=== PATIENT | male | born 1950 | race Caucasian/White ===

== ENCOUNTER 2019-04-25 15:13 | Outpatient (CLI) | payer MEDICARE, OTHER, SELFPAY | END 2019-04-25 15:14 | disposition home or self-care (01) | PROVIDERS: Family Provider Family Medicine; PCP Family Medicine; Visit Provider Nurse Practitioner Family | DX: Z76.89 Persons encountering health services in other specified circumstances (principal) ==

== ENCOUNTER 2019-04-28 15:11 | Outpatient (CLI) | payer MEDICARE, OTHER, SELFPAY ==
--- NOTE | 2019-04-28 15:19 | USCV_ITS ---
Simba Berry Age: 68 Gender: M : 1950 Exam Date: 04/28/2019 15:18 Ordering Phys: Natalia Donaldson Technologist: Iman Ramires Exam Location: [facility] [place] Indication: HISTORY: Patient has ulcers. PROCEDURES: Bilateral duplex Venous Insufficiency study of the Deep and Superficial systems was carried out according to normal protocol with the patient in supine positon for deep system and dependent position for the superficial system. FINDINGS: There is no evidence of bilateral deep vein thrombosis. No evidence of superficial thrombosis in the bilateral saphenous system. No evidence of reflux was noted in the bilateral deep venous system. No venous reflux noted in the bilateral small saphenous vein. Venous reflux is demonstrated in the RIGHT greater saphenous vein with a spectral Doppler display of greater than 500 milliseconds at the PROXIMAL and BELOW THE KNEE levels. Venous reflux is demonstrated in the LEFT greater saphenous vein with a spectral Doppler display of greater than 500 milliseconds at most levels imaged. Venous reflux was demonstrated in the LEFT SFJ with a spectral display of greater than 500 milliseconds. CONCLUSIONS No evidence of DVT in the above-mentioned identifiable veins. On the right side, significant venous reflux of greater than 500 ms were noted at the proximal and below-knee greater saphenous vein segments On the left side, significant venous reflux of greater than 500 ms were noted at the saphenofemoral junction, distal to the saphenofemoral junction, proximal and mid greater saphenous vein segments and the below knee greater saphenous vein segments. No significant venous reflux in the small saphenous venous systems bilaterally The venous dimensions, depth from the surface and reflux times as mentioned above Dr Karina Ly MD [facility] (Electronically Signed) Final Date: 29 April 2019 07:46 S
== END 2019-04-28 15:12 | disposition home or self-care (01) ==
LOC: RAD 15:17
PROVIDERS: Family Provider Family Medicine; PCP Family Medicine; Visit Provider Family Medicine
DX: L97.929 Non-pressure chronic ulcer of unspecified part of left lower leg with unspecified severity (principal); L97.919 Non-pressure chronic ulcer of unspecified part of right lower leg with unspecified severity; I73.9 Peripheral vascular disease, unspecified
CPT/HCPCS: 93970

== ENCOUNTER 2019-05-08 15:00 | Outpatient (RCR) | payer MEDICARE, SELFPAY ==
--- NOTE | 2019-04-18 11:36 | XR_ITS ---
WS: [id number] FOOT LEFT TECHNIQUE: 3 views of the left foot CLINICAL INFORMATION: PAIN/REDNESS/NON HEALING ULCER COMPARISON: None. FINDINGS: Osteopenia. No acute fractures. Vascular calcification. Soft tissue edema hindfoot. Plantar and Achil les calcaneal spurring. Soft tissue ulceration overlying the calcaneus. No evidence of osteomyelitis. XR/XR foot LT min 3V* [id number] IMPRESSION: No evidence of osteomyelitis.
[2019-04-18 15:24] LABS: Estmated Average Glucose 180; Hemoglobin A1C 7.9 % (4.0-6.0)
== END 2019-05-09 23:59 | disposition home or self-care (01) ==
LOC: RAD 15:00
PROVIDERS: Family Provider Family Medicine; PCP Family Medicine; Visit Provider Nurse Practitioner Family
DX: E11.621 Type 2 diabetes mellitus with foot ulcer (principal); L97.422 Non-pressure chronic ulcer of left heel and midfoot with fat layer exposed; I96 Gangrene, not elsewhere classified; M79.672 Pain in left foot
CPT/HCPCS: 11042; 36415; 73630; 83036; 87070; 87077; 87176; 87186; 87205; 99212; G0463; L3260

== ENCOUNTER 2019-05-10 08:58 | Emergency (ER) | payer MEDICARE, OTHER, SELFPAY ==
[2019-05-10 09:13] VITALS: BP 182/85; PULSE 74; RESP 17; TEMP 36.6; O2SAT 96; BMI 42.3
--- NOTE | 2019-05-10 09:27 | PC.NURSE ---
Patient c/o anterior, lateral left foot pain that started last night. Patient states that he has had shingles in this area within the last 6 months. Pain has been been intermittent and is very painful to touch. Pain is described as sharp and burning sensation. Pain is 4/10 but increases intermittently to 7-8/10. No injury noted. Is seeing wound care for open area on the posterior, medial heel; lareg bandaid is in place over area at this time.
--- NOTE | 2019-05-10 09:33 | ED_ITS ---
HPI - Extremity Problem General: Chief complaint: Extremity Problem,Nontraumatic Stated complaint: Left foot pain Time Seen by Provider: 05/10/19 09:12 Source: patient Mode of arrival: ambulatory Limitations: no limitations History of Present Illness: HPI Narrative: Patient is a 68-year-old male who presents to ED today with complaints of left foot pain that he awoke with; charu ent states he had similar pains back in December of last year and at that time was accompanied by a rash and was subsequently diagnosed with shingles; he was placed on antivirals and stated he improved; he has not had any issues with the extremity until this morning; he describes the pain as a burning stabbing sensation; no injury or trauma noted MD Complaint: extremity pain Onset (ago): hour(s) Pain Consistency: constant Location: left Quality: burning, stabbing and sharp Radiation: none Relieving factors: nothing Exacerbating factors: nothing Associated symptoms: Reports no associated symptoms Review of Systems Musc: Reports: extremity pain; Denies: neck pain, back pain, extremity swelling, joint pain, joint swelling, redness, joint warmth or joint stiffness Neuro: Denies: headache, numbness in extremities, weakness in extremities or changes in sensation PFSH ED PFSH: Statuses (acute, chronic, etc) shown below reflect problem list status as previously entered and may not be historically accurate Surgical History (Updated 04/28/19 @ 14:51 by Mateo Beltran MD) Status post arthroscopy of left shoulder (Acute) Social History (Updated 04/28/19 @ 14:50 by Adina Balderas LPN) Smoking and tobacco status: never smoked Alcohol intake: never Physical Exam Const: COMMON NORMALS: no apparent distress, oriented x3, no limitations and alert NUTRITIONAL APPEARANCE: obese Extremity: OTHER: Patient has severe tenderness to the dorsum of his left foot; there is no obvious rash formation at this time; there is no swelling, ecchymosis to suggest injury Neuro: COMMON NORMALS: oriented x3 SENSORIUM/ORIENTATION: Yes alert Course Vital Signs: Vital signs: Vital Signs Temperature 98.3 F 05/10/19 09:47 Pulse Rate 75 05/10/19 09:47 Respiratory Rate 20 H 05/10/19 09:47 Blood Pressure 164/69 05/10/19 09:47 Pulse Oximetry 96 05/10/19 09:47 MDM - Extremity (Nontraumatic) MDM Narrative: Medical decision making narrative: Patient states last episode he did have an erythematous blistering rash hence why he was diagnosed with the herpes zoster. Based on his symptoms today of sharp burning, I will go ahead and place him on valacyclovir. Recommend close follow-up with his PCP. Patient already takes oxycodone daily for pain-he may continue this as needed. Return to ED precautions given Discharge Plan Discharge Patient Disposition: Home, Self-Care Clinical Impression: Shingles Qualifiers: Herpes zoster complications: without complications Qualified Code(s): B02.9 - Zoster without complications Condition: Stable Prescriptions: New valacyclovir 1 gram tablet 1,000 mg PO Q8H 7 Days Qty: 21 RF: 0 No Action oxycodone-acetaminophen [Percocet] 10-325 mg tablet 1 tab PO Q6H PRNRF: 0 carvedilol 12.5 mg tablet 12.5 mg PO BID Qty: 60 RF: 0 omeprazole 20 mg capsule,delayed release(DR/EC) 20 mg PO ONCE Qty: 30 RF: 1 spironolactone 25 mg tablet 25 mg PO ONCE Qty: 30 RF: 1 diclofenac sodium 25 mg tablet,delayed release (DR/EC) 25 mg PO BID PRN (Reason: pain) Qty: 60 RF: 0 sertraline 100 mg tablet 100 mg PO QDAY Qty: 60 RF: 0 Discharge Orders: Discharge Order (Routine); Ordered 05/10/19 Ordered By: Gemini Stern Referrals: Denice Coronado DO [Primary Care Provider] - Discharge Diet: Usual diet Discharge Activity: Increase activity as tolerated Activity Restrictions/Additional Instructions: Can continue your current pain medications as prescribed. Please followup with primary care next week for continued pain. Discharge Date/Time: 05/10/19 09:48 Coding Level of Care Code ED Range Management Specialist for Bill Griffin
[2019-05-10 09:47] VITALS: BP 164/69; PULSE 75; RESP 20; TEMP 36.8; O2SAT 96
== END 2019-05-10 09:48 | disposition home or self-care (01) ==
LOC: ER 09:47
PROVIDERS: Emergency Provider Physician Assistant; Family Provider Family Medicine; PCP Family Medicine
DX: B02.9 Zoster without complications (principal)
CPT/HCPCS: 99281; 99282

== ENCOUNTER 2019-05-14 14:07 | Outpatient (RCR) | payer MEDICARE, OTHER, SELFPAY | END 2019-06-07 23:59 | disposition home or self-care (01) | LOC: WOUND 14:07 | PROVIDERS: Family Provider Family Medicine; PCP Family Medicine; Visit Provider Nurse Practitioner Family | DX: Z09 Encounter for follow-up examination after completed treatment for conditions other than malignant neoplasm (principal) | CPT/HCPCS: 99212 ==

== ENCOUNTER → 2019-05-23 11:27 | Outpatient (BNVA) | payer MEDICARE, OTHER, SELFPAY | PROVIDERS: Family Provider Family Medicine; PCP Family Medicine; Visit Provider Family Medicine | DX: I10 Essential (primary) hypertension (principal); E11.9 Type 2 diabetes mellitus without complications; E78.5 Hyperlipidemia, unspecified; F32.9 Major depressive disorder, single episode, unspecified | CPT/HCPCS: 80053; 80061; 82044; 83036; 83721; 85025 ==

== ENCOUNTER 2019-07-08 10:26 | Outpatient (CLI) | payer MEDICARE, OTHER, SELFPAY ==
--- NOTE | 2019-07-08 10:36 | MR_ITS ---
WS: [id number] MRI LEFT SHOULDER HISTORY: status post left shoulder arthroscopy, new onset of pain 2 weeks ago. COMPARISON: 01/16/2018 TECHNIQUE: Multiplanar sequences of the shoulder joint are submitted. Large amount of fluid surrounding the humeral head. There is a large joint effusion which extends int o the AC joint. Small loose bodies are evident within the fluid. Anchors are also noted within the hu meral head. Fluid at the AC joint. There is significant narrowing of the acromiohumeral joint space. Acromion abu ts the superior humeral head. Complete tears with retraction of the supraspinatus and subscapularis t endons. Supraspinatus tendon is retracted to the level of the glenoid. Subscapularis tendon may be th e loose body within the fluid over the proximal humerus. Infraspinatus tendon is intact. Biceps tendon is not identified at the bicipital groove. Glenohumeral joint space narrowing. Cortical irregularity over the humeral head and glenoid. Fraying and irregularity involving the labrum. MR/MR shoulder LT wo con* [id number] IMPRESSION: 1. Large joint effusion with fluid extending into the AC joint. 2. Humeral head abuts the undersurface of the acromion. 3. Full-thickness tear is of the supraspinatus and subscapularis tendon with r etraction. 4. Biceps tendon is no longer appreciated at the bicipital groove and is retra cted. 5. Moderate degenerative changes at the humeral head and at the glenohumeral j oint space. 6. Mild AC joint sprain. 7. Multiple anchors in the humeral head from prior surgery.
== END 2019-07-08 10:27 | disposition home or self-care (01) ==
LOC: RADSHAW 10:27
PROVIDERS: Family Provider Family Medicine; PCP Family Medicine; Visit Provider Orthopaedic Surgery
DX: Z98.890 Other specified postprocedural states (principal); M25.412 Effusion, left shoulder; M75.102 Unspecified rotator cuff tear or rupture of left shoulder, not specified as traumatic
CPT/HCPCS: 73221

== ENCOUNTER 2019-07-23 05:40 | Day surgery (SDC) | payer MEDICARE, OTHER, SELFPAY ==
[2019-07-22 10:45] VITALS: BMI 41.3
[2019-07-23] VITALS (8 sets, daily range): BP systolic 127–149; BP diastolic 64–84; PULSE 77–91; RESP 15–22; TEMP 36.2–36.6; O2SAT 92–99
--- NOTE | 2019-07-23 06:02 | ECG_ITS ---
Measurements Intervals [place]ble Rate: 71 P: HI: 0 QRS: 7 QRSD: 94 T: 44 QT: 355 QTc: 388 ATRIAL FIBRILLATION NONSPECIFIC T-WAVE ABNORMALITY ABNORMAL RHYTHM ECG Compared to ECG 03/26/2019 06:23:01 T-wave abnormality now present Sinus rhythm no longer present Electronically Signed On 07-23-2019 19:09:08 CDT by Emily George M.D. [email or web address]
[2019-07-23 06:22] LABS: Glucose Point of Care 172 mg/dL (70-110)
[2019-07-23] MEDS: sodium chloride 0.9% 1,000 ML 30 ML IV (06:35)
--- NOTE | 2019-07-23 06:44 | ANES.PREANE2 ---
Pre-Anesthetic Assessment Pre-Anesthetic Assessment: Height/Weight: Height 1.69 m Weight 117.934 kg Temp Pulse Resp BP Pulse Ox 97.1 F L 91 18 146/80 94 07/23/19 06:27 07/23/19 06:27 07/23/19 06:27 07/23/19 06:27 07/23/19 06:27 Preop Diagnosis: Tear left rotator cuff Proposed Procedure: Operation Date: 07/23/19 07:00 Proposed Procedures p Shoulder Arthroscopy 99367 S46.011A(Left) - Mateo Beltran MD Familial anesthetic complications: No trouble Was Beta Cherise taken within 24 hours: Yes Last intake: Intake Last Liquid Date 07/22/19 Last Liquid Time 18:00 Last Solid Date 07/22/19 Last Solid Time 18:00 Social: Social History: No alcohol and No tobacco Exam: Pre-Anes Outpt Exam: alert, oriented x 3, clear to auscultation bilaterally and regular rate & rhythm Airway: Cervical ROM: WNL MP: 3 Dentition: Chipped Pulmonary: Pulmonary: Sleep apnea CV/HEM: CV/HEM: HTN : : None reported Hepatic: Hepatic: None reported GI: GI: None reported Metabolic: Metabolic: DM, Hyperlipidemia and Morbid obesity Musc/skel: Musc/skel: None reported Neuropsych: Neuropsych: None reported Anesthetic Plan: ASA status: 3 Anesthesia: General and Regional (specify below) Risk of > 500 ml blood loss (7ml/kg in children): No Meds/Allergies Current Medications: Current Medications Generic Name Dose Route Start Last Admin Trade Name Freq PRN Reason Stop Dose Admin Sodium Chloride 1,000 mls @ 30 ml s/hr 07/23/19 06:00 07/23/19 06:35 Sodium Chloride 0.9% IV 07/24/19 05:59 30 mls/hr .Q24H NEDA Administration PFSH Anesthesia PFSH: Social History Smoking and tobacco status: never smoked Alcohol intake: never Data Anesthesia Other Labs: Laboratory Results - last 48 hr 07/23/19 06:19 POC Glucose 172 Cardiac Studies: No Data to Display
[2019-07-23] MEDS: fentaNYL 50 mcg/mL INJ 2mL 100 MCG IVP (07:00)
[2019-07-23] MEDS: midazolam 1 mg/mL INJ 2 mL 2 MG IVP (07:01)
[2019-07-23 07:03] LABS: Anion Gap 18.5 (5-19); Blood Urea Nitrogen 27 mg/dL (8-23); Calcium 9.9 mg/dL (8.5-10.5); Carbon Dioxide 24 mmol/L (22-29); Chloride 98 mmol/L (98-107); Glomerular Filtration Rate 66.2 mL/min (90-130); Glucose 190 mg/dL (65-115); Osmolality Calculated 284 mOsm/kg (285-295); Potassium 4.5 mmol/L (3.5-5.1); Sodium 136 mmol/L (136-145)
--- NOTE | 2019-07-23 07:05 | W.PM.OPSUD ---
Surgery/Procedure H&P Update DATE OF PROCEDURE: July 23, 2019 DATE H&P PERFORMED: 07/21/19 H&P UPDATE INFORMATION: I have reviewed H&P completed within last 30 days PREOP DIAGNOSIS: Tear left rotator cuff PLANNED PROCEDURE: Operation Date: 07/23/19 07:00 Proposed Procedures p Shoulder Arthroscopy 73582 S46.011A(Left) - Mateo Beltran MD
--- NOTE | 2019-07-23 07:21 | ANES.PROC ---
Anesthesia Procedures Procedure/Date: 07/23/19 Nerve Block ^: Nerve Block 1: Main Anesthesia: general anesthesia Time Out Performed: Yes Consent: requested by attending/covering physician, from patient, risks and benefits reviewed and patient agrees to proceed Nerve block location: interscalene (L) Anesthesia monitors applied: pulse oximetry, BP cuff and oxygen Nerve block position: semi sitting Anesthetic Used: ropivicaine 0.5% and with decadron (4 mg) Amount of anesthesia used (mL): 20 Ultrasound used to: recognize landmarks, visualize and ID brachial plexus and visualize and ID interscalene groove Nerve Stimulator Used?: No Interscalene/Femoral BLK: 2 stimuplex 22 g needle used for position and inplane approach Injection: neg aspiration of heme and paresthesia +/- Patient Tolerated Procedure: well and no complications Complications: none
--- NOTE | 2019-07-23 10:56 | P.OP_ITS ---
Operative Report Date of procedure: July 23, 2019 Pre-op Diagnosis: Tear left rotator cuff, recurrent; unstable os acromiale Post-op diagnosis: same Estimated blood loss (mL): 50 Findings: The patient had a large recurrent tear of his rotator cuff beginning at the leading edge of the supraspinatus extending posteriorly approximately 2 cm with approximately 2 cm of tendinous retraction. The tendon was reasonably m obile and with debridement could be brought back to the greater tuberosity with modest attention. Tendon bone quality was very good. An unstable os acromiale was again noted. The os acromiale was mobile with palpation and involves a large portion of the anterior acromion deemed too large for excision Brief History: The patient is a 68-year-old male who underwent previous rotator cuff repair on 03/26/2019. Approximately 2 weeks afterwards he sustained a reinjury to the shoulder when he reached up to deflect a volleyball that was hit his way. He felt a pop and had immediate pain thereafter. Repeat imaging revealed a large retracted tear of the rotator cuff. Surgery was chosen to improve pain and function. He was counseled that the results with repeat rotator cuff repair are less predictable than with primary. Procedure: The patient was given an interscalene block and taken to the opera ting room. He was given 900 mg of clindamycin. He was positioned in the lateral position with his left arm in 15 pounds of traction. A timeout was performed. He was prepped and draped in the usual fashion. Initially the shoulder was entered through the previous posterior portal and the large tear of the rotator cuff was identified. Anterior and lateral portals were opened up to allow portals for additional work. The tendon itself was very thick and fibrillated. It was debrided back with an incisor shaver and G[employer]hew Werewolf probe to stable margins. The bursal and articular surfaces were debrided. It was felt that the tear could be mobilized and brought nearly back to the footprint. A 5.5 mm acromionizer was used to debride the tuberosity and slightly medialized the attachment approximately 4 mm. Using the G[employer]ales [employer] Nephew FirstPass sutures 2 retention sutures were placed through the rotator cuff to allow mobilization and control of the tendon. Through a posterior and lateral stab wound a 5.5 mm helical anchor was placed in the posterior debrided tuberosity the G[employer]ales [employer] Nephew FirstPass suture passer was used to shuttle 1 limb of Ultratape through the far posterior lateral rotator cuff and the free and approximately a centimeter anteriorly. Ultra braid suture was passed in a more central and medial position. A second anchor was placed approximately cent imeter anteriorly and a third a centimeter anterior to the sutures passed in identical fashion. The Ultratape sutures were secured first drawing the lateral margins the rotator cuff to bone. The Ultrabraid sutures were secured secondly in a modified [place] type of fashion. Next a G[employer]ales [employer]hew Regeneten implant was passed through the lower lateral portal and covered the repair. It was fixed medially with soft tissue tendon ana and laterally with 3 bone ana covering the repair and providing additional strength and biological tissue for healing. The shoulder was irrigated with saline. Portals were closed with 3-0 Prolene. Sterile dressings were applied. The patient was extubated and placed in a sling and taken to recovery room in stable condition.
== END 2019-07-23 12:15 | disposition home or self-care (01) ==
PROVIDERS: Anesthesiology; Family Provider Family Medicine; PCP Family Medicine; Visit Provider Orthopaedic Surgery
PROC: (CPT 29805; principal; 2019-07-23 07:00)
PROC: (CPT 29827; 2019-07-23 07:00)
DX: M75.102 Unspecified rotator cuff tear or rupture of left shoulder, not specified as traumatic (principal); I48.91 Unspecified atrial fibrillation; I10 Essential (primary) hypertension; E11.9 Type 2 diabetes mellitus without complications; G47.30 Sleep apnea, unspecified; E78.5 Hyperlipidemia, unspecified; E66.01 Morbid (severe) obesity due to excess calories; Z68.41 Body mass index [BMI] 40.0-44.9, adult
CPT/HCPCS: 29827; 12345; 36415; 36416; 80048; 82962; 93005; 96374; 96375; C1713; J1100; J2001; J2250; J2370; J2405; J2704; J2795; J3010; J3490; J7030

== ENCOUNTER 2019-08-02 19:05 | Emergency (ER) | payer MEDICARE, BC, OTHER, SELFPAY ==
[2019-08-02 19:09] VITALS: BP 147/84; PULSE 93; RESP 16; TEMP 36.7; O2SAT 99; BMI 361.6
--- NOTE | 2019-08-02 19:19 | W.ED.GENADLT ---
HPI - General Adult General: Chief complaint: General Medical Stated complaint: wound leakage post surgery Time Seen by Provider: 08/02/19 19:18 History of Present Illness: HPI narrative: Pt had rotator cuff surgery about 10 days ago, he saw his surgeon for dressing change and there was some serous drainage. This afternoon when they went to [facility] [place] the bandage there was purulent green drainage. redness and swelling. He has had chills in the past 2 days. no fever Onset (ago): day(s) (2) Location: upper extremity (left shoulder) Radiation: non-radiation Severity: moderate Severity scale (1-10): 6 Quality: burning and stabbing Pain Consistency: constant Relieving factors: none Exacerbating factors: none Associated symptoms: Reports fevers/chills and rash; Deny cough, dyspnea, headache(s), nausea, short of breath, syncope or vomiting Treatments prior to arrival: none Review of Systems General: Reports: 10 or more systems reviewed and unremarkable except in HPI and below Const: Reports: chills; Denies: fever or fatigue ENMT: Denies: throat pain Card: Denies: syncope Resp: Denies: shortness of breath or productive cough GI: Denies: abdominal pain, nausea, vomiting, diarrhea, constipation or blood in stool Musc: Denies: back pain Skin/Breast: Reports: rash, redness (to top of left shoulder at incision site), skin tenderness, skin swelling and surgical incision Neuro: Denies: headache, numbness in extremities or weakness in extremities Psych: Denies: anxiety or depression PFSH ED PFSH: Medical History Benign essential HTN Cervical radiculopathy Depression Diabetic foot ulcer Enrolled in chronic care management Hyperlipidemia Hypertriglyceridemia Iron deficiency anemia Nocturia Type 2 diabetes mellitus, without long-term current use of insulin Surgical History H/O hernia repair History of appendectomy History of back surgery History of neck surgery History of right hip replacement Status post arthroscopy of left shoulder Family History Other Cancer Social History Smoking and tobacco status: never smoked Alcohol intake: never Physical Exam Const: COMMON NORMALS: no apparent distress and oriented x3 GENERAL APPEARANCE: cooperative; not in distress HENMT: COMMON NORMALS: normocephalic HEAD & SCALP: normal to inspection and normocephalic MOUTH: oral and palatal mucosa normal and lip normal THROAT: posterior oropharynx normal and tonsils normal Neck/C-Spine: COMMON NORMALS: full ROM, no lymphadenopathy, supple and no meningeal signs GENERAL: Yes normal visual inspection and Yes trachea midline Chest: COMMONS NORMALS: inspection of chest normal Resp: COMMON NORMALS: normal respiratory effort and clear to auscultation bilaterally EFFORT & INSPECTION: Yes able to speak in complete sentences and No respiratory distress AUSCULTATION: clear to auscultation bilaterally, no rales, no rhonchi and no wheezes Cardio: COMMON NORMALS: regular rate, regular rhythm, S1 normal heart sound, S2 normal heart sound and no murmurs RATE: regular rate RHYTHM: regular rhythm HEART SOUNDS: S1 normal and S2 normal PERIPHERAL PULSES: radial pulses present and dorsalis pedis pulses present GI: COMMON NORMALS: normal to inspection, nondistended, normoactive bowel sounds, soft to palpation and non-tender INSPECTION: Yes normal to inspection AUSCULTATION: Yes normoactive bowel sounds PALPATION: Yes soft, No tender, No guarding and No rigid RECTAL EXAM: Yes deferred : COMMON NORMALS: Yes no CVA tenderness BLADDER/KIDNEY EXAM: Yes no CVA tenderness Back/Pelvis: COMMON NORMALS: no CVA tenderness Extremity: LEFT UPPER EXTREMITY: Yes shoulder joint (pt has several small healing surgical wounds with sutures in place, ant) Left shoulder joint: Yes other OTHER: purulent thick large amount of drainage from ant/ inf most incision with erythema swelling and tenderness Neuro: COMMON NORMALS: oriented x3, CN's II-XII intact bilaterally, moves all extremities and no focal motor deficits MENINGEAL SIGNS: Yes no meningeal signs Skin: COMMON NORMALS: negative for no rashes or lesions noted (as above) GENERAL SKIN EXAM: rashes and/or lesions noted (as above) Course Vital Signs: Vital signs: Vital Signs Temperature 98.0 F 08/02/19 19:09 Pulse Rate 93 08/02/19 19:09 Respiratory Rate 20 H 08/02/19 22:45 Blood Pressure 147/84 08/02/19 19:09 Pulse Oximetry 99 08/02/19 19:09 MDM - General Adult MDM Narrative: Medical decision making narrative: C1010: I called Dr Dempsey and read the ct report and discussed the case and he states he is out of town and not distribution supervisor and cant come in so we will have to call Dr Epps, Dr Epps states she doesnt take care of necrotizing fasciitis so we will have to transfer the pt to [facility]. I will find out where the pt wants to go. 1022pm- pt requesting [facility] is going to call back with ortho surgeon Ricardo TODD for [facility] has accepted pt to [facility], keep pt npo. Lab Data: Attestation: I reviewed the patient's lab results. Labs: Lab Results 08/02/19 08/02/19 08/02/19 Range/Units 19:35 19:35 19:35 WBC 6.6 (4.0-10.0) 10^3/ uL RBC 4.09 L (4.1-5.3) 10^6/u L Hgb 12.1 (11.7-16.6) g/dL Hct 37.9 L (42.0-52.0) % MCV 92.7 (80-94) fL MCH 29.6 (28.0-34.0) pg MCHC 31.9 (30.0-36.0) g/dL RDW 13.2 (12.1-15.1) % Plt Count 231 (130-400) 10^3/c mm MPV 9.7 (7.4-10.4) fL Neut % (Auto) 73.1 % Lymph % (Auto) 16.6 % Colbert % (Auto) 8.2 % Eos % (Auto) 0.8 % Baso % (Auto) 0.5 % Neut # (Auto) 4.8 (1.8-7.7) 10^3/u L Lymph # (Auto) 1.1 (0.8-4.8) 10^3/u L Colbert # (Auto) 0.5 (0.2-0.9) 10^3/u L Eos # (Auto) 0.1 (0.0-0.8) 10^3/u L Baso # (Auto) 0.0 (0.0-0.1) 10^3/u L Nucleated RBC % (a uto) 0 % Nucleated RBCs # 0.0 /100WBC ESR 103 H (0-10) mm/hr Sodium 137 (136-145) mmol/L Potassium 4.0 (3.5-5.1) mmol/L Chloride 96 L (98-107) mmol/L Carbon Dioxide 30 H (22-29) mmol/L Anion Gap 15.0 (5-19) BUN 21 (8-23) mg/dL Creatinine 1.4 H (0.7-1.2) mg/dL GFR Calculation 50.1 L (90-130) mL/min Glucose 218 H (65-115) mg/dL Calculated Osmolal ity 287 (285-295) mOsm/k g Calcium 9.4 (8.5-10.5) mg/dL Total Bilirubin 0.4 (0.15-1.2) mg/dL AST 42 H (0-40) U/L ALT 55 H (0-41) U/L Alkaline Phosphata se 144 H (40-130) IU/L C-Reactive Protein (0.0-4.9) mg/L Total Protein 7.3 (6.6-8.7) g/dL Albumin 3.3 L (3.5-5.2) g/dL Globulin 4.0 (1.3-4.6) g/dL 04/25/20 Range/Units 19:35 WBC (4.0-10.0) 10^3/ uL RBC (4.1-5.3) 10^6/u L Hgb (11.7-16.6) g/dL Hct (42.0-52.0) % MCV (80-94) fL MCH (28.0-34.0) pg MCHC (30.0-36.0) g/dL RDW (12.1-15.1) % Plt Count (130-400) 10^3/c mm MPV (7.4-10.4) fL Neut % (Auto) % Lymph % (Auto) % Colbert % (Auto) % Eos % (Auto) % Baso % (Auto) % Neut # (Auto) (1.8-7.7) 10^3/u L Lymph # (Auto) (0.8-4.8) 10^3/u L Colbert # (Auto) (0.2-0.9) 10^3/u L Eos # (Auto) (0.0-0.8) 10^3/u L Baso # (Auto) (0.0-0.1) 10^3/u L Nucleated RBC % (a uto) % Nucleated RBCs # /100WBC ESR (0-10) mm/hr Sodium (136-145) mmol/L Potassium (3.5-5.1) mmol/L Chloride (98-107) mmol/L Carbon Dioxide (22-29) mmol/L Anion Gap (5-19) BUN (8-23) mg/dL Creatinine (0.7-1.2) mg/dL GFR Calculation (90-130) mL/min Glucose (65-115) mg/dL Calculated Osmolal ity (285-295) mOsm/k g Calcium (8.5-10.5) mg/dL Total Bilirubin (0.15-1.2) mg/dL AST (0-40) U/L ALT (0-41) U/L Alkaline Phosphata se (40-130) IU/L C-Reactive Protein 254.0 H (0.0-4.9) mg/L Total Protein (6.6-8.7) g/dL Albumin (3.5-5.2) g/dL Globulin (1.3-4.6) g/dL Imaging Data^: CXR: Radiologist's impression: XRay Report Signed Patient: Camilla Gonsales #: [id number] : 8Acct#:[id number] Age/Sex: 70 / FADM Date: 08/02/19 Loc: ERRoom/Bed: Attending Dr: Ordering Provider/Ordering MD: Dasia Real DO Date of Service: 08/02/19 Procedure(s): XR chest 1V portable [id number] Accession Number(s): [id number] Report Number: [id number] PROCEDURE INFORMATION: Exam: XR Chest, 1 View Exam date and time: 08/02/2019 8:29 PM Age: 70 years old Clinical indication: Injury or trauma; Fall; Initial encounter; Concussion /head injury; Additional info: Pneumonia TECHNIQUE: Imaging protocol: XR of the chest Views: 1 view. COMPARISON: CR Chest 1 [place] [id number] 03/18/2017 3:34 AM FINDINGS: There is cardiomegaly which is stable. There are mild infiltrates within the lung bases. There is no pleural effusion or pneumothorax. Pulmonary vascularity is normal. No rib fractures are seen. XR/XR chest 1V portable [id number] IMPRESSION: 1. Cardiomegaly, stable. 2. Mild basilar infiltrates. Dictated By:Justin Nowak MD Signed By:Justin Nowak MDSigned Date/Time:08/02/192041 DD/ 40 Discharge Plan Discharge Patient Disposition: Xfer Short-Term Hosp Clinical Impression: Septic arthritis of AC joint, Necrotizing fasciitis of shoulder region, Abscess after procedure, History of rotator cuff surgery Septic joint of left shoulder region Qualifiers: Septic arthritis organism: due to unspecified organism Qualified Code(s): M00.9 - Pyogenic arthritis, unspecified Condition: Stable Referrals: Denice Coronado DO [Primary Care Provider] - Coding Level of Care Code ED Inside Sales Agent for g Fwd Exam Comprehensive
--- NOTE | 2019-08-02 19:28 | CTR_ITS ---
PROCEDURE INFORMATION: Exam: CT Left Upper Extremity With Contrast, Shoulder Exam date and time: 08/02/2019 7:45 PM Age: 68 years old Clinical indication: Other: Purulent discharge; Prior surgery; Surgery date: <1 month; Surgery type: Scope x 2; Patient HX: Laproscopic surgery 07/22 now w oozing discharge from surgical wound x 2 days; Additional info: Purulent drainage from surgical wound TECHNIQUE: Imaging protocol: CT of the Left upper extremity with contrast material. Exam focused on the shoulder Total DLP: 2009.08 mGy-cm Radiation optimization: All CT scans at this facility use at least one of these dose optimization techniques: automated exposure control; mA and/or kV adjustment per patient size (includes targeted exams where dose is matched to clinical indication); or iterative reconstruction. Contrast material: OMNI 300; Contrast volume: 95 ml; Contrast route: 20G; COMPARISON: MR shoulder LT wo con* [id number] 07/08/2019 10:53 AM FINDINGS: Bones/joints: Bipartite acromion. Severe narrowing and degenerative changes of the glenohumeral joint. High-riding humeral head, consistent with rotator cuff arthropathy. Left glenohumeral joint fluid with a few gas bubbles. There is an additional small abscess superior to the acromioclavicular joint measuring 2.3 cm, which may communicate with the acromial clavicular joint. Irregularity of the acromioclavicular joint and glenohumeral joint surfaces. Soft tissues: There is a crescent shaped fluid collection with peripheral enhancement deep to the deltoid muscle posterior laterally, which measures approximate 8.0 cm x 0.9 cm x 5.6 cm. This fluid collection communicates with a superficial abscess containing gas bubbles measuring 4.1 cm, just lateral to the acromion. There are multiple gas bubbles along the muscle fascia in the anterior lateral upper arm, adjacent to the biceps muscle. 2.7 x 1.1 x 4.0 cm abscess with peripheral enhancement extending into the subscapular recess and muscle. Additional abscess extending from the superior deltoid muscle to the skin surface measuring 3.0 x 1[address]/CT shoulder LT w con [id number] IMPRESSION: 1. Findings consistent with septic left glenohumeral and acromioclavicular joints. 2. Irregularity of the acromioclavicular and glenohumeral joint surfaces could represent osteomyelitis and bone destruction. 3. Multiple soft tissue abscesses involving the subscapular region, deep to the deltoid muscle, superficial to the acromioclavicular joint, and superficial to the deltoid muscle. 4. Gas bubbles along the anterolateral bicep muscle fascia is consistent with infection and could represent necrotizing fasciitis. Radiation Dose CTDIVOL = (mGy): DLP = 2010.08 (mGy-cm)
[2019-08-02 20:07] LABS: Basophils % 0.5 %; Eosinophils # 0.1 10^3/uL (0.0-0.8); Eosinophils % 0.8 %; Hematocrit 37.9 % (42.0-52.0); Hemoglobin 12.1 g/dL (11.7-16.6); Lymphocytes # 1.1 10^3/uL (0.8-4.8); Lymphocytes % 16.6 %; Mean Corpuscular HGB Conc 31.9 g/dL (30.0-36.0); Mean Corpuscular Hemoglobin 29.6 pg (28.0-34.0); Mean Corpuscular Volume 92.7 fL (80-94); Mean Platelet Volume 9.7 fL (7.4-10.4); Monocytes # 0.5 10^3/uL (0.2-0.9); Monocytes % 8.2 %; Neutrophils # 4.8 10^3/uL (1.8-7.7); Neutrophils % 73.1 %; Nucleated Red Blood Cells % 0 %; Platelet Count 231 10^3/cmm (130-400); Red Blood Count 4.09 10^6/uL (4.1-5.3); Red Cell Distribution Width 13.2 % (12.1-15.1); White Blood Count 6.6 10^3/uL (4.0-10.0)
[2019-08-02 20:26] LABS: Alanine Aminotransferase 55 U/L (0-41); Albumin Level 3.3 g/dL (3.5-5.2); Alkaline Phosphatase 144 IU/L (40-130); Aspartate Amino Transferase 42 U/L (0-40); Blood Urea Nitrogen 21 mg/dL (8-23); Calcium 9.4 mg/dL (8.5-10.5); Carbon Dioxide 30 mmol/L (22-29); Chloride 96 mmol/L (98-107); Glomerular Filtration Rate 50.1 mL/min (90-130); Glucose 218 mg/dL (65-115); Osmolality Calculated 287 mOsm/kg (285-295); Sodium 137 mmol/L (136-145); Total Bilirubin 0.4 mg/dL (0.15-1.2); Total Protein 7.3 g/dL (6.6-8.7)
[2019-08-02] MEDS: iohexol 300 mg/mL 100 mL Btl IV (21:14)
[2019-08-02] MEDS: levofloxacin-dextrose 5 % 750 MG/150 ML PREMIX 100 MG IV (21:24)
[2019-08-02] MEDS: vancomycin 1,000 MG in sodium chloride 0.9% 250 ML 250 MG IV (22:19)
[2019-08-02 22:45] VITALS: RESP 20
[2019-08-02] MEDS: morphine 4 mg/mL SDV 1 mL IVP (22:45)
[2019-08-02 23:18] LABS: Erythrocyte Sedimentation Rate 103 mm/hr (0-10)
[2019-08-03 00:37] VITALS: BP 120/58; PULSE 91; RESP 18; O2SAT 99
[2019-08-03 01:05] VITALS: RESP 18
[2019-08-03] MEDS: HYDROmorphone 1 mg/mL INJ 1 mL IVP ×2 (01:05→03:34)
[2019-08-03] MEDS: sodium chloride 0.9% 1,000 ML 999 ML IV (02:16)
[2019-08-03 02:18] VITALS: BP 154/85; PULSE 83; RESP 17; O2SAT 100
[2019-08-03 03:34] VITALS: RESP 18
[2019-08-03 03:38] VITALS: BP 142/81; PULSE 87; RESP 18; O2SAT 98
== END 2019-08-03 03:40 | disposition short-term general hospital (02) ==
PROVIDERS: Emergency Provider Emergency Medicine; Family Provider Family Medicine; PCP Family Medicine
DX: M00.812 Arthritis due to other bacteria, left shoulder (principal); M72.6 Necrotizing fasciitis; Z98.890 Other specified postprocedural states; I10 Essential (primary) hypertension; E11.9 Type 2 diabetes mellitus without complications; E78.5 Hyperlipidemia, unspecified; Z96.641 Presence of right artificial hip joint
CPT/HCPCS: 12345; 73201; 80053; 85025; 85651; 86140; 87040; 96365; 96375; 99283; J0743; J1170; J1956; J2270; J3370; J7030; J7050; Q9967

== ENCOUNTER 2019-09-05 09:00 | Outpatient (RCR) | payer MEDICARE, OTHER, SELFPAY ==
[2019-08-12] MEDS: cefTRIAXone 2,000 MG in sodium chloride 0.9% (plus) 50 ML 100 MG IV (11:45)
[2019-08-12 11:53] VITALS: BP 125/63; PULSE 80; RESP 20; TEMP 36.4; O2SAT 96; BMI 38.7
[2019-08-12 12:32] LABS: Alanine Aminotransferase 43 U/L (0-41); Albumin Level 3.3 g/dL (3.5-5.2); Alkaline Phosphatase 298 IU/L (40-130); Anion Gap 16.2 (5-19); Aspartate Amino Transferase 44 U/L (0-40); Blood Urea Nitrogen 13 mg/dL (8-23); Calcium 8.6 mg/dL (8.5-10.5); Carbon Dioxide 28 mmol/L (22-29); Chloride 98 mmol/L (98-107); Creatine Phosphokinase 57 U/L (39-308); Globulin 3.4 g/dL (1.3-4.6); Glomerular Filtration Rate 54.6 mL/min (90-130); Glucose 268 mg/dL (65-115); Osmolality Calculated 292 mOsm/kg (285-295); Potassium 4.2 mmol/L (3.5-5.1); Sodium 138 mmol/L (136-145); Total Bilirubin 0.2 mg/dL (0.15-1.2); Total Protein 6.7 g/dL (6.6-8.7)
[2019-08-12 12:46] LABS: Basophils % 0.4 %; Eosinophils # 0.1 10^3/uL (0.0-0.8); Eosinophils % 1.1 %; Hematocrit 32.2 % (42.0-52.0); Lymphocytes # 1.1 10^3/uL (0.8-4.8); Lymphocytes % 20.4 %; Mean Corpuscular HGB Conc 31.1 g/dL (30.0-36.0); Mean Corpuscular Volume 93.3 fL (80-94); Mean Platelet Volume 9.6 fL (7.4-10.4); Monocytes # 0.4 10^3/uL (0.2-0.9); Monocytes % 7.3 %; Neutrophils # 3.7 10^3/uL (1.8-7.7); Neutrophils % 69.8 %; Nucleated Red Blood Cells % 0 %; Platelet Count 228 10^3/cmm (130-400); Red Blood Count 3.45 10^6/uL (4.1-5.3); White Blood Count 5.2 10^3/uL (4.0-10.0)
[2019-08-12 13:10] LABS: C Reactive Protein 95.2 mg/L (0.0-4.9)
[2019-08-13 11:34] VITALS: BP 144/63; PULSE 88; RESP 16; TEMP 36.8; O2SAT 95
[2019-08-13] MEDS: cefTRIAXone 2,000 MG in sodium chloride 0.9% (plus) 50 ML 100 MG IV (11:55)
[2019-08-14 11:21] VITALS: BP 137/77; PULSE 81; RESP 16; TEMP 37.2; O2SAT 96
[2019-08-14] MEDS: cefTRIAXone 2,000 MG in sodium chloride 0.9% (plus) 50 ML 100 MG IV (11:48)
[2019-08-15 11:10] VITALS: BP 135/71; PULSE 82; RESP 18; TEMP 36.6; O2SAT 97
[2019-08-15] MEDS: cefTRIAXone 2,000 MG in sodium chloride 0.9% (plus) 50 ML 100 MG IV (12:31)
[2019-08-16] MEDS: cefTRIAXone 2,000 MG in sodium chloride 0.9% (plus) 50 ML 100 MG IV (10:55)
--- NOTE | 2019-08-16 12:00 | PC.NURSE ---
TIME OF ROCEPHIN INFUSION END TIME WAS ENTERED INCORRECTLY. THE ACTUALLY TIME THE INFUSION ENDED WAS 1120 AM ON 08/16/19.
[2019-08-16 12:02] VITALS: BP 189/86; PULSE 85; RESP 18; TEMP 36.9; O2SAT 99
[2019-08-17 10:15] VITALS: BP 172/93; PULSE 85; RESP 20; TEMP 36.6; O2SAT 97
[2019-08-17] MEDS: cefTRIAXone 2,000 MG in sodium chloride 0.9% (plus) 50 ML 100 MG IV (10:30)
--- NOTE | 2019-08-17 11:42 | SUR.PREOP ---
Patient presented to OPS for IV Infusions. Went to flush the existing picc line which was found to have catheter out of the vein and dangling. The only thing attached was the adapter and picc infusion port secured with the statlock. the length of catheter was 42.5 cm. Dressing removed and 2x2 with coban applied. Notified Dr. Denice Coronado and the ortho attending Dr. Beltran. Orders to insert PIID for infusions and make arrangements for another picc line to be placed tomorrow. 08/18/19
--- NOTE | 2019-08-17 11:51 | SUR.PREOP ---
Patient presented to have IV Infusions today. I went to flush existing picc line to upper right arm which was found to have the catheter completely pulled out and only attached by the statlock and dressing. I contacted Denice Coronado and Dr. Beltran the attending ortho physician as the picc was inserted in [place] at [facility]. Patient didn't have information as to when and by whom. Orders to start a peripheral line to get infusions in and to make arrangements to have another picc line placed 08/18/19.
--- NOTE | 2019-08-17 11:59 | SUR.PREOP ---
INFUSION OF DAPTOMYCIN COMPLETED AT 11:30 AND STARTED THE CEFTRIXONE 2 GRAMS WHICH FINISHED AT 12:00
--- NOTE | 2019-08-18 07:47 | PC.NURSE ---
patient called reporting vomiting. will not be at 08/17 appointment for infusion
[2019-08-19] MEDS: cefTRIAXone 2,000 MG in sodium chloride 0.9% (plus) 50 ML 100 MG IV (09:00)
[2019-08-19 09:01] VITALS: BP 144/73; PULSE 105; RESP 18; TEMP 36.4; O2SAT 96
--- NOTE | 2019-08-19 09:06 | PC.NURSE ---
CEFTRIAXONE AND DAPTOMYCIN MAY BE RUN TOGETHER VIA PIGGYBACK PER SHAYNA IN PHARMACY 08/19/19
--- NOTE | 2019-08-20 09:31 | XR_ITS ---
WS: [id number] PORTABLE CHEST HISTORY: picc placement COMPARISON: None available. Peripherally inserted PICC line terminates in the RIGHT subclavian vein. No complications otherwise. Lungs are clear. Lungs are clear and well expanded. No pleural effusion or pneumothorax. Cardiac size: Normal. Mediastinum/Aorta: Normal mediastinum. No osseous abnormality seen. XR/XR chest 1V portable [id number] IMPRESSION: RIGHT PICC line terminates in the subclavian vein.
--- NOTE | 2019-08-20 10:03 | XR_ITS ---
WS: [id number] PORTABLE CHEST HISTORY: picc placement COMPARISON: None available. Right-sided PICC line has been placed with tip in the mid SVC. No complications. Lungs are clear and well expanded. No pleural effusion or pneumothorax. Cardiac size: Normal. Mediastinum/Aorta: Mild atherosclerosis aorta. No osseous abnormality seen. XR/XR chest 1V portable [id number] IMPRESSION: Right-sided PICC line terminates in the mid SVC.
[2019-08-20] MEDS: cefTRIAXone 2,000 MG in sodium chloride 0.9% (plus) 50 ML 100 MG IV (10:42)
[2019-08-20 10:46] VITALS: BP 149/88; PULSE 88; RESP 18; TEMP 36.9; O2SAT 96
[2019-08-20 11:13] LABS: Alanine Aminotransferase 61 U/L (0-41); Albumin Level 3.4 g/dL (3.5-5.2); Alkaline Phosphatase 412 IU/L (40-130); Anion Gap 13.5 (5-19); Aspartate Amino Transferase 50 U/L (0-40); Blood Urea Nitrogen 14 mg/dL (8-23); C Reactive Protein 98.4 mg/L (0.0-4.9); Calcium 9.5 mg/dL (8.5-10.5); Carbon Dioxide 27 mmol/L (22-29); Chloride 96 mmol/L (98-107); Creatine Phosphokinase 44 U/L (39-308); Globulin 4.2 g/dL (1.3-4.6); Glomerular Filtration Rate 66.2 mL/min (90-130); Glucose 207 mg/dL (65-115); Osmolality Calculated 276 mOsm/kg (285-295); Potassium 4.5 mmol/L (3.5-5.1); Sodium 132 mmol/L (136-145); Total Bilirubin 0.3 mg/dL (0.15-1.2); Total Protein 7.6 g/dL (6.6-8.7)
[2019-08-20 11:21] LABS: Basophils % 0.3 %; Eosinophils % 0.6 %; Hematocrit 34.4 % (42.0-52.0); Hemoglobin 10.8 g/dL (11.7-16.6); Lymphocytes # 1.3 10^3/uL (0.8-4.8); Lymphocytes % 20.6 %; Mean Corpuscular HGB Conc 31.4 g/dL (30.0-36.0); Mean Corpuscular Hemoglobin 28.9 pg (28.0-34.0); Mean Platelet Volume 9.8 fL (7.4-10.4); Monocytes # 0.5 10^3/uL (0.2-0.9); Monocytes % 7.9 %; Neutrophils # 4.4 10^3/uL (1.8-7.7); Neutrophils % 70.1 %; Nucleated Red Blood Cells % 0 %; Platelet Count 227 10^3/cmm (130-400); Red Blood Count 3.74 10^6/uL (4.1-5.3); Red Cell Distribution Width 13.2 % (12.1-15.1); White Blood Count 6.3 10^3/uL (4.0-10.0)
[2019-08-21] MEDS: cefTRIAXone 2,000 MG in sodium chloride 0.9% (plus) 50 ML 100 MG IV (09:13)
[2019-08-21 09:15] VITALS: BP 144/60; PULSE 96; RESP 18; TEMP 36.4; O2SAT 98
[2019-08-22 09:10] VITALS: BP 165/104; PULSE 96; RESP 18; TEMP 35.7; O2SAT 96
[2019-08-22] MEDS: cefTRIAXone 2,000 MG in sodium chloride 0.9% (plus) 50 ML 100 MG IV (09:44)
[2019-08-23] MEDS: cefTRIAXone 2,000 MG in sodium chloride 0.9% (plus) 50 ML 100 MG IV (09:29)
[2019-08-23 09:31] VITALS: BP 113/72; PULSE 99; RESP 18; TEMP 36.2; O2SAT 96
[2019-08-24 08:53] VITALS: BP 140/68; PULSE 77; RESP 18; TEMP 36.4; O2SAT 97
[2019-08-24] MEDS: cefTRIAXone 2,000 MG in sodium chloride 0.9% (plus) 50 ML 100 MG IV (09:34)
[2019-08-26] MEDS: cefTRIAXone 2,000 MG in sodium chloride 0.9% (plus) 50 ML 100 MG IV (09:14)
[2019-08-26 09:41] VITALS: BP 118/66; PULSE 78; RESP 18; TEMP 37.2; O2SAT 97
[2019-08-27 09:33] VITALS: BP 144/85; PULSE 83; RESP 18; TEMP 36.9; O2SAT 98; BMI 36.5
[2019-08-27 10:03] LABS: Basophils % 0.5 %; Eosinophils # 0.1 10^3/uL (0.0-0.8); Eosinophils % 1.3 %; Hematocrit 34.9 % (42.0-52.0); Hemoglobin 10.7 g/dL (11.7-16.6); Lymphocytes # 1.2 10^3/uL (0.8-4.8); Lymphocytes % 20.3 %; Mean Corpuscular HGB Conc 30.7 g/dL (30.0-36.0); Mean Corpuscular Hemoglobin 27.9 pg (28.0-34.0); Mean Corpuscular Volume 91.1 fL (80-94); Mean Platelet Volume 9.7 fL (7.4-10.4); Monocytes # 0.4 10^3/uL (0.2-0.9); Monocytes % 7.2 %; Neutrophils # 4.3 10^3/uL (1.8-7.7); Nucleated Red Blood Cells % 0 %; Platelet Count 231 10^3/cmm (130-400); Red Blood Count 3.83 10^6/uL (4.1-5.3); Red Cell Distribution Width 13.2 % (12.1-15.1); White Blood Count 6.1 10^3/uL (4.0-10.0)
[2019-08-27] MEDS: cefTRIAXone 2,000 MG in sodium chloride 0.9% (plus) 50 ML 100 MG IV (10:05)
[2019-08-27 10:33] LABS: Alanine Aminotransferase 27 U/L (0-41); Albumin Level 3.7 g/dL (3.5-5.2); Alkaline Phosphatase 246 IU/L (40-130); Anion Gap 16.3 (5-19); Aspartate Amino Transferase 23 U/L (0-40); Blood Urea Nitrogen 15 mg/dL (8-23); C Reactive Protein 92.1 mg/L (0.0-4.9); Calcium 9.8 mg/dL (8.5-10.5); Carbon Dioxide 27 mmol/L (22-29); Chloride 98 mmol/L (98-107); Creatine Phosphokinase 66 U/L (39-308); Glomerular Filtration Rate 66.2 mL/min (90-130); Glucose 259 mg/dL (65-115); Osmolality Calculated 289 mOsm/kg (285-295); Potassium 4.3 mmol/L (3.5-5.1); Sodium 137 mmol/L (136-145); Total Bilirubin 0.3 mg/dL (0.15-1.2); Total Protein 7.7 g/dL (6.6-8.7)
[2019-08-28 08:55] VITALS: BP 117/59; PULSE 82; RESP 18; TEMP 36.1; O2SAT 96
[2019-08-28] MEDS: cefTRIAXone 2,000 MG in sodium chloride 0.9% (plus) 50 ML 100 MG IV (09:25)
[2019-08-29 09:08] VITALS: BP 147/78; PULSE 85; RESP 18; TEMP 36.2; O2SAT 98
[2019-08-29] MEDS: cefTRIAXone 2,000 MG in sodium chloride 0.9% (plus) 50 ML 100 MG IV (09:20)
[2019-08-30 10:08] VITALS: BP 105/72; PULSE 81; RESP 18; TEMP 36.6; O2SAT 97
[2019-08-31] MEDS: cefTRIAXone 2,000 MG in sodium chloride 0.9% (plus) 50 ML 100 MG IV (10:20)
[2019-08-31 10:22] VITALS: BP 132/61; PULSE 84; RESP 18; TEMP 36.6; O2SAT 98
[2019-09-01 09:03] VITALS: BP 103/60; PULSE 73; RESP 20; TEMP 36.2; O2SAT 96
[2019-09-01] MEDS: cefTRIAXone 2,000 MG in sodium chloride 0.9% (plus) 50 ML 100 MG IV (09:25)
[2019-09-03 08:41] VITALS: BP 121/67; PULSE 87; RESP 18; TEMP 36; O2SAT 96
[2019-09-03] MEDS: cefTRIAXone 2,000 MG in sodium chloride 0.9% (plus) 50 ML 100 MG IV (09:02)
[2019-09-04 09:09] VITALS: BP 120/65; PULSE 77; RESP 18; TEMP 36.1; O2SAT 97
[2019-09-04] MEDS: cefTRIAXone 2,000 MG in sodium chloride 0.9% (plus) 50 ML 100 MG IV (09:31)
[2019-09-05 09:10] VITALS: BP 141/88; PULSE 86; RESP 18; TEMP 36.2; O2SAT 97
[2019-09-05] MEDS: cefTRIAXone 2,000 MG in sodium chloride 0.9% (plus) 50 ML 100 MG IV (09:28)
[2019-09-06 08:40] VITALS: BP 146/69; PULSE 101; RESP 18; TEMP 36.2; O2SAT 99
[2019-09-06] MEDS: cefTRIAXone 2,000 MG in sodium chloride 0.9% (plus) 50 ML 100 MG IV (09:00)
[2019-09-07] MEDS: cefTRIAXone 2,000 MG in sodium chloride 0.9% (plus) 50 ML 100 MG IV (09:01)
[2019-09-07 09:02] VITALS: BP 100/56; PULSE 81; RESP 18; TEMP 36.2; O2SAT 97
== END 2019-09-07 23:59 | disposition home or self-care (01) ==
LOC: GILAB 09:00
PROVIDERS: PCP Family Medicine; Visit Provider Internal Medicine
DX: A49.8 Other bacterial infections of unspecified site (principal); B95.7 Other staphylococcus as the cause of diseases classified elsewhere; L02.414 Cutaneous abscess of left upper limb; N17.9 Acute kidney failure, unspecified
CPT/HCPCS: 36415; 36569; 36592; 71045; 80053; 82550; 85025; 86140; 96365; 96367; J0696; J0878; J1642

== ENCOUNTER 2019-09-10 08:36 | Outpatient (RCR) | payer MEDICARE, OTHER, SELFPAY ==
[2019-09-08 09:26] VITALS: BP 140/61; PULSE 80; RESP 20; TEMP 36.4; O2SAT 98; BMI 36.5
[2019-09-08] MEDS: cefTRIAXone 2,000 MG in sodium chloride 0.9% (plus) 50 ML 100 MG IV (09:58)
--- NOTE | 2019-09-08 10:18 | PC.NURSE ---
WHITE PORT ON PICC UNABLE TO BE FLUSHED. PT STATES SOMETIMES THEY HAVE TROUBLE. WILL NOTIFY
[2019-09-09 09:40] VITALS: BP 130/60; PULSE 85; RESP 16; TEMP 36.2; O2SAT 95
[2019-09-09] MEDS: cefTRIAXone 2,000 MG in sodium chloride 0.9% (plus) 50 ML 100 MG IV (09:55)
[2019-09-10 08:38] VITALS: BP 132/65; PULSE 78; RESP 18; TEMP 36.7; O2SAT 96
[2019-09-10] MEDS: cefTRIAXone 2,000 MG in sodium chloride 0.9% (plus) 50 ML 100 MG IV (09:03)
[2019-09-11 09:20] VITALS: BP 137/60; PULSE 82; RESP 18; TEMP 36.7; O2SAT 96
[2019-09-11] MEDS: cefTRIAXone 2,000 MG in sodium chloride 0.9% (plus) 50 ML 125 MG IV (09:30)
[2019-09-12 08:54] VITALS: BP 129/46; PULSE 79; RESP 18; TEMP 36.1; O2SAT 98
[2019-09-12] MEDS: cefTRIAXone 2,000 MG in sodium chloride 0.9% (plus) 50 ML 100 MG IV (09:06)
[2019-09-13] MEDS: cefTRIAXone 2,000 MG in sodium chloride 0.9% (plus) 50 ML 100 MG IV (09:12)
[2019-09-13 09:46] VITALS: BP 115/49; PULSE 74; RESP 18; TEMP 36.9; O2SAT 97
[2019-09-14 09:05] VITALS: BP 147/88; PULSE 82; RESP 15; TEMP 36.5; O2SAT 97
[2019-09-14] MEDS: cefTRIAXone 2,000 MG in sodium chloride 0.9% (plus) 50 ML 100 MG IV (09:25)
[2019-09-15] MEDS: cefTRIAXone 2,000 MG in sodium chloride 0.9% (plus) 50 ML 100 MG IV (09:09)
[2019-09-15 09:10] VITALS: BP 145/72; PULSE 81; RESP 18; TEMP 36.2; O2SAT 98
[2019-09-15 10:00] LABS: Basophils % 0.3 %; Eosinophils # 0.1 10^3/uL (0.0-0.8); Eosinophils % 0.8 %; Hematocrit 32.2 % (42.0-52.0); Hemoglobin 10.1 g/dL (11.7-16.6); Lymphocytes # 1.3 10^3/uL (0.8-4.8); Lymphocytes % 21.8 %; Mean Corpuscular HGB Conc 31.4 g/dL (30.0-36.0); Mean Corpuscular Hemoglobin 28.5 pg (28.0-34.0); Mean Platelet Volume 9.5 fL (7.4-10.4); Monocytes # 0.4 10^3/uL (0.2-0.9); Monocytes % 6.2 %; Neutrophils # 4.2 10^3/uL (1.8-7.7); Neutrophils % 70.2 %; Nucleated Red Blood Cells % 0 %; Platelet Count 212 10^3/cmm (130-400); Red Blood Count 3.54 10^6/uL (4.1-5.3); Red Cell Distribution Width 13.6 % (12.1-15.1)
[2019-09-15 10:08] LABS: Alanine Aminotransferase 14 U/L (0-41); Albumin Level 3.5 g/dL (3.5-5.2); Alkaline Phosphatase 119 IU/L (40-130); Anion Gap 19.6 (5-19); Aspartate Amino Transferase 14 U/L (0-40); Blood Urea Nitrogen 12 mg/dL (8-23); C Reactive Protein 66.8 mg/L (0.0-4.9); Calcium 9.7 mg/dL (8.5-10.5); Carbon Dioxide 24 mmol/L (22-29); Chloride 98 mmol/L (98-107); Creatine Phosphokinase 84 U/L (39-308); Globulin 3.6 g/dL (1.3-4.6); Glomerular Filtration Rate 73.9 mL/min (90-130); Glucose 264 mg/dL (65-115); Osmolality Calculated 289 mOsm/kg (285-295); Potassium 4.6 mmol/L (3.5-5.1); Sodium 137 mmol/L (136-145); Total Bilirubin 0.2 mg/dL (0.15-1.2); Total Protein 7.1 g/dL (6.6-8.7)
[2019-09-16 09:10] VITALS: BP 137/66; PULSE 73; RESP 18; TEMP 36.2; O2SAT 98
[2019-09-16] MEDS: cefTRIAXone 2,000 MG in sodium chloride 0.9% (plus) 50 ML 100 MG IV (09:20)
[2019-09-17 09:20] VITALS: BP 137/82; PULSE 74; RESP 18; TEMP 36.3; O2SAT 96
[2019-09-17] MEDS: cefTRIAXone 2,000 MG in sodium chloride 0.9% (plus) 50 ML 100 MG IV (09:22)
== END 2019-10-07 23:59 | disposition home or self-care (01) ==
LOC: GILAB 08:36
PROVIDERS: PCP Family Medicine; Visit Provider Internal Medicine
DX: Z45.2 Encounter for adjustment and management of vascular access device (principal)
CPT/HCPCS: 36415; 80053; 82550; 85025; 86140; 96365; 96367; J0696; J0878; J2001

== ENCOUNTER → 2019-10-22 14:45 | Outpatient (BNVA) | payer MEDICARE, OTHER, SELFPAY | PROVIDERS: PCP Family Medicine; Visit Provider Family Medicine | DX: R36.1 Hematospermia (principal); Z12.5 Encounter for screening for malignant neoplasm of prostate; E11.621 Type 2 diabetes mellitus with foot ulcer; L97.509 Non-pressure chronic ulcer of other part of unspecified foot with unspecified severity; S70.01XA Contusion of right hip, initial encounter; W19.XXXA Unspecified fall, initial encounter | CPT/HCPCS: 81000; G0103 ==

== ENCOUNTER → 2019-10-31 09:43 | Outpatient (BNVA) | payer MEDICARE, OTHER, SELFPAY | PROVIDERS: PCP Family Medicine; Visit Provider Family Medicine | DX: R36.1 Hematospermia (principal) | CPT/HCPCS: G0103 ==

== ENCOUNTER → 2019-12-19 12:07 | Outpatient (BNVA) | payer MEDICARE, OTHER, SELFPAY | PROVIDERS: PCP Family Medicine; Visit Provider Family Medicine | DX: I10 Essential (primary) hypertension (principal); E78.2 Mixed hyperlipidemia; E11.621 Type 2 diabetes mellitus with foot ulcer; L97.509 Non-pressure chronic ulcer of other part of unspecified foot with unspecified severity; M17.11 Unilateral primary osteoarthritis, right knee | CPT/HCPCS: 80053; 80061; 83036; 85025 ==

== ENCOUNTER → 2020-01-08 15:06 | Outpatient (BNVA) | payer MEDICARE, OTHER, SELFPAY | PROVIDERS: PCP Family Medicine; Referring Provider Family Medicine; Visit Provider Specialist | DX: M17.11 Unilateral primary osteoarthritis, right knee (principal) | CPT/HCPCS: 73560; 73565 ==

== ENCOUNTER → 2020-01-12 13:44 | Outpatient (BNVA) | payer MEDICARE, OTHER, SELFPAY | PROVIDERS: PCP Family Medicine; Visit Provider Family Medicine | DX: R41.3 Other amnesia (principal) | CPT/HCPCS: 82607; 84443 ==

== ENCOUNTER → 2020-01-14 09:15 | Outpatient (BNVA) | payer MEDICARE, OTHER, SELFPAY | PROVIDERS: PCP Family Medicine; Visit Provider Nurse Practitioner | DX: F03.90 Unspecified dementia, unspecified severity, without behavioral disturbance, psychotic disturbance, mood disturbance, and anxiety (principal) | CPT/HCPCS: 99204 ==

== ENCOUNTER 2020-01-16 15:41 | Outpatient (CLI) | payer MEDICARE, OTHER, SELFPAY ==
--- NOTE | 2020-01-16 16:01 | MRR_ITS ---
PROCEDURE INFORMATION: Exam: MR Head Without Contrast Exam date and time: 01/16/2020 4:01 PM Age: 69 years old Clinical indication: Altered mental status/memory loss; Other: F03.90 unspecified dementia without behavioral disturbance; Patient HX: Lapses in memory TECHNIQUE: Imaging protocol: MR of the head without contrast. COMPARISON: No relevant prior studies available. FINDINGS: Brain: No restricted diffusion is seen to suggest acute infarction. There is no acute intracranial hemorrhage, cerebral edema, or midline shift. Age-related cerebral and cerebellar substance loss is present. Scattered increased T2 and FLAIR signal within the periventricular and subcortical white matter is present. This is nonspecific but likely related to chronic microangiopathic ischemic change. Cerebral ventricles: Normal. No ventriculomegaly. Bones/joints: Unremarkable. Paranasal sinuses: Normal as visualized. No acute sinusitis. Mastoid air cells: Normal as visualized. No mastoid effusion. Orbits: Unremarkable. Soft tissues: Unremarkable. MR/MR head wo con* [id number] IMPRESSION: 1. No acute intracranial abnormality. 2. Chronic findings as discussed above.
== END 2020-01-16 15:42 | disposition home or self-care (01) ==
PROVIDERS: PCP Family Medicine; Visit Provider Nurse Practitioner
DX: F03.90 Unspecified dementia, unspecified severity, without behavioral disturbance, psychotic disturbance, mood disturbance, and anxiety (principal)
CPT/HCPCS: 70551

== ENCOUNTER 2020-02-17 10:51 | Outpatient (CLI) | payer MEDICARE, SELFPAY ==
--- NOTE | 2020-02-17 11:03 | MR_ITS ---
WS: [id number] MRI LEFT SHOULDER NONCONTRAST TECHNIQUE: Sagittal T2, coronal T1, T2 and proton density imaging. Axial gradient PDE imaging. CLINICAL INFORMATION: LEFT SHOULDER INFECTION, SURGERY PLANNING COMPARISON: Multiple prior MRIs July 08, 2019, [address] shoulder August 02, 2019 FINDINGS: Large joint effusion similar to the prior MRI July 08, 2019. Prior postoperative changes involving t he humeral head. Fluid and edema involving the AC joint. 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 Supraspinatus tendon is retracted to the level of glenohumeral joint. Partial tear in volving the subscapularis with tendinopathy. Biceps tendon is absent within the bicipital groove. Chronic degenerative fraying involving the gleno id labrum. Normal bone marrow signal in the humeral head. No evidence of osteomyelitis or avascular n ecrosis. Surrounding soft tissues are otherwise normal in appearance. Previously described multifocal abscesses seen on the prior CT appear to have resolved. MR/MR shoulder LT wo con* [id number] IMPRESSION: 1. Moderate to large joint effusion. 2. Normal bone marrow signal in the humeral head and proximal shaft. No eviden ce of osteomyelitis or avascular necrosis. 3. Chronic full-thickness tear involving the supraspinatus. Infraspinatus appe ars intact. 4. Biceps tendon is absent within the bicipital groove. 5. Advanced degenerative changes glenohumeral joint with subchondral cystic ch chan involving the glenoid. Chronic fraying of the glenoid labrum. 6. Prior postoperative changes involving the humeral head.
== END 2020-02-17 10:52 | disposition home or self-care (01) ==
LOC: RADWPI 11:01
PROVIDERS: PCP Family Medicine; Visit Provider Orthopaedic Surgery
DX: M00.9 Pyogenic arthritis, unspecified (principal); M25.412 Effusion, left shoulder; M75.102 Unspecified rotator cuff tear or rupture of left shoulder, not specified as traumatic
CPT/HCPCS: 73221

== ENCOUNTER → 2020-04-20 09:43 | Outpatient (BNVA) | payer MEDICARE, OTHER, SELFPAY | PROVIDERS: PCP Family Medicine; Referring Provider Family Medicine; Visit Provider Anesthesiology Pain Medicine | DX: M54.41 Lumbago with sciatica, right side (principal); M51.36 Other intervertebral disc degeneration, lumbar region; M47.816 Spondylosis without myelopathy or radiculopathy, lumbar region; M96.1 Postlaminectomy syndrome, not elsewhere classified; M62.830 Muscle spasm of back; Z79.899 Other long term (current) drug therapy | CPT/HCPCS: 99205 ==

== ENCOUNTER → 2020-05-17 09:07 | Outpatient (BNVA) | payer MEDICARE, SELFPAY | PROVIDERS: PCP Family Medicine; Visit Provider Family Medicine | DX: E11.621 Type 2 diabetes mellitus with foot ulcer (principal); L97.509 Non-pressure chronic ulcer of other part of unspecified foot with unspecified severity; F03.90 Unspecified dementia, unspecified severity, without behavioral disturbance, psychotic disturbance, mood disturbance, and anxiety; I10 Essential (primary) hypertension; E78.5 Hyperlipidemia, unspecified | CPT/HCPCS: 80048 ==

== ENCOUNTER → 2020-05-18 11:02 | Outpatient (BNVA) | payer MEDICARE, OTHER, SELFPAY | PROVIDERS: PCP Family Medicine; Visit Provider Anesthesiology Pain Medicine | DX: M54.41 Lumbago with sciatica, right side (principal); M51.36 Other intervertebral disc degeneration, lumbar region; M47.816 Spondylosis without myelopathy or radiculopathy, lumbar region; M96.1 Postlaminectomy syndrome, not elsewhere classified; M62.830 Muscle spasm of back; M25.512 Pain in left shoulder; Z79.899 Other long term (current) drug therapy | CPT/HCPCS: 99214 ==

== ENCOUNTER 2020-06-04 10:20 | Emergency (ER) | payer MEDICARE, OTHER, SELFPAY ==
[2020-06-04 10:25] VITALS: BP 204/96; PULSE 100; RESP 18; TEMP 36.7; O2SAT 97
[2020-06-04 10:46] VITALS: BP 183/90; PULSE 90; RESP 18; O2SAT 97
--- NOTE | 2020-06-04 10:46 | ED_ITS ---
HPI - Recheck/Abnormal Lab/Rx General: Chief Complaint: Recheck/Abnormal Lab/Rx Stated Complaint: chronic pain, out of pain meds Time Seen by Provider: 06/04/20 10:22 Source: patient and family (spouse) Mode of arrival: ambulatory Limitations: no limitations History of Present Illness: HPI narrative: 69-year-old male patient accompanied with his presents to the emergency department due to chronic left shoulder, lower back and right lower extremity pain. Pain has not changed. Patient has not exhibited fall or trauma. He reports ran out of oxycodone and gabapentin. He is under the care of pain management, Dr. Randhawa. Last fill of gabapentin 600 mg daily was 05/2020 with #30 supply to get him through June. He reports increased use of gabapentin due to running out of oxycodone. States is now out of both gabapentin and oxycodone. Feels of oxycodone was completed 05/13/2020 with #[address] Miramontes; additional fill of Percocet on 05/20/[address] Gonsales. He reports pain has not changed. has taken Tylenol, ibuprofen. has attempted Lidoderm patches, arm sling, TENS unit without improvement. He reports recent surgery of the left shoulder, rotator cuff 6 weeks ago. He reports his orthopedic surgeon will no longer give him pain pills. He continues to experience pain postoperatively. He also suffers from chronic low back pain numbness and tingling, right lower extremity radiculopathy that is chronic, has not changed per patient. He denies weakness, bowel or bladder incontinence, he has prior L3-L4 and L4-L5 laminectomies as well as mild multilevel disc bulging and spondylosis at L4 and 5. complaint: medication refill request Initial visit for: other (pain left shoulder, lumbar back and RLE - chronic, not changed) Returns today for: request for prescription Symptoms since prior visit: no new symptoms Context: ran out of medication Associated symptoms: other (continued pain) Treatments prior to arrival: cold therapy, heat therapy and home treatments Review of Systems General: Reports: 10 or more systems reviewed and unremarkable except in HPI and below Const: Denies: fever(s), chills or diaphoresis Eyes: Denies: blurry vision or eye redness ENMT: Denies: throat pain, dental pain or disequilibrium Card: Denies: chest pain, palpitations, irregular heart rhythm, edema, swelling of feet/ankles, lightheadedness, syncope, dyspnea on exertion, orthopnea or leg pain with exertion Resp: Denies: dyspnea, productive cough, non-productive cough, wheezing or chest congestion GI: Denies: abdominal pain, nausea or vomiting : Denies: dysuria Musc: Reports: back pain, extremity pain (left shoulder) and joint pain (left shoulder); Denies: neck pain or extremity swelling Skin/Breast: Denies: rash or pruritus Neuro: Denies: headache(s), weakness in extremities or behavioral changes Psych: Denies: anxiety, depression, sleeping more or change in appetite Jamshid/Lymph: Denies: easy bruising PFSH ED PFSH: Medical History Benign essential HTN Cervical radiculopathy Depression Diabetic foot ulcer Hyperlipidemia Hypertriglyceridemia Iron deficiency anemia Nocturia Type 2 diabetes mellitus, without long-term current use of insulin Surgical History H/O hernia repair History of appendectomy History of back surgery History of neck surgery History of right hip replacement Status post arthroscopy of left shoulder Family History Other Cancer Social History Smoking and tobacco status: never smoked Alcohol intake: never History of recent travel: No Physical Exam Const: COMMON NORMALS: no acute distress, patient oriented x3, healthy appearing and alert GENERAL APPEARANCE: cooperative, comfortable and well hydrated HENMT: COMMON NORMALS: normocephalic, Normal external nose present and moist oral mucous membranes HEAD & SCALP: normocephalic NOSE: Normal external nose present Eye: COMMON NORMALS: Equal, round and reactive pupils present and EOMs intact bilaterally GENERAL EYE: appearance normal, both eyes and all related structures PUPIL: Yes Equal, round and reactive pupils present Neck/C-Spine: COMMON NORMALS: full ROM and no lymphadenopathy GENERAL: Yes normal visual inspection and Yes trachea midline CERVICAL SPINE: Yes cervical ROM normal Lymph: LYMPHATIC: no lymphadenopathy noted Chest: COMMONS NORMALS: normal inspection of the chest Resp: COMMON NORMALS: normal respiratory effort, No retractions, No use of accessory muscles and clear to auscultation bilaterally EFFORT & INSPECTION: Yes able to speak in complete sentences, No abnormal respiratory pattern, No labored and No audible wheezes AUSCULTATION: clear to auscultation bilaterally Cardio: COMMON NORMALS: regular rate, regular rhythm, S1 normal heart sound present, S2 normal heart sound present and Peripheral pulses 2+ throughout RATE: regular rate RHYTHM: regular rhythm HEART SOUNDS: S1 normal heart sound present and S2 normal heart sound present PERIPHERAL PULSES: Peripheral pulses 2+ throughout GI: COMMON NORMALS: Normal to inspection, nondistended, normoactive bowel sounds present, Soft to palpation and non-tender INSPECTION: Yes normal to inspection PALPATION: Yes Soft to palpation : COMMON NORMALS: Yes no CVA tenderness BLADDER/KIDNEY EXAM: Yes no CVA tenderness Back/Pelvis: COMMON NORMALS: no CVA tenderness, thoracic and lumbar spine normal to inspection and straight leg raise negative bilaterally THORACIC SPINE/UPPER BACK: Yes normal to inspection and Yes thoracic ROM normal LUMBAR SPINE/LOWER BACK: Yes normal to inspection, Yes paraspinal muscle spasm Lumbar paraspinal muscle spasm: right and Yes bend over test abnormal PELVIS: Yes buttocks normal SACROILIAC JOINTS: Yes SI joint(s) abnormal SI joint details: tender to palpation (rt) Extremity: COMMON NORMALS: normal to inspection, capillary refill normal, no joint enlargement, no clubbing, cyanosis or edema, no calf tenderness and no pedal edema GENERAL: Yes normal exam except as noted LEFT UPPER EXTREMITY: Yes shoulder joint Left shoulder joint: Yes inspection (anterior scar w/o erythema/edema), Yes palpation (pain to the ac and posterior shoulder), Yes ROM (limited secondary to pain, movement reproduced pain to A/C) and Yes neurovascular exam (distally intact) Neuro: NAZIA COMA SCALE: document GCS findings Nazia coma scale eye opening: Spontaneous [place] coma scale verbal response: Orientated [place] coma scale motor response: Obey commands [place] coma scale total score: 15 COMMON NORMALS: patient oriented x3 and no focal motor deficits SENSORIUM/ORIENTATION: Yes alert SPEECH: speech normal GAIT: Yes Normal gait present MOTOR EXAM: 5/5 motor strength present throughout Psych: COMMON NORMALS: mental status grossly normal, Normal thought process present, cooperative, normal affect, speech normal and activity/motor behavior normal ACTIVITY/MOTOR BEHAVIOR: Yes appropriate eye contact SPEECH: Yes normal speech THOUGHT PROCESS: Normal thought process present Skin: COMMON NORMALS: no rashes or lesions noted, no wounds, turgor normal, no petechiae and no mottling NARRATIVE SKIN EXAM: BLE anterior woods with brown discoloration suggestive of venous insuff. GENERAL SKIN EXAM: no rashes or lesions noted, elasticity normal and turgor normal HAIR: normal Course Vital Signs: Vital signs: Vital Signs Temperature 98.1 F 06/04/20 10:25 Pulse Rate 90 06/04/20 10:46 Respiratory Rate 18 06/04/20 10:46 Blood Pressure 183/90 06/04/20 10:46 Pulse Oximetry 97 06/04/20 10:46 MDM - Recheck/Abnormal Lab/Rx MDM Narrative: Medical decision making narrative: Case discussed with Dr. Moraes, advised patient will need to follow-up with pain management for refill of pain medication. Patient does not experience change of pain nor has he experienced injury. He does not complain of chest pain, shortness of breath or other concerning symptoms for consideration of differential diagnosis of ACS. I discussed at length with him and his spouse narcotic use and refill protocols. Verbalized understanding, agrees to continue non pharmacological pain relief use and continued follow-up with pain management. Advised to return the emergency department if he developed new concerning symptoms or bowel or bladder incontinence. Discharge Plan Discharge Patient Disposition: Home Clinical Impression: Chronic left shoulder pain Chronic pain Qualifiers: Chronic pain type: chronic pain syndrome Qualified Code(s): G89.4 - Chronic pain syndrome Chronic low back pain Qualifiers: Back pain laterality: right Sciatica presence: with sciatica Sciatica laterality: sciatica of right side Qualified Code(s): M54.41 - Lumbago with sciatica, right side Condition: Stable Prescriptions: No Action sertraline 100 mg tablet 100 mg PO BID RF: 0 (DME) GLUCOMETER Qty: 1 RF: 0 (DME) lancets 25 gauge misc See Rx Instructions .ROUTE .MEDSUPPLY Qty: 100 RF: 0 memantine [Namenda] 5 mg tablet 5 mg PO DAILY Qty: 90 RF: 0 gabapentin 600 mg tablet 600 mg PO DAILY Qty: 30 RF: 2 oxycodone-acetaminophen [Percocet] 10-325 mg tablet 1 tab PO Q8H PRN (Reason: Pain) 10 Days Qty: 30 RF: 0 diclofenac sodium 25 mg tablet,delayed release (DR/EC) 25 mg PO BID PRN (Reason: pain) Qty: 60 RF: 0 (DME) blood-glucose meter [Accu-Chek Flory Plus Meter] Misc See Rx Instructions .ROUTE .MEDSUPPLY Qty: 1 RF: 0 (DME) Accu-Chek Flory Plus test strp Strip See Rx Instructions .ROUTE .MEDSUPPLY Qty: 100 RF: 0 (DME) OneTouch Verio test strips Strip See Rx Instructions .ROUTE .MEDSUPPLY Qty: 100 RF: 1 aripiprazole 5 mg tablet 5 mg PO DAILY Qty: 30 RF: 2 Ozempic 1 mg/dose (2 mg/1.5 mL) pen injector 1 mg SUBCUT .once weekly Qty: 9 RF: 1 omeprazole 20 mg capsule,delayed release(DR/EC) 20 mg PO DAILY Qty: 90 RF: 1 lisinopril 10 mg tablet 10 mg PO DAILY Qty: 30 RF: 2 spironolactone 25 mg tablet 25 mg PO DAILY Qty: 90 RF: 0 glipizide 5 mg tablet 5 mg PO BID Qty: 60 RF: 0 carvedilol 12.5 mg tablet 12.5 mg PO BID Qty: 180 RF: 1 Discharge Orders: Discharge ED (Routine); Ordered 06/04/20 Ordered By: Grace Phillip Referrals: Denice Coronado DO [Primary Care Provider] - Patient Instructions: Chronic Pain (ED), Narcotic Pain Management (ED), Opioid Dependence (ED), Chronic Back Pain (ED), Opioid Safety Activity Restrictions/Additional Instructions: you will need to follow up with pain emmy, Dr Randhawa for pain medications/continued pain management. May take 1 gram of Tylenol three times daily for pain as needed Continue current medications Continue with recommendations of pain management. Continue TENS unit and left arm sling as needed May apply SalonPas topical gel as needed for pain Coding Level of Care Code ED Electronic Test Technician for Chg Fwd Exam Comprehensive
== END 2020-06-04 11:15 | disposition home or self-care (01) ==
PROVIDERS: Emergency Provider Nurse Practitioner Family; PCP Family Medicine
DX: M54.41 Lumbago with sciatica, right side (principal); G89.4 Chronic pain syndrome; M25.512 Pain in left shoulder; I10 Essential (primary) hypertension; E78.5 Hyperlipidemia, unspecified; E11.9 Type 2 diabetes mellitus without complications; Z79.84 Long term (current) use of oral hypoglycemic drugs
CPT/HCPCS: 99281

== ENCOUNTER → 2020-07-06 11:56 | Outpatient (BNVA) | payer MEDICARE, OTHER, SELFPAY | PROVIDERS: PCP Family Medicine; Visit Provider Family Medicine | DX: E11.621 Type 2 diabetes mellitus with foot ulcer (principal); L97.509 Non-pressure chronic ulcer of other part of unspecified foot with unspecified severity; G95.0 Syringomyelia and syringobulbia | CPT/HCPCS: 80053; 83036 ==

== ENCOUNTER → 2020-08-16 15:00 | Outpatient (BNVA) | payer MEDICARE, SELFPAY | PROVIDERS: PCP Family Medicine; Visit Provider Family Medicine | DX: R10.32 Left lower quadrant pain (principal); R11.2 Nausea with vomiting, unspecified; B35.1 Tinea unguium | CPT/HCPCS: 80076 ==

== ENCOUNTER 2020-08-24 10:54 | Outpatient (CLI) | payer MEDICARE, SELFPAY ==
--- NOTE | 2020-08-24 11:02 | CT_ITS ---
WS: [id number] CT ABDOMEN AND PELVIS WITH CONTRAST HISTORY: Epigastric pain for one month with nausea and vomiting. Prior appendectomy. TECHNIQUE: Imaging performed of the abdomen and pelvis with IV contrast. Single phase imaging of the abdomen. Coronal and sagittal reformats are submitted. All CT scans at [facility] use at least one of these dose optimization techniques: automated exposure control; mA and/or kV adjustment per patient size (includes targeted exams where dose is matched to clinical indication); or iterativ e reconstruction. IV CONTRAST: Omnipaque 300; 95 mL IV. Oral contrast: Yes. DLP: 1167.33 mGycm COMPARISON: 11/01/2018 Lower thorax: Lung bases are clear. Heart is normal size. Small hiatal hernia. Oral contrast the dist al esophagus is likely from gastroesophageal reflux. Liver/biliary system: Liver is normal size. New since the prior study is mild intrahepatic duct dilat ation. No choledocholithiasis or pancreatic head mass identified. Gallbladder: Status post cholecystectomy. Pancreas: Normal size pancreas and pancreatic duct. No adjacent inflammation. Spleen: Normal size spleen. No mass or infarct. Adrenal glands: Bilateral adrenal mass masses are unchanged since 09/27/2017. Right kidney: No renal obstruction. Mild perinephric stranding. Multifocal areas of cortical thinning are unchanged. No ureteral calcification. Left kidney: No renal obstruction. Cortical cyst mid kidney measures 2.3 x 1.8 cm. No solid mass. Aorta: Normal. Lymphadenopathy: None. Free fluid: None. GI tract: Prior appendectomy. No GI tract obstruction. There are very few sigmoid diverticula. No kenna dence for diverticulitis. Abdominal wall: Fat containing umbilical hernia. Pelvis: Inguinal hardening artifact obscuring detail in the pelvis from the RIGHT hip arthroplasty. N o free fluid or adenopathy. Minimally distended urinary bladder. Bones: Prior RIGHT hip arthroplasty. Mild increase in lumbar lordosis. CT/CT abdomen pelvis w con* [id number] IMPRESSION: 1. New mild intrahepatic duct dilatation of uncertain etiology. New since 11/01. No pancreatic head mass or duct stone identified. 2. Prior cholecystectomy. Could be physiologic dilatation of the bile duct sys tem related to cholecystectomy but the bile ducts were normal on the prior stud y of 11/01/2018. MRCP or ERCP may be helpful for further evaluation. 3. Small amount of gastroesophageal reflux and small hiatal hernia. 4. Stable bilateral adrenal masses. 5. LEFT renal cyst.
[2020-08-24] MEDS: iohexol 300 mg/mL 50 mL Btl PO (11:11)
[2020-08-24 13:24] LABS: Blood Urea Nitrogen 15 mg/dL (8-23)
[2020-08-24] MEDS: iohexol 300 mg/mL 100 mL Btl IV (13:33)
== END 2020-08-24 10:55 | disposition home or self-care (01) ==
PROVIDERS: PCP Family Medicine; Visit Provider Family Medicine
DX: R10.32 Left lower quadrant pain (principal); R10.13 Epigastric pain; R11.2 Nausea with vomiting, unspecified; N28.1 Cyst of kidney, acquired; E27.9 Disorder of adrenal gland, unspecified; K21.9 Gastro-esophageal reflux disease without esophagitis; K44.9 Diaphragmatic hernia without obstruction or gangrene; Z90.49 Acquired absence of other specified parts of digestive tract
CPT/HCPCS: 74177; 82565; 84520; Q9967

== ENCOUNTER 2020-08-30 15:05 | Outpatient (CLI) | payer MEDICARE, SELFPAY ==
--- NOTE | 2020-08-30 15:15 | MR_ITS ---
WS: [id number] MRI CERVICAL SPINE NONCONTRAST HISTORY: chronic neck pain with radiculopathy COMPARISON: 12/13/2016 Technique: Multiplanar, multisequence noncontrast imaging of the cervical spine. Cervical bony fusion between C3-4 and C4-5 is unchanged. Complete loss of the disc space. Severe dege nerative disc disease at C5-6 and C6-7. C7 anterolisthesis by 4 mm. Advanced degenerative disc diseas e throughout the remaining disc levels. These findings are essentially stable since 2017. Again noted is the increased T2 signal in the central cervical cord beginning at T1 extending over a length of 3 .3 cm. There is adjacent cord atrophy with no change since 2017. Abnormal signal in the romi. There is marked increased signal within the romi which has progressed si nce the prior examination and probably small vessel ischemic disease. C2-C3: Mild osteophytic ridging and mild foraminal narrowing. C3-C4: Mild osteophytic ridging with mild foraminal narrowing. C4-C5: Mild osteophytic ridging. Mild bilateral foraminal narrowing. C5-C6: Diffuse osteophytic ridging and annular disc bulging. Focal central disc osteophyte complex. M ild facet joint arthritis. Mild central and LEFT foraminal stenosis and moderate RIGHT foraminal sten osis. C6-C7: Diffuse annular disc bulging with osteophytic ridging and mild facet arthritis. Displacement o f the nerve root on the RIGHT with mild bilateral foraminal stenosis. C7-T1: Severe central with moderate bilateral foraminal stenosis due to combination of C7 anterolisth esis, disc and osteophyte disease. Only minimal progression of stenosis since the prior study. Paraspinal soft tissue are normal. MR/MR cervical spin wo con* [id number] IMPRESSION: 1. Complete osseous fusion between C3-4 and C4-5 as before. 2. C7 anterolisthesis by 4 mm with severe central and moderate bilateral yoav inal stenosis at C7-T1 due to combination of factors as described above. 3. Moderate RIGHT foraminal stenosis at C5-6. 4. Progression of microvascular ischemic changes in the romi. 5. 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
--- NOTE | 2020-08-30 15:15 | MR_ITS ---
WS: [id number] MRI THORACIC SPINE without contrast. HISTORY: history of syrinx COMPARISON: 12/13/2016 TECHNIQUE: Multiplanar sequences are performed in sagittal and axial planes. Increase in thoracic kyphosis. Moderate disc space narrowing and desiccation at all levels throughout the thoracic spine. No acute marrow edema. Again noted is increased T2 signal extending over length of 3.4 cm in the upper thoracic spine cord. No progression. Very slight anterior wedging of T6. T1-2: Mild disc bulging and osteophytic ridging. Mild central and bilateral foraminal stenosis. T2-3: Mild bilateral facet arthritis. Mild bilateral foraminal stenosis. T3-4: Mild bilateral facet arthritis without stenosis. T4-5: No significant stenosis. T5-6: Diffuse osteophytic ridging around the vertebral body. Moderate LEFT foraminal stenosis and mi ld on the RIGHT. There is an additional moderate sized LEFT paracentral disc protrusion with near cor d contact. T6-7: Mild LEFT foraminal stenosis. T7-8: Shallow central disc protrusion without stenosis. T8-9: Small central disc protrusion bilateral foraminal stenosis. T9-10: Small central disc protrusion with moderate bilateral facet arthritis and stenosis. T10-11: Diffuse annular disc bulging with moderate bilateral facet arthritis. Moderate to severe su ateral foraminal stenosis. T11-12: Mild bilateral facet arthritis without significant stenosis. Incidental note is made of a small cyst in the RIGHT kidney. Mild atrophy upper pole LEFT kidney. Sli ght increase in size of the 2.1 cm nodule in the LEFT adrenal gland. Previously described RIGHT adren al nodule is not as well visualized today due to motion artifact. MR/MR thoracic spin wo con* [id number] IMPRESSION: 1. Stable upper thoracic cord syrinx extending over a length of 3.4 cm. No pro gression. No additional syrinx. 2. Multilevel spondylosis with facet joint arthritis and foraminal stenosis as above. Most significant stenosis at T10-11 (moderate to severe bilateral yoav inal stenosis). 3. Bilateral adrenal nodules with mild increase in size of the LEFT adrenal ma ss which is probably an adenoma. Prior CT of 08/24/2020 described these nodules are stable.
== END 2020-08-30 15:06 | disposition home or self-care (01) ==
PROVIDERS: PCP Family Medicine; Visit Provider Family Medicine
DX: M54.2 Cervicalgia (principal); M54.12 Radiculopathy, cervical region; G95.0 Syringomyelia and syringobulbia; M47.814 Spondylosis without myelopathy or radiculopathy, thoracic region; M48.04 Spinal stenosis, thoracic region; M43.22 Fusion of spine, cervical region; M48.02 Spinal stenosis, cervical region
CPT/HCPCS: 72141; 72146

== ENCOUNTER → 2020-09-16 10:25 | Outpatient (BNVA) | payer MEDICARE, SELFPAY | PROVIDERS: PCP Family Medicine; Visit Provider Surgery | DX: R10.32 Left lower quadrant pain (principal); Z11.52 Encounter for screening for COVID-19; Z20.822 Contact with and (suspected) exposure to COVID-19 | CPT/HCPCS: 87635 ==

== ENCOUNTER 2020-09-21 08:27 | Day surgery (SDC) | payer MEDICARE, OTHER, SELFPAY ==
[2020-09-20 09:55] VITALS: BMI 36.1
--- NOTE | 2020-09-21 09:01 | ANES.PREANE2 ---
Pre-Anesthetic Assessment Pre-Anesthetic Assessment: Height/Weight: Height 1.7 m Weight 104.78 kg Preop Diagnosis: panendoscopy Proposed Procedure: Operation Date: 09/21/20 10:00 Proposed Procedures p EGD/colon [id number] R10.32(Not Applicable) - Chilango Braden MD s Colonoscopy(Not Applicable) - Chilango Braden MD Was Beta Cherise taken within 24 hours: Yes Was Clonidine taken within 24 hours: N/A Social: Social History: No alcohol and No tobacco Exam: Pre-Anes Outpt Exam: alert, oriented x 3, clear to auscultation bilaterally and regular rate & rhythm Airway: Submandibular: WNL Cervical ROM: WNL MP: 2 Dentition: Chipped Additional comments: Very poor dentition CV/HEM: CV/HEM: HTN GI: GI: GERD Metabolic: Metabolic: Morbid obesity Musc/skel: Comments: Chronic pain/opioid Anesthetic Plan: ASA status: 3 Anesthesia: MAC Risk of > 500 ml blood loss (7ml/kg in children): No PFSH Anesthesia PFSH: Medical History Benign essential HTN Cervical radiculopathy Depression Diabetic foot ulcer Hyperlipidemia Hypertriglyceridemia Incarcerated incisional hernia Iron deficiency anemia Nocturia Type 2 diabetes mellitus, without long-term current use of insulin Surgical History History of appendectomy History of back surgery History of left shoulder replacement History of neck surgery History of right hip replacement History of right inguinal hernia repair History of umbilical hernia repair Hx of cholecystectomy Status post arthroscopy of left shoulder Family History Other Cancer Social History Smoking and tobacco status: never smoked Alcohol intake: never History of recent travel: No Data Anesthesia Cardiac Studies: No Data to Display
[2020-09-21 09:13] VITALS: BP 144/64; PULSE 76; RESP 18; TEMP 36; O2SAT 96
[2020-09-21 09:34] LABS: Glucose Point of Care 195 mg/dL (70-110)
[2020-09-21] MEDS: sodium chloride 0.9% 1,000 ML 30 ML IV (09:34)
--- NOTE | 2020-09-21 10:03 | W.PM.OPSUD ---
Surgery/Procedure H&P Update DATE OF PROCEDURE: September 21, 2020 DATE H&P PERFORMED: 09/03/20 H&P UPDATE INFORMATION: I have reviewed H&P completed within last 30 days, I have examined patient prior to procedure and No changes to prior documentation PREOP DIAGNOSIS: panendoscopy PLANNED PROCEDURE: Operation Date: 09/21/20 10:00 Proposed Procedures p EGD/colon [id number] 20896 R10.32(Not Applicable) - Chilango Braden MD s Colonoscopy(Not Applicable) - Chilango Braden MD
[2020-09-21 11:31] VITALS: BP 102/63; PULSE 75; RESP 18; TEMP 36.3; O2SAT 93
--- NOTE | 2020-09-21 11:39 | ANE.PACU2 ---
Documented by User: Guille Horn Jr, CRNA 09/21/20 11:40 Inpatient post-anesthesia follow up: Airway intact: Yes Vital signs: Temperature 97.4 F Pulse Rate 75 Respiratory Rate 18 Blood Pressure 102/63 Pulse Oximetry 93 Oxygen Delivery Me thod Room Air Oxygen Flow Rate Fraction of Inspir ed Oxygen Hydration adequate: Yes Nausea and vomiting: No Pain level: 1 Mental status: Baseline
== END 2020-09-21 11:55 | disposition home or self-care (01) ==
PROVIDERS: PCP Family Medicine; Visit Provider Surgery
PROC: 0DJ08ZZ Inspection of Upper Intestinal Tract, Via Natural or Artificial Opening Endoscopic (ICD-10-PCS; CPT 43235; principal; 2020-09-21 10:00)
PROC: 0DJD8ZZ Inspection of Lower Intestinal Tract, Via Natural or Artificial Opening Endoscopic (ICD-10-PCS; CPT 45378; 2020-09-21 10:00)
DX: R10.32 Left lower quadrant pain (principal); K43.0 Incisional hernia with obstruction, without gangrene; K64.8 Other hemorrhoids; K29.70 Gastritis, unspecified, without bleeding; R11.2 Nausea with vomiting, unspecified; I10 Essential (primary) hypertension; F32.9 Major depressive disorder, single episode, unspecified; E78.5 Hyperlipidemia, unspecified; E11.9 Type 2 diabetes mellitus without complications; R63.4 Abnormal weight loss
CPT/HCPCS: 36416; 43235; 45378; 82962; 96360; 96361; G0121; J2704; J7030

== ENCOUNTER → 2020-10-12 13:52 | Outpatient (BNVA) | payer MEDICARE, OTHER, SELFPAY | PROVIDERS: PCP Family Medicine; Visit Provider Family Medicine | DX: E11.621 Type 2 diabetes mellitus with foot ulcer (principal); L97.509 Non-pressure chronic ulcer of other part of unspecified foot with unspecified severity | CPT/HCPCS: 80053; 82043; 83036 ==

== ENCOUNTER → 2020-12-15 16:07 | Outpatient (BNVA) | payer MEDICARE, OTHER, SELFPAY | PROVIDERS: PCP Family Medicine; Visit Provider Orthopaedic Surgery | DX: Z01.812 Encounter for preprocedural laboratory examination (principal); Z20.822 Contact with and (suspected) exposure to COVID-19 | CPT/HCPCS: 87635 ==

== ENCOUNTER → 2021-01-31 15:47 | Outpatient (BNVA) | payer MEDICARE, OTHER, SELFPAY | PROVIDERS: PCP Family Medicine; Visit Provider Family Medicine | DX: E11.621 Type 2 diabetes mellitus with foot ulcer (principal); L97.509 Non-pressure chronic ulcer of other part of unspecified foot with unspecified severity | CPT/HCPCS: 80053; 83036 ==

== ENCOUNTER 2021-04-11 10:25 | Outpatient (CLI) | payer MEDICARE, OTHER, SELFPAY ==
[2021-04-11 11:01] LABS: Basophils % 0.5 %; Eosinophils # 0.2 10^3/uL (0.0-0.8); Eosinophils % 1.7 %; Hemoglobin 11.6 g/dL (11.7-16.6); Lymphocytes # 1.5 10^3/uL (0.8-4.8); Lymphocytes % 17.2 %; Mean Corpuscular HGB Conc 32.2 g/dL (30.0-36.0); Mean Corpuscular Hemoglobin 30.7 pg (28.0-34.0); Mean Corpuscular Volume 95.2 fl (80-94); Mean Platelet Volume 9.3 fL (7.4-10.4); Monocytes # 0.5 10^3/uL (0.2-0.9); Monocytes % 5.2 %; Neutrophils # 6.37 10^3/uL (1.8-7.7); Neutrophils % 73.8 %; Nucleated Red Blood Cells % 0 %; Platelet Count 153 10^3/cmm (130-400); Red Blood Count 3.78 10^6/uL (4.1-5.3); Red Cell Distribution Width 12.9 % (12.1-15.1); White Blood Count 8.6 10^3/uL (4.0-10.0)
[2021-04-11 11:16] LABS: D Dimer 2.39 ug/mIFEU (0-0.59)
[2021-04-11 11:23] LABS: Anion Gap 17.5 (5-19); Blood Urea Nitrogen 16 mg/dL (8-23); Calcium 8.3 mg/dL (8.5-10.5); Carbon Dioxide 23 mmol/L (22-29); Chloride 102 mmol/L (98-107); Glucose 131 mg/dL (65-115); Osmolality Calculated 289 mOsm/kg (285-295); Potassium 4.5 mmol/L (3.5-5.1); Sodium 138 mmol/L (136-145)
== END 2021-04-11 10:26 | disposition home or self-care (01) ==
PROVIDERS: PCP Family Medicine; Visit Provider Family Medicine
DX: M79.604 Pain in right leg (principal); M79.89 Other specified soft tissue disorders; R23.8 Other skin changes
CPT/HCPCS: 36415; 80048; 85025; 85378

== ENCOUNTER 2021-04-12 11:01 | Outpatient (CLI) | payer MEDICARE, OTHER, SELFPAY ==
--- NOTE | 2021-04-12 11:00 | USCV_ITS ---
Simba Berry Age: 70 Gender: M : 1950 Exam Date: 04/12/2021 11:41 Ordering Phys: Sampson Wade DO Technologist: KAREN Exam Location: [facility] [place] Indication: RLE DVT CONCERN PROCEDURES: Venous duplex imaging was performed in only the right lower extremity. The following venous structures were evaluated: common femoral vein, profunda vein, proximal portion of the greater saphenous vein, superficial femoral vein, and the popliteal vein. In addition, the posterior tibial and peroneal trunk were evaluated. Serial compression, augmentation maneuvers, and spectral Doppler flow evaluation were performed. FINDINGS: Normal 2-D Doppler and augmentation and compressibility throughout the lower extremity venous structures. Additional imaging through the proximal calf veins also reveals no thrombus. Limited evaluation of the greater saphenous vein is patent with no thrombus. CONCLUSIONS No DVT right lower extremity. Dr. Sophie López DO (Electronically Signed) Final Date: 12 April 2021 13:07 S
== END 2021-04-12 11:02 | disposition home or self-care (01) ==
LOC: RAD 11:04
PROVIDERS: PCP Family Medicine; Visit Provider Family Medicine
DX: M79.604 Pain in right leg (principal); M79.661 Pain in right lower leg; M79.89 Other specified soft tissue disorders; R23.8 Other skin changes
CPT/HCPCS: 93971

== ENCOUNTER 2021-04-25 12:03 | Emergency (ER) | payer MEDICARE, SELFPAY ==
[2021-04-25 12:31] VITALS: BP 134/53; PULSE 68; RESP 16; TEMP 36.6; O2SAT 98
--- NOTE | 2021-04-25 13:15 | XR_ITS ---
WS: [id number] Exam: XR chest 1V portable [id number] Date/Time of Exam: 04/25/2021 1:53 PM Reason For Exam: dyspnea/cough Comparison 08/20/2019. The lungs are clear and fully inflated. Normal cardiomediastinal silhouette and regional bony element s. A reverse left shoulder prosthesis is in place. XR/XR chest 1V portable [id number] IMPRESSION: 1. No acute cardiopulmonary finding.
--- NOTE | 2021-04-25 13:17 | ECG_ITS ---
[facility] Test Date: 2021-04-25 Pat Name: Simba Berry Department: Room: Gender: Male [employer]: : 1950 Requested By: Aly Ko Order Number: [id number] Reading MD: CARMEN BURKS Measurements Intervals [place] Rate: 66 P: 68 GA: 182 QRS: 1 QRSD: 95 T: 53 QT: 377 QTc: 397 Interpretive Statements SINUS RHYTHM WITH OCCASIONAL VENTRICULAR PREMATURE COMPLEXES Compared to ECG 07/23/2019 06:35:48 Ventricular premature complex(es) now present Atrial fibrillation no longer present T-wave abnormality no longer present Electronically Signed On 04-25-2021 20:53:31 MEDICAL STAFF CREDENTIALING COORDINATOR by CARMEN BURKS [id number]
--- NOTE | 2021-04-25 13:29 | W.ED.GENADLT ---
Documented by User: ELLIOTT Morgan 04/25/21 13:32 HPI - General Adult General: Chief complaint: Shortness of Breath/Dyspnea Stated complaint: PT HAD SOB AND NECK PAIN BUT ISNT NOW Time Seen by Provider: 04/25/21 17:10 History of Present Illness: HPI narrative: Patient had pain in his arm earlier today's gone now patient states he has no problems. Patient is in no distress and is asking to go home. Denies any pain besides his chronic pain which he goes to pain clinic for. Denies any shortness of breath or chest pain that ever happened today. PFS ED PFSH: Medical History (Updated 04/25/21 @ 17:12 by ELLIOTT Mckeon) Benign essential HTN Cervical radiculopathy Depression Diabetic foot ulcer Hyperlipidemia Hypertriglyceridemia Incarcerated incisional hernia Iron deficiency anemia Nocturia Type 2 diabetes mellitus, without long-term current use of insulin Surgical History (Updated 01/31/21 @ 15:12 by Denice Coronado DO) H/O esophagogastroduodenoscopy (09/21/20) History of appendectomy History of back surgery History of cataract surgery History of left shoulder replacement History of neck surgery History of right hip replacement History of right inguinal hernia repair History of umbilical hernia repair Hx of cholecystectomy Status post arthroscopy of left shoulder Status post colonoscopy (09/21/20) Family History Other Cancer Social History Smoking and tobacco status: never smoked Alcohol intake: never History of recent travel: No Course Vital Signs: Vital signs: Vital Signs Temperature 97.9 F 04/25/21 12:31 Pulse Rate 68 04/25/21 12:31 Respiratory Rate 16 04/25/21 12:31 Blood Pressure 134/53 04/25/21 12:31 Pulse Oximetry 98 04/25/21 12:31 MDM - General Adult MDM Narrative: Medical decision making narrative: Brief history and physical exam was performed as part of the triage process. Due to current ED wait time patient will be placed in waiting room until a room becomes available. Explained to patient he/she will be seen in order of severity. Patient is currently safe to wait in the waiting room until we can get them placed. Patient informed that if condition worsens at any time to please let the java front end web developer know. Lab Data: Labs: Lab Results 04/25/21 04/25/21 04/25/21 14:32 14:32 14:32 WBC 9.0 10^3/uL 10^3/ uL (4.0-10.0) RBC 4.01 10^6/uL L 10 ^6/uL (4.1-5.3) Hgb 12.2 g/dL g/dL (11.7-16.6) Hct 38.5 % L % (42.0-52.0) MCV 96.0 fl H fl (80-94) MCH 30.4 pg pg (28.0-34.0) MCHC 31.7 g/dL g/dL (30.0-36.0) RDW 12.9 % % (12.1-15.1) Plt Count 194 10^3/cmm 10^3 /cmm (130-400) MPV 9.1 fL fL (7.4-10.4) Neut % (Auto) 68.2 % % Lymph % (Auto) 22.0 % % [place] % (Auto) 6.0 % % Eos % (Auto) 2.4 % % Baso % (Auto) 0.6 % % Neut # (Auto) 6.17 10^3/uL 10^3 /uL (1.8-7.7) Lymph # (Auto) 2.0 10^3/uL 10^3/ uL (0.8-4.8) [place] # (Auto) 0.5 10^3/uL 10^3/ uL (0.2-0.9) Eos # (Auto) 0.2 10^3/uL 10^3/ uL (0.0-0.8) Baso # (Auto) 0.1 10^3/uL 10^3/ uL (0.0-0.1) Nucleated RBC % (a uto) 0 % % Nucleated RBCs # 0.0 /100WBC /100W BC Sodium 139 mmol/L mmol/L (136-145) Potassium 4.8 mmol/L mmol/L (3.5-5.1) Chloride 102 mmol/L mmol/L (98-107) Carbon Dioxide 24 mmol/L mmol/L (22-29) Anion Gap 17.8 (5-19) BUN 34 mg/dL H mg/dL (8-23) Creatinine 1.2 mg/dL mg/dL (0.7-1.2) GFR Calculation Not Reportable Glucose 83 mg/dL mg/dL (65-115) Calculated Osmolal ity 295 mOsm/kg mOsm/ kg (285-295) Calcium 8.7 mg/dL mg/dL (8.5-10.5) Total Bilirubin 0.2 mg/dL mg/dL (0.15-1.2) AST 17 U/L U/L (0-40) ALT 15 U/L U/L (0-41) Alkaline Phosphata se 85 IU/L IU/L (40-130) Troponin T Baselin e 40 ng/L H ng/L (0-15) Troponin T 120 Min [place] Troponin T Total Protein 6.7 g/dL g/dL (6.6-8.7) Albumin 4.2 g/dL g/dL (3.5-5.2) Globulin 2.5 g/dL g/dL (1.3-4.6) 04/25/21 16:20 WBC RBC Hgb Hct MCV MCH MCHC RDW Plt Count MPV Neut % (Auto) Lymph % (Auto) [place] % (Auto) Eos % (Auto) Baso % (Auto) Neut # (Auto) Lymph # (Auto) [place] # (Auto) Eos # (Auto) Baso # (Auto) Nucleated RBC % (a uto) Nucleated RBCs # Sodium Potassium Chloride Carbon Dioxide Anion Gap BUN Creatinine GFR Calculation Glucose Calculated Osmolal ity Calcium Total Bilirubin AST ALT Alkaline Phosphata se Troponin T Baselin e Troponin T 120 Min [place] 37.43 ng/L H ng/L (0-15) Delta Troponin T -2.57 ABS# L ABS# (0-10) Total Protein Albumin Globulin Discharge Plan Discharge Patient Disposition: Home Clinical Impression: Atypical chest pain Condition: Stable Prescriptions: No Action (DME) GLUCOMETER Qty: 1 RF: 0 (DME) lancets 25 gauge misc See Rx Instructions .ROUTE .MEDSUPPLY Qty: 100 RF: 0 (DME) Diabetic shoes with 3 inserts See Rx Instructions .ROUTE .MEDSUPPLY Qty: 1 RF: 0 (DME) blood-glucose meter [Accu-Chek Flory Plus Meter] Misc See Rx Instructions .ROUTE .MEDSUPPLY Qty: 1 RF: 0 (DME) Accu-Chek Flory Plus test strp Strip See Rx Instructions .ROUTE .MEDSUPPLY Qty: 100 RF: 0 (DME) OneTouch Verio test strips Strip See Rx Instructions .ROUTE .MEDSUPPLY Qty: 100 RF: 1 carvedilol 12.5 mg tablet 12.5 mg PO BID Qty: 180 RF: 1 ondansetron 4 mg tablet,disintegrating 4 mg PO Q6H PRN (Reason: Nausea) 30 Days Qty: 30 RF: 2 spironolactone 25 mg tablet See Rx Instructions .ROUTE .COMPLEX Qty: 90 RF: 1 gabapentin 300 mg capsule 300 mg PO BID Qty: 60 RF: 3 Januvia 100 mg tablet 100 mg PO DAILY 90 Days Qty: 90 RF: 0 memantine 10 mg tablet 10 mg PO DAILY Qty: 90 RF: 0 pantoprazole [Protonix] 40 mg tablet,delayed release (DR/EC) 40 mg PO DAILY Qty: 90 RF: 0 lisinopril 10 mg tablet 10 mg PO DAILY Qty: 90 RF: 0 acetaminophen 325 mg Tablet 975 mg PO QID PRN (Reason: Pain) RF: 0 sertraline 100 mg tablet 100 mg PO DAILY RF: 0 methadone 40 mg tablet,soluble 40 mg PO DAILY RF: 0 Discharge Orders: Discharge ED (Routine); Ordered 04/25/21 Ordered By: Guille Kennedy Referrals: Denice Coronado DO [Primary Care Provider] - Discharge Diet: Usual diet Discharge Activity: Increase activity as tolerated Patient Instructions: Chest Pain (ED) Activity Restrictions/Additional Instructions: Activity as tolerated. Continue with routine medications. Follow-up with primary care for further instruction and evaluation. Coding Level of Care Code ED Combination Welder Apprentice for Chg Fwd Documented by User: ELLIOTT Mckeon 04/25/21 17:23 HPI - General Adult General: Chief complaint: Shortness of Breath/Dyspnea Stated complaint: PT HAD SOB AND NECK PAIN BUT ISNT NOW Time Seen by Provider: 04/25/21 17:10 History of Present Illness: Associated symptoms: Reports chest pain Review of Systems Card: Reports: chest pain PFS ED PFSH: Medical History (Updated 04/25/21 @ 17:12 by ELLIOTT Mckeon) Benign essential HTN Cervical radiculopathy Depression Diabetic foot ulcer Hyperlipidemia Hypertriglyceridemia Incarcerated incisional hernia Iron deficiency anemia Nocturia Type 2 diabetes mellitus, without long-term current use of insulin Surgical History (Updated 01/31/21 @ 15:12 by Denice Coronado DO) H/O esophagogastroduodenoscopy (09/21/20) History of appendectomy History of back surgery History of cataract surgery History of left shoulder replacement History of neck surgery History of right hip replacement History of right inguinal hernia repair History of umbilical hernia repair Hx of cholecystectomy Status post arthroscopy of left shoulder Status post colonoscopy (09/21/20) Family History Other Cancer Social History Smoking and tobacco status: never smoked Alcohol intake: never History of recent travel: No Physical Exam Const: COMMON NORMALS: healthy appearing Resp: COMMON NORMALS: normal respiratory effort and clear to auscultation bilaterally AUSCULTATION: clear to auscultation bilaterally Cardio: COMMON NORMALS: regular rate and regular rhythm RATE: regular rate RHYTHM: regular rhythm Extremity: COMMON NORMALS: no pedal edema Course Vital Signs: Vital signs: Vital Signs Temperature 97.9 F 04/25/21 12:31 Pulse Rate 68 04/25/21 12:31 Respiratory Rate 16 04/25/21 12:31 Blood Pressure 134/53 04/25/21 12:31 Pulse Oximetry 98 04/25/21 12:31 MDM - General Adult MDM Narrative: Medical decision making narrative: Patient was referred over to the ER today for concerns of chest discomfort. Patient had been at physical therapy and started having some discomfort which she reported not as chest pain but more as pain in his arm that radiated to his fingers. Patient came in to be evaluated to rule out ACS. On exam patient is alert oriented. Skin is warm and dry. Patient appears well. Lungs are clear to auscultation heart rates regular. Vital signs were normal. Differential diagnosis includes but not limited to ACS, cervical radiculopathy, muscle strain. EKG showed a sinus rhythm with occasional PVCs. Baseline and 2-hour troponin was unchanged. CBC and CMP was unremarkable. Reviewed exam with patient with recommendations for follow-up with primary care for further evaluation and treatment. Patient was pain-free at discharge with no complaints of chest pain or shortness of breath. Patient reported understanding of care plan and need for follow-up or return to the ER. Lab Data: Labs: Lab Results 04/25/21 04/25/21 04/25/21 14:32 14:32 14:32 WBC 9.0 10^3/uL 10^3/ uL (4.0-10.0) RBC 4.01 10^6/uL L 10 ^6/uL (4.1-5.3) Hgb 12.2 g/dL g/dL (11.7-16.6) Hct 38.5 % L % (42.0-52.0) MCV 96.0 fl H fl (80-94) MCH 30.4 pg pg (28.0-34.0) MCHC 31.7 g/dL g/dL (30.0-36.0) RDW 12.9 % % (12.1-15.1) Plt Count 194 10^3/cmm 10^3 /cmm (130-400) MPV 9.1 fL fL (7.4-10.4) Neut % (Auto) 68.2 % % Lymph % (Auto) 22.0 % % [place] % (Auto) 6.0 % % Eos % (Auto) 2.4 % % Baso % (Auto) 0.6 % % Neut # (Auto) 6.17 10^3/uL 10^3 /uL (1.8-7.7) Lymph # (Auto) 2.0 10^3/uL 10^3/ uL (0.8-4.8) [place] # (Auto) 0.5 10^3/uL 10^3/ uL (0.2-0.9) Eos # (Auto) 0.2 10^3/uL 10^3/ uL (0.0-0.8) Baso # (Auto) 0.1 10^3/uL 10^3/ uL (0.0-0.1) Nucleated RBC % (a uto) 0 % % Nucleated RBCs # 0.0 /100WBC /100W BC Sodium 139 mmol/L mmol/L (136-145) Potassium 4.8 mmol/L mmol/L (3.5-5.1) Chloride 102 mmol/L mmol/L (98-107) Carbon Dioxide 24 mmol/L mmol/L (22-29) Anion Gap 17.8 (5-19) BUN 34 mg/dL H mg/dL (8-23) Creatinine 1.2 mg/dL mg/dL (0.7-1.2) GFR Calculation Not Reportable Glucose 83 mg/dL mg/dL (65-115) Calculated Osmolal ity 295 mOsm/kg mOsm/ kg (285-295) Calcium 8.7 mg/dL mg/dL (8.5-10.5) Total Bilirubin 0.2 mg/dL mg/dL (0.15-1.2) AST 17 U/L U/L (0-40) ALT 15 U/L U/L (0-41) Alkaline Phosphata se 85 IU/L IU/L (40-130) Troponin T Baselin e 40 ng/L H ng/L (0-15) Troponin T 120 Min [place] Troponin T Total Protein 6.7 g/dL g/dL (6.6-8.7) Albumin 4.2 g/dL g/dL (3.5-5.2) Globulin 2.5 g/dL g/dL (1.3-4.6) 04/25/21 16:20 WBC RBC Hgb Hct MCV MCH MCHC RDW Plt Count MPV Neut % (Auto) Lymph % (Auto) [place] % (Auto) Eos % (Auto) Baso % (Auto) Neut # (Auto) Lymph # (Auto) [place] # (Auto) Eos # (Auto) Baso # (Auto) Nucleated RBC % (a uto) Nucleated RBCs # Sodium Potassium Chloride Carbon Dioxide Anion Gap BUN Creatinine GFR Calculation Glucose Calculated Osmolal ity Calcium Total Bilirubin AST ALT Alkaline Phosphata se Troponin T Baselin e Troponin T 120 Min [place] 37.43 ng/L H ng/L (0-15) [place] Troponin T -2.57 ABS# L ABS# (0-10) Total Protein Albumin Globulin Discharge Plan Discharge Patient Disposition: Home Clinical Impression: Atypical chest pain Condition: Stable Prescriptions: No Action (DME) GLUCOMETER Qty: 1 RF: 0 (DME) lancets 25 gauge misc See Rx Instructions .ROUTE .MEDSUPPLY Qty: 100 RF: 0 (DME) Diabetic shoes with 3 inserts See Rx Instructions .ROUTE .MEDSUPPLY Qty: 1 RF: 0 (DME) blood-glucose meter [Accu-Chek Flory Plus Meter] Misc See Rx Instructions .ROUTE .MEDSUPPLY Qty: 1 RF: 0 (DME) Accu-Chek Flory Plus test strp Strip See Rx Instructions .ROUTE .MEDSUPPLY Qty: 100 RF: 0 (DME) OneTouch Verio test strips Strip See Rx Instructions .ROUTE .MEDSUPPLY Qty: 100 RF: 1 carvedilol 12.5 mg tablet 12.5 mg PO BID Qty: 180 RF: 1 ondansetron 4 mg tablet,disintegrating 4 mg PO Q6H PRN (Reason: Nausea) 30 Days Qty: 30 RF: 2 spironolactone 25 mg tablet See Rx Instructions .ROUTE .COMPLEX Qty: 90 RF: 1 gabapentin 300 mg capsule 300 mg PO BID Qty: 60 RF: 3 Januvia 100 mg tablet 100 mg PO DAILY 90 Days Qty: 90 RF: 0 memantine 10 mg tablet 10 mg PO DAILY Qty: 90 RF: 0 pantoprazole [Protonix] 40 mg tablet,delayed release (DR/EC) 40 mg PO DAILY Qty: 90 RF: 0 lisinopril 10 mg tablet 10 mg PO DAILY Qty: 90 RF: 0 acetaminophen 325 mg Tablet 975 mg PO QID PRN (Reason: Pain) RF: 0 sertraline 100 mg tablet 100 mg PO DAILY RF: 0 methadone 40 mg tablet,soluble 40 mg PO DAILY RF: 0 Discharge Orders: Discharge ED (Routine); Ordered 04/25/21 Ordered By: Guille Kennedy Referrals: Denice Coronado DO [Primary Care Provider] - Discharge Diet: Usual diet Discharge Activity: Increase activity as tolerated Patient Instructions: Chest Pain (ED) Activity Restrictions/Additional Instructions: Activity as tolerated. Continue with routine medications. Follow-up with primary care for further instruction and evaluation. Coding Level of Care Code ED Combination Welder Apprentice for Chg Fwd
[2021-04-25 14:45] LABS: Basophils # 0.1 10^3/uL (0.0-0.1); Basophils % 0.6 %; Eosinophils # 0.2 10^3/uL (0.0-0.8); Eosinophils % 2.4 %; Hematocrit 38.5 % (42.0-52.0); Hemoglobin 12.2 g/dL (11.7-16.6); Mean Corpuscular HGB Conc 31.7 g/dL (30.0-36.0); Mean Corpuscular Hemoglobin 30.4 pg (28.0-34.0); Mean Platelet Volume 9.1 fL (7.4-10.4); Monocytes # 0.5 10^3/uL (0.2-0.9); Neutrophils # 6.17 10^3/uL (1.8-7.7); Neutrophils % 68.2 %; Nucleated Red Blood Cells % 0 %; Platelet Count 194 10^3/cmm (130-400); Red Blood Count 4.01 10^6/uL (4.1-5.3); Red Cell Distribution Width 12.9 % (12.1-15.1)
[2021-04-25 15:02] LABS: Alanine Aminotransferase 15 U/L (0-41); Albumin Level 4.2 g/dL (3.5-5.2); Alkaline Phosphatase 85 IU/L (40-130); Anion Gap 17.8 (5-19); Aspartate Amino Transferase 17 U/L (0-40); Blood Urea Nitrogen 34 mg/dL (8-23); Calcium 8.7 mg/dL (8.5-10.5); Carbon Dioxide 24 mmol/L (22-29); Chloride 102 mmol/L (98-107); Globulin 2.5 g/dL (1.3-4.6); Glucose 83 mg/dL (65-115); Osmolality Calculated 295 mOsm/kg (285-295); Potassium 4.8 mmol/L (3.5-5.1); Sodium 139 mmol/L (136-145); Total Bilirubin 0.2 mg/dL (0.15-1.2); Total Protein 6.7 g/dL (6.6-8.7)
[2021-04-25 15:22] LABS: Troponin(5th) Baseline 40 ng/L (0-15)
[2021-04-25 16:52] LABS: Troponin 5 2HR 37.43 ng/L (0-15)
[2021-04-25 16:53] LABS: Troponin 5 2HR Delta -2.57 ABS# (0-10)
[2021-04-25 18:06] VITALS: BP 138/72; PULSE 88; RESP 16; O2SAT 96
== END 2021-04-25 18:06 | disposition home or self-care (01) ==
PROVIDERS: Family Medicine; Emergency Provider Nurse Practitioner Family; PCP Family Medicine
DX: R07.89 Other chest pain (principal); Z79.891 Long term (current) use of opiate analgesic; I10 Essential (primary) hypertension; E78.5 Hyperlipidemia, unspecified; E11.9 Type 2 diabetes mellitus without complications
CPT/HCPCS: 71045; 80053; 84484; 85025; 93005; 99283

== ENCOUNTER 2021-04-30 17:26 | Emergency (ER) | payer MEDICARE, SELFPAY ==
[2021-04-30 17:38] VITALS: BP 166/77; PULSE 54; RESP 18; TEMP 38.1; O2SAT 96; BMI 37.1
[2021-04-30 21:45] LABS: Add Urine Microscopic? NO; Charge for UA Resulting for Rev
[2021-04-30 22:05] LABS: Protein Urine Neg (Negative); Urine Appearance Clear (CLEAR); Urine Color Yellow (Yellow); pH Urine 5 (5-7)
[2021-04-30 22:06] LABS: Bilirubin Urine Neg (Negative); Blood Urine Neg (Negative); Glucose Urine UA Norm (Normal); Ketones Urine Negative (Negative); Leukocyte Esterase Urine Negative (Negative); Nitrate Urine Negative (Negative); Urobilinogen Urine Norm (Negative)
--- NOTE | 2021-04-30 22:10 | CTR_ITS ---
PROCEDURE INFORMATION: Exam: CT Head Without Contrast Exam date and time: 04/30/2021 10:10 PM Age: 70 years old Clinical indication: Dizziness; Patient HX: C/O weakness and loss of balance; Additional info: Weakness, dizziness TECHNIQUE: Imaging protocol: Computed tomography of the head without contrast. Radiation optimization: All CT scans at this facility use at least one of these dose optimization techniques: automated exposure control; mA and/or kV adjustment per patient size (includes targeted exams where dose is matched to clinical indication); or iterative reconstruction. COMPARISON: MR head wo con* [id number] 01/16/2020 3:52 PM RADIATION DOSE METRICS: Total DLP (mGy-cm): 1038.58 FINDINGS: Brain: There is mild diffuse cerebral atrophy. Patchy areas of hypoattenuation are seen in the deep white matter of the cerebral hemispheres bilaterally compatible with deep white matter microvascular disease. Cerebral ventricles: No ventriculomegaly. Paranasal sinuses: Mild mucosal thickening and fluid is seen within the left ethmoidal sinuses. Mastoid air cells: Visualized mastoid air cells are well aerated. Bones/joints: Unremarkable. No acute fracture. Soft tissues: Unremarkable. CT/CT head wo con* [id number] IMPRESSION: There are no acute intracranial findings.
--- NOTE | 2021-04-30 22:10 | XRR_ITS ---
PROCEDURE INFORMATION: Exam: XR Chest Exam date and time: 04/30/2021 10:10 PM Age: 70 years old Clinical indication: Fever; Additional info: Fever, AMS TECHNIQUE: Imaging protocol: XR of the chest. Views: 1 view. COMPARISON: CR XR chest 1V portable [id number] 04/25/2021 2:16 PM FINDINGS: Lungs: A few linear opacities are seen in the lung bases likely representing atelectasis. Pleural spaces: Unremarkable. No pleural effusion. No pneumothorax. Heart/Mediastinum: Unremarkable. No cardiomegaly. Bones/joints: Status post left shoulder replacement. XR/XR chest 1V portable [id number] IMPRESSION: 1. There are no acute chest findings. 2. Probable minimal bilateral basilar atelectasis
[2021-04-30 22:48] LABS: Basophils % 0.3 %; Eosinophils % 0.3 %; Hematocrit 36.8 % (42.0-52.0); Hemoglobin 12.2 g/dL (11.7-16.6); Lymphocytes % 14.5 %; Mean Corpuscular HGB Conc 33.2 g/dL (30.0-36.0); Mean Corpuscular Volume 93.6 fl (80-94); Mean Platelet Volume 9.9 fL (7.4-10.4); Monocytes # 0.6 10^3/uL (0.2-0.9); Monocytes % 9.8 %; Neutrophils # 4.86 10^3/uL (1.8-7.7); Nucleated Red Blood Cells % 0 %; Platelet Count 157 10^3/cmm (130-400); Red Blood Count 3.93 10^6/uL (4.1-5.3); Red Cell Distribution Width 12.8 % (12.1-15.1); White Blood Count 6.6 10^3/uL (4.0-10.0)
[2021-04-30] MEDS: sodium chloride 0.9% 1,000 ML 999 ML IV (22:52)
[2021-04-30 23:07] LABS: Lactate (Lactic Acid level) 1.3 mmol/L (0.5-2.2)
[2021-04-30 23:08] LABS: Alanine Aminotransferase 25 U/L (0-41); Albumin Level 4.2 g/dL (3.5-5.2); Alkaline Phosphatase 108 IU/L (40-130); Aspartate Amino Transferase 19 U/L (0-40); Blood Urea Nitrogen 17 mg/dL (8-23); C Reactive Protein 45.7 mg/L (0.0-4.9); Calcium 9.6 mg/dL (8.5-10.5); Carbon Dioxide 23 mmol/L (22-29); Chloride 98 mmol/L (98-107); Globulin 2.5 g/dL (1.3-4.6); Glucose 120 mg/dL (65-115); Osmolality Calculated 287 mOsm/kg (285-295); Sodium 137 mmol/L (136-145); Total Bilirubin 0.3 mg/dL (0.15-1.2); Total Protein 6.7 g/dL (6.6-8.7)
[2021-04-30 23:15] LABS: Procalcitonin 0.11 ng/mL (0-0.5)
--- NOTE | 2021-04-30 23:55 | W.ED.MALEGU ---
HPI - Male Genitourinary General: Chief complaint: Urogenital-Male Stated complaint: weakness, no balance, lower back pain Time Seen by Provider: 04/30/21 22:02 History of Present Illness: HPI Narrative: 70-year-old gentleman with generalized weakness, malaise, mild confusion at times today. He denies any chills. He denies significant cough. No vomiting. No significant belly pain. He notes some incontinence today, which he sometimes has had with a urinary tract infection. He has had some body aches as well. MD Complaint: other Onset (ago): day(s) (2) Quality: aching Relieving factors: none Exacerbating factors: none Associated symptoms: Reports urinary incontinence; Deny fevers/chills or vomiting Review of Systems Const: Reports: body aches; Denies: fever(s) or chills Eyes: Denies: change in vision Card: Denies: chest pain Resp: Denies: dyspnea, productive cough or non-productive cough GI: Denies: vomiting : Reports: urinary incontinence PFSH ED PFSH: Medical History (Updated 05/01/21 @ 01:20 by Wiliam Reddy DO) Benign essential HTN Cervical radiculopathy Depression Diabetic foot ulcer Hyperlipidemia Hypertriglyceridemia Incarcerated incisional hernia Iron deficiency anemia Nocturia Type 2 diabetes mellitus, without long-term current use of insulin Surgical History (Updated 01/31/21 @ 15:12 by Denice Coronado DO) H/O esophagogastroduodenoscopy (09/21/20) History of appendectomy History of back surgery History of cataract surgery History of left shoulder replacement History of neck surgery History of right hip replacement History of right inguinal hernia repair History of umbilical hernia repair Hx of cholecystectomy Status post arthroscopy of left shoulder Status post colonoscopy (09/21/20) Family History Other Cancer Social History Smoking and tobacco status: never smoked Alcohol intake: never History of recent travel: No Physical Exam Const: GENERAL APPEARANCE: cooperative; not ill appearing Eye: COMMON NORMALS: Equal, round and reactive pupils present and EOMs intact bilaterally PUPIL: Yes Equal, round and reactive pupils present Chest: COMMONS NORMALS: normal inspection of the chest Resp: COMMON NORMALS: normal respiratory effort, No use of accessory muscles and clear to auscultation bilaterally AUSCULTATION: clear to auscultation bilaterally Cardio: COMMON NORMALS: regular rate and regular rhythm RATE: regular rate RHYTHM: regular rhythm GI: COMMON NORMALS: Normal to inspection, nondistended, normoactive bowel sounds present and Soft to palpation PALPATION: Yes Soft to palpation Neuro: NAZIA COMA SCALE: document GCS findings Nazia coma scale eye opening: Spontaneous Nazia coma scale verbal response: Orientated [place] coma scale motor response: Obey commands Nazia coma scale total score: 15 Course Vital Signs: Vital signs: Vital Signs Temperature 100.6 F H 04/30/21 17:38 Pulse Rate 54 L 04/30/21 17:38 Respiratory Rate 18 04/30/21 17:38 Blood Pressure 166/77 04/30/21 17:38 Pulse Oximetry 96 04/30/21 17:38 MDM - Male MDM Narrative: Medical decision making narrative: 70-year-old gentleman with generalized weakness, fever, malaise. He is COVID-19 positive. White blood cell count is 6. BMP is normal. CRP is slightly elevated. Chest x-ray shows minimal bilateral basilar atelectasis. Head CT is negative for acute change. He will be allowed home. He will be offered outpatient monoclonal antibody infusion Lab Data: Labs: Lab Results 04/30/21 04/30/21 04/30/21 21:15 22:35 22:35 WBC 6.6 10^3/uL 10^3/ uL (4.0-10.0) RBC 3.93 10^6/uL L 10 ^6/uL (4.1-5.3) Hgb 12.2 g/dL g/dL (11.7-16.6) Hct 36.8 % L % (42.0-52.0) MCV 93.6 fl fl (80-94) MCH 31.0 pg pg (28.0-34.0) MCHC 33.2 g/dL g/dL (30.0-36.0) RDW 12.8 % % (12.1-15.1) Plt Count 157 10^3/cmm 10^3 /cmm (130-400) MPV 9.9 fL fL (7.4-10.4) Neut % (Auto) 74.0 % % Lymph % (Auto) 14.5 % % [place] % (Auto) 9.8 % % Eos % (Auto) 0.3 % % Baso % (Auto) 0.3 % % Neut # (Auto) 4.86 10^3/uL 10^3 /uL (1.8-7.7) Lymph # (Auto) 1.0 10^3/uL 10^3/ uL (0.8-4.8) [place] # (Auto) 0.6 10^3/uL 10^3/ uL (0.2-0.9) Eos # (Auto) 0.0 10^3/uL 10^3/ uL (0.0-0.8) Baso # (Auto) 0.0 10^3/uL 10^3/ uL (0.0-0.1) Nucleated RBC % (a uto) 0 % % Nucleated RBCs # 0.0 /100WBC /100W BC Sodium 137 mmol/L mmol/L (136-145) Potassium 4.0 mmol/L mmol/L (3.5-5.1) Chloride 98 mmol/L mmol/L (98-107) Carbon Dioxide 23 mmol/L mmol/L (22-29) Anion Gap 20.0 H (5-19) BUN 17 mg/dL mg/dL (8-23) Creatinine 0.8 mg/dL mg/dL (0.7-1.2) GFR Calculation Not Reportable Glucose 120 mg/dL H mg/dL (65-115) Calculated Osmolal ity 287 mOsm/kg mOsm/ kg (285-295) Lactate Calcium 9.6 mg/dL mg/dL (8.5-10.5) Total Bilirubin 0.3 mg/dL mg/dL (0.15-1.2) AST 19 U/L U/L (0-40) ALT 25 U/L U/L (0-41) Alkaline Phosphata se 108 IU/L IU/L (40-130) C-Reactive Protein 45.7 mg/L H mg/L (0.0-4.9) Total Protein 6.7 g/dL g/dL (6.6-8.7) Albumin 4.2 g/dL g/dL (3.5-5.2) Globulin 2.5 g/dL g/dL (1.3-4.6) Procalcitonin 0.11 ng/mL ng/mL (0-0.5) Urine Color Yellow (Yellow) Urine Appearance Clear (CLEAR) Urine pH 5 (5-7) Ur Specific Gravit y 1.020 (1.005-1.030) Urine Protein Neg (Negative) Urine Glucose (UA) Norm (Normal) Urine Ketones Negative (Negative) Urine Blood Neg (Negative) Urine Nitrate Negative (Negative) Urine Bilirubin Neg (Negative) Urine Urobilinogen Norm mg/dL mg/dL (Negative) Ur Leukocyte Nancy ase Negative (Negative) Coronavirus 229E ( PCR) SARS-CoV-2 (PCR) 04/30/21 04/30/21 22:35 22:35 WBC RBC Hgb Hct MCV MCH MCHC RDW Plt Count MPV Neut % (Auto) Lymph % (Auto) [place] % (Auto) Eos % (Auto) Baso % (Auto) Neut # (Auto) Lymph # (Auto) [place] # (Auto) Eos # (Auto) Baso # (Auto) Nucleated RBC % (a uto) Nucleated RBCs # Sodium Potassium Chloride Carbon Dioxide Anion Gap BUN Creatinine GFR Calculation Glucose Calculated Osmolal ity Lactate 1.3 mmol/L mmol/L (0.5-2.2) Calcium Total Bilirubin AST ALT Alkaline Phosphata se C-Reactive Protein Total Protein Albumin Globulin Procalcitonin Urine Color Urine Appearance Urine pH Ur Specific Gravit y Urine Protein Urine Glucose (UA) Urine Ketones Urine Blood Urine Nitrate Urine Bilirubin Urine Urobilinogen Ur Leukocyte [place] a[place] Coronavirus 229E ( PCR) Not detected (NOT DETECT) SARS-CoV-2 (PCR) Detected A (NOT DETECT) Discharge Plan Discharge Patient Disposition: Home Clinical Impression: COVID-19 Condition: Stable Prescriptions: No Action (DME) GLUCOMETER Qty: 1 RF: 0 (DME) lancets 25 gauge misc See Rx Instructions .ROUTE .MEDSUPPLY Qty: 100 RF: 0 (DME) Diabetic shoes with 3 inserts See Rx Instructions .ROUTE .MEDSUPPLY Qty: 1 RF: 0 (DME) blood-glucose meter [Accu-Chek Flory Plus Meter] Misc See Rx Instructions .ROUTE .MEDSUPPLY Qty: 1 RF: 0 (DME) Accu-Chek Flory Plus test strp Strip See Rx Instructions .ROUTE .MEDSUPPLY Qty: 100 RF: 0 (DME) OneTouch Verio test strips Strip See Rx Instructions .ROUTE .MEDSUPPLY Qty: 100 RF: 1 carvedilol 12.5 mg tablet 12.5 mg PO BID Qty: 180 RF: 1 ondansetron 4 mg tablet,disintegrating 4 mg PO Q6H PRN (Reason: Nausea) 30 Days Qty: 30 RF: 2 spironolactone 25 mg tablet See Rx Instructions .ROUTE .COMPLEX Qty: 90 RF: 1 gabapentin 300 mg capsule 300 mg PO BID Qty: 60 RF: 3 Januvia 100 mg tablet 100 mg PO DAILY 90 Days Qty: 90 RF: 0 memantine 10 mg tablet 10 mg PO DAILY Qty: 90 RF: 0 pantoprazole [Protonix] 40 mg tablet,delayed release (DR/EC) 40 mg PO DAILY Qty: 90 RF: 0 lisinopril 10 mg tablet 10 mg PO DAILY Qty: 90 RF: 0 acetaminophen 325 mg Tablet 975 mg PO QID PRN (Reason: Pain) RF: 0 sertraline 100 mg tablet 100 mg PO DAILY RF: 0 methadone 40 mg tablet,soluble 40 mg PO DAILY RF: 0 Discharge Orders: Discharge ED (Routine); Ordered 05/01/21 Ordered By: Wiliam Reddy Other Ambulatory Orders: Request for MCA (Routine) Timeframe: 1 Day Facility: [facility] - Location: Outpatient [facility] Ordered By: Wiliam Reddy Referrals: Denice Coronado DO [Primary Care Provider] - 4-7 days Discharge Diet: Usual diet and Diabetic Discharge Activity: Limit activity as instructed Patient Instructions: COVID-19 (Coronavirus Disease 2019) (ED) Activity Restrictions/Additional Instructions: Return for inability to control fever, worsening shortness of breath, chest discomfort, worsening mental status, any other concerns. An order has been placed for an outpatient monoclonal antibody infusion. This is like an antibiotic for this disease. You will get a call Sunday with an appointment for this. Coding Level of Care Code ED Nursing Care Attendant for Bill Fwd Exam Detailed
[2021-05-01 00:28] LABS: Adenovirus Not Detected (NOT DETECT); Chlamydia Pneumoniae Not Detected (NOT DETECT); Coronavirus 229E,HKU1,NL63,OC4 Not Detected (NOT DETECT); Human Metapneumovirus Not Detected (NOT DETECT); Human Rhinovirus/Enterovirus Not Detected (NOT DETECT); Influenza A Not Detected (NOT DETECT); Influenza A H1 Not Detected (NOT DETECT); Influenza A H1-2009 Not Detected (NOT DETECT); Influenza A H3 Not Detected (NOT DETECT); Influenza B Not Detected (NOT DETECT); Mycoplasma Pneumoniae Not Detected (NOT DETECT); Parainfluenza Virus Type 1 Not Detected (NOT DETECT); Parainfluenza Virus Type 2 Not Detected (NOT DETECT); Parainfluenza Virus Type 3 Not Detected (NOT DETECT); Parainfluenza Virus Type 4 Not Detected (NOT DETECT); Respiratory Syncytial Virus A Not Detected (NOT DETECT); Respiratory Syncytial Virus B Not Detected (NOT DETECT); SARS-COV-2 Detected (NOT DETECT)
--- NOTE | 2021-05-01 09:09 | PC.NURSE ---
Left voice mail to return call
--- NOTE | 2021-05-01 09:11 | PC.NURSE ---
Pt notified of Positive COVID results
--- NOTE | 2021-05-04 16:01 | DCPLANNER ---
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 Order was faxed to centralized scheduling - patient did attend appointment.
== END 2021-05-01 01:45 | disposition home or self-care (01) ==
PROVIDERS: Physician Assistant; Emergency Provider Emergency Medicine; PCP Family Medicine
DX: U07.1 COVID-19 (principal); I10 Essential (primary) hypertension; E78.5 Hyperlipidemia, unspecified; E11.9 Type 2 diabetes mellitus without complications
CPT/HCPCS: 70450; 71045; 80053; 81003; 83605; 84145; 85025; 86140; 87040; 87635; 96360; 99284; J7030

== ENCOUNTER → 2021-09-09 13:27 | Outpatient (BNVA) | payer MEDICARE, SELFPAY | PROVIDERS: PCP Family Medicine; Visit Provider Family Medicine | DX: E78.2 Mixed hyperlipidemia (principal); E11.621 Type 2 diabetes mellitus with foot ulcer; E11.9 Type 2 diabetes mellitus without complications; L97.509 Non-pressure chronic ulcer of other part of unspecified foot with unspecified severity | CPT/HCPCS: 80053; 80061; 82043; 83036 ==

== ENCOUNTER → 2022-04-18 14:59 | Outpatient (BNVA) | payer MEDICARE, OTHER, SELFPAY | PROVIDERS: PCP Family Medicine; Visit Provider Family Medicine | DX: I10 Essential (primary) hypertension (principal); E78.2 Mixed hyperlipidemia; E11.9 Type 2 diabetes mellitus without complications; R39.11 Hesitancy of micturition | CPT/HCPCS: 80053; 80061; 82043; 83036; 84153; 85025 ==

== ENCOUNTER → 2022-11-30 10:33 | Outpatient (BNVA) | payer MEDICARE, OTHER, SELFPAY | PROVIDERS: PCP Family Medicine; Visit Provider Family Medicine | DX: E11.621 Type 2 diabetes mellitus with foot ulcer (principal); L97.509 Non-pressure chronic ulcer of other part of unspecified foot with unspecified severity | CPT/HCPCS: 80053; 80061; 83036 ==

== ENCOUNTER 2022-12-13 20:46 | Inpatient (IN) | payer MEDICARE, OTHER, SELFPAY ==
[2022-12-13 20:47] VITALS: BP 110/83; PULSE 119; RESP 18; TEMP 39.4; O2SAT 93; BMI 40.3
--- NOTE | 2022-12-13 20:52 | ECG_ITS ---
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 Measurements Intervals [place] Rate: 114 P: 111 NC: 180 QRS: 2 QRSD: 98 T: 44 QT: 304 QTc: 420 Interpretive Statements SINUS TACHYCARDIA SEPTAL MYOCARDIAL INFARCTION , OF INDETERMINATE AGE [40+ ms Q WAVE IN V1/V2] Compared to ECG 04/25/2021 12:30:24 Myocardial infarct finding now present Sinus rhythm no longer present Ventricular premature complex(es) no longer present Electronically Signed On 12-14-2022 21:18:44 CDT by Karina Ly M.D. [id number] f
--- NOTE | 2022-12-13 20:52 | CTR_ITS ---
PROCEDURE INFORMATION: Exam: CT Head Without Contrast Exam date and time: 12/13/2022 9:12 PM Age: 72 years old Clinical indication: Altered mental status/memory loss; Additional info: AMS, confusion TECHNIQUE: Imaging protocol: Computed tomography of the head without contrast. Radiation optimization: All CT scans at this facility use at least one of these dose optimization techniques: automated exposure control; mA and/or kV adjustment per patient size (includes targeted exams where dose is matched to clinical indication); or iterative reconstruction. REPORTING DATA: Count of CT and Cardiac NM exams in prior 12 months: This patient has received 0 known CTs and 0 known cardiac nuclear medicine studies in the 12 months prior to the current study. COMPARISON: CT head wo contrast 04/30/2021 10:44 PM RADIATION DOSE METRICS: Total DLP (mGy-cm): 1185 FINDINGS: Brain: No acute intracranial hemorrhage, acute large territory infarct, or obvious mass lesion. Age appropriate diffuse cerebral volume loss. Chronic white matter changes, likely to be chronic small vessel ischemic changes. Cerebral ventricles: No ventriculomegaly. Paranasal sinuses: Visualized sinuses are unremarkable. No fluid levels. Mastoid air cells: Visualized mastoid air cells are well aerated. Bones/joints: Unremarkable. No acute fracture. Soft tissues: Unremarkable. CT/CT head wo con* [id number] IMPRESSION: No acute intracranial abnormality.
--- NOTE | 2022-12-13 20:52 | XRR_ITS ---
PROCEDURE INFORMATION: Exam: XR Chest Exam date and time: 12/13/2022 9:07 PM Age: 72 years old Clinical indication: Other: AMS TECHNIQUE: Imaging protocol: Radiologic exam of the chest. Views: 1 view. COMPARISON: CR XR chest 1V portable [id number] 04/30/2021 10:50 PM FINDINGS: Lungs: No consolidation, mass, or pulmonary edema. Pleural spaces: Unremarkable. No pleural effusion. No pneumothorax. Heart/Mediastinum: Cardiomediastinal silhouette is stable and unremarkable. Bones/joints: Status post left shoulder arthroplasty. No acute osseous abnormality. XR/XR chest 1V portable [id number] IMPRESSION: No acute findings.
--- NOTE | 2022-12-13 20:55 | W.ED.AMS ---
HPI - Altered Mental Status General: Chief Complaint: Altered Mental Status Stated Complaint: AMS Time Seen by Provider: 12/13/22 20:47 History of Present Illness: Patient presents by EMS with complaints of altered mental status. EMS stated patient's said patient laid down about noon to to sleep and when she tried to get him up about 5 PM he was less arousable than normal so she let him sleep even longer. Then when she tried to get up again at 8 PM she noticed something was definitely wrong as he was altered and still less than normal arousable. Upon arrival patient does smell of urine. Patient can answer very simple questions appropriately but questions when he thought patient is Stares blankly Review of Systems General: Reports: 10 or more systems reviewed and unremarkable except in HPI and below PFSH ED PFSH: Medical History Benign essential HTN BPH w urinary obs/LUTS Cervical radiculopathy Depression Diabetic foot ulcer Hyperlipidemia Hypertriglyceridemia Incarcerated incisional hernia Iron deficiency anemia Nocturia Type 2 diabetes mellitus, without long-term current use of insulin Surgical History H/O esophagogastroduodenoscopy (09/21/20) History of appendectomy History of back surgery History of cataract surgery History of left shoulder replacement History of neck surgery History of right hip replacement History of right inguinal hernia repair History of umbilical hernia repair Hx of cholecystectomy Status post arthroscopy of left shoulder Status post colonoscopy (09/21/20) Family History Other Cancer Social History Smoking and tobacco status: never smoked Alcohol intake: never Substance/Drug Use: never Physical Exam Const: COMMON NORMALS: no acute distress, average body habitus, healthy appearing, alert and well nourished EXAM LIMITATIONS: altered mental status HENMT: COMMON NORMALS: normocephalic, atraumatic, hearing grossly normal bilaterally, external ears normal, Normal external nose present and moist oral mucous membranes HEAD & SCALP: normocephalic and atraumatic NOSE: Normal external nose present EXTERNAL EAR: Yes external ears normal Eye: COMMON NORMALS: Equal, round and reactive pupils present, EOMs intact bilaterally, conjunctivae normal and no scleral icterus CONJUNCTIVA: Yes conjunctivae normal PUPIL: Yes Equal, round and reactive pupils present Neck/C-Spine: COMMON NORMALS: full ROM, no lymphadenopathy, supple, no meningeal signs, no JVD and Thyroid normal THYROID: Thyroid normal Chest: COMMONS NORMALS: normal inspection of the chest and normal palpation of entire chest wall Resp: COMMON NORMALS: normal respiratory effort, No retractions, No use of accessory muscles and clear to auscultation bilaterally AUSCULTATION: clear to auscultation bilaterally Cardio: COMMON NORMALS: no JVD, regular rate, regular rhythm, S1 normal heart sound present, S2 normal heart sound present, No gallops present (Cardio), No clicks present (Cardio), No murmurs present (Cardio) and No rub (Cardio) RATE: regular rate RHYTHM: regular rhythm HEART SOUNDS: S1 normal heart sound present and S2 normal heart sound present GI: COMMON NORMALS: Normal to inspection, nondistended, normoactive bowel sounds present (Mild ventral hernia), Soft to palpation, non-tender, No hepatosplenomegaly present, no masses and no bruits PALPATION: Yes Soft to palpation and Yes No hepatosplenomegaly present Extremity: NARRATIVE EXTREMITY EXAM: 1-2+ pitting edema bilateral lower extremities, peripheral vascular disease, Neuro: SENSORIUM/ORIENTATION: Yes alert MENINGEAL SIGNS: Yes no meningeal signs Course Vital Signs: Vital signs: Vital Signs Temperature 99.7 F H 12/13/22 22:35 Pulse Rate 97 12/14/22 00:37 Respiratory Rate 17 12/14/22 00:37 Blood Pressure 179/88 12/14/22 00:37 Pulse Oximetry 92 12/14/22 00:37 Oxygen Delivery Me thod Room Air 12/14/22 02:00 MDM - Altered Mental Status Medical Decision Making Patient presents to the ER with complaints of altered mental status, tachycardia with a heart rate of about 120 beats a minute, fever with a temperature of about 103.0. Physical exam was performed all of which was essentially benign lab work was obtained with serial EKGs and serial troponins. Initial troponin was 102-hour troponin was 152 for delta 52. Patient denied chest pain during this entire process. Patient was given 1 g of Tylenol IV and 1 L normal saline and that decreased his heart rate down to 97 bpm and his temperature down to about 98 degrees. Lactic acid chest x-ray and head CT are all negative as well as urine and respiratory panel. Dr. Daily was consulted about the altered mental status and troponin. She agreed to accept the patient for inpatient admission for further evaluation and treatment. Differential Diagnosis Likely altered mental status; Unlikely alcoholic intoxication, delirium, dementia, hypoglycemia, hyponatremia, subarachnoid hemorrhage or sepsis Medical Records I reviewed the patient's medical records. Lab Data I reviewed the patient's lab results. 12/13/22 21:56 12/13/22 21:56 Radiology Impressions Chest X-Ray 12/13/22 20:52 IMPRESSION: No acute findings. Head CT 12/13/22 20:52 IMPRESSION: No acute intracranial abnormality. Laboratory Results WBC 11.58 10^3/uL (3.29-11.43) H 12/13/22 21:56 RBC 4.13 10^6/uL (3.85-5.65) 12/13/22 21:56 Hgb 12.90 g/dL (11.27-16.99) 12/13/22 21:56 Hct 38.9 % (37-53) 12/13/22 21:56 MCV 94.2 fl (82-101) 12/13/22 21:56 MCH 31.2 pg (27-33) 12/13/22 21:56 MCHC 33.2 g/dL (30-55) 12/13/22 21:56 RDW 12.4 % (12.1-15.1) 12/13/22 21:56 Plt Count 159 10^3/cmm (157-399) 12/13/22 21:56 MPV 9.9 fL (7.4-10.4) 12/13/22 21:56 Neut % (Auto) 88.9 % 12/13/22 21:56 Lymph % (Auto) 5.8 % 12/13/22 21:56 Hawkins % (Auto) 4.1 % 12/13/22 21:56 Eos % (Auto) 0.1 % 12/13/22 21:56 Baso % (Auto) 0.3 % 12/13/22 21:56 Neut # (Auto) 10.29 10^3/uL (1.8-7.7) H 12/13/22 21:56 Lymph # (Auto) 0.7 10^3/uL (0.8-4.8) L 12/13/22 21:56 Hawkins # (Auto) 0.5 10^3/uL (0.2-0.9) 12/13/22 21:56 Eos # (Auto) 0.0 10^3/uL (0.0-0.8) 12/13/22 21:56 Baso # (Auto) 0.0 10^3/uL (0.0-0.1) 12/13/22 21:56 Nucleated RBC % (auto) 0 % 12/13/22 21:56 Nucleated RBCs # 0.0 /100WBC 12/13/22 21:56 Sodium 138 mmol/L (136-145) 12/13/22 21:56 Potassium 4.8 mmol/L (3.5-5.1) 12/13/22 21:56 Chloride 99 mmol/L (98-107) 12/13/22 21:56 Carbon Dioxide 25 mmol/L (22-29) 12/13/22 21:56 Anion Gap 18.8 (5-19) 12/13/22 21:56 BUN 22 mg/dL (8-23) 12/13/22 21:56 Creatinine 1.2 mg/dL (0.7-1.2) 12/13/22 21:56 GFR Calculation Not Reportable 12/13/22 21:56 Glucose 147 mg/dL (65-115) H 12/13/22 21:56 POC Glucose 145 mg/dL (70-110) H 12/13/22 21:53 Calculated Osmolality 292 mOsm/kg (285-295) 12/13/22 21:56 Lactic Acid 1.1 mmol/L (0.5-2.2) 12/13/22 21:56 Calcium 8.6 mg/dL (8.5-10.5) 12/13/22 21:56 Magnesium 1.7 mg/dL (1.7-2.3) 12/13/22 21:56 Total Bilirubin 0.5 mg/dL (0.15-1.2) 12/13/22 21:56 AST 19 U/L (0-40) 12/13/22 21:56 ALT 26 U/L (0-41) 12/13/22 21:56 Alkaline Phosphatase 153 U/L (40-130) H 12/13/22 21:56 Troponin T Baseline 100 ng/L (0-15) H 12/13/22 21:56 Troponin T 120 Minute 152.5 ng/L (0-15) H 12/13/22 23:55 Delta Troponin T 52.5 ABS# (0-10) H* 12/13/22 23:55 Total Protein 6.8 g/dL (6.6-8.7) 12/13/22 21:56 Albumin 4.3 g/dL (3.5-5.2) 12/13/22 21:56 Globulin 2.5 g/dL (1.3-4.6) 12/13/22 21:56 Procalcitonin 0.17 ng/mL (0-0.5) 12/13/22 21:56 Urine Color Yellow (Yellow) 12/13/22 21:45 Urine Appearance Clear (CLEAR) 12/13/22 21:45 Urine pH 5 (5-7) 12/13/22 21:45 Ur Specific [place] 1.015 (1.005-1.030) 12/13/22 21:45 Urine Protein Neg (Negative) 12/13/22 21:45 Urine Glucose (UA) Norm (Normal) 12/13/22 21:45 Urine Ketones 1+ (Negative) H 12/13/22 21:45 Urine Blood Neg (Negative) 12/13/22 21:45 Urine Nitrate Negative (Negative) 12/13/22 21:45 Urine Bilirubin Neg (Negative) 12/13/22 21:45 Urine Urobilinogen Norm mg/dL (Negative) 12/13/22 21:45 Ur Leukocyte Esterase Negative (Negative) 12/13/22 21:45 Nasal Influ A H1 2008 PCR Not detected (NOT DETECT) 12/13/22 22:35 Urine Opiates Screen Negative ng/mL (Negative) 12/13/22 21:45 Ur Barbiturates Screen Negative ng/mL (Negative) 12/13/22 21:45 Ur Phencyclidine Scrn Negative ng/mL (Negative) 12/13/22 21:45 Ur Amphetamines Screen Negative ng/mL (Negative) 12/13/22 21:45 U Benzodiazepines Scrn Negative ng/mL (Negative) 12/13/22 21:45 Urine Cocaine Screen Negative ng/mL (Negative) 12/13/22 21:45 U Marijuana (THC) Screen Negative ng/mL (Negative) 12/13/22 21:45 Adenovirus (PCR) Not detected (NOT DETECT) 12/13/22 22:35 C. pneumoniae DNA (PCR) Not detected (NOT DETECT) 12/13/22 22:35 Coronavirus 229E (PCR) Not detected (NOT DETECT) 12/13/22 22:35 Human Metapneumovir PCR Not detected (NOT DETECT) 12/13/22 22:35 Influenza A (H1) PCR Not detected (NOT DETECT) 12/13/22 22:35 Influenza A (H3) PCR Not detected (NOT DETECT) 12/13/22 22:35 Influenza Type A (PCR) Not detected (NOT DETECT) 12/13/22 22:35 Influenza Type B (PCR) Not detected (NOT DETECT) 12/13/22 22:35 M. pneumoniae (PCR) Not detected (NOT DETECT) 12/13/22 22:35 Parainfluenza 1 (PCR) Not detected (NOT DETECT) 12/13/22 22:35 Parainfluenza 2 (PCR) Not detected (NOT DETECT) 12/13/22 22:35 Parainfluenza 3 (PCR) Not detected (NOT DETECT) 12/13/22 22:35 Parainfluenza 4 (PCR) Not detected (NOT DETECT) 12/13/22 22:35 RSV Type A (PCR) Not detected (NOT DETECT) 12/13/22 22:35 RSV Type B (PCR) Not detected (NOT DETECT) 12/13/22 22:35 Entero/Rhino (PCR) Not detected (NOT DETECT) 12/13/22 22:35 SARS-CoV-2 (PCR) Not detected (NOT DETECT) 12/13/22 22:35 EKG Data EKG 1: I personally reviewed and interpreted this EKG as follows: EKG interpretation date: 12/13/22 EKG interpretation time: 20:52 Prior EKG tracings: not available for review Interpretation: EKG showed ventricular rate of 114 beats a minute, OR interval 180, QRS duration 98, QTc of 372, sinus tachycardia, Q waves in V1 and V2, no ST-T wave changes EKG 2: I personally reviewed and interpreted this EKG as follows: EKG interpretation date: 12/14/22 EKG interpretation time: 23:30 Prior EKG tracings: available for review Interpretation: EKG showed ventricular rate 105 bpm, OR interval 182, QRS duration 109, QTc of 405, sinus tachycardia nonspecific T wave abnormality Discharge Plan Discharge Patient Disposition: Admitted As Inpatient Admit Provider: Kitty Daily Clinical Impression: Acute alteration in mental status, Fever, Tachycardia, Elevated troponin Condition: Stable Coding Level of Care Code ED 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
--- NOTE | 2022-12-13 21:13 | PC.NURSE ---
completed by benita Davila--given to Dr. Corea.
--- NOTE | 2022-12-13 21:53 | PC.NURSE ---
GLUCOSE 145 PER FINGER STICK
[2022-12-13] MEDS: sodium chloride 0.9% 1,000 ML 999 ML IV (21:59)
[2022-12-13] MEDS: acetaminophen 1,000 MG/100 ML PIGGYBACK 400 MG IV (22:00)
[2022-12-13 22:08] LABS: Basophils % 0.3 %; Eosinophils % 0.1 %; Hematocrit 38.9 % (37-53); Lymphocytes # 0.7 10^3/uL (0.8-4.8); Lymphocytes % 5.8 %; Mean Corpuscular HGB Conc 33.2 g/dL (30-55); Mean Corpuscular Hemoglobin 31.2 pg (27-33); Mean Corpuscular Volume 94.2 fl (82-101); Mean Platelet Volume 9.9 fL (7.4-10.4); Monocytes # 0.5 10^3/uL (0.2-0.9); Monocytes % 4.1 %; Neutrophils # 10.29 10^3/uL (1.8-7.7); Neutrophils % 88.9 %; Nucleated Red Blood Cells % 0 %; Platelet Count 159 10^3/cmm (157-399); Red Blood Count 4.13 10^6/uL (3.85-5.65); Red Cell Distribution Width 12.4 % (12.1-15.1); White Blood Count 11.58 10^3/uL (3.29-11.43)
[2022-12-13 22:08] LABS: Add Urine Microscopic? NO; Charge for UA Resulting for Rev
[2022-12-13 22:12] LABS: Bilirubin Urine Neg (Negative); Blood Urine Neg (Negative); Glucose Urine UA Norm (Normal); Ketones Urine 1+ (Negative); Leukocyte Esterase Urine Negative (Negative); Nitrate Urine Negative (Negative); Protein Urine Neg (Negative); Specific Gravity, Urine 1.015 (1.005-1.030); Urine Appearance Clear (CLEAR); Urine Color Yellow (Yellow); Urobilinogen Urine Norm (Negative); pH Urine 5 (5-7)
[2022-12-13 22:18] VITALS: BP 181/96; PULSE 106; RESP 24; O2SAT 94
[2022-12-13 22:21] LABS: Amphetamines Screen Urine Negative (Negative); Barbiturates Screen Urine Negative (Negative); Benzodiazepines Screen Urine Negative (Negative); Cocaine Screen Urine Negative (Negative); Opiate Screen Urine Negative (Negative); PCP Screen Urine Negative (Negative); THC Screen Urine Negative (Negative)
[2022-12-13 22:25] LABS: Alanine Aminotransferase 26 U/L (0-41); Albumin Level 4.3 g/dL (3.5-5.2); Alkaline Phosphatase 153 U/L (40-130); Anion Gap 18.8 (5-19); Aspartate Amino Transferase 19 U/L (0-40); Blood Urea Nitrogen 22 mg/dL (8-23); Calcium 8.6 mg/dL (8.5-10.5); Carbon Dioxide 25 mmol/L (22-29); Chloride 99 mmol/L (98-107); Globulin 2.5 g/dL (1.3-4.6); Glucose 147 mg/dL (65-115); Magnesium 1.7 mg/dL (1.7-2.3); Osmolality Calculated 292 mOsm/kg (285-295); Potassium 4.8 mmol/L (3.5-5.1); Sodium 138 mmol/L (136-145); Total Bilirubin 0.5 mg/dL (0.15-1.2); Total Protein 6.8 g/dL (6.6-8.7)
[2022-12-13 22:26] LABS: Lactic Sepsis W/Reflex 1.1 mmol/L (0.5-2.2)
[2022-12-13 22:30] LABS: Troponin(5th) Baseline 100 ng/L (0-15)
[2022-12-13 22:32] LABS: Procalcitonin 0.17 ng/mL (0-0.5)
[2022-12-13 22:35] VITALS: BP 171/98; PULSE 103; RESP 21; TEMP 37.6; O2SAT 94
[2022-12-13 22:42] LABS: Glucose Point of Care 145 mg/dL (70-110)
[2022-12-13 23:20] VITALS: BP 176/86; PULSE 102; RESP 18; O2SAT 92
--- NOTE | 2022-12-13 23:30 | ECG_ITS ---
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 Measurements Intervals [place] Rate: 105 P: 98 ND: 182 QRS: 14 QRSD: 109 T: 65 QT: 344 QTc: 455 Interpretive Statements SINUS TACHYCARDIA NONSPECIFIC T-WAVE ABNORMALITY ABNORMAL RHYTHM ECG Compared to ECG 04/25/2021 12:30:24 T-wave abnormality now present Sinus rhythm no longer present Ventricular premature complex(es) no longer present Electronically Signed On 12-14-2022 21:28:02 CDT by Karina Ly M.D. [id number] f
--- NOTE | 2022-12-13 23:55 | PC.NURSE ---
this nurse has updated patient and patients on progress in the care of the patient. family had no further questions at this time. pt resting in no acute distress at this time.
[2022-12-13 23:56] VITALS: BP 159/103; PULSE 95; RESP 15; O2SAT 92
[2022-12-14] VITALS (11 sets, daily range): BP systolic 114–179; BP diastolic 57–92; PULSE 71–116; RESP 15–32; TEMP 37.1–38.1; O2SAT 92–100
[2022-12-14 00:34] LABS: Troponin 5 2HR 152.5 ng/L (0-15); Troponin 5 2HR Delta 52.5 ABS# (0-10)
[2022-12-14 01:02] LABS: Adenovirus Not Detected (NOT DETECT); Chlamydia Pneumoniae Not Detected (NOT DETECT); Coronavirus 229E,HKU1,NL63,OC4 Not Detected (NOT DETECT); Human Metapneumovirus Not Detected (NOT DETECT); Human Rhinovirus/Enterovirus Not Detected (NOT DETECT); Influenza A Not Detected (NOT DETECT); Influenza A H1 Not Detected (NOT DETECT); Influenza A H1-2009 Not Detected (NOT DETECT); Influenza A H3 Not Detected (NOT DETECT); Influenza B Not Detected (NOT DETECT); Mycoplasma Pneumoniae Not Detected (NOT DETECT); Parainfluenza Virus Type 1 Not Detected (NOT DETECT); Parainfluenza Virus Type 2 Not Detected (NOT DETECT); Parainfluenza Virus Type 3 Not Detected (NOT DETECT); Parainfluenza Virus Type 4 Not Detected (NOT DETECT); Respiratory Syncytial Virus A Not Detected (NOT DETECT); Respiratory Syncytial Virus B Not Detected (NOT DETECT); SARS-COV-2 Not Detected (NOT DETECT)
--- NOTE | 2022-12-14 02:50 | P.HP_ITS ---
Providers/Chief Complaint Admitting Physician: Kitty Daily MD Primary Care Provider: Denice Coronado DO Chief Complaint: AMS History of Present Illness Simba Berry is a 72 year old male with history of mild dementia depression hyperlipidemia hypertension BPH GERD opioid abuse currently on p.o. methadone since last 3 years was brought in by the ambulance for fever and altered mental status. As per the patient usually travels to get his methadone dose on alternate days but today when she came home she saw him sleeping and was unable to wake wake him up. She found that his face was flushing, he was staring, nonresponsive to verbal stimuli unable to move his extremities and had urinated. There is no history of seizure fever nausea vomiting decreased appetite ab dominal pain chest pain shortness of breath urinary or bowel complaints. He was doing well until this morning but since afternoon he has not been his usual as per the . No history of fall or sick contact recently. On arrival in the ER he had a temperature of 103 ?F and was found to be mildly c onfused. Although he was answering all the questions appropriately. He does not remember sequence of events that happened in the afternoon. But he is back To his baseline mental status as per his . Review of Systems Narrative: As per HPI Medications/Allergies Home Medications Medication Instructions Recorded Confirmed Last Taken Type blood sugar diagnostic (Accu-Chek #100 ea 05/29/19 11/30/22 09/20/20 Rx Flory Plus test strips) blood-glucose meter (Accu-Chek #1 ea 05/29/19 11/30/22 09/20/20 Rx Flory Plus Meter) GLUCOMETER #1 ea 07/31/19 11/30/22 09/20/20 Rx lancets 25 gauge #100 ea 07/31/19 11/30/22 09/20/20 Rx blood sugar diagnostic (OneTouch #100 ea 08/05/19 11/30/22 09/20/20 Rx Verio test strips) acetaminophen 325 mg tablet 975 mg PO QID PRN Pain 09/20/20 11/30/22 09/20/20 History Diabetic shoes with 3 inserts #1 ea 10/06/20 11/30/22 Unknown Rx methadone 40 mg soluble tablet 40 mg PO DAILY 01/31/21 11/30/22 Unknown History spironolactone 25 mg tablet See Rx Instructions .Route 04/06/23 08/24/23 Unknown Rx .COMPLEX #90 tabs carvedilol 12.5 mg tablet See Rx Instructions .Route 10/09/22 11/30/22 Unknown Rx .COMPLEX #180 tabs atorvastatin 40 mg tablet See Rx Instructions .Route 10/30/22 11/30/22 Unknown Rx .COMPLEX #90 tabs lisinopril 10 mg tablet See Rx Instructions .Route 10/30/22 11/30/22 Unknown Rx .COMPLEX #90 tabs sertraline 100 mg tablet See Rx Instructions .Route 10/30/22 11/30/22 Unknown Rx .COMPLEX #90 tabs gabapentin 300 mg capsule See Rx Instructions .Route 11/02/22 11/30/22 Unknown Rx .COMPLEX #270 caps tamsulosin 0.4 mg capsule See Rx Instructions .Route 11/28/22 11/30/22 Unknown Rx .COMPLEX #90 caps sitagliptin phosphate 100 mg See Rx Instructions .Route 12/01/22 Unknown Rx tablet (Januvia) .COMPLEX #90 tabs memantine 10 mg tablet See Rx Instructions .Route 12/04/22 Unknown Rx .COMPLEX #90 tabs pantoprazole 40 mg tablet,delayed See Rx Instructions .Route 12/04/22 Unknown Rx release .COMPLEX #90 tabs Allergies Allergy/AdvReac Type Severity Reaction Status Date / Time diazepam [From Valium] Allergy ADR-Confusi Verified 12/13/22 21:02 on Penicillins Allergy ALGY-Rash Verified 12/13/22 21:02 titanium Allergy ALGY-Rash Verified 12/13/22 21:02 PFSH Acute PFSH: Medical History Benign essential HTN BPH w urinary obs/LUTS Cervical radiculopathy Depression Diabetic foot ulcer Hyperlipidemia Hypertriglyceridemia Incarcerated incisional hernia Iron deficiency anemia Nocturia Type 2 diabetes mellitus, without long-term current use of insulin Surgical History H/O esophagogastroduodenoscopy (09/21/20) History of appendectomy History of back surgery History of cataract surgery History of left shoulder replacement History of neck surgery History of right hip replacement History of right inguinal hernia repair History of umbilical hernia repair Hx of cholecystectomy Status post arthroscopy of left shoulder Status post colonoscopy (09/21/20) Family History Other Cancer Social History Smoking and tobacco status: never smoked Alcohol intake: never Substance/Drug Use: never Vitals/I&O/Wt Last Vital Signs Temp 99.7 F H 12/13/22 22:35 Pulse 97 12/14/22 00:37 Resp 17 12/14/22 00:37 BP 179/88 12/14/22 00:37 Pulse Ox 92 12/14/22 00:37 O2 Del Method Room Air 12/14/22 00:37 12/13/22 12/13/22 12/14/22 14:59 22:59 06:59 Intake Total 1100 / 1100 Balance 1100 / 1100 Weight last 48 hrs Weight 113.398 kg Physical Exam Narrative: He is alert awake oriented x3 cooperative pleasant not in acute distress Severe tenderness and mild swelling present over the chin area, no tongue bite seen, also tenderness noted over lower gingival area Chest was clear to auscultation bilaterally Cardiovascular normal heart sounds Abdomen soft nontender nondistended normal bowel sounds, epigastric hernia present which is partially reducible Neuro moving all extremities power 5 x 5 no sensory or motor deficits seen. Extremities bilateral 1+ edema present. Urinary Catheter Management: Anders: Cath Placed During This Visit: yes Reason for Continuing Indwelling Catheter: Other Urinary Catheter Date of Insertion: 12/13/22 Urinary Catheter Time of Insertion: 21:46 Data 12/13/22 21:56 12/13/22 21:56 Micro: Microbiology 12/13/22 21:37 Blood Culture - Preliminary Blood SPECIMEN COLLECTED 12/13/22 21:56 Blood Culture - Preliminary Blood SPECIMEN COLLECTED CT Head: Radiologist's impression: No acute intracranial abnormality CXR: Radiologist's impression: No acute findings EKG 1: EKG computer-generated impression: SINUS TACHYCARDIA @ 120bpm NONSPECIFIC T-WAVE ABNORMALITY EKG 2: My Interpretation: Sinus tachycardia but no acute ST-T changes A&P Assessment and plan (1) Fever: Qualifiers: Fever type: unspecified Qualified Code(s): R50.9 - Fever, unspecified (2) Acute alteration in mental status: (3) Elevated troponin: Plan 72-year-old is brought in by ambulance for altered mental status, and found to have fever and elevated troponins. As per the description of events by the he possibly had a febrile seizure. Will monitor for now. Fever with mild l eukocytosis likely secondary to dental infection since no other source of infection. If the lower jaw pain persist might need dental consult in a.m. P.o. Tylenol 650 mg every 6 hours as needed for fever Elevated troponins 100,150 likely secondary to seizure episode in view of absence of chest pain and absent EKG changes We will repeat 2D echo in the morning Monitor for serial troponin levels Will repeat EKG in the morning If troponins trending up cardiology consult in a.m. Resume home medications Subcutaneous Lovenox 30 mg daily for DVT prophylaxis Cardiac diet He is full code for now Attestations Medical Necessity Statement*: He needs continued hospitalization for more than 2 midnights to further work-up for elevated troponins and possible febrile seizure. Time Spent in Patient Care: 40 minutes Coding Level of Care Code Critical Care >/= 30 minutes Diagnoses Fever R50.9 Fever type: unspecified Acute alteration in mental status R41.82 Elevated troponin R77.8 Time Spent (min) 40
[2022-12-14] MEDS: sodium chloride 0.9% 1,000 ML 60 ML IV (04:33)
[2022-12-14] MEDS: cefTRIAXone 1,000 MG in sodium chloride 0.9% (plus) 50 ML 100 MG IV (04:33)
[2022-12-14] MEDS: enoxaparin 30 mg/0.3 mL Syringe SUBCUT (04:34)
[2022-12-14 05:33] LABS: Troponin 5 6HR 185.8 ng/L (0-15); Troponin 5 6HR Delta 85.8 ng/L (0-12)
--- NOTE | 2022-12-14 05:51 | ECG_ITS ---
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 Measurements Intervals [place] Rate: 102 P: 81 IL: 189 QRS: 8 QRSD: 101 T: 48 QT: 357 QTc: 467 Interpretive Statements SINUS TACHYCARDIA WITH OCCASIONAL VENTRICULAR PREMATURE COMPLEXES SEPTAL MYOCARDIAL INFARCTION , OF INDETERMINATE AGE [40+ ms Q WAVE IN V1/V2] Compared to ECG 12/13/2022 23:30:29 Ventricular premature complex(es) now present Myocardial infarct finding now present T-wave abnormality no longer present Electronically Signed On 12-14-2022 21:29:17 CDT by Karina Ly M.D. [id number]
[2022-12-14 06:33] LABS: Glucose Point of Care 179 mg/dL (70-110)
[2022-12-14] MEDS: spironolactone 25 mg Tablet PO (06:48)
[2022-12-14] MEDS: carvedilol 12.5 mg Tablet PO (06:48)
[2022-12-14] MEDS: aspirin 81 mg EC Tablet PO (06:48)
[2022-12-14] MEDS: lisinopril 10 mg Tablet PO (06:48)
--- NOTE | 2022-12-14 08:32 | PC.NURSE ---
pt vomited and had a yellowish color liquid emesis.
--- NOTE | 2022-12-14 10:48 | USCV_ITS ---
Simba Berry Age: 72 Gender: M : 1950 Exam Date: 12/14/2022 11:19 Ordering Phys: Marija Loya MD Technologist: Francisco Crockett Exam Location: [facility] [place]_ Indication: ? dvt PROCEDURES: The venous duplex Doppler examination of both lower extremities was performed in the standard fashion. The following venous structures were evaluated: common femoral vein, profunda vein, proximal portion of the greater saphenous vein, superficial femoral vein, and the popliteal vein. In addition, the posterior tibial and peroneal trunk were evaluated. FINDINGS: Normal 2-D Doppler and augmentation and compressibility throughout the lower extremity venous structures. Additional imaging through the proximal calf veins also reveals no thrombus. Limited evaluation of the greater saphenous vein is patent with no thrombus. CONCLUSIONS No evidence of right lower extremity DVT. No evidence of left lower extremity DVT. Chidi Richard MD (Electronically Signed) Final Date: 14 December 2022 15:20 S
--- NOTE | 2022-12-14 10:48 | CTR_ITS ---
PROCEDURE INFORMATION: Exam: CTA Chest With Contrast Exam date and time: 12/14/2022 7:30 PM Age: 72 years old Clinical indication: Abdominal tenderness; Shortness of breath; Prior surgery; Surgery date: 6+ months; Surgery type: Lt shoulder, RT hip; Additional info: Altered mental status, AMS, fever, source under evaluation, ? dental abscess around TECHNIQUE: Imaging protocol: Computed tomographic angiography of the chest with contrast. Exam focused on the arteries. 3D rendering (Not supervised by radiologist): MIP and/or 3D reconstructed images were created by the technologist. Radiation optimization: All CT scans at this facility use at least one of these dose optimization techniques: automated exposure control; mA and/or kV adjustment per patient size (includes targeted exams where dose is matched to clinical indication); or iterative reconstruction. Contrast material: OMNI 350; Contrast volume: 100 ml; Contrast route: INTRAVENOUS (IV); REPORTING DATA: Count of CT and Cardiac NM exams in prior 12 months: This patient has received [address] and 0 known cardiac nuclear medicine studies in the 12 months prior to the current study. COMPARISON: CR (CHEST, ) 12/14/2022 6:00 PM RADIATION DOSE METRICS: Total DLP (mGy-cm): 1722 FINDINGS: Pulmonary arteries: See Heart finding. Aorta: Normal caliber of the ascending aorta. Lungs: Patient scanned during expiratory phase of respiration with resultant respiratory motion artifact and hypoventilatory change. Prominent collapse of the trachea and mainstem bronchi compatible with tracheobronchomalacia. Suggestion of mild emphysema. Mild interlobular septal thickening. Atelectatic changes in the lower lobes. Calcified nodule in the lingula. Pleural spaces: Trace right pleural effusion. No pneumothorax. Heart: Mild biatrial enlargement. Normal caliber of the main pulmonary artery. Pulmonary arteries are well opacified to the mid subsegmental level. Unable to assess subsegmental pulmonary areas in the lingula secondary to significant motion artifact. No definite pulmonary artery filling defect seen. Mild coronary artery calcifications. Mediastinal space: Mild circumferential thickening of the distal esophagus. Lymph nodes: Unremarkable. No enlarged lymph nodes. Bones/joints: Left shoulder arthroplasty. Soft tissues: Bilateral gynecomastia. COMMENTS: In the absence of a history or active diagnosis of lung cancer, it is recommended that this patient with emphysema be evaluated for enrollment in a low dose CT lung cancer screening program. PROCEDURE INFORMATION: Exam: CT Abdomen And Pelvis With Contrast Exam date and time: 12/14/2022 7:30 PM Age: 72 years old Clinical indication: Abdominal tenderness; Shortness of breath; Prior surgery; Surgery date: 6+ months; Surgery type: Lt shoulder, RT hip; Additional info: Altered mental status, AMS, fever, source under evaluation, ? dental abscess around TECHNIQUE: Imaging protocol: Computed tomography of the abdomen and pelvis with contrast. Radiation optimization: All CT scans at this facility use at least one of these dose optimization techniques: automated exposure control; mA and/or kV adjustment per patient size (includes targeted exams where dose is matched to clinical indication); or iterative reconstruction. Contrast material: OMNI 350; Contrast volume: 100 ml; Contrast route: INTRAVENOUS (IV); REPORTING DATA: Count of CT and Cardiac NM exams in prior 12 months: This patient has received [address] and 0 known cardiac nuclear medicine studies in the 12 months prior to the current study. COMPARISON: CT abdomen pelvis w con* [id number] 08/24/2020 1:29 PM RADIATION DOSE METRICS: Total DLP (mGy-cm): 1722 FINDINGS: Tubes, catheters and devices: Anders catheter in place. Liver: Stable moderate intrahepatic and extrahepatic biliary ductal dilation which is likely related to post cholecystectomy state. Gallbladder and bile ducts: Status post cholecystectomy. Pancreas: Unremarkable. Spleen: Unremarkable. Adrenal glands: Stable bilateral adrenal nodular thickening. Kidneys and ureters: Renal cortical scarring. Left renal cyst. Bilateral subcentimeter hypodensities are too small to characterize. Stomach and bowel: Unremarkable. No bowel obstruction. Appendix: Appendix not definitely visualized, but no inflammatory changes in the right lower quadrant in the expected location of the appendix. Intraperitoneal space: Unremarkable. Vasculature: Minimal atherosclerotic disease in the abdomen and pelvis. Lymph nodes: Unremarkable. Urinary bladder: Unremarkable as visualized. Reproductive: Unremarkable as visualized. Bones/joints: Right hip arthroplasty. Streak artifact limits assessment of pelvic structures. Soft tissues: Small fat containing ventral abdominal wall hernia. CT/CT angio chest w abd pel w con IMPRESSION: 1. No definite evidence of acute pulmonary embolism noting examination limited by motion and streak artifact. 2. Motion artifact and expiratory changes limits assessment of the lung parenchyma. Suspect mild interstitial pulmonary edema. Trace right pleural effusion. 3. Tracheobronchomalacia. 4. Mild circumferential wall thickening of the distal esophagus, query esophagitis. IMPRESSION: 1. No source of infection identified in the abdomen or pelvis. 2. Stable ancillary findings compared to 08/24/2020. COMMENTS: Consistent with the [employer]'s Incidental Findings Committee white paper (J Am Tamiko Radiol 2018): Any incidental renal lesion less than 1 cm or classified as too small to characterize, or any incidental cystic renal lesion characterized as simple-appearing, is likely benign. No follow-up imaging is recommended for these lesions per consensus recommendations based on imaging criteria.
--- NOTE | 2022-12-14 10:54 | CTR_ITS ---
PROCEDURE INFORMATION: Exam: CT Neck With Contrast Exam date and time: 12/14/2022 7:24 PM Age: 72 years old Clinical indication: Other: Dental abscess; Additional info: Mandibular swelling, suspect dental abscess, AMS, fever, source under evaluation, ? dental abscess around TECHNIQUE: Imaging protocol: Computed tomography of the neck with contrast. Radiation optimization: All CT scans at this facility use at least one of these dose optimization techniques: automated exposure control; mA and/or kV adjustment per patient size (includes targeted exams where dose is matched to clinical indication); or iterative reconstruction. Contrast material: OMNI 350; Contrast volume: 100 ml; Contrast route: INTRAVENOUS (IV); REPORTING DATA: Count of CT and Cardiac NM exams in prior 12 months: This patient has received [address] and 0 known cardiac nuclear medicine studies in the 12 months prior to the current study. COMPARISON: MR cervical spin wo con* [id number] 08/30/2020 3:36 PM RADIATION DOSE METRICS: Total DLP (mGy-cm): 301 FINDINGS: Tubes, catheters and devices: There is a right-sided venous catheter partially imaged. Dental: There is multifocal dental disease present with numerous cracked teeth present. There is no abscess or fluid collection seen. Pharynx: Unremarkable. No significant tonsillar enlargement. Larynx: Unremarkable. Epiglottis is normal. Prevertebral and retropharyngeal spaces: Unremarkable. Salivary glands: Normal. Glands are normal in size. Thyroid: Normal. No enlarged or calcified nodules. Lymph nodes: Unremarkable. No lymphadenopathy. Trachea: Visualized trachea is unremarkable. Lungs: Unremarkable as visualized. Bones/joints: Partially imaged postsurgical changes left shoulder. Osseous fusion in the midcervical spine with lower cervical laminectomy changes are stable with the comparison MRI. Soft tissues: No significant soft tissue inflammation is seen overlying the mandible or maxilla. There is a radiodensity the right upper back which may be a small foreign body. CT/CT neck w con* [id number] IMPRESSION: There is multifocal dental disease present. No drainable abscess or fluid collection is visualized.
[2022-12-14] MEDS: memantine 5 mg tablet 10 MG PO (11:24)
[2022-12-14] MEDS: atorvastatin 40 mg Tablet PO (11:24)
[2022-12-14] MEDS: acetaminophen 325 mg Tablet 650 MG PO (11:25)
[2022-12-14] MEDS: pantoprazole DR 40 mg Tablet PO (11:25)
[2022-12-14] MEDS: sertraline 100 mg Tablet PO (11:25)
[2022-12-14] MEDS: methadone 10 mg Tablet 40 MG PO (11:25)
[2022-12-14] MEDS: piperacillin-tazobactam 3.375 GM in sodium chloride 0.9% (plus) 50 ML IV (12:32)
--- NOTE | 2022-12-14 13:33 | USCV_ITS ---
Simba Berry Age: 72 Gender: M : 1950 Exam Date: 12/14/2022 14:28 Ordering Phys: Marija Loya MD Technologist: Francisco Crockett [place] [facility] [place]: nstimi BP: 138 / 81 HR: 85 Rhythm: Sinus Technical Quality: Adequate MEASUREMENTS (Male / Female) Normal Values 2D ECHO LV Diastolic Diameter PLAX 4.0 cm 4.2 - 5.9 / 3.9 - 5.3 cm LV Systolic Diameter PLAX 3.3 cm IVS Diastolic Thickness 1.2 cm 0.6 - 1.0 / 0.6 - 0.9 cm IVS Systolic Thickness 1.5 cm LVPW Diastolic Thickness 1.4 cm 0.6 - 1.0 / 0.6 - 0.9 cm LVPW Systolic Thickness 1.9 cm LVOT Diameter 2.0 cm LV Ejection Fraction 2D Teich 36.7 % LV Ejection Fraction MOD 2C 60.0 % LV Ejection Fraction 2C AL 60.1 % LA Diameter 3.6 cm M-MODE Aortic Annulus Diameter 3.5 cm LA Ao Ratio MM 1.1 MV E Point Septal Separation 1.4 cm DOPPLER AV Peak Velocity 114.0 cm/s LVOT Peak Velocity 83.0 cm/s AV Area Cont Eq vti 1.9 cm squared AV Area Cont Eq pk 2.3 cm squared MV Area PHT 3.4 cm squared Mitral E to A Ratio 1.1 MV E' Velocity 49.4 cm/s Mitral E to MV E' Ratio 12.8 Mitral E to LV E' Lateral Ratio 12.0 Mitral E to LV E' Septal Ratio 13.9 TR Peak Velocity 127.0 cm/s TR Peak Gradient 6.5 mmHg TV Peak E Velocity 62.0 cm/s Right Atrial Pressure 3.0 mmHg Pulmonary Artery Systolic Pressu 9.5 mmHg FINDINGS Left Ventricle Technically very limited study. (Echo contrast - Optison was used to delineate the endocardium and to estimate the LV ejection fraction) patient had diffuse hypokinesia of the left ventricle. Ejection fraction around 40%. The ejection fraction estimation is difficult because of frequent arrhythmias and the poor ultrasonic window possibly normal RV size and ejection fraction. Right Ventricle Right Atrium Left Atrium Possibly of normal size Mitral Valve No gross abnormalities noted Aortic Valve Minimally thickened aortic valve Tricuspid Valve Pulmonic Valve Pericardium Aorta IVC CONCLUSIONS Diffuse hypokinesia left ventricular ejection fraction on 40%. Minimally thickened aortic valve. Technically very limited study. (Echo contrast - Optison was used to delineate the endocardium and to estimate the LV ejection fraction) . Even with echo contrast, the study quality was very poor No pericardial effusion Dr Karina Ly MD FACC (Electronically Signed) Final Date: 14 December 2022 17:07 S
[2022-12-14] MEDS: vancomycin 1,250 MG/250 ML PIGGYBACK 200 MG IV (14:28)
--- NOTE | 2022-12-14 14:42 | PM.PN ---
Subjective Subjective: Overnight labs and H&P reviewed. Patient continues to have fever tmax 100.5F, he is able to tell me his name and currently, fact that he is in a hospital but does not know why he is here. He appears to have at least some short term memory deficits. Denies being sick over the past few days however on exam when noted to have possible dental abscess and states he has had this over many days. Per his , he is not back to his baseline mentation. He has been vomiting x 2 Medications: Reviewed: Yes Vitals/I&O/Wt Last Vital Signs Temp 99.6 F 12/14/22 11:40 Pulse 92 12/14/22 11:40 Resp 30 H 12/14/22 11:40 BP 138/81 12/14/22 11:40 Pulse Ox 95 12/14/22 11:40 O2 Del Method Room Air 12/14/22 11:40 12/13/22 12/14/22 12/14/22 22:59 06:59 14:59 Intake Total 1100 / 1100 100 / 100 Output Total 850 / 850 650 / 650 Balance 250 / 250 -550 / -550 Weight last 48 hrs Weight 113.398 kg Physical Exam Narrative: General: No acute distress, AO x3 but has significant memory gaps HEENT: PERRLA, pupils bilaterally equal and reactive, pallors not present, c/o pain over back of neck, unable to state is this is chronic or acute Chest: Normal vesicular breath sounds, no added sounds, equal good air entry bilaterally CVS: S1-S2 regular, no murmurs, no tachycardia, no gallops, no rubs Abdomen: Soft, nontender, no organomegaly, bowel sounds present Neuro: No focal deficits, nmoves all extremities Urinary Catheter Management: Anders: Cath Placed During This Visit: yes Reason for Continuing Indwelling Catheter: Other Urinary Catheter Date of Insertion: 12/13/22 Urinary Catheter Time of Insertion: 21:46 Data 12/13/22 21:56 12/13/22 21:56 Micro: Microbiology 12/13/22 21:37 Blood Culture - Preliminary Blood SPECIMEN COLLECTED 12/13/22 21:56 Blood Culture - Preliminary Blood SPECIMEN COLLECTED A&P Assessment and plan (1) Fever: Qualifiers: Fever type: unspecified Qualified Code(s): R50.9 - Fever, unspecified (2) Acute alteration in mental status: (3) Elevated troponin: (4) Dental abscess: Plan 72-year-old is brought in by ambulance for altered mental status, vomiting and fever up to 103F . Here he continues to be febrile , per may have had a seizure at home. No seizure while in hospital SOurce under evaluation Possibilities are dental abscess, he has notable swelling over right lateral incisor and canine area, teeth are missing, overall poor denittion Given AMS and fever with possible oropharyngeal source of infection, cannot rule out meningitis at this time- will obtain lumbar puncture UA unremarkable CXR without consolidation Had 2 episodes of vomiting today pending blood cultures Check CT neck and mandible, CTA chest to evaluate for PE given elevated troponins but no acute ST-T wave chnages on EKG RLE more swollen compared to left with some redness around calf, non tender, does not appear to be cellulitic. Check venous Doppler for DVT check tick panel RVP negative change abx from CTX to zosyn, vancomycin , acyclovir and doxycycline to cover for possible meningitis vs oropharyngeal source of infection. Low suspicion for listeria meningitis # Elevated troponins 100--> 150--> [address]-T wave changes and absence of chest pain, likely to be demand ischemia , however cannot rule out NSTEMI. Pending echo recheck troponin in am Radiology requests lovenox to be on hold for LP, will change to heparin drip while pending further ischemic w/up # AMS , hold gabapentin, continue methadone to minimize risk of withdrawal Cardiac diet He is full code Attestations Medical Necessity Statement*: continued admission for fever, AMS, NSTEMI , need for iv abx, evalaute for possible meningitis Coding Level of Care Code Acute Code for Chg Fwd High MDM includes number and complexity of problems actively addressed during encounter, amount and/or complexity of data reviewed/ordered and described risk of complication, morbidity or mortality of management as documented Diagnoses Fever R50.9 Fever type: unspecified Acute alteration in mental status R41.82 Elevated troponin R77.8 Dental abscess K04.7
[2022-12-14] MEDS: perflutren protein-a microsphr 0.22 mg/mL SDV 3 mL IV (15:04)
--- NOTE | 2022-12-14 15:13 | PC.NURSE ---
Notified physician Updated Dr Loya that we are waiting for the picc team to get an midline access to start all other ordered meds. EILEEN guided IV placed on left upper arm got infiltrated. 1 IV access remain patent on right wrist.
--- NOTE | 2022-12-14 15:26 | PC.NURSE ---
EILEEN guided IV infiltrated house sup will contact for a picc line/midline.
[2022-12-14 16:33] LABS: Glucose Point of Care 188 mg/dL (70-110)
[2022-12-14 16:33] LABS: Glucose Point of Care 191 mg/dL (70-110)
--- NOTE | 2022-12-14 17:07 | XRR_ITS ---
PROCEDURE INFORMATION: Exam: XR Chest Exam date and time: 12/14/2022 5:20 PM Age: 72 years old Clinical indication: Device placement; Picc; Additional info: Verify picc placement TECHNIQUE: Imaging protocol: Radiologic exam of the chest. Views: 1 view. COMPARISON: CR (CHEST, ) 12/13/2022 9:07 PM FINDINGS: Tubes, catheters and devices: Right-sided PICC line with tip in the superior vena cava. Lungs: Unremarkable. No consolidation. Pleural spaces: Unremarkable. No pleural effusion. No pneumothorax. Heart/Mediastinum: Unremarkable. No cardiomegaly. Bones/joints: Unremarkable. XR/XR chest 1V portable [id number] IMPRESSION: Right-sided PICC line with tip in the superior vena cava.
--- NOTE | 2022-12-14 17:31 | PC.NURSE ---
Consulted for midline placement originally. Upon arrival to room discussed case with Dr. Loya as pt is on Vancomycin and he had an infiltrated PIV on this. She gave verbal order to pt's nurse and myself for double lumen PICC. Explained procedure to pt and his spouse and answered questions. Consent signed. Assessed RUE and noted basilic vein to be 6.9 mm in diameter and free of evidence of thrombus or stenosis. Using US guidance, MST, and sterile technique the RUE basilic vein was accessed x 1 stick. Device fed easily. Both ports aspirate and flush. Device is 42 cm long. RUE is 40 cm in circumference at 10 cm above the AC fossa. EBL 5ml. Pt tolerated well. Chest xray orderd and performed. Tip appears to be close to CAJ, but pending physician reading. Report to pt's nurse.
--- NOTE | 2022-12-14 17:40 | PC.NURSE ---
1740 pm-pt was finished with his picc line insertion and his 1st dose of zosyn. stated he is starting to get chills. afebrile temp orally. check on pt at bedside, he looked ins distress,ashen colored skin,sinus tachycardic hr-110s, wheezing on upper airways and tracheal area, when asked if he is sort of breath, he said yes,i don't know. oxymask applied at 5L. RT Michelle notified to reassess respiratory and notified Dr Loya regarding his change of condition respiratory. Dr Loya at bedside, assess pt and updated the at bedside and dgtr on phone. RT Gale in room for ABG check and breathing treatments. 175-lasix 40IVP given. 175-IVP 125 hydrocortisone given. received orders for icu transfer. pt transferred to ICU5. dr loya ok to hold the acyclovir IV, and start the heparin drip at bedside. report provided to alexander, icu nurse.
--- NOTE | 2022-12-14 17:42 | XRR_ITS ---
PROCEDURE INFORMATION: Exam: XR Chest Exam date and time: 12/14/2022 6:00 PM Age: 72 years old Clinical indication: Other: Eval for pneumo; Additional info: Evalaute for pneumothorax TECHNIQUE: Imaging protocol: Radiologic exam of the chest. Views: 1 view. COMPARISON: CR (CHEST, ) 12/14/2022 5:20 PM FINDINGS: Tubes, catheters and devices: Right-sided PICC line with tip at the atrial caval junction. Lungs: Unremarkable. No consolidation. Pleural spaces: Unremarkable. No pleural effusion. No pneumothorax. Heart/Mediastinum: Unremarkable. No cardiomegaly. Bones/joints: Unremarkable. XR/XR chest 1V portable [id number] IMPRESSION: 1. Negative for pneumothorax as in clinical indication. 2. Right-sided PICC line with tip at the atrial caval junction.
[2022-12-14 17:51] LABS: ABG PCO2 41.3 mmHg (35-45); ABG PH Result 7.37 (7.35-7.45); Base Excess ABG -1.2 mmol/L (-2.0-2.0); Blood Gas Allen Test Pos; Blood Gas Operator Identificat GD; Blood Gas Sample Site Radial, left; Blood Gas Sample Type Arterial; HCO3 ABG 24.1 mmol/L (22-26); Oxygen Device OXY MASK
[2022-12-14] MEDS: FUROsemide 10 mg/mL SDV 4mL 40 MG IVP (17:57)
[2022-12-14] MEDS: hydrocortisone 100 mg/2 mL SDV 125 MG IVP (17:58)
[2022-12-14 18:14] LABS: Basophils % 0.3 %; Eosinophils % 0.1 %; Hematocrit 42.1 % (37-53); Lymphocytes % 7.7 %; Mean Corpuscular HGB Conc 32.3 g/dL (30-55); Mean Corpuscular Hemoglobin 30.6 pg (27-33); Mean Corpuscular Volume 94.6 fl (82-101); Mean Platelet Volume 9.9 fL (7.4-10.4); Monocytes # 0.2 10^3/uL (0.2-0.9); Monocytes % 1.3 %; Neutrophils # 11.46 10^3/uL (1.8-7.7); Neutrophils % 89.7 %; Nucleated Red Blood Cells % 0 %; Platelet Count 143 10^3/cmm (157-399); Red Blood Count 4.45 10^6/uL (3.85-5.65); Red Cell Distribution Width 12.6 % (12.1-15.1); White Blood Count 12.77 10^3/uL (3.29-11.43)
[2022-12-14] MEDS: EPINEPHrine 1 mg/mL INJ 0.3 MG IM ×2 (18:15→18:54)
[2022-12-14] MEDS: ipratropium-albuterol 3 mL Neb INHALATION ×2 (18:23→19:53)
[2022-12-14] MEDS: albuterol 2.5 mg/3 mL Neb INHALATION (18:26)
[2022-12-14 18:34] LABS: Troponin T (5th) Once 348 ng/L (0-15)
[2022-12-14 18:44] LABS: Alanine Aminotransferase 23 U/L (0-41); Albumin Level 3.6 g/dL (3.5-5.2); Alkaline Phosphatase 121 U/L (40-130); Blood Urea Nitrogen 21 mg/dL (8-23); Calcium 8.5 mg/dL (8.5-10.5); Carbon Dioxide 21 mmol/L (22-29); Chloride 98 mmol/L (98-107); Globulin 3.5 g/dL (1.3-4.6); Glucose 154 mg/dL (65-115); Osmolality Calculated 286 mOsm/kg (285-295); Sodium 135 mmol/L (136-145); Total Bilirubin 0.9 mg/dL (0.15-1.2); Total Protein 7.1 g/dL (6.6-8.7)
--- NOTE | 2022-12-14 18:44 | CTR_ITS ---
PROCEDURE INFORMATION: Exam: CT Head Without Contrast Exam date and time: 12/14/2022 7:21 PM Age: 72 years old Clinical indication: Altered mental status/memory loss; Additional info: Increased somnolence TECHNIQUE: Imaging protocol: Computed tomography of the head without contrast. Radiation optimization: All CT scans at this facility use at least one of these dose optimization techniques: automated exposure control; mA and/or kV adjustment per patient size (includes targeted exams where dose is matched to clinical indication); or iterative reconstruction. REPORTING DATA: Count of CT and Cardiac NM exams in prior 12 months: This patient has received [address] and 0 known cardiac nuclear medicine studies in the 12 months prior to the current study. COMPARISON: CT head wo con* [id number] 12/13/2022 9:12 PM RADIATION DOSE METRICS: Total DLP (mGy-cm): 1185 FINDINGS: Brain: No acute infarct. No hemorrhage. Stable involutional changes of the brain. No mass effect. Cerebral ventricles: Stable ventricular size. No ventriculomegaly. Paranasal sinuses: No significant inflammation. No fluid levels. Mastoid air cells: Visualized mastoid air cells are well aerated. Bones/joints: Unremarkable. No acute fracture. Soft tissues: Unremarkable. CT/CT head wo con* [id number] IMPRESSION: No acute intracranial abnormality.
[2022-12-14] MEDS: heparin drip 25,000 UNIT/500 ML PREMIX 31.75 UNIT IV (18:45)
[2022-12-14 18:46] LABS: Anion Gap 21.4 (5-19); Aspartate Amino Transferase 34 U/L (0-40); Potassium 5.4 mmol/L (3.5-5.1)
--- NOTE | 2022-12-14 19:02 | P.PNCC_ITS ---
Critical Care Event Note The high probability of a clinically significant, sudden or life threatening deterioration of the patient's [] system(s) required my full and direct attention, intervention and personal management. The critical care time is as shown. This time is in addition to time spent performing any reported procedures but includes the following: [x] Data and vital sign review and interpretation [x] Patient assessment, examination and intervention [x] Documentation [x] Medication orders and management Critical Care Time Code activated: No Critical Care Time (min): 60 Additional information about critical care time: Patient has had difficulty with IV access all day. The PICC line was finally able to be placed this evening at around 5:30 PM. Shortly afterwards patient developed acute respiratory distress. He was noted to be having significant audible wheezing, retching and gagging, he was placed on 5 L/min OxyMask. On auscultation of his chest, he was barely moving any air bilaterally. Chest x- ray that was taken post PICC placement and repeated 1 more time 40 minutes apart did not show any evidence of pneumothorax. Lungs appear to be grossly normal per radiology read. No evidence of consolidation. Patient is still waiting for CTA of the chest which was ordered earlier this morning to evaluate for PE. His echocardiogram in the interim returned with LVEF of 40%, diffuse hypokinesia. Stat labs were taken which showed a stable white blood cell count but uptrending troponin now at 348. Stat ABG showed pH of 7.37/41 point 3/144/20 4.1 on 5 L oxy mask. He has continued to be febrile through the day. Differentials for acute decompensation include flash pulmonary edema given that patient was just laying flat, now has evidence of acute systolic heart failure and has been receiving IV fluids since last night in view of his ongoing infection. He received Lasix 40 mg IV stat. Another possibility is that of anaphylaxis. Patient received ceftriaxone ove rnight and then antibiotics were broadened to piperacillin/tazobactam this afternoon. He has a listed allergy to penicillin which was discussed with the . Overall is unsure of the reaction to penicillin, he was reportedly told he is allergic when he was a child. They believe he may have had a rash at some point. Uncertain if he has tried Augmentin or Keflex in the past. Because of possibility of anaphylaxis and stridor, he received epinephrine 0.3 mg IM x2 and hydrocortisone 125 mg iv stat. Abx were changed from zosyn, vancomycin, doxycycline to aztreonam, vancomycin and doxycycline. With deterioration in his respiratory status patient also became more lethargic. He was previously alert awake alert oriented x3 though had memory impairment. He was conversant, however with his breathing status changing he became more lethargic. Though following commands he is very slow to respond. CT of the head has been ordered to compare to the one previously obtained last night to evaluate for any interval change or bleeding. Heparin drip has finally been able to be initiated with obtaining IV access for his NSTEMI. Plan: # fever, source under evaluation as previsouly noted on progress note, abx changed due to concern for anaphylaxis with b lactam # NSTEMI trop trend continuing to increase , now at 348 , echo with LVEF 40%, diffuse hypokinesia Heparin drip, asa 81 to continue # systolic CHF , acute, EF as above with diffuse hypokinesia . Lasix 40mg iv x 1 now , BNP pending # stat labs with stable leukocytsois at 12, renal and liver function # moved to ICU for closer monitoring # CT head, CTA chest neck, abdomen and pelvis pending Coding Level of Care Code Acute Code for Chg Fwd
[2022-12-14 19:42] LABS: NT Pro B Type Natriuretic Pept 10836 pg/mL (0-125)
--- NOTE | 2022-12-14 20:21 | P.CONIM_ITS ---
Providers/Reason For Consult Consulting Physician/Specialty*: ARLET Ly MD/cardiology Reason for Consult*: Patient with elevated troponin T/altered mental status/fever/low LVEF by echocardiogram/possible acute pulmonary edema Requesting Physician: Dr Richa Loya Attending Physician: Marija Loya MD Primary Care Provider: Denice Coronado DO History of Present Illness History of Present Illness Mr. Berry is a 72-year-old white male who is admitted to the hospital through the emergency room where he presented with altered mental status and a fever. He was found to have an elevated troponin T. Today he was getting a central line placement for IV access. Apparently he went to respiratory distress. Possibility of an acute pulm edema was considered. However the chest x-ray is unremarkable. The troponin T from 180 went into the 300 range. Cardiology consult is requested for further cardiac evaluation recommendations. This patient apparently has been his baseline state of health up until yesterday when he was found May with altered mental status, difficult to get up from bed. He also was found to be incontinent to urine. He was brought to the emergency room by ambulance. He had a temperature around 103. He apparently has has no peripheral IV access. So for that reason, he had a PICC line placement today. He went into respiratory distress. The chest x-ray was unremarkable. There was no pneumothorax. Possibility of an anaphylactic reaction versus acute pulmonary were considered. His mental status seems to be slowly improving at this point. He is still remaining febrile. He was found to have a tooth abscess. Possibility of meningitis also is being entertained. He is on empiric antibiotics. This patient has a history of congestive heart failure. He used to live in [place]. He used to be followed by a copper tapper while being in [place]. He had a cardiac catheterization approximately 8 years ago and was told to have no major blockages. He was told about some muscle damage. Details are not available. He moved with his to [place] approximately 5 years ago. He has not been to a copper tapper since then. He has a history of hypertension, type 2 diabetes and dyslipidemia. He is on methadone for chronic pain. He had multiple surgeries for his neck and shoulders. He gets his methadone from the behavioral [facility]. He denies any chest pain. Currently has no shortness of breath. He has no history for any cardiac arrhythmia. Other details of his cardiac history is not available at this time. Review of Systems Narrative: CONSTITUTIONAL: Fever as mentioned above EYES: No blurring of vision or other visual disturbances lately. ENT: No hoarseness of voice, auditory disturbances or sore throat. CARDIOVASCULAR: As mentioned above. RESPIRATORY: No significant cough. GASTROINTESTINAL: No hematemesis or melena. GENITOURINARY: Patient was incontinent of the altered mental status INTEGUMENTARY: No skin rashes or history of skin cancer. NEURO: As mentioned above PSYCHIATRIC: No history of psychosis or major depression. HEMATOLOGIC: No bleeding disorders or significant anemia. ENDOCRINE: History of type 2 diabetes MUSCULOSKELETAL: Chronic musculoskeletal pain ALLERGY/IMMUNOLOGY: As mentioned above. Medications/Allergies Home Medications Medication Instructions Recorded Confirmed Last Taken Type blood sugar diagnostic (Accu-Chek #100 ea 05/29/19 12/14/22 09/20/20 Rx Flory Plus test strips) blood-glucose meter (Accu-Chek #1 ea 05/29/19 12/14/22 09/20/20 Rx Flory Plus Meter) GLUCOMETER #1 ea 07/31/19 12/14/22 09/20/20 Rx lancets 25 gauge #100 ea 07/31/19 12/14/22 09/20/20 Rx blood sugar diagnostic (OneTouch #100 ea 08/05/19 12/14/22 09/20/20 Rx Verio test strips) acetaminophen 325 mg tablet 975 mg PO QID PRN Pain 09/20/20 12/14/22 09/20/20 Hi story Diabetic shoes with 3 inserts #1 ea 10/06/20 12/14/22 Unknown Rx methadone 40 mg soluble tablet 40 mg PO DAILY 01/31/21 12/14/22 12/12/22 History spironolactone 25 mg tablet See Rx Instructions .Route 07/13/22 12/14/22 12/12/22 Rx .COMPLEX #90 tabs carvedilol 12.5 mg tablet See Rx Instructions .Route 10/09/22 12/14/22 12/12/22 Rx .COMPLEX #180 tabs atorvastatin 40 mg tablet See Rx Instructions .Route 10/30/22 12/14/22 12/12/22 Rx .COMPLEX #90 tabs lisinopril 10 mg tablet See Rx Instructions .Route 10/30/22 12/14/22 12/12/22 Rx .COMPLEX #90 tabs sertraline 100 mg tablet See Rx Instructions .Route 10/30/22 12/14/22 12/12/22 Rx .COMPLEX #90 tabs gabapentin 300 mg capsule See Rx Instructions .Route 11/02/22 12/14/22 12/12/22 Rx .COMPLEX #270 caps tamsulosin 0.4 mg capsule See Rx Instructions .Route 11/28/22 12/14/22 12/12/22 Rx .COMPLEX #90 caps memantine 10 mg tablet See Rx Instructions .Route 12/04/22 12/14/22 12/12/22 Rx .COMPLEX #90 tabs pantoprazole 40 mg tablet,delayed See Rx Instructions .Route 12/04/22 12/14/22 12/12/22 Rx release .COMPLEX #90 tabs Allergies Allergy/AdvReac Type Severity Reaction Status Date / Time diazepam [From Valium] Allergy ADR-Confusi Verified 12/13/22 21:02 on Penicillins Allergy ALGY-Rash Verified 12/13/22 21:02 titanium Allergy ALGY-Rash Verified 12/13/22 21:02 zosyn Allergy Severe anaphylaxis Uncoded 12/14/22 19:25 Current Medications Generic Name Dose Route Start Last Admin Trade Name Freq PRN Reason Stop Dose Admin Acetaminophen 650 mg 12/14/22 03:16 12/14/22 11:25 Acetaminophen 325 Mg Tablet PO 650 mg Q6H PRN Administration Mild/Mod Pain Or Temp >/= 101 Albuterol/Ipratropium 3 ml 12/14/22 20:00 12/14/22 19:53 Ipratropium-Albuterol 3 Ml Neb INHALATION 3 ml Q6H.RESP NEDA Administration Aspirin 81 mg 12/14/22 07:00 12/14/22 06:48 Aspirin 81 Mg Ec Tablet PO 81 mg DAILY NEDA Administration Atorvastatin Calcium 40 mg 12/14/22 09:00 12/14/22 11:24 Atorvastatin 40 Mg Tablet PO 40 mg DAILY NEDA Administration Carvedilol 12.5 mg 12/14/22 07:00 12/14/22 18:51 Carvedilol 12.5 Mg Tablet PO Not Given BID NEDA Doxycycline Monohydrate 100 mg 12/14/22 18:00 12/14/22 18:52 Doxycycline 100 Mg Tablet PO Not Given BID NEDA Protocol Gabapentin 300 mg 12/14/22 09:00 12/14/22 11:25 Gabapentin 300 Mg Capsule PO Not Given TID NEDA Vancomycin/PEG/NADA/Lysine/Water 1,250 mg in 250 mls @ 200 mls/hr 12/14/22 13:00 12/14/22 16:46 Vancocin IV Infused Q18H NEDA Infusion Heparin Sodium/Sodium Chloride 25,000 unit in 500 mls @ 0 mls/hr 12/14/22 15:30 12/14/22 18:45 Heparin Drip IV 14 unit/kg/hr .Q0M NEDA 31.75 mls/hr Administration Protocol Per Protocol Lisinopril 10 mg 12/14/22 06:45 12/14/22 06:48 Lisinopril 10 Mg Tablet PO 10 mg DAILY NEDA Administration Memantine 10 mg 12/14/22 09:00 12/14/22 11:24 Memantine 5 Mg Tablet PO 10 mg DAILY NEDA Administration Methadone HCl 40 mg 12/14/22 09:00 12/14/22 11:25 Methadone 10 Mg Tablet PO 40 mg DAILY NEDA Administration Pantoprazole Sodium 40 mg 12/14/22 09:00 12/14/22 11:[address] 40 Mg Tablet PO 40 mg DAILY NEDA Administration Spironolactone 25 mg 12/14/22 07:00 12/14/22 06:48 Spironolactone 25 Mg Tablet PO 25 mg DAILY NEDA Administration Tamsulosin HCl 0.4 mg 12/14/22 18:00 12/14/22 18:52 Tamsulosin 0.4 Mg Capsule PO Not Given QPM NEDA PFSH Acute PFSH: Medical History Benign essential HTN BPH w urinary obs/LUTS Cervical radiculopathy Depression Diabetic foot ulcer Hyperlipidemia Hypertriglyceridemia Incarcerated incisional hernia Iron deficiency anemia Nocturia Type 2 diabetes mellitus, without long-term current use of insulin Surgical History H/O esophagogastroduodenoscopy (09/21/20) History of appendectomy History of back surgery History of cataract surgery History of left shoulder replacement History of neck surgery History of right hip replacement History of right inguinal hernia repair History of umbilical hernia repair Hx of cholecystectomy Status post arthroscopy of left shoulder Status post colonoscopy (09/21/20) Family History Other Cancer Social History Smoking and tobacco status: never smoked Alcohol intake: never Substance/Drug Use: never Vitals/I&O/Wt Last Vital Signs Temp 100.3 F H 12/14/22 20:00 Pulse 106 H 12/14/22 20:00 Resp 32 H 12/14/22 20:00 BP 150/71 12/14/22 20:00 Pulse Ox 100 12/14/22 20:00 O2 Del Method Nasal Cannula 12/14/22 20:00 O2 Flow Rate 2.5 12/14/22 20:00 12/14/22 12/14/22 12/14/22 06:59 14:59 22:59 Intake Total 1100 / 1100 100 / 100 1047 / 1147 Output Total 850 / 850 650 / 650 Balance 250 / 250 -550 / -550 1047 / 497 Weight last 48 hrs Weight 250 lb Physical Exam Narrative: GENERAL: The patient is alert and oriented times three. Not in any acute distress. Somewhat lethargic. HEENT: No significant pallor, icterus or lymphadenopathy.Oral cavity: There are no mucous membrane lesions. NECK: Trachea appears to be central. No masses noted. No JVD or thyromegaly appreciated. RESPIRATORY: Chest is symmetrical. No intercostals muscle retraction or any accessory muscle activation. There is no chest wall tenderness. Breath sounds are heard bilaterally. No rales or rhonchi heard. No evidence of any consolid ation. BREASTS: Deferred. HEART: The heart sounds are variable. Frequent PACs and PVCs on monitor. No S3 or S4. No significant murmurs. No pericardial rub ABDOMEN: No vessel pulsations or distention. No tenderness. No organomegaly appreciated. Bowel sounds are normally heard. : Deferred. RECTAL: Deferred. LYMPHATIC: No lymphadenopathy noted in the neck. EXTREMITIES: Trace edema with no cyanosis MUSCULOSKELETAL: No acute joint deformities or swelling SKIN: There are no significant rashes or ecchymosis NEUROPSYCHIATRIC: The patient is alert and oriented x3. No focal motor deficits. Moves all extremities. Urinary Catheter Management: Anders: Cath Placed During This Visit: yes Reason for Continuing Indwelling Catheter: Other Urinary Catheter Date of Insertion: 12/13/22 Urinary Catheter Time of Insertion: 21:46 Data 12/14/22 18:00 12/14/22 18:00 Other Labs: Laboratory Last Values WBC 12.77 10^3/uL (3.29-11.43) H 12/14/22 18:00 RBC 4.45 10^6/uL (3.85-5.65) 12/14/22 18:00 Hgb 13.60 g/dL (11.27-16.99) 12/14/22 18:00 Hct 42.1 % (37-53) 12/14/22 18:00 MCV 94.6 fl (82-101) 12/14/22 18:00 MCH 30.6 pg (27-33) 12/14/22 18:00 MCHC 32.3 g/dL (30-55) 12/14/22 18:00 RDW 12.6 % (12.1-15.1) 12/14/22 18:00 Plt Count 143 10^3/cmm (157-399) L 12/14/22 18:00 MPV 9.9 fL (7.4-10.4) 12/14/22 18:00 Neut % (Auto) 89.7 % 12/14/22 18:00 Lymph % (Auto) 7.7 % 12/14/22 18:00 [place] % (Auto) 1.3 % 12/14/22 18:00 Eos % (Auto) 0.1 % 12/14/22 18:00 Baso % (Auto) 0.3 % 12/14/22 18:00 Neut # (Auto) 11.46 10^3/uL (1.8-7.7) H 12/14/22 18:00 Lymph # (Auto) 1.0 10^3/uL (0.8-4.8) 12/14/22 18:00 [place] # (Auto) 0.2 10^3/uL (0.2-0.9) 12/14/22 18:00 Eos # (Auto) 0.0 10^3/uL (0.0-0.8) 12/14/22 18:00 Baso # (Auto) 0.0 10^3/uL (0.0-0.1) 12/14/22 18:00 Nucleated RBC % (auto) 0 % 12/14/22 18:00 Nucleated RBCs # 0.0 /100WBC 12/14/22 18:00 Specimen Type Arterial 12/14/22 17:30 Sample Site Radial, left 12/14/22 17:30 ABG pH 7.37 (7.35-7.45) 12/14/22 17:30 ABG pCO2 41.3 mmHg (35-45) 12/14/22 17:30 ABG pO2 144.0 mmHg (80.0-100.0) H 12/14/22 17:30 ABG HCO3 24.1 mmol/L (22-26) 12/14/22 17:30 ABG Base Excess -1.2 mmol/L (-2.0-2.0) 12/14/22 17:30 Anup Test Pos 12/14/22 17:30 Hematocrit 44.0 % (42-52) 12/14/22 17:30 O2 Delivery Device Oxy mask 12/14/22 17:30 O2 Liters/Min 5.0 % 12/14/22 17:30 Associate Professor Of Art History ID Gd 12/14/22 17:30 Sodium 135 mmol/L (136-145) L 12/14/22 18:00 Potassium 5.4 mmol/L (3.5-5.1) H 12/14/22 18:00 Chloride 98 mmol/L (98-107) 12/14/22 18:00 Carbon Dioxide 21 mmol/L (22-29) L 12/14/22 18:00 Anion Gap 21.4 (5-19) H 12/14/22 18:00 BUN 21 mg/dL (8-23) 12/14/22 18:00 Creatinine 1.1 mg/dL (0.7-1.2) 12/14/22 18:00 GFR Calculation Not Reportable 12/14/22 18:00 Glucose 154 mg/dL (65-115) H 12/14/22 18:00 POC Glucose 191 mg/dL (70-110) H 12/14/22 16:24 Calculated Osmolality 286 mOsm/kg (285-295) 12/14/22 18:00 Lactic Acid 1.1 mmol/L (0.5-2.2) 12/13/22 21:56 Calcium 8.5 mg/dL (8.5-10.5) 12/14/22 18:00 Magnesium 1.7 mg/dL (1.7-2.3) 12/13/22 21:56 Total Bilirubin 0.9 mg/dL (0.15-1.2) 12/14/22 18:00 AST 34 U/L (0-40) 12/14/22 18:00 ALT 23 U/L (0-41) 12/14/22 18:00 Alkaline Phosphatase 121 U/L (40-130) 12/14/22 18:00 Troponin T Gen 5 ng/L 348 ng/L (0-15) H* 12/14/22 18:00 Troponin T Baseline 100 ng/L (0-15) H 12/13/22 21:56 Troponin T 120 Minute 152.5 ng/L (0-15) H 12/13/22 23:55 Delta Troponin T 52.5 ABS# (0-10) H* 12/13/22 23:55 Troponin T Hi Sens 6Hr 185.8 ng/L (0-15) H 12/14/22 03:45 Troponin T Hi Sens 6Hr Delta 85.8 ng/L (0-12) H* 12/14/22 03:45 NT-Pro-B Natriuret Pep 13212 pg/mL (0-125) H 12/14/22 18:00 Total Protein 7.1 g/dL (6.6-8.7) 12/14/22 18:00 Albumin 3.6 g/dL (3.5-5.2) 12/14/22 18:00 Globulin 3.5 g/dL (1.3-4.6) 12/14/22 18:00 Procalcitonin 0.17 ng/mL (0-0.5) 12/13/22 21:56 Urine Color Yellow (Yellow) 12/13/22 21:45 Urine Appearance Clear (CLEAR) 12/13/22 21:45 Urine pH 5 (5-7) 12/13/22 21:45 Ur Specific [place] 1.015 (1.005-1.030) 12/13/22 21:45 Urine Protein Neg (Negative) 12/13/22 21:45 Urine Glucose (UA) Norm (Normal) 12/13/22 21:45 Urine Ketones 1+ (Negative) H 12/13/22 21:45 Urine Blood Neg (Negative) 12/13/22 21:45 Urine Nitrate Negative (Negative) 12/13/22 21:45 Urine Bilirubin Neg (Negative) 12/13/22 21:45 Urine Urobilinogen Norm mg/dL (Negative) 12/13/22 21:45 Ur Leukocyte Esterase Negative (Negative) 12/13/22 21:45 Nasal Influ A H1 2009 PCR Not detected (NOT DETECT) 12/13/22 22:35 Urine Opiates Screen Negative ng/mL (Negative) 12/13/22 21:45 Ur Barbiturates Screen Negative ng/mL (Negative) 12/13/22 21:45 Ur Phencyclidine Scrn Negative ng/mL (Negative) 12/13/22 21:45 Ur Amphetamines Screen Negative ng/mL (Negative) 12/13/22 21:45 U Benzodiazepines Scrn Negative ng/mL (Negative) 12/13/22 21:45 Urine Cocaine Screen Negative ng/mL (Negative) 12/13/22 21:45 U Marijuana (THC) Screen Negative ng/mL (Negative) 12/13/22 21:45 Adenovirus (PCR) Not detected (NOT DETECT) 12/13/22 22:35 C. pneumoniae DNA (PCR) Not detected (NOT DETECT) 12/13/22 22:35 Coronavirus 229E (PCR) Not detected (NOT DETECT) 12/13/22 22:35 Human Metapneumovir PCR Not detected (NOT DETECT) 12/13/22 22:35 Influenza A (H1) PCR Not detected (NOT DETECT) 12/13/22 22:35 Influenza A (H3) PCR Not detected (NOT DETECT) 12/13/22 22:35 Influenza Type A (PCR) Not detected (NOT DETECT) 12/13/22 22:35 Influenza Type B (PCR) Not detected (NOT DETECT) 12/13/22 22:35 M. pneumoniae (PCR) Not detected (NOT DETECT) 12/13/22 22:35 Parainfluenza 1 (PCR) Not detected (NOT DETECT) 12/13/22 22:35 Parainfluenza 2 (PCR) Not detected (NOT DETECT) 12/13/22 22:35 Parainfluenza 3 (PCR) Not detected (NOT DETECT) 12/13/22 22:35 Parainfluenza 4 (PCR) Not detected (NOT DETECT) 12/13/22 22:35 RSV Type A (PCR) Not detected (NOT DETECT) 12/13/22 22:35 RSV Type B (PCR) Not detected (NOT DETECT) 12/13/22 22:35 Entero/Rhino (PCR) Not detected (NOT DETECT) 12/13/22 22:35 SARS-CoV-2 (PCR) Not detected (NOT DETECT) 12/13/22 22:35 Micro: Microbiology 12/13/22 21:37 Blood Culture - Preliminary Blood SPECIMEN COLLECTED 12/13/22 21:56 Blood Culture - Preliminary Blood SPECIMEN COLLECTED Echo: My impression: Diffuse hypokinesia left ventricular ejection fraction on 40%. ?Minimally thickened aortic valve. ?Technically very limited study.? (Echo contrast - Optison was ?used to delineate the endocardium and to estimate the? LV ?ejection fraction) . ?Even with echo contrast, the study quality was very poor ?No pericardial effusion EKG 1: My Interpretation: Sinus tachycardia, poor R wave progression, possible old septal ID, heart rate of 102 beats per A&P Assessment and plan (1) Elevated troponin: Patient has features of non-ST elevation myocardial infarction possibly type II. No acute ischemic EKG changes. Congestive heart failure with a cardiomyopathy, could be a contributing factor. (2) Congestive heart failure: Currently the heart failure is fairly compensated. He may be treated carefully with IV diuretics. (3) Benign essential HTN: Her blood pressure was in the 170s at the time of admission. Currently seems to be under control. He may be continued on the current medications (4) Hyperlipidemia: May continue on the current medications Qualifiers: Hyperlipidemia type: mixed hyperlipidemia Qualified Code(s): E78.2 - Mixed hyperlipidemia (5) Type 2 diabetes mellitus, without long-term current use of insulin: Close monitoring of the blood sugar would be appropriate. Qualifiers: Diabetes mellitus complication status: with skin complications Diabetes mellitus complication detail: with foot ulcer Qualified Code(s): E11.621 - Type 2 diabetes mellitus with foot ulcer; L97.509 - Non-pressure chronic ulcer of other part of unspecified foot with unspecified severity (6) Non-ischemic cardiomyopathy: Because of the multiple risk factors, since he has not had any recent cardiac evaluation, may consider a Myocardial perfusion imaging, once his clinical condition is otherwise stable. Since he has no chest pain or ischemic EKG changes there may not be an urgency for this test. (7) Acute alteration in mental status: Seems to be improving. Still undergoing work-up (8) Dental abscess: Patient is on antibiotics. Management as per the primary Plan Patient the clinical progress, further recommendations will be made. May continue on the IV heparin. I may hold off on the Plavix for the time being. Thank for the opportunity to eval this patient make these recommendations Consult Attestations Medical Necessity Statement: Patient requires continued hospital stay for close monitoring and further management Coding Level of Care Code 16178 Diagnoses Elevated troponin R77.8 Congestive heart failure I50.9 Benign essential HTN I10 Hyperlipidemia E78.2 Hyperlipidemia type: mixed hyperlipidemia Type 2 diabetes mellitus, without long-term current use of insulin E11.621; L97.509 Diabetes mellitus complication status: with skin complications Diabetes mellitus complication detail: with foot ulcer Non-ischemic cardiomyopathy I42.8 Acute alteration in mental status R41.82 Dental abscess K04.7
[2022-12-14] MEDS: aztreonam 2,000 MG in sodium chloride 0.9% (plus) 100 ML 200 MG IV (20:47)
[2022-12-15] VITALS (19 sets, daily range): BP systolic 97–137; BP diastolic 47–71; PULSE 61–75; RESP 13–32; TEMP 36.6–36.8; O2SAT 94–100
[2022-12-15] MEDS: ofloxacin 0.3% Op Soln 5 mL Btl 1 DROP EYE-BOTH ×2 (00:07→08:01)
[2022-12-15 01:55] LABS: Partial Thromboplastin Time 86.4 SECONDS (23.9-36.7)
[2022-12-15] MEDS: ipratropium-albuterol 3 mL Neb INHALATION ×4 (02:09→19:58)
[2022-12-15] MEDS: aztreonam 2,000 MG in sodium chloride 0.9% (plus) 100 ML 200 MG IV ×3 (04:04→19:29)
[2022-12-15] MEDS: acetaminophen 325 mg Tablet 650 MG PO (05:07)
[2022-12-15 05:26] LABS: Basophils % 0.3 %; Eosinophils % 0.1 %; Hematocrit 35.8 % (37-53); Lymphocytes # 0.9 10^3/uL (0.8-4.8); Mean Corpuscular HGB Conc 32.4 g/dL (30-55); Mean Corpuscular Hemoglobin 30.5 pg (27-33); Mean Corpuscular Volume 94.2 fl (82-101); Mean Platelet Volume 9.8 fL (7.4-10.4); Monocytes # 0.7 10^3/uL (0.2-0.9); Monocytes % 7.3 %; Neutrophils # 8.29 10^3/uL (1.8-7.7); Neutrophils % 82.2 %; Nucleated Red Blood Cells % 0 %; Platelet Count 150 10^3/cmm (157-399); Red Cell Distribution Width 12.8 % (12.1-15.1); White Blood Count 10.09 10^3/uL (3.29-11.43)
[2022-12-15 05:53] LABS: Alanine Aminotransferase 20 U/L (0-41); Albumin Level 3.4 g/dL (3.5-5.2); Alkaline Phosphatase 107 U/L (40-130); Anion Gap 15.8 (5-19); Aspartate Amino Transferase 38 U/L (0-40); Blood Urea Nitrogen 25 mg/dL (8-23); Calcium 8.5 mg/dL (8.5-10.5); Carbon Dioxide 29 mmol/L (22-29); Chloride 98 mmol/L (98-107); Globulin 3.1 g/dL (1.3-4.6); Glucose 187 mg/dL (65-115); Magnesium 1.8 mg/dL (1.7-2.3); Osmolality Calculated 297 mOsm/kg (285-295); Potassium 3.8 mmol/L (3.5-5.1); Sodium 139 mmol/L (136-145); Total Bilirubin 0.4 mg/dL (0.15-1.2); Total Protein 6.5 g/dL (6.6-8.7)
[2022-12-15] MEDS: vancomycin 1,250 MG/250 ML PIGGYBACK 200 MG IV (06:06)
[2022-12-15] MEDS: atorvastatin 40 mg Tablet PO (08:00)
[2022-12-15] MEDS: doxycycline 100 mg Tablet PO ×2 (08:00→17:36)
[2022-12-15] MEDS: lisinopril 10 mg Tablet PO (08:00)
[2022-12-15] MEDS: aspirin 81 mg EC Tablet PO (08:00)
[2022-12-15] MEDS: carvedilol 12.5 mg Tablet PO ×2 (08:00→17:36)
[2022-12-15] MEDS: pantoprazole DR 40 mg Tablet PO (08:00)
[2022-12-15 08:30] LABS: Partial Thromboplastin Time 63.2 SECONDS (23.9-36.7)
--- NOTE | 2022-12-15 09:00 | PM.PN ---
Subjective Subjective: Patient is much more awake alert oriented today. Breathing is nonlabored. Clear chest to auscultation bilaterally. Awaiting lumbar puncture. Heparin drip placed on hold. Leukocytosis is improving. Last febrile at 8 PM overnight. Blood Medications: Reviewed: Yes Medication Review Details: Current Medications Acetaminophen (Acetaminophen 325 Mg Tablet) 650 mg PO Q6H PRN PRN Reason: Mild/Mod Pain Or Temp >/= 101 Last Admin: 12/15/22 05:07 Dose: 650 mg Albuterol/Ipratropium (Ipratropium-Albuterol 3 Ml Neb) [address] [facility] Last Admin: 12/15/22 07:43 Dose: 3 ml Aspirin (Aspirin 81 Mg Ec Tablet) [address] [facility] Last Admin: 12/15/22 08:00 Dose: 81 mg Atorvastatin Calcium (Atorvastatin 40 Mg Tablet) [address] [facility] Last Admin: 12/15/22 08:00 Dose: 40 mg Carvedilol (Carvedilol 12.5 Mg Tablet) 12.[address] [facility] Last Admin: 12/15/22 08:00 Dose: 12.5 mg Doxycycline Monohydrate (Doxycycline 100 Mg Tablet) [address] [facility]; Protocol Last Admin: 12/15/22 08:00 Dose: 100 mg Gabapentin (Gabapentin 300 Mg Capsule) [address] [facility] Last Admin: 12/14/22 11:25 Dose: Not Given Heparin Sodium (Porcine) (Heparin 5,000 Unit/Ml Inj 1 Ml) 0 unit IV PRN PRN; Protocol PRN Reason: Heparin weight-base protocol Vancomycin/PEG/NADA/Lysine/Water (Vancocin) 1,250 mg in 250 mls @ 200 mls/hr IV Q18H [facility] Last Admin: 12/15/22 06:06 Dose: 200 mls/hr Heparin Sodium/Sodium Chloride (Heparin Drip) 25,000 unit in 500 mls @ 0 mls/hr IV .Q0M [facility]; Protocol Last Titration: 12/15/22 02:06 Dose: 12 unit/kg/hr, 27.22 mls/hr Aztreonam 2,000 mg/ Sodium (Chloride) 100 mls @ 200 mls/hr IV Q8H [facility]; Protocol Last Titration: 12/15/22 06:16 Dose: Infused Lisinopril (Lisinopril 10 Mg Tablet) [address] [facility] Last Admin: 12/15/22 08:00 Dose: 10 mg Memantine (Memantine 5 Mg Tablet) [address] [facility] Last Admin: 12/14/22 11:24 Dose: 10 mg Methadone HCl (Methadone 10 Mg Tablet) [address] [facility] Last Admin: 12/14/22 11:25 Dose: 40 mg Ofloxacin (Ofloxacin 0.3% Op Soln 5 Ml Btl) 1 drop EYE-BOTH BID [facility] Stop: 12/22/22 00:00 Last Admin: 12/15/22 08:01 Dose: 1 drop Pantoprazole Sodium (Pantoprazole Dr 40 Mg Tablet) [address] [facility] Last Admin: 12/15/22 08:00 Dose: 40 mg Spironolactone (Spironolactone 25 Mg Tablet) [address] [facility] Last Admin: 12/14/22 06:48 Dose: 25 mg Tamsulosin HCl (Tamsulosin 0.4 Mg Capsule) 0.[address] [facility] Last Admin: 12/14/22 18:52 Dose: Not Given Vitals/I&O/Wt Last Vital Signs Temp 97.8 F 12/15/22 04:00 Pulse 70 12/15/22 13:25 Resp 18 12/15/22 13:20 BP 98/47 12/15/22 12:00 Pulse Ox 95 12/15/22 13:20 O2 Del Method Nasal Cannula 12/15/22 13:20 O2 Flow Rate 1 12/15/22 13:20 12/15/22 12/15/22 12/15/22 06:59 14:59 22:59 Intake Total 333.097 / 1980.097 240 / 240 Output Total 1125 / 3775 Balance -791.903 / -1794.903 240 / 240 Weight last 48 hrs Weight 113.398 kg Physical Exam Narrative: General: No acute distress, AO x3, appears more alert this morning HEENT: PERRLA, pupils bilaterally equal and reactive, pallors not present, c/o pain over back of neck, unable to state is this is chronic or acute Chest: Normal vesicular breath sounds, no added sounds, equal good air entry bilaterally CVS: S1-S2 regular, no murmurs, no tachycardia, no gallops, no rubs Abdomen: Soft, nontender, no organomegaly, bowel sounds present Neuro: No focal deficits, moves all extremities Urinary Catheter Management: Anders: Cath Placed During This Visit: yes Reason for Continuing Indwelling Catheter: Other Urinary Catheter Date of Insertion: 12/13/22 Urinary Catheter Time of Insertion: 21:46 Data 12/15/22 04:35 12/15/22 04:35 Micro: Microbiology 12/13/22 21:37 Blood Culture - Preliminary Blood 12/15/22 04:35 Cryptococcal Antigen (Serum) - Final Blood 12/13/22 21:56 Blood Culture - Preliminary Blood NEGATIVE TO DATE CT/CT head wo con* [id number] IMPRESSION: No acute intracranial abnormality. ? XR/XR chest 1V portable [id number] IMPRESSION: 1. ? Negative for pneumothorax as in clinical indication. 2. ? Right-sided PICC line with tip at the atrial caval junction. CT/CT neck w con* [id number] IMPRESSION: There is multifocal dental disease present. No drainable abscess or fluid collection is visualized. CONCLUSIONS ?No evidence of right lower extremity DVT. ?No evidence [place] [address] CT Scan Report Signed Patient: Simba Berry Unit #: [id number] : [id number] Age/Sex: 72 / M ADM Date: 12/14/22 Loc: ICU Room/Bed: [place] [address]: Marija Loya MD Ordering Provider/Ordering MD: Suresh Loya MD Date of Service: 12/14/22 Procedure(s): CT angio chest w abd pel w con Accession Number(s): [id number] Report Number: [id number] PROCEDURE INFORMATION: Exam: CTA Chest With Contrast Exam date and time: 12/14/2022 7:30 PM Age: 72 years old Clinical indication: Abdominal tenderness; Shortness of breath; Prior surgery; Surgery date: 6+ months; Surgery type: Lt shoulder, RT hip; Additional info: Altered mental status, AMS, fever, source under evaluation, ? dental abscess around TECHNIQUE: Imaging protocol: Computed tomographic angiography of the chest with contrast. Exam focused on the arteries. 3D rendering (Not supervised by radiologist): MIP and/or 3D reconstructed images were created by the technologist. Radiation optimization: All CT scans at this facility use at least one of these dose optimization techniques: automated exposure control; mA and/or kV adjustment per patient size (includes targeted exams where dose is matched to clinical indication); or iterative reconstruction. Contrast material: OMNI 350; Contrast volume: 100 ml; Contrast route: INTRAVENOUS (IV);? REPORTING DATA: Count of CT and Cardiac NM exams in prior 12 months: This patient has received [address] and 0 known cardiac nuclear medicine studies in the 12 months prior to the current study. COMPARISON: CR (CHEST, ) 12/14/2022 6:00 PM RADIATION DOSE METRICS: Total DLP (mGy-cm): 1722 FINDINGS: Pulmonary arteries: See Heart finding. Aorta: Normal caliber of the ascending aorta. Lungs: Patient scanned during expiratory phase of respiration with resultant respiratory motion artifact and hypoventilatory change. Prominent collapse of the trachea and mainstem bronchi compatible with tracheobronchomalacia. Suggestion of mild emphysema. Mild interlobular septal thickening. Atelectatic changes in the lower lobes. Calcified nodule in the lingula. Pleural spaces: Trace right pleural effusion. No pneumothorax. Heart: Mild biatrial enlargement. Normal caliber of the main pulmonary artery. Pulmonary arteries are well opacified to the mid subsegmental level. Unable to assess subsegmental pulmonary areas in the lingula secondary to significant motion artifact. No definite pulmonary artery filling defect seen. Mild coronary artery calcifications. Mediastinal space: Mild circumferential thickening of the distal esophagus. Lymph nodes: Unremarkable. No enlarged lymph nodes. Bones/joints: Left shoulder arthroplasty. Soft tissues: Bilateral gynecomastia. COMMENTS: In the absence of a history or active diagnosis of lung cancer, it is recommended that this patient with emphysema be evaluated for enrollment in a low dose CT lung cancer screening program. PROCEDURE INFORMATION: Exam: CT Abdomen And Pelvis With Contrast Exam date and time: 12/14/2022 7:30 PM Age: 72 years old Clinical indication: Abdominal tenderness; Shortness of breath; Prior surgery; Surgery date: 6+ months; Surgery type: Lt shoulder, RT hip; Additional info: Altered mental status, AMS, fever, source under evaluation, ? dental abscess around TECHNIQUE: Imaging protocol: Computed tomography of the abdomen and pelvis with contrast. Radiation optimization: All CT scans at this facility use at least one of these dose optimization techniques: automated exposure control; mA and/or kV adjustment per patient size (includes targeted exams where dose is matched to clinical indication); or iterative reconstruction. Contrast material: OMNI 350; Contrast volume: 100 ml; Contrast route: INTRAVENOUS (IV);? REPORTING DATA: Count of CT and Cardiac NM exams in prior 12 months: This patient has received [address] and 0 known cardiac nuclear medicine studies in the 12 months prior to the current study. COMPARISON: CT abdomen pelvis w con* [id number] 08/24/2020 1:29 PM RADIATION DOSE METRICS: Total DLP (mGy-cm): 1722 FINDINGS: Tubes, catheters and devices: Anders catheter in place. Liver: Stable moderate intrahepatic and extrahepatic biliary ductal dilation which is likely related to post cholecystectomy state. Gallbladder and bile ducts: Status post cholecystectomy. Pancreas: Unremarkable.? Spleen: Unremarkable.? Adrenal glands: Stable bilateral adrenal nodular thickening. Kidneys and ureters: Renal cortical scarring. Left renal cyst. Bilateral subcentimeter hypodensities are too small to characterize. Stomach and bowel: Unremarkable. No bowel obstruction.? Appendix: Appendix not definitely visualized, but no inflammatory changes in the right lower quadrant in the expected location of the appendix. Intraperitoneal space: Unremarkable.? Vasculature: Minimal atherosclerotic disease in the abdomen and pelvis. Lymph nodes: Unremarkable.? Urinary bladder: Unremarkable as visualized. Reproductive: Unremarkable as visualized. Bones/joints: Right hip arthroplasty. Streak artifact limits assessment of pelvic structures. Soft tissues: Small fat containing ventral abdominal wall hernia. CT/CT angio chest w abd pel w con IMPRESSION: 1. ? No definite evidence of acute pulmonary embolism noting examination limited by motion and streak artifact. 2. ? Motion artifact and expiratory changes limits assessment of the lung parenchyma. Suspect mild interstitial pulmonary edema. Trace right pleural effusion. 3. ? Tracheobronchomalacia. 4. ? Mild circumferential wall thickening of the distal esophagus, query esophagitis. ? IMPRESSION: 1. ? No source of infection identified in the abdomen or pelvis. 2. ? Stable ancillary findings compared to 08/24/2020. A&P Assessment and plan (1) Fever: 72-year-old is brought in by ambulance for altered mental status, vomiting and fever up to 103F . SOurce under evaluation Ct neck negative for dental abscess but shows diffuse dental disease Given AMS and fever with possible oropharyngeal source of infection, cannot rule out meningitis at this time- pending lumbar puncture UA unremarkable CXR and CTA without consolidation Ct abdomen pelvis without other source of infection pending blood cultures pending tick panel RVP negative continue aztreonam, vancomycin and doxycycline low suspicion for viral meningitis, hold off on ACV Qualifiers: Fever type: unspecified Qualified Code(s): R50.9 - Fever, unspecified (2) Acute alteration in mental status: appears to be improving today (3) NSTEMI (non-ST elevated myocardial infarction): elavted troponins echo with LVEF 40%, diffuse hypokinesia cardiology consulted on heparin drip continue ASA 81 mg daily (4) Congestive heart failure: acute sytsolic heart failure s/p lasix yesterday now off IVF currently euvolemic (5) Anaphylaxis: possible anaphylaxis, not a certain diagnosis from likely zosyn currently off all beta lactams will need allergy testing as outpatient once recovered from acute illness Plan # Elevated troponins 100--> 150--> [address]-T wave changes and absence of chest pain, likely to be demand ischemia , however cannot rule out NSTEMI. Pending echo recheck troponin in am Radiology requests lovenox to be on hold for LP, will change to heparin drip while pending further ischemic w/up # AMS , hold gabapentin, holding methadone for now Cardiac diet He is full code all updated discussed with daughter Denice at bedside Attestations Medical Necessity Statement*: continued need for iv abx, LP today, hearpin drip, monitor Ptt and respiratory status Critical Care Time: The high probability of a clinically significant, sudden or life threatening deterioration of the patient's [respiratory, cardiovascular, ID] system(s) required my full and direct attention, intervention and personal management. The critical care time is as shown. This time is in addition to time spent performing any reported procedures but includes the following: [x] Data and vital sign review and interpretation [x] Patient assessment, examination and intervention [x] Documentation [x] Medication orders and management Coding Level of Care Code Critical Care >/= 30 minutes Critical care time (in minutes): 60 The high probability of a clinically significant, sudden or life threatening deterioration, as referenced in this documentation, required my full and direct attention, intervention and personal management. The critical care time shown is in addition to time spent performing any reported separately billable procedures and includes the following: [x] Data and vital sign review and interpretation [x] Patient assessment, examination and intervention [x] Medication orders and management [x] Patient/Family updates as able [x] Care Coordination and Documentation. Diagnoses Fever R50.9 Fever type: unspecified Acute alteration in mental status R41.82 NSTEMI (non-ST elevated myocardial infarction) I21.4 Congestive heart failure I50.9 Anaphylaxis T78.2XXA
--- NOTE | 2022-12-15 09:11 | P.PN_ITS ---
Subjective Subjective: Patient is feeling much better. Seems to be more alert today. Currently he is afebrile. Has no shortness of breath. Telemetry shows sinus rhythm. Medications: Medication Review Details: Current Medications Acetaminophen (Acetaminophen 325 Mg Tablet) 650 mg PO Q6H PRN PRN Reason: Mild/Mod Pain Or Temp >/= 101 Last Admin: 12/15/22 05:07 Dose: 650 mg Albuterol/Ipratropium (Ipratropium-Albuterol 3 Ml Neb) 3 ml INHALATION Q6H.RESP [facility] Last Admin: 12/15/22 07:43 Dose: 3 ml Aspirin (Aspirin 81 Mg Ec Tablet) 81 mg PO DAILY [facility] Last Admin: 12/15/22 08:00 Dose: 81 mg Atorvastatin Calcium (Atorvastatin 40 Mg Tablet) 40 mg PO DAILY [facility] Last Admin: 12/15/22 08:00 Dose: 40 mg Carvedilol (Carvedilol 12.5 Mg Tablet) 12.5 mg PO BID [facility] Last Admin: 12/15/22 08:00 Dose: 12.5 mg Doxycycline Monohydrate (Doxycycline 100 Mg Tablet) 100 mg PO BID [facility]; Protocol Last Admin: 12/15/22 08:00 Dose: 100 mg Gabapentin (Gabapentin 300 Mg Capsule) 300 mg PO TID [facility] Last Admin: 12/14/22 11:25 Dose: Not Given Heparin Sodium (Porcine) (Heparin 5,000 Unit/Ml Inj 1 Ml) 0 unit IV PRN PRN; Protocol PRN Reason: Heparin weight-base protocol Vancomycin/PEG/NADA/Lysine/Water (Vancocin) 1,250 mg in 250 mls @ 200 mls/hr IV Q18H [facility] Last Admin: 12/15/22 06:06 Dose: 200 mls/hr Heparin Sodium/Sodium Chloride (Heparin Drip) 25,000 unit in 500 mls @ 0 mls/hr IV .Q0M [facility]; Protocol Last Titration: 12/15/22 02:06 Dose: 12 unit/kg/hr, 27.22 mls/hr Aztreonam 2,000 mg/ Sodium (Chloride) 100 mls @ 200 mls/hr IV Q8H [facility]; Protocol Last Titration: 12/15/22 06:16 Dose: Infused Lisinopril (Lisinopril 10 Mg Tablet) 10 mg PO DAILY [facility] Last Admin: 12/15/22 08:00 Dose: 10 mg Memantine (Memantine 5 Mg Tablet) 10 mg PO DAILY [facility] Last Admin: 12/14/22 11:24 Dose: 10 mg Methadone HCl (Methadone 10 Mg Tablet) 40 mg PO DAILY [facility] Last Admin: 12/14/22 11:25 Dose: 40 mg Ofloxacin (Ofloxacin 0.3% Op Soln 5 Ml Btl) 1 drop EYE-BOTH BID [facility] Stop: 12/22/22 00:00 Last Admin: 12/15/22 08:01 Dose: 1 drop Pantoprazole Sodium (Pantoprazole Dr 40 Mg Tablet) 40 mg PO DAILY [facility] Last Admin: 12/15/22 08:00 Dose: 40 mg Spironolactone (Spironolactone 25 Mg Tablet) 25 mg PO DAILY [facility] Last Admin: 12/14/22 06:48 Dose: 25 mg Tamsulosin HCl (Tamsulosin 0.4 Mg Capsule) 0.4 mg PO QPM [facility] Last Admin: 12/14/22 18:52 Dose: Not Given Vitals/I&O/Wt Last Vital Signs Temp 97.8 F 12/15/22 04:00 Pulse 65 12/15/22 08:00 Resp 20 H 12/15/22 08:00 BP 115/60 12/15/22 08:00 Pulse Ox 100 12/15/22 08:00 O2 Del Method Nasal Cannula 12/15/22 07:30 O2 Flow Rate 1 12/15/22 07:30 12/14/22 12/15/22 12/15/22 22:59 06:59 14:59 Intake Total 1547 / 1647 333.097 / 1980.097 Output Total 1999 / 2649 1125 / 3775 Balance -453 / -1003 -791.903 / -1794.903 Weight last 48 hrs Weight 250 lb Physical Exam Narrative: GENERAL: The patient is alert and oriented times three. Not in any acute distress. Moderately obese HEENT: No significant pallor, icterus or lymphadenopathy.Oral cavity: There are no mucous membrane lesions. NECK: Trachea appears to be central. No masses noted. No JVD or thyromegaly appreciated. RESPIRATORY: Chest is symmetrical. No intercostals muscle retraction or any accessory muscle activation. There is no chest wall tenderness. Breath sounds are heard bilaterally. No rales or rhonchi heard. No evidence of any consolidation. BREASTS: Deferred. HEART: The heart sounds are normal. No S3 or S4. No significant murmurs. No pericardial rub ABDOMEN: No vessel pulsations or distention. No tenderness. No organomegaly appreciated. Bowel sounds are normally heard. : Deferred. RECTAL: Deferred. LYMPHATIC: No lymphadenopathy noted in the neck. EXTREMITIES: 1+ edema both lower extremities. MUSCULOSKELETAL: No acute joint deformities or swelling SKIN: There are no significant rashes or ecchymosis NEUROPSYCHIATRIC: The patient is alert and oriented x3. Appears to be in a good mood. No tremors or rigidity noted. Urinary Catheter Management: Anders: Cath Placed During This Visit: yes Reason for Continuing Indwelling Catheter: Other Urinary Catheter Date of Insertion: 12/13/22 Urinary Catheter Time of Insertion: 21:46 Data 12/15/22 04:35 12/15/22 04:35 Micro: Microbiology 12/15/22 04:35 Cryptococcal Antigen (Serum) - Final Blood 12/13/22 21:37 Blood Culture - Preliminary Blood NEGATIVE TO DATE 12/13/22 21:56 Blood Culture - Preliminary Blood NEGATIVE TO DATE A&P Assessment and plan (1) Elevated troponin: Patient has features of non-ST elevation myocardial infarction possibly type II. No acute ischemic EKG changes. Congestive heart failure with a cardiomyopathy, could be a contributing factor. Consider Myocardial perfusion imaging on Sunday (2) Non-ischemic cardiomyopathy: Because of the multiple risk factors, since he has not had any recent cardiac evaluation, may consider a Myocardial perfusion imaging, once his clinical condition is otherwise stable. Since he has no chest pain or ischemic EKG changes there may not be an urgency for this test. (3) Congestive heart failure: Currently the heart failure is fairly compensated. He may be treated carefully with IV diuretics. (4) Benign essential HTN: Her blood pressure was in the 170s at the time of admission. Currently seems to be under control. He may be continued on the current medications (5) Hyperlipidemia: May continue on the current medications Qualifiers: Hyperlipidemia type: mixed hyperlipidemia Qualified Code(s): E78.2 - Mixed hyperlipidemia (6) Type 2 diabetes mellitus, without long-term current use of insulin: Close monitoring of the blood sugar would be appropriate. Qualifiers: Diabetes mellitus complication status: with skin complications Diabetes mellitus complication detail: with foot ulcer Qualified Code(s): E11.621 - Type 2 diabetes mellitus with foot ulcer; L97.509 - Non-pressure chronic ulcer of other part of unspecified foot with unspecified severity (7) Acute alteration in mental status: Seems to be improving. Scheduled for lumbar puncture today (8) Dental abscess: Patient is on antibiotics. Management as per the primary Plan Work-up of the altered mental status/fever as per the primary. Continue on the cardiovascular medications. Lexiscan/sestamibi/sestamibi stress test on Sunday Attestations Medical Necessity Statement*: Patient requires continued hospital stay for close monitoring and further management Coding Level of Care Code 73707 Diagnoses Elevated troponin R77.8 Non-ischemic cardiomyopathy I42.8 Congestive heart failure I50.9 Benign essential HTN I10 Hyperlipidemia E78.2 Hyperlipidemia type: mixed hyperlipidemia Type 2 diabetes mellitus, without long-term current use of insulin E11.621; L97.509 Diabetes mellitus complication status: with skin complications Diabetes mellitus complication detail: with foot ulcer Acute alteration in mental status R41.82 Dental abscess K04.7
[2022-12-15] MEDS: memantine 5 mg tablet 10 MG PO (12:08)
[2022-12-15 13:24] LABS: Methicillin-Resist S.aureu PCR NOT DETECTED (NOT DETECTED)
[2022-12-15 13:28] LABS: Lyme AB Screen <0.90 index
--- NOTE | 2022-12-15 13:33 | FL_ITS ---
WS: [id number] LUMBAR PUNCTURE UNDER FLUOROSCOPY: OBTAIN CSF FOR ANALYSIS HISTORY: altered mental status, fever ?? seizures COMPARISON: Head CT 12/14/2022 FLUOROSCOPY TIME: 1min [id number] # of spot films: 1 Procedure, complications, and risk and benefits explained to the patient. Consent was obtained. Recen t laboratory work and medication are reviewed prior to procedure. Skin over the lumbar is cleansed with ChloraPrep and anesthetized with 1% buffered lidocaine. Access into the thecal sac is achieved. CSF is removed in a sterile manner and placed in the sterile tubes. Approximately 6 ml is removed without difficulty. CSF is clear. Patient was becoming uncomfortable in the CSF flow was very limited. Study terminated after approximately 6 cc of CSF removed. No complications are encountered. CSF this into the laboratory for analysis as requested. IMPRESSION: Uncomplicated lumbar puncture for CSF. Limited aspiration of CSF. The removal was very slow and the p atient should became uncomfortable during this procedure. After 6 cc the lumbar puncture was terminat ed.
[2022-12-15 14:46] LABS: Partial Thromboplastin Time 29.9 SECONDS (23.9-36.7)
[2022-12-15 17:09] LABS: Cyto Order Verification No Order
[2022-12-15 17:10] LABS: Appearance CSF CLEAR (CLEAR); CSF Mononuclear # 0.004 10^3/uL (50-90); Color CSF COLORLESS (COLORLESS); Mononuclear WBC CSF % 67 % (50-90); Pathology Referral Yes; Polynuclear Cells ,CSF # 0.002 10^3/uL (0-10); Polynuclear WBC CSF % 33 % (0-10); Red Blood Cell CSF 0 10^3/uL (0-0); White Blood Cell CSF 6 /uL (0-5)
--- NOTE | 2022-12-15 17:30 | PC.NURSE ---
Pt taken to get LP. Tolerated well
[2022-12-15 17:33] LABS: Glucose CSF 108 mg/dL (40-70); Total Protein CSF 47 mg/dL (15-45)
[2022-12-15] MEDS: tamsulosin 0.4 mg Capsule PO (17:36)
[2022-12-16] VITALS (21 sets, daily range): BP systolic 104–150; BP diastolic 51–84; PULSE 63–91; RESP 15–35; TEMP 36.6–37.2; O2SAT 93–98
[2022-12-16] MEDS: vancomycin 1,250 MG/250 ML PIGGYBACK 200 MG IV ×2 (00:18→19:45)
[2022-12-16] MEDS: acetaminophen 325 mg Tablet 650 MG PO ×2 (00:26→14:04)
[2022-12-16] MEDS: aztreonam 2,000 MG in sodium chloride 0.9% (plus) 100 ML 200 MG IV (03:05)
[2022-12-16 05:05] LABS: Platelet Count 110 10^3/cmm (157-399)
--- NOTE | 2022-12-16 06:04 | PC.NURSE ---
At shift change 12/15, this nurse was told by Bhavna that the heparin drip was put on hold for the LP, and should be restarted at 0600 12/16. No order or doctor note/report was found to suggest the heparin should be restarted. Dr. Daily was contacted about restarting the heparin drip this morning. Orders were given to hold on until shift change so Dr. Loya could make the decision.
[2022-12-16] MEDS: ipratropium-albuterol 3 mL Neb INHALATION ×2 (07:51→13:01)
[2022-12-16 08:36] LABS: Glucose Point of Care 170 mg/dL (70-110)
--- NOTE | 2022-12-16 09:03 | PM.PN ---
Subjective Subjective: Simba was admitted 2 days ago with change in mental status. His could not awaken him at home. He had lost control of his bladder. He was febrile and confused and may have had a febrile seizure. Upon his arrival here his troponin was mildly elevated. He has a tooth abscess. Not long after admission he went into flash pulmonary edema. He is still in the ICU. He is awake and alert and oriented today. Quite remarkably, he has had no fewer than 9 radiologic studies since he has been here. An echo is a poor quality study despite using echo contrast. The ejection fraction looks to be about 40%. A stress test is planned for Sunday. He offers no complaints this morning. Vitals/I&O/Wt Last Vital Signs Temp 98.4 F 12/16/22 08:00 Pulse 73 12/16/22 08:00 Resp 22 H 12/16/22 08:00 BP 133/84 12/16/22 08:00 Pulse Ox 94 12/16/22 08:00 O2 Del Method Room Air 12/16/22 08:00 O2 Flow Rate 1 12/15/22 19:59 12/15/22 12/16/22 12/16/22 22:59 06:59 14:59 Intake Total 100 / 905.038 350 / 1255.038 Output Total 925 / 925 1200 / 2125 Balance -825 / -19.962 -850 / -869.962 Physical Exam Narrative: GENERAL: In general he is awake, alert, lying flat on his back and is oriented and conversant HEENT: Exam within normal limits. NECK: Supple without jugular vein distention. The carotid upstroke is normal without bruits. BACK: Exam normal. LUNGS: Clear. HEART: Regular rate and rhythm. ABDOMEN: Benign without organomegaly or tenderness. EXTREMITIES: No edema. NEUROLOGIC: Exam normal. SKIN: Unremarkable. Urinary Catheter Management: Anders: Cath Placed During This Visit: yes Reason for Continuing Indwelling Catheter: Accurate Measurement of Urinary Output in Critically Ill Patients Urinary Catheter Date of Insertion: 12/13/22 Urinary Catheter Time of Insertion: 21:46 Data 12/16/22 04:25 12/15/22 04:35 Micro: Microbiology 12/14/22 15:45 Gram Stain - Final Cerebrospinal Fluid Bacterial Antigens - Final Cryptococcal Antigen (CSF) - Final 12/13/22 21:37 Blood Culture - Preliminary Blood Strep anginosus group 12/15/22 04:35 Cryptococcal Antigen (Serum) - Final Blood A&P Assessment and plan (1) Congestive heart failure: (2) Non-ischemic cardiomyopathy: (3) Dental abscess: (4) Acute alteration in mental status: (5) Fever: Qualifiers: Fever type: unspecified Qualified Code(s): R50.9 - Fever, unspecified (6) Tachycardia: (7) Elevated troponin: (8) Opiate withdrawal: (9) Type 2 diabetes mellitus, without long-term current use of insulin: Qualifiers: Diabetes mellitus complication status: with skin complications Diabetes mellitus complication detail: with foot ulcer Qualified Code(s): E11.621 - Type 2 diabetes mellitus with foot ulcer; L97.509 - Non-pressure chronic ulcer of other part of unspecified foot with unspecified severity (10) Hyperlipidemia: Qualifiers: Hyperlipidemia type: mixed hyperlipidemia Qualified Code(s): E78.2 - Mixed hyperlipidemia (11) Benign essential HTN: (12) Dementia: Qualifiers: Dementia type: unspecified type Dementia behavioral disturbance: without behavioral disturbance Qualified Code(s): F03.90 - Unspecified dementia without behavioral disturbance Plan He has stabilized. Mental status is back to baseline. No changes today. Attestations Medical Necessity Statement*: Hospitalization for above medical problems. and Moderate Time for a total of 30 minutes, includes reviewing past or interval history, examining/interviewing patient, placing orders, counseling patient/family/other support, updating patient/family/other support, discussing plan of care with staff, communicating with other healthcare providers, documenting encounter and coordinating care Diagnoses Congestive heart failure I50.9 Non-ischemic cardiomyopathy I42.8 Dental abscess K04.7 Acute alteration in mental status R41.82 Fever R50.9 Fever type: unspecified Tachycardia R00.0 Elevated troponin R77.8 Opiate withdrawal F11.93 Type 2 diabetes mellitus, without long-term current use of insulin E11.621; L97.509 Diabetes mellitus complication status: with skin complications Diabetes mellitus complication detail: with foot ulcer Hyperlipidemia E78.2 Hyperlipidemia type: mixed hyperlipidemia Benign essential HTN I10 Dementia F03.90 Dementia type: unspecified type Dementia behavioral disturbance: without behavioral disturbance
[2022-12-16] MEDS: pantoprazole DR 40 mg Tablet PO (09:11)
[2022-12-16] MEDS: memantine 5 mg tablet 10 MG PO (09:12)
[2022-12-16] MEDS: doxycycline 100 mg Tablet PO (09:12)
[2022-12-16] MEDS: atorvastatin 40 mg Tablet PO (09:12)
[2022-12-16] MEDS: carvedilol 12.5 mg Tablet PO ×2 (09:12→17:17)
[2022-12-16] MEDS: ofloxacin 0.3% Op Soln 5 mL Btl 1 DROP EYE-BOTH (09:12)
[2022-12-16] MEDS: aspirin 81 mg EC Tablet PO (09:12)
[2022-12-16] MEDS: lisinopril 10 mg Tablet PO (09:12)
[2022-12-16 11:04] LABS: Basophils % 0.4 %; Eosinophils # 0.1 10^3/uL (0.0-0.8); Eosinophils % 1.5 %; Lymphocytes # 0.7 10^3/uL (0.8-4.8); Lymphocytes % 10.2 %; Mean Corpuscular HGB Conc 32.9 g/dL (30-55); Mean Corpuscular Hemoglobin 30.9 pg (27-33); Mean Corpuscular Volume 93.7 fl (82-101); Monocytes # 0.6 10^3/uL (0.2-0.9); Monocytes % 9.3 %; Neutrophils # 5.35 10^3/uL (1.8-7.7); Neutrophils % 77.6 %; Nucleated Red Blood Cells % 0 %; Platelet Count 115 10^3/cmm (157-399); Red Blood Count 3.63 10^6/uL (3.85-5.65); Red Cell Distribution Width 12.7 % (12.1-15.1); White Blood Count 6.89 10^3/uL (3.29-11.43)
[2022-12-16] MEDS: levoFLOXacin 750 mg Tablet PO (11:19)
[2022-12-16 11:26] LABS: Alanine Aminotransferase 19 U/L (0-41); Albumin Level 3.5 g/dL (3.5-5.2); Alkaline Phosphatase 97 U/L (40-130); Anion Gap 13.9 (5-19); Aspartate Amino Transferase 26 U/L (0-40); Blood Urea Nitrogen 28 mg/dL (8-23); Calcium 8.3 mg/dL (8.5-10.5); Carbon Dioxide 27 mmol/L (22-29); Chloride 98 mmol/L (98-107); Globulin 2.2 g/dL (1.3-4.6); Glucose 235 mg/dL (65-115); Osmolality Calculated 293 mOsm/kg (285-295); Potassium 3.9 mmol/L (3.5-5.1); Sodium 135 mmol/L (136-145); Total Bilirubin 0.4 mg/dL (0.15-1.2); Total Protein 5.7 g/dL (6.6-8.7)
--- NOTE | 2022-12-16 11:26 | PC.NURSE ---
Anders removed. 10 mL of water removed form baloon. Catheter intact
[2022-12-16 11:45] LABS: Glucose Point of Care 230 mg/dL (70-110)
[2022-12-16] MEDS: metroNIDAZOLE 500 MG Tablet PO ×2 (14:04→20:34)
[2022-12-16 15:11] LABS: Glucose Point of Care 259 mg/dL (70-110)
--- NOTE | 2022-12-16 15:15 | PC.NURSE ---
Barcenas removed, patient has voided since barcenas removal, amount not measurable as patient wasn't able to get to the urinal in time, but appeared to be a large amount spilled.
--- NOTE | 2022-12-16 15:34 | P.PN_ITS ---
Subjective Subjective: Patient is now afebrile for over 24 hours. Leukocytosis has resolved. Blood culture shows strep anginosus from day of admission. He is oriented x3, much more alert compared to yesterday's exam. Medications: Reviewed: Yes Medication Review Details: Current Medications Acetaminophen (Acetaminophen 325 Mg Tablet) 650 mg PO Q6H PRN PRN Reason: Mild/Mod Pain Or Temp >/= 101 Last Admin: 12/15/22 05:07 Dose: 650 mg Albuterol/Ipratropium (Ipratropium-Albuterol 3 Ml Neb) 3 ml INHALATION Q6H.RESP NEDA Last Admin: 12/15/22 07:43 Dose: 3 ml Aspirin (Aspirin 81 Mg Ec Tablet) 81 mg PO DAILY [facility] Last Admin: 12/15/22 08:00 Dose: 81 mg Atorvastatin Calcium (Atorvastatin 40 Mg Tablet) 40 mg PO DAILY [facility] Last Admin: 12/15/22 08:00 Dose: 40 mg Carvedilol (Carvedilol 12.5 Mg Tablet) 12.5 mg PO BID [facility] Last Admin: 12/15/22 08:00 Dose: 12.5 mg Doxycycline Monohydrate (Doxycycline 100 Mg Tablet) 100 mg PO BID [facility]; Protocol Last Admin: 12/15/22 08:00 Dose: 100 mg Gabapentin (Gabapentin 300 Mg Capsule) 300 mg PO TID [facility] Last Admin: 12/14/22 11:25 Dose: Not Given Heparin Sodium (Porcine) (Heparin 5,000 Unit/Ml Inj 1 Ml) 0 unit IV PRN PRN; Protocol PRN Reason: Heparin weight-base protocol Vancomycin/PEG/NADA/Lysine/Water (Vancocin) 1,250 mg in 250 mls @ 200 mls/hr IV Q18H [facility] Last Admin: 12/15/22 06:06 Dose: 200 mls/hr Heparin Sodium/Sodium Chloride (Heparin Drip) 25,000 unit in 500 mls @ 0 mls/hr IV .Q0M [facility]; Protocol Last Titration: 12/15/22 02:06 Dose: 12 unit/kg/hr, 27.22 mls/hr Aztreonam 2,000 mg/ Sodium (Chloride) 100 mls @ 200 mls/hr IV Q8H [facility]; Protocol Last Titration: 12/15/22 06:16 Dose: Infused Lisinopril (Lisinopril 10 Mg Tablet) 10 mg PO DAILY [facility] Last Admin: 12/15/22 08:00 Dose: 10 mg Memantine (Memantine 5 Mg Tablet) 10 mg PO DAILY [facility] Last Admin: 12/14/22 11:24 Dose: 10 mg Methadone HCl (Methadone 10 Mg Tablet) 40 mg PO DAILY [facility] Last Admin: 12/14/22 11:25 Dose: 40 mg Ofloxacin (Ofloxacin 0.3% Op Soln 5 Ml Btl) 1 drop EYE-BOTH BID [facility] Stop: 12/22/22 00:00 Last Admin: 12/15/22 08:01 Dose: 1 drop Pantoprazole Sodium (Pantoprazole Dr 40 Mg Tablet) 40 mg PO DAILY [facility] Last Admin: 12/15/22 08:00 Dose: 40 mg Spironolactone (Spironolactone 25 Mg Tablet) 25 mg PO DAILY [facility] Last Admin: 12/14/22 06:48 Dose: 25 mg Tamsulosin HCl (Tamsulosin 0.4 Mg Capsule) 0.4 mg PO QPM [facility] Last Admin: 12/14/22 18:52 Dose: Not Given Vitals/I&O/Wt Last Vital Signs Temp 98.6 F 12/16/22 13:00 Pulse 75 12/16/22 14:00 Resp 18 12/16/22 13:01 BP 147/81 12/16/22 13:00 Pulse Ox 96 12/16/22 13:01 O2 Del Method Room Air 12/16/22 13:01 O2 Flow Rate 1 12/15/22 19:59 12/16/22 12/16/22 12/16/22 06:59 14:59 22:59 Intake Total 350 / 3946.627 2181 / 1360 Output Total 1200 / 2125 Balance -850 / -305.386 9555 / 1360 Physical Exam Narrative: General: No acute distress, AO x3, mentation is now back to baseline HEENT: PERRLA, pupils bilaterally equal and reactive, pallors not present, c/o pain over back of neck, unable to state is this is chronic or acute Chest: Normal vesicular breath sounds, no added sounds, equal good air entry bilaterally CVS: S1-S2 regular, no murmurs, no tachycardia, no gallops, no rubs Abdomen: Soft, nontender, no organomegaly, bowel sounds present Neuro: No focal deficits, moves all extremities Urinary Catheter Management: Anders: Cath Placed During This Visit: yes Reason for Continuing Indwelling Catheter: Accurate Measurement of Urinary Output in Critically Ill Patients Urinary Catheter Date of Insertion: 12/13/22 Urinary Catheter Time of Insertion: 21:46 Data 12/16/22 10:49 12/16/22 10:49 Other Labs: Spec : [id number] Tamiko: 12/14/22-154 Status: COMP Req : [id number] Recd: 12/15/22-[address]: Marija Loya MD Ordered: CSF Analysis Test Low Normal High Flag Reference Site CSF Sarah CLEAR CLEAR CSF Col COLORLESS COLORLESS CSF WBC 6 H 0-5 /uL CSF RBC 0 0-0 10^3/uL CSF [place] WBC % 67 50-90 % CSF Poly WBC % 33 H 0-10 % CSF [place] # 0.004 L 50-90 10^3/uL CSF Poly # 0.002 0-10 10^3/uL Path Referral Yes Micro: Microbiology 12/14/22 15:45 Gram Stain - Final Cerebrospinal Fluid CSF Culture - Gram Stain Final 12/15/22-1805 Result NO ORGANISMS SEEN NO WHITE BLOOD CELLS Bacterial Antigens - Final Bacterial Antigen Final Streptococcus Group B Negative for Streptococcus Group B Antigen Haemophilus influenzae B Negative or Haemophilus influenzae B Antigen S. pneumoniae Antigen Negative for S. pneumoniae Antigen N.meningitidis A,C,Y,W135 Negative for N.meningitidis A,C,Y,W135 Antigen N.meningitidis B/E.coli Negative for N.meningitidis B/E.coli K1 Antigen Cryptococcal Antigen (CSF) - negative 12/16/22 10:49 Blood Culture - Preliminary Blood SPECIMEN COLLECTED 12/16/22 10:44 Blood Culture - Preliminary Blood SPECIMEN COLLECTED 12/13/22 21:37 Blood Culture - Preliminary Blood Strep anginosus group A&P Assessment and plan (1) Streptococcal bacteremia: Currently on treatment with IV vancomycin due to suspected anaphylaxis to piperacillin/tazobactam this admission Check blood culture today to a certain clearance Sources oropharyngeal most likely. Anticipate 14 days of IV treatment. No valvular abnormalities noted grossly on echocardiogram. (2) Fever: 72-year-old is brought in by ambulance for altered mental status, vomiting and fever up to 103F . Blood culture positive for strep anginosus, likely to be oropharyngeal johnna. Ct neck negative for dental abscess but shows diffuse dental disease Patient is noted to signs of periodontal infection bleeding gums. Discontinue aztreonam and doxycycline today. Oral Levaquin and metronidazole for periodontal infection as would need broader treatment then IV vancomycin alone owing to polymicrobial nature. Hesitant to use beta-lactam's given possible anaphylaxis. IV vancomycin to cover for bacteremia. Meningitis now appears unlikely, LP performed yesterday with 6 WBCs, 33% polys nuclear WBCs, CSF glucose 108, CSF protein 47 within normal range. Qualifiers: Fever type: unspecified Qualified Code(s): R50.9 - Fever, unspecified (3) Acute alteration in mental status: Now back to baseline (4) NSTEMI (non-ST elevated myocardial infarction): elavted troponins echo with LVEF 40%, diffuse hypokinesia cardiology consulted Recommended today to discontinue heparin drip continue ASA 81 mg daily Stress chest pain on Sunday (today is Sunday and stress testing is not available over the weekend) (5) Congestive heart failure: acute sytsolic heart failure s/p lasix 40 mg IV x1 now off IVF currently euvolemic (6) Anaphylaxis: possible anaphylaxis, not a certain diagnosis from likely zosyn currently off all beta lactams will need allergy testing as outpatient once recovered from acute illness Plan #Chronic pain on methadone. Resume methadone today now that mental status is at baseline. We will slowly add back gabapentin and Zoloft if mentation remains at baseline. Cardiac diet full code all updated discussed with at bedside Transfer out of ICU Attestations Medical Necessity Statement*: Ongoing need for IV antibiotics, stress test on Sunday, slowly recovering, awaiting clearance of bacteremia from blood cultures taken today. Coding Level of Care Code Acute Code for Chg Fwd High MDM includes number and complexity of problems actively addressed during encounter, amount and/or complexity of data reviewed/ordered and described risk of complication, morbidity or mortality of management as documented Diagnoses Streptococcal bacteremia R78.81; B95.5 Fever R50.9 Fever type: unspecified Acute alteration in mental status R41.82 NSTEMI (non-ST elevated myocardial infarction) I21.4 Congestive heart failure I50.9 Anaphylaxis T78.2XXA
--- NOTE | 2022-12-16 16:00 | PC.NURSE ---
Shift SUmmary: Transferred to CSU room 101 near end of shift. Uneventful shift. Patient has been up to a chair for about 5 hours of the day. Anders removed. Methadone restarted due to complaints of pain unrelieved by tylenol. SLiding scale insulin started due to increasing blood glucose levels.
[2022-12-16] MEDS: methadone 10 mg Tablet 40 MG PO (16:26)
[2022-12-16] MEDS: tamsulosin 0.4 mg Capsule PO (17:17)
[2022-12-16] MEDS: insulin lispro 100 unit/1 mL SUBCUT ×2 (17:17→21:06)
[2022-12-16 17:22] LABS: Glucose Point of Care 192 mg/dL (70-110)
[2022-12-16 19:12] LABS: Vancomycin Trough 12.6 ug/mL (10-15)
[2022-12-16 20:55] LABS: Glucose Point of Care 157 mg/dL (70-110)
[2022-12-17] VITALS (11 sets, daily range): BP systolic 117–172; BP diastolic 50–65; PULSE 70–106; RESP 17–23; TEMP 36.4–37; O2SAT 94–98
--- NOTE | 2022-12-17 03:31 | PC.PHAR ---
[id number] Vancomycin: Dose 1250 q18h - trough 12.6 before 4th dose. High trough (15-20) requested so increased to 1750 mg q18h. trough before 4th 12/19 1700.
[2022-12-17 04:17] LABS: Basophils % 0.5 %; Eosinophils # 0.1 10^3/uL (0.0-0.8); Eosinophils % 1.7 %; Hematocrit 34.1 % (37-53); Lymphocytes # 0.8 10^3/uL (0.8-4.8); Lymphocytes % 11.7 %; Mean Corpuscular Hemoglobin 30.5 pg (27-33); Mean Corpuscular Volume 95.5 fl (82-101); Mean Platelet Volume 9.9 fL (7.4-10.4); Monocytes # 0.5 10^3/uL (0.2-0.9); Neutrophils # 4.91 10^3/uL (1.8-7.7); Neutrophils % 76.7 %; Nucleated Red Blood Cells % 0 %; Platelet Count 119 10^3/cmm (157-399); Red Blood Count 3.57 10^6/uL (3.85-5.65); Red Cell Distribution Width 12.6 % (12.1-15.1)
[2022-12-17 04:34] LABS: Alanine Aminotransferase 18 U/L (0-41); Albumin Level 3.2 g/dL (3.5-5.2); Alkaline Phosphatase 87 U/L (40-130); Blood Urea Nitrogen 29 mg/dL (8-23); Calcium 8.7 mg/dL (8.5-10.5); Carbon Dioxide 25 mmol/L (22-29); Chloride 103 mmol/L (98-107); Globulin 2.8 g/dL (1.3-4.6); Glucose 137 mg/dL (65-115); Osmolality Calculated 296 mOsm/kg (285-295); Sodium 139 mmol/L (136-145); Total Bilirubin 0.4 mg/dL (0.15-1.2)
[2022-12-17 04:42] LABS: Anion Gap 15.1 (5-19); Aspartate Amino Transferase 25 U/L (0-40); Potassium 4.1 mmol/L (3.5-5.1)
--- NOTE | 2022-12-17 06:54 | P.PN_ITS ---
Subjective Subjective: Simba was transferred to the first floor overnight. He has had an uneventful night. No complaints this morning. Vitals/I&O/Wt Last Vital Signs Temp 98.6 F 12/17/22 04:00 Pulse 82 12/17/22 06:00 Resp 18 12/17/22 04:00 BP 119/55 12/17/22 04:00 Pulse Ox 97 12/17/22 04:00 O2 Del Method Room Air 12/17/22 04:00 O2 Flow Rate 1 12/15/22 19:59 12/16/22 12/16/22 12/17/22 14:59 22:59 06:59 Intake Total 1360 / 1360 541.865 / 1901.865 450 / 2351.865 Output Total Balance 1360 / 1360 541.865 / 1901.865 449 / 2350.865 Physical Exam Narrative: GENERAL: In general he is comfortable. HEENT: Exam within normal limits. NECK: Supple without jugular vein distention. The carotid upstroke is normal without bruits. BACK: Exam normal. LUNGS: Clear. HEART: Regular rate and rhythm. ABDOMEN: Benign without organomegaly or tenderness. EXTREMITIES: No edema. NEUROLOGIC: Exam normal. SKIN: Unremarkable. Urinary Catheter Management: Anders: Cath Placed During This Visit: yes Reason for Continuing Indwelling Catheter: Other Urinary Catheter Date of Insertion: 12/13/22 Urinary Catheter Time of Insertion: 21:46 Data 12/17/22 03:06 12/17/22 03:06 Micro: Microbiology 12/14/22 15:45 Gram Stain - Final Cerebrospinal Fluid CSF Culture - Preliminary Bacterial Antigens - Final Cryptococcal Antigen (CSF) - Final 12/16/22 10:49 Blood Culture - Preliminary Blood SPECIMEN COLLECTED 12/16/22 10:44 Blood Culture - Preliminary Blood SPECIMEN COLLECTED A&P Assessment and plan (1) NSTEMI (non-ST elevated myocardial infarction): (2) Congestive heart failure: (3) Non-ischemic cardiomyopathy: (4) Dental abscess: (5) Acute alteration in mental status: (6) Elevated troponin: (7) Type 2 diabetes mellitus, without long-term current use of insulin: Qualifiers: Diabetes mellitus complication status: with skin complications Diabetes mellitus complication detail: with foot ulcer Qualified Code(s): E11.621 - Type 2 diabetes mellitus with foot ulcer; L97.509 - Non-pressure chronic ulcer of other part of unspecified foot with unspecified severity (8) Hyperlipidemia: Qualifiers: Hyperlipidemia type: mixed hyperlipidemia Qualified Code(s): E78.2 - Mixed hyperlipidemia (9) Benign essential HTN: Plan No changes today. Attestations Medical Necessity Statement*: Hospitalization for management of above-mentioned medical problems and Moderate Time for a total of 35 minutes, includes reviewing past or interval history, examining/interviewing patient, placing orders, counseling patient/family/other support, updating patient/family/other support and documenting encounter Diagnoses NSTEMI (non-ST elevated myocardial infarction) I21.4 Congestive heart failure I50.9 Non-ischemic cardiomyopathy I42.8 Dental abscess K04.7 Acute alteration in mental status R41.82 Elevated troponin R77.8 Type 2 diabetes mellitus, without long-term current use of insulin E11.621; L97.509 Diabetes mellitus complication status: with skin complications Diabetes mellitus complication detail: with foot ulcer Hyperlipidemia E78.2 Hyperlipidemia type: mixed hyperlipidemia Benign essential HTN I10
[2022-12-17 07:30] LABS: Glucose Point of Care 160 mg/dL (70-110)
[2022-12-17] MEDS: insulin lispro 100 unit/1 mL SUBCUT ×3 (08:00→22:33)
[2022-12-17] MEDS: aspirin 81 mg EC Tablet PO (08:11)
[2022-12-17] MEDS: memantine 5 mg tablet 10 MG PO (08:11)
[2022-12-17] MEDS: methadone 10 mg Tablet 40 MG PO (08:11)
[2022-12-17] MEDS: levoFLOXacin 750 mg Tablet PO (08:13)
[2022-12-17] MEDS: metroNIDAZOLE 500 MG Tablet PO ×3 (08:13→20:18)
[2022-12-17] MEDS: carvedilol 12.5 mg Tablet PO ×2 (08:13→17:43)
[2022-12-17] MEDS: pantoprazole DR 40 mg Tablet PO (08:14)
[2022-12-17] MEDS: atorvastatin 40 mg Tablet PO (08:14)
[2022-12-17] MEDS: lisinopril 10 mg Tablet PO (08:14)
[2022-12-17] MEDS: ofloxacin 0.3% Op Soln 5 mL Btl 1 DROP EYE-BOTH ×2 (08:22→18:28)
--- NOTE | 2022-12-17 08:44 | PC.SOCIAL ---
IMM update IMM updated with patient. Verbalized an understanding. Copy pg 2 provided. Initialled, dated, timed, and placed in chart.
[2022-12-17] MEDS: vancomycin 1,500 MG/300 ML PIGGYBACK 200 MG IV ×2 (11:08→22:30)
[2022-12-17 11:31] LABS: Glucose Point of Care 238 mg/dL (70-110)
--- NOTE | 2022-12-17 16:11 | PM.PN ---
Subjective Subjective: remains afberile and hemodynamically stable. no new complaints, states he feels well today. Blood cx now also positive from 12/16- reported with [facility] in clusters thus far Medications: Reviewed: Yes Medication Review Details: Current Medications Acetaminophen (Acetaminophen 325 Mg Tablet) 650 mg PO Q6H PRN PRN Reason: Mild/Mod Pain Or Temp >/= 101 Last Admin: 12/15/22 05:07 Dose: 650 mg Albuterol/Ipratropium (Ipratropium-Albuterol 3 Ml Neb) 3 ml INHALATION Q6H.RESP NEDA Last Admin: 12/15/22 07:43 Dose: 3 ml Aspirin (Aspirin 81 Mg Ec Tablet) 81 mg PO DAILY [facility] Last Admin: 12/15/22 08:00 Dose: 81 mg Atorvastatin Calcium (Atorvastatin 40 Mg Tablet) 40 mg PO DAILY [facility] Last Admin: 12/15/22 08:00 Dose: 40 mg Carvedilol (Carvedilol 12.5 Mg Tablet) 12.5 mg PO BID [facility] Last Admin: 12/15/22 08:00 Dose: 12.5 mg Doxycycline Monohydrate (Doxycycline 100 Mg Tablet) 100 mg PO BID [facility]; Protocol Last Admin: 12/15/22 08:00 Dose: 100 mg Gabapentin (Gabapentin 300 Mg Capsule) 300 mg PO TID [facility] Last Admin: 12/14/22 11:25 Dose: Not Given Heparin Sodium (Porcine) (Heparin 5,000 Unit/Ml Inj 1 Ml) 0 unit IV PRN PRN; Protocol PRN Reason: Heparin weight-base protocol Vancomycin/PEG/NADA/Lysine/Water (Vancocin) 1,250 mg in 250 mls @ 200 mls/hr IV Q18H [facility] Last Admin: 12/15/22 06:06 Dose: 200 mls/hr Heparin Sodium/Sodium Chloride (Heparin Drip) 25,000 unit in 500 mls @ 0 mls/hr IV .Q0M [facility]; Protocol Last Titration: 12/15/22 02:06 Dose: 12 unit/kg/hr, 27.22 mls/hr Aztreonam 2,000 mg/ Sodium (Chloride) 100 mls @ 200 mls/hr IV Q8H [facility]; Protocol Last Titration: 12/15/22 06:16 Dose: Infused Lisinopril (Lisinopril 10 Mg Tablet) 10 mg PO DAILY [facility] Last Admin: 12/15/22 08:00 Dose: 10 mg Memantine (Memantine 5 Mg Tablet) 10 mg PO DAILY [facility] Last Admin: 12/14/22 11:24 Dose: 10 mg Methadone HCl (Methadone 10 Mg Tablet) 40 mg PO DAILY [facility] Last Admin: 12/14/22 11:25 Dose: 40 mg Ofloxacin (Ofloxacin 0.3% Op Soln 5 Ml Btl) 1 drop EYE-BOTH BID [facility] Stop: 12/22/22 00:00 Last Admin: 12/15/22 08:01 Dose: 1 drop Pantoprazole Sodium (Pantoprazole Dr 40 Mg Tablet) 40 mg PO DAILY [facility] Last Admin: 12/15/22 08:00 Dose: 40 mg Spironolactone (Spironolactone 25 Mg Tablet) 25 mg PO DAILY [facility] Last Admin: 12/14/22 06:48 Dose: 25 mg Tamsulosin HCl (Tamsulosin 0.4 Mg Capsule) 0.4 mg PO QPM [facility] Last Admin: 12/14/22 18:52 Dose: Not Given Vitals/I&O/Wt Last Vital Signs Temp 97.9 F 12/17/22 16:00 Pulse 75 12/17/22 16:00 Resp 19 H 12/17/22 16:00 BP 122/55 12/17/22 16:00 Pulse Ox 94 12/17/22 16:00 O2 Del Method Room Air 12/17/22 16:00 O2 Flow Rate 1 12/15/22 19:59 12/17/22 12/17/22 12/17/22 06:59 14:59 22:59 Intake Total 450 / 2351.865 660 / 660 Output Total Balance 449 / 2350.865 660 / 660 Physical Exam Narrative: General: No acute distress, AO x3, mentation is now back to baseline HEENT: PERRLA, pupils bilaterally equal and reactive, pallors not present, c/o pain over back of neck, unable to state is this is chronic or acute Chest: Normal vesicular breath sounds, no added sounds, equal good air entry bilaterally CVS: S1-S2 regular, no murmurs, no tachycardia, no gallops, no rubs Abdomen: Soft, nontender, no organomegaly, bowel sounds present Neuro: No focal deficits, moves all extremities Urinary Catheter Management: Anders: Cath Placed During This Visit: yes Reason for Continuing Indwelling Catheter: Other Urinary Catheter Date of Insertion: 12/13/22 Urinary Catheter Time of Insertion: 21:46 Data 12/17/22 03:06 12/17/22 03:06 Micro: Microbiology 12/17/22 12:13 Blood Culture - Preliminary Blood SPECIMEN COLLECTED 12/17/22 11:37 Blood Culture - Preliminary Blood SPECIMEN COLLECTED 12/14/22 15:45 Gram Stain - Final Cerebrospinal Fluid CSF Culture - Preliminary Bacterial Antigens - Final Cryptococcal Antigen (CSF) - Final 12/16/22 10:49 Blood Culture - Preliminary Blood NEGATIVE TO DATE 12/16/22 10:44 Blood Culture - Preliminary Blood 12/17/22 03:06 Cryptococcal Antigen (Serum) - Final Blood A&P Assessment and plan (1) Streptococcal bacteremia: 72-year-old is brought in by ambulance for altered mental status, vomiting and fever up to 103F Blood cx 12/13 + strep anginosus Blood cx 12/16: [facility] in clusters pending further identification repeat blood cultures today Source appears to be oropharyngeal Currently on treatment with IV vancomycin due to suspected anaphylaxis to piperacillin/tazobactam this admission Anticipate 14 days of IV treatment from date of clearance No valvular abnormalities noted grossly on echocardiogram. Ct neck negative for dental abscess but shows diffuse dental disease Patient is noted to ave of periodontal infection bleeding gums. Oral Levaquin and metronidazole for periodontal infection as would need broader treatment than IV vancomycin alone owing to polymicrobial nature. Hesitant to use beta-lactam's given possible anaphylaxis. IV vancomycin to cover for bacteremia. Meningitis now appears unlikely based on LP. CSF cx negative from 12/14 (2) Fever: now resolved Qualifiers: Fever type: unspecified Qualified Code(s): R50.9 - Fever, unspecified (3) Acute alteration in mental status: Now back to baseline (4) NSTEMI (non-ST elevated myocardial infarction): elavted troponins echo with LVEF 40%, diffuse hypokinesia cardiology consulted discontinued heparin drip continue ASA 81 mg daily Planned for stress test per cardiology recommendations (5) Congestive heart failure: acute sytsolic heart failure s/p lasix 40 mg IV x1 now off IVF currently euvolemic (6) Anaphylaxis: possible anaphylaxis, not a certain diagnosis from likely zosyn currently off all beta lactams will need allergy testing as outpatient once recovered from acute illness Plan #Chronic pain on methadone. Resume zoloft. IF mentation remains stable, will likely add back gabapentin Cardiac diet full code all updated discussed with and daughters at bedside Attestations Medical Necessity Statement*: continued admission until clearance of bacteremia Coding Level of Care Code Acute Code for Chg Fwd Moderate MDM includes number and complexity of problems actively addressed during encounter, amount and/or complexity of data reviewed/ordered and described risk of complication, morbidity or mortality of management as documented Diagnoses Streptococcal bacteremia R78.81; B95.5 Fever R50.9 Fever type: unspecified Acute alteration in mental status R41.82 NSTEMI (non-ST elevated myocardial infarction) I21.4 Congestive heart failure I50.9 Anaphylaxis T78.2XXA
[2022-12-17 16:56] LABS: Glucose Point of Care 127 mg/dL (70-110)
[2022-12-17] MEDS: acetaminophen 325 mg Tablet 650 MG PO (17:42)
[2022-12-17] MEDS: tamsulosin 0.4 mg Capsule PO (17:43)
[2022-12-17 22:14] LABS: Glucose Point of Care 181 mg/dL (70-110)
[2022-12-18] VITALS (11 sets, daily range): BP systolic 117–161; BP diastolic 53–85; PULSE 65–99; RESP 15–18; TEMP 36.4–37.3; O2SAT 93–98
--- NOTE | 2022-12-18 07:00 | ECG_ITS ---
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 Interpretive Statements NAME OF STUDY: LEXISCAN SESTAMIBI STRESS TEST INDICATION: Chest Pain, PROCEDURE: At the baseline, the EKG revealed normal sinus rhythm with a rate of 75 bpm. Poor R wave progression. Some nonspecific T wave changes.. The baseline heart was 75 bpm with a blood pressue of 130/71 mm of Hg Lexiscan was infused over a period of 20 seconds. A total of 0.4 milligrams of Lexiscan was infused. The stress phase was continued for a total of 5 minutes. Heart rate at the end of the stress phase was 103 bpm with a blood pressure 163/72 mm of Hg. The EKG at the peak infusion revealed no significant changes. Sestamibi was injected 20 seconds after the Lexiscan infusion. Heart rate at the end of the recovery phase was 102 bpm with a blood pressure of 161/85 mm of Hg. CONCLUSION: 1. No significant EKG changes with the LexiScan infusion 2. No LexiScan induced chest pain or cardiac arrhythmia 3. Normal blood pressure and heart rate response 4. Sestamibi/sestamibi perfusion scan pending; see separate report. Electronically Signed On 12-18-2022 8:49:31 CDT by Karina Ly M.D. [id number]
[2022-12-18] MEDS: regadenoson 0.4 Mg/5 ml Syringe IVP (07:09)
[2022-12-18] MEDS: ondansetron 2 mg/ML SDV 2 mL 4 MG IVP (07:16)
--- NOTE | 2022-12-18 08:00 | NMCV_ITS ---
NM hu perf SPECT r/s* [id number] Simba Berry Age: 72 Gender: M : 1950 Exam Date: 12/18/2022 06:35 Ordering Phys: Kraina Ly MD ([email or web address]) Technologist: EDDIE Don Exam Location: [facility] Indications: CHEST PAIN STRESS TEST Please see separate stress test report in [facility] for full findings IMAGE PROTOCOL Rest/Stress 1 Lexiscan Day Radiopharmaceutical Dose (mCi) Administration Site Administered by Rest: Tc-99m 11.0 IV EDDIE Madden Sestamibi Stress:Tc-99m 33.0 IV EDDIE Madden Sestamibi Rest: 18-Dec-2022 60 Discovery 630 Stress: 18-Dec-2022 30 Discovery 630 0.4mg Lexiscan. Supine position only as patient was unable to lay prone. SPECT RESULTS Technical Quality: Excellent Raw Data Analysis: Normal Image Corrections: No attenuation or motion correction applied Summed Stress Score: 0 Summed Rest Score: 1 Summed Difference Score: 0 PERFUSION FINDINGS A small area of slightly decreased tracer uptake was noted in the mid and apical inferior wall region. No significant reversibility was noted in this region. FUNCTIONAL RESULTS (calculated via Gated SPECT) Stress Image LV EF (%): 58 Stress EDV (mL):121 TID: 0.89 Stress ESV (mL):51 FUNCTIONAL FINDINGS: Segmental wall motion analysis revealing no gross wall motion abnormalities IMPRESSIONS 1. Myocardial perfusion imaging revealing a small area of persistent decreased tracer uptake involving the mid and apical inferior wall region, suggesting myocardial scarring versus attenuation artifact. 2. Normal LV ejection fraction of 58%. 3. LV wall motion analysis revealing no gross wall motion abnormalities. 4. Normal LV volume Low probability for coronary ischemia, based on the above findings Dr Karina Ly MD FACC (Electronically Signed) Final Date: 18 December 2022 09:57 S
[2022-12-18] MEDS: memantine 5 mg tablet 10 MG PO (09:12)
[2022-12-18] MEDS: levoFLOXacin 750 mg Tablet PO (09:12)
[2022-12-18] MEDS: atorvastatin 40 mg Tablet PO (09:13)
[2022-12-18] MEDS: methadone 10 mg Tablet 40 MG PO (09:13)
[2022-12-18] MEDS: carvedilol 12.5 mg Tablet PO ×2 (09:14→18:07)
[2022-12-18] MEDS: aspirin 81 mg EC Tablet PO (09:14)
[2022-12-18] MEDS: pantoprazole DR 40 mg Tablet PO (09:14)
[2022-12-18] MEDS: metroNIDAZOLE 500 MG Tablet PO ×3 (09:14→20:56)
[2022-12-18] MEDS: sertraline 100 mg Tablet PO (09:15)
[2022-12-18] MEDS: lisinopril 10 mg Tablet PO (09:15)
[2022-12-18] MEDS: ofloxacin 0.3% Op Soln 5 mL Btl 1 DROP EYE-BOTH ×2 (09:16→18:08)
[2022-12-18] MEDS: vancomycin 1,500 MG/300 ML PIGGYBACK 200 MG IV ×2 (10:06→22:04)
[2022-12-18 11:27] LABS: Glucose Point of Care 240 mg/dL (70-110)
[2022-12-18] MEDS: insulin lispro 100 unit/1 mL SUBCUT ×2 (11:34→22:07)
[2022-12-18 16:28] LABS: Glucose Point of Care 120 mg/dL (70-110)
--- NOTE | 2022-12-18 16:49 | PM.PN ---
Subjective Subjective: Patient was seen this morning, no chest pain complaints overnight, just completed a stress test, denies any pain complaints or chest pain complaints have a stress test, he does have poor dentition, he knows that he needs to see a dentist, Vitals/I&O/Wt Last Vital Signs Temp 98.0 F 12/18/22 15:49 Pulse 77 12/18/22 15:49 Resp 16 12/18/22 15:49 BP 121/64 12/18/22 15:49 Pulse Ox 96 12/18/22 15:49 O2 Del Method Room Air 12/18/22 15:49 O2 Flow Rate 1 12/15/22 19:59 12/18/22 12/18/22 12/18/22 06:59 14:59 22:59 Intake Total 300 / 1440 900 / 900 Balance 300 / 1440 900 / 900 Physical Exam Const: COMMON NORMALS: no acute distress and patient oriented x3 Resp: COMMON NORMALS: normal respiratory effort, No retractions, No use of accessory muscles and clear to auscultation bilaterally AUSCULTATION: clear to auscultation bilaterally Cardio: COMMON NORMALS: regular rate, regular rhythm, S1 normal heart sound present and S2 normal heart sound present RATE: regular rate RHYTHM: regular rhythm HEART SOUNDS: S1 normal heart sound present and S2 normal heart sound present GI: COMMON NORMALS: Normal to inspection, nondistended, normoactive bowel sounds present and non-tender Extremity: COMMON NORMALS: no pedal edema Neuro: COMMON NORMALS: patient oriented x3 Psych: COMMON NORMALS: mental status grossly normal Urinary Catheter Management: Anders: Cath Placed During This Visit: yes Reason for Continuing Indwelling Catheter: Other Urinary Catheter Date of Insertion: 12/13/22 Urinary Catheter Time of Insertion: 21:46 Data 12/17/22 03:06 12/17/22 03:06 Micro: Microbiology 12/13/22 21:56 Blood Culture - Final Blood Strep anginosus group 12/13/22 21:37 Blood Culture - Final Blood Strep anginosus group 12/16/22 10:44 Blood Culture - Preliminary Blood Staphylococcus species 12/17/22 12:13 Blood Culture - Preliminary Blood NEGATIVE TO DATE 12/17/22 11:37 Blood Culture - Preliminary Blood NEGATIVE TO DATE 12/14/22 15:45 Gram Stain - Final Cerebrospinal Fluid CSF Culture - Final Bacterial Antigens - Final Cryptococcal Antigen (CSF) - Final A&P Assessment and plan (1) Streptococcal bacteremia: 72-year-old is brought in by ambulance for altered mental status, vomiting and fever up to 103F Blood cx 12/13 + strep anginosus Blood cx 12/16: Staph species, 1 out of 4 blood cultures positive, contamination versus real infection, will await further identification, speak to infectious disease Blood cultures 12/17 so far negative Source appears to be oropharyngeal Currently on treatment with IV vancomycin due to suspected anaphylaxis to piperacillin/tazobactam this admission Anticipate 14 days of IV treatment from date of clearance No valvular abnormalities noted grossly on echocardiogram. Ct neck negative for dental abscess but shows diffuse dental disease Patient is noted to ave of periodontal infection bleeding gums. Oral Levaquin and metronidazole for periodontal infection as would need broader treatment than IV vancomycin alone owing to polymicrobial nature. Hesitant to use beta-lactam's given possible anaphylaxis. IV vancomycin to cover for bacteremia. Meningitis now appears unlikely based on LP. CSF cx negative from 12/14 will need to follow-up with a dentist as outpatient for consideration of dental extraction Does have a history of right shoulder replacement, followed by hardware infection status post hardware removal, IV antibiotics and hardware replacement, daughter at bedside tells me that they had told her that he does have some of his old hardware that was infected was still in place when they went back to put a new hardware this was over 3 years at [facility] (2) Fever: now resolved Qualifiers: Fever type: unspecified Qualified Code(s): R50.9 - Fever, unspecified (3) Acute alteration in mental status: Now back to baseline (4) NSTEMI (non-ST elevated myocardial infarction): elavted troponins echo with LVEF 40%, diffuse hypokinesia cardiology consulted discontinued heparin drip continue ASA 81 mg daily Stress test ordered, pending (5) Congestive heart failure: acute sytsolic heart failure Resolved (6) Anaphylaxis: possible anaphylaxis, not a certain diagnosis from likely zosyn currently off all beta lactams will need allergy testing as outpatient once recovered from acute illness Plan #Chronic pain on methadone. Resume zoloft. IF mentation remains stable, will likely add back gabapentin Cardiac diet full code all updated discussed with and daughters at bedside Plan for today follow stress testing, follow repeat blood cultures Attestations Medical Necessity Statement*: Patient requires hospitalization for strep bacteremia, undergoing stress testing, follow repeat blood cultures, PT OT follow stress testing, cardiology consultation Diagnoses Streptococcal bacteremia R78.81; B95.5 Fever R50.9 Fever type: unspecified Acute alteration in mental status R41.82 NSTEMI (non-ST elevated myocardial infarction) I21.4 Congestive heart failure I50.9 Anaphylaxis T78.2XXA
[2022-12-18] MEDS: tamsulosin 0.4 mg Capsule PO (18:07)
--- NOTE | 2022-12-18 19:42 | PM.PN ---
Subjective Subjective: This patient was found to have streptococcal bacteremia. He is on IV antibiotics. He seems to be recuperating fairly well. The lumbar puncture was unremarkable. He had a Myocardial perfusion imaging today. The study revealed low probability for coronary ischemia. Patient has no chest pain. Heart failure is currently compensated. Medications: Medication Review Details: Current Medications Acetaminophen (Acetaminophen 325 Mg Tablet) 650 mg PO Q6H PRN PRN Reason: Mild/Mod Pain Or Temp >/= 101 Last Admin: 12/17/22 17:42 Dose: 650 mg Albuterol/Ipratropium (Ipratropium-Albuterol 3 Ml Neb) 3 ml INHALATION Q6H.RESP PRN PRN Reason: SHORTNESS OF BREATH Aminophylline (Aminophylline 25 Mg/Ml Sdv 10 Ml) 25 mg IVP Q2M PRN PRN Reason: see dose instructions Stop: 12/19/22 06:22 Aspirin (Aspirin 81 Mg Ec Tablet) 81 mg PO DAILY [facility] Last Admin: 12/18/22 09:14 Dose: 81 mg Atorvastatin Calcium (Atorvastatin 40 Mg Tablet) 40 mg PO DAILY [facility] Last Admin: 12/18/22 09:13 Dose: 40 mg Carvedilol (Carvedilol 12.5 Mg Tablet) 12.5 mg PO BID [facility] Last Admin: 12/18/22 18:07 Dose: 12.5 mg Gabapentin (Gabapentin 300 Mg Capsule) 300 mg PO TID [facility] Last Admin: 12/14/22 11:25 Dose: Not Given Vancomycin/PEG/NADA/Lysine/Water (Vancocin) 1,500 mg in 300 mls @ 200 mls/hr IV Q12H [facility] Last Infusion: 12/18/22 11:51 Dose: Infused Insulin Human Lispro (Insulin Lispro 100 Unit/1 Ml) 0 unit SUBCUT WM&BEDTIME [facility]; Protocol Last Admin: 12/18/22 17:29 Dose: Not Given Levofloxacin (Levofloxacin 750 Mg Tablet) 750 mg PO DAILY [facility]; Protocol Stop: 12/23/22 11:08 Last Admin: 12/18/22 09:12 Dose: 750 mg Lisinopril (Lisinopril 10 Mg Tablet) 10 mg PO DAILY [facility] Last Admin: 12/18/22 09:15 Dose: 10 mg Memantine (Memantine 5 Mg Tablet) 10 mg PO DAILY [facility] Last Admin: 12/18/22 09:12 Dose: 10 mg Methadone HCl (Methadone 10 Mg Tablet) 40 mg PO DAILY [facility] Last Admin: 12/18/22 09:13 Dose: 40 mg Metronidazole (Metronidazole 500 Mg Tablet) 500 mg PO TID [facility] Stop: 12/23/22 14:59 Last Admin: 12/18/22 14:52 Dose: 500 mg Nitroglycerin (Nitroglycerin 0.4 Mg Sublingual Tablet) 0.4 mg SUBLINGUAL Q5M PRN PRN Reason: CHEST PAIN Stop: 12/19/22 06:22 Ofloxacin (Ofloxacin 0.3% Op Soln 5 Ml Btl) 1 drop EYE-BOTH BID [facility] Stop: 12/22/22 00:00 Last Admin: 12/18/22 18:08 Dose: 1 drop Ondansetron HCl (Ondansetron 2 Mg/Ml Sdv 2 Ml) 4 mg IVP Q2M PRN PRN Reason: NAUSEA Last Admin: 12/18/22 07:16 Dose: 4 mg Pantoprazole Sodium (Pantoprazole Dr 40 Mg Tablet) 40 mg PO DAILY [facility] Last Admin: 12/18/22 09:14 Dose: 40 mg Sertraline HCl (Sertraline 100 Mg Tablet) 100 mg PO DAILY [facility] Last Admin: 12/18/22 09:15 Dose: 100 mg Spironolactone (Spironolactone 25 Mg Tablet) 25 mg PO DAILY [facility] Last Admin: 12/14/22 06:48 Dose: 25 mg Tamsulosin HCl (Tamsulosin 0.4 Mg Capsule) 0.4 mg PO QPM [facility] Last Admin: 12/18/22 18:07 Dose: 0.4 mg Vitals/I&O/Wt Last Vital Signs Temp 98.0 F 12/18/22 15:49 Pulse 73 12/18/22 17:27 Resp 16 12/18/22 15:49 BP 121/64 12/18/22 15:49 Pulse Ox 96 12/18/22 15:49 O2 Del Method Room Air 12/18/22 15:49 O2 Flow Rate 1 12/15/22 19:59 12/18/22 12/18/22 12/18/22 06:59 14:59 22:59 Intake Total 300 / 1440 900 / 900 480 / 1380 Balance 300 / 1440 900 / 900 480 / 1380 Physical Exam Narrative: GENERAL: The patient is alert and oriented times three. Not in any acute distress. Moderately obese HEENT: No significant pallor, icterus or lymphadenopathy.Oral cavity: There are no mucous membrane lesions. NECK: Trachea appears to be central. No masses noted. No JVD or thyromegaly appreciated. RESPIRATORY: Chest is symmetrical. No intercostals muscle retraction or any accessory muscle activation. There is no chest wall tenderness. Breath sounds are heard bilaterally. No rales or rhonchi heard. No evidence of any consolidation. BREASTS: Deferred. HEART: The heart sounds are normal. No S3 or S4. No significant murmurs. No pericardial rub ABDOMEN: No vessel pulsations or distention. No tenderness. No organomegaly appreciated. Bowel sounds are normally heard. : Deferred. RECTAL: Deferred. LYMPHATIC: No lymphadenopathy noted in the neck. EXTREMITIES: 1+ edema both lower extremities. Some features of chronic venous stasis. MUSCULOSKELETAL: No acute joint deformities or swelling SKIN: There are no significant rashes or ecchymosis NEUROPSYCHIATRIC: The patient is alert and oriented x3. Appears to be in a good mood. No tremors or rigidity noted. Urinary Catheter Management: Anders: Cath Placed During This Visit: yes Reason for Continuing Indwelling Catheter: Other Urinary Catheter Date of Insertion: 12/13/22 Urinary Catheter Time of Insertion: 21:46 Data 12/17/22 03:06 12/17/22 03:06 Other Labs: Laboratory Last Values WBC 6.40 10^3/uL (3.29-11.43) 12/17/22 03:06 RBC 3.57 10^6/uL (3.85-5.65) L 12/17/22 03:06 Hgb 10.90 g/dL (11.27-16.99) L 12/17/22 03:06 Hct 34.1 % (37-53) L 12/17/22 03:06 MCV 95.5 fl (82-101) 12/17/22 03:06 MCH 30.5 pg (27-33) 12/17/22 03:06 MCHC 32.0 g/dL (30-55) 12/17/22 03:06 RDW 12.6 % (12.1-15.1) 12/17/22 03:06 Plt Count 119 10^3/cmm (157-399) L 12/17/22 03:06 MPV 9.9 fL (7.4-10.4) 12/17/22 03:06 Neut % (Auto) 76.7 % 12/17/22 03:06 Lymph % (Auto) 11.7 % 12/17/22 03:06 [place] % (Auto) 8.0 % 12/17/22 03:06 Eos % (Auto) 1.7 % 12/17/22 03:06 Baso % (Auto) 0.5 % 12/17/22 03:06 Neut # (Auto) 4.91 10^3/uL (1.8-7.7) 12/17/22 03:06 Lymph # (Auto) 0.8 10^3/uL (0.8-4.8) 12/17/22 03:06 [place] # (Auto) 0.5 10^3/uL (0.2-0.9) 12/17/22 03:06 Eos # (Auto) 0.1 10^3/uL (0.0-0.8) 12/17/22 03:06 Baso # (Auto) 0.0 10^3/uL (0.0-0.1) 12/17/22 03:06 Nucleated RBC % (auto) 0 % 12/17/22 03:06 Nucleated RBCs # 0.0 /100WBC 12/17/22 03:06 APTT 29.9 SECONDS (23.9-36.7) D 12/15/22 14:25 Specimen Type Arterial 12/14/22 17:30 Sample Site Radial, left 12/14/22 17:30 ABG pH 7.37 (7.35-7.45) 12/14/22 17:30 ABG pCO2 41.3 mmHg (35-45) 12/14/22 17:30 ABG pO2 144.0 mmHg (80.0-100.0) H 12/14/22 17:30 ABG HCO3 24.1 mmol/L (22-26) 12/14/22 17:30 ABG Base Excess -1.2 mmol/L (-2.0-2.0) 12/14/22 17:30 Anup Test Pos 12/14/22 17:30 Hematocrit 44.0 % (42-52) 12/14/22 17:30 O2 Delivery Device Oxy mask 12/14/22 17:30 O2 Liters/Min 5.0 % 12/14/22 17:30 Maintenance Construction Helper ID Gd 12/14/22 17:30 Sodium 139 mmol/L (136-145) 12/17/22 03:06 Potassium 4.1 mmol/L (3.5-5.1) 12/17/22 03:06 Chloride 103 mmol/L (98-107) 12/17/22 03:06 Carbon Dioxide 25 mmol/L (22-29) 12/17/22 03:06 Anion Gap 15.1 (5-19) 12/17/22 03:06 BUN 29 mg/dL (8-23) H 12/17/22 03:06 Creatinine 1.0 mg/dL (0.7-1.2) 12/17/22 03:06 GFR Calculation Not Reportable 12/17/22 03:06 Glucose 137 mg/dL (65-115) H 12/17/22 03:06 POC Glucose 120 mg/dL (70-110) H 12/18/22 16:01 Calculated Osmolality 296 mOsm/kg (285-295) H 12/17/22 03:06 Lactic Acid 1.1 mmol/L (0.5-2.2) 12/13/22 21:56 Calcium 8.7 mg/dL (8.5-10.5) 12/17/22 03:06 Magnesium 1.8 mg/dL (1.7-2.3) 12/15/22 04:35 Total Bilirubin 0.4 mg/dL (0.15-1.2) 12/17/22 03:06 AST 25 U/L (0-40) 12/17/22 03:06 ALT 18 U/L (0-41) 12/17/22 03:06 Alkaline Phosphatase 87 U/L (40-130) 12/17/22 03:06 Troponin T Gen 5 ng/L 348 ng/L (0-15) H* 12/14/22 18:00 Troponin T Baseline 100 ng/L (0-15) H 12/13/22 21:56 Troponin T 120 Minute 152.5 ng/L (0-15) H 12/13/22 23:55 Delta Troponin T 52.5 ABS# (0-10) H* 12/13/22 23:55 Troponin T Hi Sens 6Hr 185.8 ng/L (0-15) H 12/14/22 03:45 Troponin T Hi Sens 6Hr Delta 85.8 ng/L (0-12) H* 12/14/22 03:45 NT-Pro-B Natriuret Pep 86126 pg/mL (0-125) H 12/14/22 18:00 Total Protein 6.0 g/dL (6.6-8.7) L 12/17/22 03:06 Albumin 3.2 g/dL (3.5-5.2) L 12/17/22 03:06 Globulin 2.8 g/dL (1.3-4.6) 12/17/22 03:06 Procalcitonin 0.17 ng/mL (0-0.5) 12/13/22 21:56 Urine Color Yellow (Yellow) 12/13/22 21:45 Urine Appearance Clear (CLEAR) 12/13/22 21:45 Urine pH 5 (5-7) 12/13/22 21:45 Ur Specific [place] 1.015 (1.005-1.030) 12/13/22 21:45 Urine Protein Neg (Negative) 12/13/22 21:45 Urine Glucose (UA) Norm (Normal) 12/13/22 21:45 Urine Ketones 1+ (Negative) H 12/13/22 21:45 Urine Blood Neg (Negative) 12/13/22 21:45 Urine Nitrate Negative (Negative) 12/13/22 21:45 Urine Bilirubin Neg (Negative) 12/13/22 21:45 Urine Urobilinogen Norm mg/dL (Negative) 12/13/22 21:45 Ur Leukocyte Esterase Negative (Negative) 12/13/22 21:45 CSF Appearance Clear (CLEAR) 12/14/22 15:45 CSF Color Colorless (COLORLESS) 12/14/22 15:45 CSF WBC 6 /uL (0-5) H 12/14/22 15:45 CSF RBC 0 10^3/uL (0-0) 12/14/22 15:45 CSF Mononuclear # Auto 0.004 10^3/uL (50-90) L 12/14/22 15:45 CSF Mononuclear WBCs % 67 % (50-90) 12/14/22 15:45 CSF Polynuclear WBCs # 0.002 10^3/uL (0-10) 12/14/22 15:45 CSF Polynuclear WBCs % 33 % (0-10) H 12/14/22 15:45 CSF Diff Comment Yes 12/14/22 15:45 CSF Glucose 108 mg/dL (40-70) H 12/14/22 15:45 CSF Total Protein 47 mg/dL (15-45) H 12/14/22 15:45 Nasal Influ A H1 2009 PCR Not detected (NOT DETECT) 12/13/22 22:35 Vancomycin Trough 12.6 ug/mL (10-15) 12/16/22 18:22 Urine Opiates Screen Negative ng/mL (Negative) 12/13/22 21:45 Ur Barbiturates Screen Negative ng/mL (Negative) 12/13/22 21:45 Ur Phencyclidine Scrn Negative ng/mL (Negative) 12/13/22 21:45 Ur Amphetamines Screen Negative ng/mL (Negative) 12/13/22 21:45 U Benzodiazepines Scrn Negative ng/mL (Negative) 12/13/22 21:45 Urine Cocaine Screen Negative ng/mL (Negative) 12/13/22 21:45 U Marijuana (THC) Screen Negative ng/mL (Negative) 12/13/22 21:45 Adenovirus (PCR) Not detected (NOT DETECT) 12/13/22 22:35 Lyme Ab (Western Blot) <0.90 index 12/14/22 03:45 C. pneumoniae DNA (PCR) Not detected (NOT DETECT) 12/13/22 22:35 Coronavirus 229E (PCR) Not detected (NOT DETECT) 12/13/22 22:35 Human Metapneumovir PCR Not detected (NOT DETECT) 12/13/22 22:35 Influenza A (H1) PCR Not detected (NOT DETECT) 12/13/22 22:35 Influenza A (H3) PCR Not detected (NOT DETECT) 12/13/22 22:35 Influenza Type A (PCR) Not detected (NOT DETECT) 12/13/22 22:35 Influenza Type B (PCR) Not detected (NOT DETECT) 12/13/22 22:35 M. pneumoniae (PCR) Not detected (NOT DETECT) 12/13/22 22:35 Parainfluenza 1 (PCR) Not detected (NOT DETECT) 12/13/22 22:35 Parainfluenza 2 (PCR) Not detected (NOT DETECT) 12/13/22 22:35 Parainfluenza 3 (PCR) Not detected (NOT DETECT) 12/13/22 22:35 Parainfluenza 4 (PCR) Not detected (NOT DETECT) 12/13/22 22:35 RSV Type A (PCR) Not detected (NOT DETECT) 12/13/22 22:35 RSV Type B (PCR) Not detected (NOT DETECT) 12/13/22 22:35 Entero/Rhino (PCR) Not detected (NOT DETECT) 12/13/22 22:35 SARS-CoV-2 (PCR) Not detected (NOT DETECT) 12/13/22 22:35 MRSA (PCR) Not detected (NOT DETECTED) 12/14/22 11:23 Micro: Microbiology 12/13/22 21:56 Blood Culture - Final Blood Strep anginosus group 12/13/22 21:37 Blood Culture - Final Blood Strep anginosus group 12/16/22 10:44 Blood Culture - Preliminary Blood Staphylococcus species 12/17/22 12:13 Blood Culture - Preliminary Blood NEGATIVE TO DATE 12/17/22 11:37 Blood Culture - Preliminary Blood NEGATIVE TO DATE 12/14/22 15:45 Gram Stain - Final Cerebrospinal Fluid CSF Culture - Final Bacterial Antigens - Final Cryptococcal Antigen (CSF) - Final Myocardial perfusion imaging: My impression: 1.? Myocardial perfusion imaging revealing a small area of persistent decreased ?tracer uptake involving the mid and apical inferior wall region, suggesting ?myocardial scarring versus attenuation artifact. ?2.? Normal LV ejection fraction of 58%. ?3.? LV wall motion analysis revealing no gross wall motion abnormalities. ?4.? Normal LV volume ?Low probability for coronary ischemia, based on the above findings A&P Assessment and plan (1) Elevated troponin: Most likely a type II myocardial infarction. The results of the Myocardial perfusion imaging was discussed with the patient and his family- and daughter, in detail. All their questions were answered. Since this is a low probability study for coronary ischemia, and also since the patient is remaining stable, may not require any further cardiac investigations at this point. May continue on the current regimen (2) Non-ischemic cardiomyopathy: Currently has no evidence of decompensation. May continue on the current management (3) Congestive heart failure: As mentioned above (4) Benign essential HTN: Currently the patient is normotensive. May continue on the current medications. (5) Hyperlipidemia: May continue on the current medications Qualifiers: Hyperlipidemia type: mixed hyperlipidemia Qualified Code(s): E78.2 - Mixed hyperlipidemia (6) Type 2 diabetes mellitus, without long-term current use of insulin: May continue on the current management. Qualifiers: Diabetes mellitus complication status: with skin complications Diabetes mellitus complication detail: with foot ulcer Qualified Code(s): E11.621 - Type 2 diabetes mellitus with foot ulcer; L97.509 - Non-pressure chronic ulcer of other part of unspecified foot with unspecified severity (7) Acute alteration in mental status: Most likely from streptococcal bacteremia. Significantly improved. (8) Dental abscess: Patient is on antibiotics. Management as per the primary (9) Streptococcal bacteremia: Patient is on IV antibiotics. Management as per the primary Plan Since the patient's overall cardiovascular status seems to be stable, he may not require any further investigation at this point. Advised to continue on the current treatment measures. Attestations Medical Necessity Statement*: Disposition as per the primary Coding Level of Care Code 24055 Diagnoses Elevated troponin R77.8 Non-ischemic cardiomyopathy I42.8 Congestive heart failure I50.9 Benign essential HTN I10 Hyperlipidemia E78.2 Hyperlipidemia type: mixed hyperlipidemia Type 2 diabetes mellitus, without long-term current use of insulin E11.621; L97.509 Diabetes mellitus complication status: with skin complications Diabetes mellitus complication detail: with foot ulcer Acute alteration in mental status R41.82 Dental abscess K04.7 Streptococcal bacteremia R78.81; B95.5
[2022-12-18 21:45] LABS: Glucose Point of Care 223 mg/dL (70-110)
[2022-12-18 22:07] LABS: Vancomycin Trough 26.2 ug/mL (10-15)
[2022-12-19] VITALS (10 sets, daily range): BP systolic 114–121; BP diastolic 58–68; PULSE 65–76; RESP 10–22; TEMP 36.5–36.7; O2SAT 95–98
[2022-12-19 03:49] LABS: Basophils % 0.7 %; Eosinophils # 0.2 10^3/uL (0.0-0.8); Hematocrit 33.1 % (37-53); Lymphocytes # 1.3 10^3/uL (0.8-4.8); Lymphocytes % 21.5 %; Mean Corpuscular HGB Conc 32.6 g/dL (30-55); Mean Corpuscular Hemoglobin 30.8 pg (27-33); Mean Corpuscular Volume 94.3 fl (82-101); Mean Platelet Volume 9.1 fL (7.4-10.4); Monocytes # 0.6 10^3/uL (0.2-0.9); Monocytes % 9.5 %; Neutrophils # 3.77 10^3/uL (1.8-7.7); Neutrophils % 63.6 %; Nucleated Red Blood Cells % 0 %; Platelet Count 121 10^3/cmm (157-399); Red Blood Count 3.51 10^6/uL (3.85-5.65); Red Cell Distribution Width 12.8 % (12.1-15.1); White Blood Count 5.92 10^3/uL (3.29-11.43)
[2022-12-19 04:11] LABS: Alanine Aminotransferase 71 U/L (0-41); Albumin Level 3.7 g/dL (3.5-5.2); Alkaline Phosphatase 88 U/L (40-130); Aspartate Amino Transferase 80 U/L (0-40); Blood Urea Nitrogen 25 mg/dL (8-23); C Reactive Protein 19.8 mg/L (0.0-4.9); Carbon Dioxide 25 mmol/L (22-29); Chloride 107 mmol/L (98-107); Globulin 2.5 g/dL (1.3-4.6); Glucose 151 mg/dL (65-115); Magnesium 1.8 mg/dL (1.7-2.3); Osmolality Calculated 297 mOsm/kg (285-295); Sodium 140 mmol/L (136-145); Total Bilirubin 0.2 mg/dL (0.15-1.2); Total Protein 6.2 g/dL (6.6-8.7)
[2022-12-19 04:16] LABS: Vancomycin Random 21.6 ug/mL (20.0-40.0)
[2022-12-19 04:18] LABS: Procalcitonin 0.45 ng/mL (0-0.5)
--- NOTE | 2022-12-19 05:34 | PC.PHAR ---
[id number] vanc: trough 2130 = 26.2 . called by lab and floor, entered random for 0400 = 21.6. in recalculating see that 2230 dose shows admin but seems unlikely. decrease freq to q18h and draw next level 12/21 0400.
[2022-12-19 06:33] LABS: Glucose Point of Care 157 mg/dL (70-110)
[2022-12-19] MEDS: levoFLOXacin 750 mg Tablet PO (08:46)
[2022-12-19] MEDS: memantine 5 mg tablet 10 MG PO (08:46)
[2022-12-19] MEDS: aspirin 81 mg EC Tablet PO (08:46)
[2022-12-19] MEDS: methadone 10 mg Tablet 40 MG PO (08:46)
[2022-12-19] MEDS: atorvastatin 40 mg Tablet PO (08:46)
[2022-12-19] MEDS: carvedilol 12.5 mg Tablet PO ×2 (08:46→18:17)
[2022-12-19] MEDS: lisinopril 10 mg Tablet PO (08:46)
[2022-12-19] MEDS: metroNIDAZOLE 500 MG Tablet PO ×2 (08:47→15:20)
[2022-12-19] MEDS: pantoprazole DR 40 mg Tablet PO (08:47)
[2022-12-19] MEDS: ofloxacin 0.3% Op Soln 5 mL Btl 1 DROP EYE-BOTH ×2 (08:47→18:17)
[2022-12-19] MEDS: sertraline 100 mg Tablet PO (08:47)
[2022-12-19] MEDS: insulin lispro 100 unit/1 mL SUBCUT ×3 (08:48→18:17)
--- NOTE | 2022-12-19 10:46 | PC.SOCIAL ---
IMM update IMM updated with patient and family at bedside. Verbalized an understanding. Copy pg 2 provided. Initialled, dated, timed, and placed in chart.
[2022-12-19 11:43] LABS: Glucose Point of Care 166 mg/dL (70-110)
--- NOTE | 2022-12-19 12:57 | PM.DCS ---
Discharge Providers Date of Admission: 12/14/22 02:01 Date of Discharge: December 19, 2022 Attending Provider at Admission: Kitty Daily MD Attending Provider at Discharge: Sidney Lewis MD Primary Care Provider: Denice Coronado DO Diagnoses at Discharge Discharge Diagnosis (1) Elevated troponin: Status: Acute (2) Non-ischemic cardiomyopathy: Status: Acute (3) Congestive heart failure: Status: Acute (4) Benign essential HTN: Status: Chronic (5) Hyperlipidemia: Status: Chronic Qualifiers: Hyperlipidemia type: mixed hyperlipidemia Qualified Code(s): E78.2 - Mixed hyperlipidemia (6) Type 2 diabetes mellitus, without long-term current use of insulin: Status: Chronic Qualifiers: Diabetes mellitus complication detail: with foot ulcer Diabetes mellitus complication status: with skin complications Qualified Code(s): E11.621 - Type 2 diabetes mellitus with foot ulcer; L97.509 - Non-pressure chronic ulcer of other part of unspecified foot with unspecified severity (7) Acute alteration in mental status: Status: Acute (8) Dental abscess: Status: Acute (9) Streptococcal bacteremia: Status: Acute Reason for Visit Reason for Visit: [facility] Hospital Course Hospital Course Simba Berry is a 72 year old male with history of mild dementia depression hyperlipidemia hypertension BPH GERD opioid abuse currently on p.o. methadone since last 3 years was brought in by the ambulance for fever and altered mental status.? As per the patient usually travels to get his methadone dose on alternate days but today when she came home she saw him sleeping and was unable to wake wake him up.? She found that his face was flushing, he was staring, nonresponsive to verbal stimuli unable to move his extremities and had urinated.? There is no history of seizure fever nausea vomiting decreased appetite abdominal pain chest pain shortness of breath urinary or bowel complaints.? He was doing well until this morning but since afternoon he has not been his usual as per the .? No history of fall or sick contact recently. On arrival in the ER he had a temperature of 103 ?F and was found to be mildly confused.? Although he was answering all the questions appropriately. He does not remember sequence of events that happened in the afternoon.? But he is back To his baseline mental status as per his . Patient was admitted to [facility] for streptococcal bacteremia, secondary to oropharyngeal disease/periodontitis/dental abscess, received IV antibiotic therapy, overall clinically improved, discharged on total of 14 days of vancomycin. In addition 10 more days of clindamycin for anaerobic coverage. Patient was advised that he needs to follow-up with a dentist for dental extraction. And if patient were to have any dental procedure he needs antibiotic therapy before hand, to decrease the risk of bacteremia. -Patient's repeat blood cultures on 12/16/2022, still staph species 1 out of 4 blood cultures positive, likely contamination, update, shows staph hominis, likely contamination, -Repeat blood cultures from 12/17/2022 are so far negative he remains afebrile, -Creatinine discharge 1.3, Vanco trough on discharge 21.6, vancomycin dosing 1500 mg every 18 hours -Dr. Coronado to follow as outpatient Patient had NSTEMI during his hospitalization, echo with EF of 40%, cardiology was consulted, underwent stress testing, low probability stress test, discharged with close follow-up with cardiology as outpatient, if any recurrent chest pain please come back to the emergency room Physical Exam Const: COMMON NORMALS: no acute distress and patient oriented x3 Resp: COMMON NORMALS: normal respiratory effort, No retractions, No use of accessory muscles and clear to auscultation bilaterally AUSCULTATION: clear to auscultation bilaterally Cardio: COMMON NORMALS: regular rate, regular rhythm, S1 normal heart sound present and S2 normal heart sound present RATE: regular rate RHYTHM: regular rhythm HEART SOUNDS: S1 normal heart sound present and S2 normal heart sound present GI: COMMON NORMALS: Normal to inspection, nondistended, normoactive bowel sounds present and non-tender Extremity: COMMON NORMALS: no pedal edema Neuro: COMMON NORMALS: patient oriented x3 Psych: COMMON NORMALS: mental status grossly normal Urinary Catheter Management: Anders: Cath Placed During This Visit: yes Reason for Continuing Indwelling Catheter: Other Urinary Catheter Date of Insertion: 12/13/22 Urinary Catheter Time of Insertion: 21:46 Discharge Data Studies Completed and Pending Completed Studies During Hospitalization Category Date Time Status CT head wo con* [id number] Routine Cat Scan 12/14/22 18:[address] head wo con* [id number] Stat Cat Scan 12/13/22 20:[address] neck w con* [id number] Routine Cat Scan 12/14/22 10:[address] abdomen pelvis [CT angio chest w abd pel w Cat Scan 12/14/22 10:48 Completed con] Routine CXRP [XR chest 1V portable [id number]] Stat Exams 12/14/22 17:42 Completed Cardiac Stress Test MIBI [Sestamibi Stress Test Request Exams 12/18/22 07:00 Completed ] Routine FL guided lumbarpunc dx* [id number] Routine Exams 12/15/22 13:33 Completed XR chest 1V portable [id number] Stat Exams 12/13/22 20:52 Completed XR chest 1V portable [id number] Stat Exams 12/14/22 17:07 Completed NM hu perf SPECT r/s* [id number] Routine Nuc Med 12/18/22 08:00 [place] [id number] Routine Ultrasound 12/14/22 10:48 Completed CV. echo wo/w contrast [id number] Routine Ultrasound 12/14/22 13:33 Completed Pending at discharge Category Date Time Status CA echo doppler complete Routine Exams 12/14/22 03:20 Stop Req Blood Culture Stat Lab 12/16/22 10:49 Results Blood Culture Stat Lab 12/17/22 12:13 Results C Reactive Protein AM LABS Lab 12/20/22 04:00 Ordered C Reactive Protein AM LABS Lab 12/21/22 04:00 Ordered Complete Blood Count w/Auto AM LABS Lab 12/20/22 04:00 Ordered Complete Blood Count w/Auto AM LABS Lab 12/21/22 04:00 Ordered Comprehensive Metabolic Panel AM LABS Lab 12/20/22 04:00 Ordered Comprehensive Metabolic Panel AM LABS Lab 12/21/22 04:00 Ordered Herpes Simplex Virus DNA Routine Lab 12/14/22 15:45 Received Lymes Disease Antibodies CSF Routine Lab 12/14/22 15:45 Received Magnesium AM LABS Lab 12/20/22 04:00 Ordered Magnesium AM LABS Lab 12/21/22 04:00 Ordered Phosphorus AM LABS Lab 12/20/22 04:00 Ordered Phosphorus AM LABS Lab 12/21/22 04:00 Ordered Procalcitonin AM LABS Lab 12/20/22 04:00 Ordered Procalcitonin AM LABS Lab 12/21/22 04:00 Ordered Tick Panel Stat Lab 12/14/22 03:45 Results Vancomycin Trough Timed Lab 12/21/22 04:00 Ordered Radiology Impressions Chest/Abdomen/Pelvis CT 12/14/22 10:48 IMPRESSION: 1. No definite evidence of acute pulmonary embolism noting examination limited by motion and streak artifact. 2. Motion artifact and expiratory changes limits assessment of the lung parenchyma. Suspect mild interstitial pulmonary edema. Trace right pleural effusion. 3. Tracheobronchomalacia. 4. Mild circumferential wall thickening of the distal esophagus, query esophagitis. IMPRESSION: 1. No source of infection identified in the abdomen or pelvis. 2. Stable ancillary findings compared to 08/24/2020. COMMENTS: Consistent with the [employer]'s Incidental Findings Committee white paper (J Am Tamiko Radiol 2018): Any incidental renal lesion less than 1 cm or classified as too small to characterize, or any incidental cystic renal lesion characterized as simple-appearing, is likely benign. No follow-up imaging is recommended for these lesions per consensus recommendations based on imaging criteria. Neck CT 12/14/22 10:54 IMPRESSION: There is multifocal dental disease present. No drainable abscess or fluid collection is visualized. Chest X-Ray 12/14/22 17:42 IMPRESSION: 1. Negative for pneumothorax as in clinical indication. 2. Right-sided PICC line with tip at the atrial caval junction. Head CT 12/14/22 18:44 IMPRESSION: No acute intracranial abnormality. Laboratory Results WBC 5.92 10^3/uL (3.29-11.43) 12/19/22 03:29 RBC 3.51 10^6/uL (3.85-5.65) L 12/19/22 03:29 Hgb 10.80 g/dL (11.27-16.99) L 12/19/22 03:29 Hct 33.1 % (37-53) L 12/19/22 03:29 MCV 94.3 fl (82-101) 12/19/22 03:29 MCH 30.8 pg (27-33) 12/19/22 03:29 MCHC 32.6 g/dL (30-55) 12/19/22 03:29 RDW 12.8 % (12.1-15.1) 12/19/22 03:29 Plt Count 121 10^3/cmm (157-399) L 12/19/22 03:29 MPV 9.1 fL (7.4-10.4) 12/19/22 03:29 Neut % (Auto) 63.6 % 12/19/22 03:29 Lymph % (Auto) 21.5 % 12/19/22 03:29 [place] % (Auto) 9.5 % 12/19/22 03:29 Eos % (Auto) 3.0 % 12/19/22 03:29 Baso % (Auto) 0.7 % 12/19/22 03:29 Neut # (Auto) 3.77 10^3/uL (1.8-7.7) 12/19/22 03:29 Lymph # (Auto) 1.3 10^3/uL (0.8-4.8) 12/19/22 03:29 [place] # (Auto) 0.6 10^3/uL (0.2-0.9) 12/19/22 03:29 Eos # (Auto) 0.2 10^3/uL (0.0-0.8) 12/19/22 03:29 Baso # (Auto) 0.0 10^3/uL (0.0-0.1) 12/19/22 03:29 Nucleated RBC % (auto) 0 % 12/19/22 03:29 Nucleated RBCs # 0.0 /100WBC 12/19/22 03:29 APTT 29.9 SECONDS (23.9-36.7) D 12/15/22 14:25 Specimen Type Arterial 12/14/22 17:30 Sample Site Radial, left 12/14/22 17:30 ABG pH 7.37 (7.35-7.45) 12/14/22 17:30 ABG pCO2 41.3 mmHg (35-45) 12/14/22 17:30 ABG pO2 144.0 mmHg (80.0-100.0) H 12/14/22 17:30 ABG HCO3 24.1 mmol/L (22-26) 12/14/22 17:30 ABG Base Excess -1.2 mmol/L (-2.0-2.0) 12/14/22 17:30 Anup Test Pos 12/14/22 17:30 Hematocrit 44.0 % (42-52) 12/14/22 17:30 O2 Delivery Device Oxy mask 12/14/22 17:30 O2 Liters/Min 5.0 % 12/14/22 17:30 Opener Tender ID Gd 12/14/22 17:30 Sodium 140 mmol/L (136-145) 12/19/22 03:29 Potassium 4.0 mmol/L (3.5-5.1) 12/19/22 03:29 Chloride 107 mmol/L (98-107) 12/19/22 03:29 Carbon Dioxide 25 mmol/L (22-29) 12/19/22 03:29 Anion Gap 12.0 (5-19) 12/19/22 03:29 BUN 25 mg/dL (8-23) H 12/19/22 03:29 Creatinine 1.3 mg/dL (0.7-1.2) H 12/19/22 03:29 GFR Calculation Not Reportable 12/19/22 03:29 Glucose 151 mg/dL (65-115) H 12/19/22 03:29 POC Glucose 166 mg/dL (70-110) H 12/19/22 11:27 Calculated Osmolality 297 mOsm/kg (285-295) H 12/19/22 03:29 Lactic Acid 1.1 mmol/L (0.5-2.2) 12/13/22 21:56 Calcium 9.0 mg/dL (8.5-10.5) 12/19/22 03:29 Phosphorus 4.0 mg/dL (2.5-4.5) 12/19/22 03:29 Magnesium 1.8 mg/dL (1.7-2.3) 12/19/22 03:29 Total Bilirubin 0.2 mg/dL (0.15-1.2) 12/19/22 03:29 AST 80 U/L (0-40) H 12/19/22 03:29 ALT 71 U/L (0-41) H 12/19/22 03:29 Alkaline Phosphatase 88 U/L (40-130) 12/19/22 03:29 Troponin T Gen 5 ng/L 348 ng/L (0-15) H* 12/14/22 18:00 Troponin T Baseline 100 ng/L (0-15) H 12/13/22 21:56 Troponin T 120 Minute 152.5 ng/L (0-15) H 12/13/22 23:55 Delta Troponin T 52.5 ABS# (0-10) H* 12/13/22 23:55 Troponin T Hi Sens 6Hr 185.8 ng/L (0-15) H 12/14/22 03:45 Troponin T Hi Sens 6Hr Delta 85.8 ng/L (0-12) H* 12/14/22 03:45 C-Reactive Protein 19.8 mg/L (0.0-4.9) H 12/19/22 03:29 NT-Pro-B Natriuret Pep 16638 pg/mL (0-125) H 12/14/22 18:00 Total Protein 6.2 g/dL (6.6-8.7) L 12/19/22 03:29 Albumin 3.7 g/dL (3.5-5.2) 12/19/22 03:29 Globulin 2.5 g/dL (1.3-4.6) 12/19/22 03:29 Procalcitonin 0.45 ng/mL (0-0.5) 12/19/22 03:29 Urine Color Yellow (Yellow) 12/13/22 21:45 Urine Appearance Clear (CLEAR) 12/13/22 21:45 Urine pH 5 (5-7) 12/13/22 21:45 Ur Specific [place] 1.015 (1.005-1.030) 12/13/22 21:45 Urine Protein Neg (Negative) 12/13/22 21:45 Urine Glucose (UA) Norm (Normal) 12/13/22 21:45 Urine Ketones 1+ (Negative) H 12/13/22 21:45 Urine Blood Neg (Negative) 12/13/22 21:45 Urine Nitrate Negative (Negative) 12/13/22 21:45 Urine Bilirubin Neg (Negative) 12/13/22 21:45 Urine Urobilinogen Norm mg/dL (Negative) 12/13/22 21:45 Ur Leukocyte Esterase Negative (Negative) 12/13/22 21:45 CSF Appearance Clear (CLEAR) 12/14/22 15:45 CSF Color Colorless (COLORLESS) 12/14/22 15:45 CSF WBC 6 /uL (0-5) H 12/14/22 15:45 CSF RBC 0 10^3/uL (0-0) 12/14/22 15:45 CSF Mononuclear # Auto 0.004 10^3/uL (50-90) L 12/14/22 15:45 CSF Mononuclear WBCs % 67 % (50-90) 12/14/22 15:45 CSF Polynuclear WBCs # 0.002 10^3/uL (0-10) 12/14/22 15:45 CSF Polynuclear WBCs % 33 % (0-10) H 12/14/22 15:45 CSF Diff Comment Yes 12/14/22 15:45 CSF Glucose 108 mg/dL (40-70) H 12/14/22 15:45 CSF Total Protein 47 mg/dL (15-45) H 12/14/22 15:45 Nasal Influ A H1 2009 PCR Not detected (NOT DETECT) 12/13/22 22:35 Vancomycin Trough 26.2 ug/mL (10-15) H* 12/18/22 21:27 Random Vancomycin 21.6 ug/mL (20.0-40.0) 12/19/22 03:29 Urine Opiates Screen Negative ng/mL (Negative) 12/13/22 21:45 Ur Barbiturates Screen Negative ng/mL (Negative) 12/13/22 21:45 Ur Phencyclidine Scrn Negative ng/mL (Negative) 12/13/22 21:45 Ur Amphetamines Screen Negative ng/mL (Negative) 12/13/22 21:45 U Benzodiazepines Scrn Negative ng/mL (Negative) 12/13/22 21:45 Urine Cocaine Screen Negative ng/mL (Negative) 12/13/22 21:45 U Marijuana (THC) Screen Negative ng/mL (Negative) 12/13/22 21:45 Adenovirus (PCR) Not detected (NOT DETECT) 12/13/22 22:35 Lyme Ab (Western Blot) <0.90 index 12/14/22 03:45 C. pneumoniae DNA (PCR) Not detected (NOT DETECT) 12/13/22 22:35 Coronavirus 229E (PCR) Not detected (NOT DETECT) 12/13/22 22:35 Human Metapneumovir PCR Not detected (NOT DETECT) 12/13/22 22:35 Influenza A (H1) PCR Not detected (NOT DETECT) 12/13/22 22:35 Influenza A (H3) PCR Not detected (NOT DETECT) 12/13/22 22:35 Influenza Type A (PCR) Not detected (NOT DETECT) 12/13/22 22:35 Influenza Type B (PCR) Not detected (NOT DETECT) 12/13/22 22:35 M. pneumoniae (PCR) Not detected (NOT DETECT) 12/13/22 22:35 Parainfluenza 1 (PCR) Not detected (NOT DETECT) 12/13/22 22:35 Parainfluenza 2 (PCR) Not detected (NOT DETECT) 12/13/22 22:35 Parainfluenza 3 (PCR) Not detected (NOT DETECT) 12/13/22 22:35 Parainfluenza 4 (PCR) Not detected (NOT DETECT) 12/13/22 22:35 RSV Type A (PCR) Not detected (NOT DETECT) 12/13/22 22:35 RSV Type B (PCR) Not detected (NOT DETECT) 12/13/22 22:35 Entero/Rhino (PCR) Not detected (NOT DETECT) 12/13/22 22:35 SARS-CoV-2 (PCR) Not detected (NOT DETECT) 12/13/22 22:35 MRSA (PCR) Not detected (NOT DETECTED) 12/14/22 11:23 Vitals Last Vital Signs Temp 97.8 F 12/19/22 11:32 Pulse 71 12/19/22 11:32 Resp 22 H 12/19/22 11:32 BP 114/68 12/19/22 11:32 Pulse Ox 97 12/19/22 11:32 O2 Del Method Room Air 12/19/22 11:32 O2 Flow Rate 1 12/15/22 19:59 Discharge Plan Discharge Patient Disposition: Home Condition: Stable Prescriptions: New vancomycin-diluent combo no.1 1.5 gram/300 mL Piggyback 1,500 mg continuous IV infusion Q18H 11 Days Qty: 4399.999 0RF clindamycin HCl 150 mg capsule 450 mg PO TID 10 Days Qty: 90 0RF ofloxacin 0.3 % Drops 1 drp eye-both BID Qty: 10 0RF Continued (DME) GLUCOMETER Qty: 1 0RF Rx Instructions: WITH TEST STRIPS AND LANCETS TO TEST GLUCOSE four times A DAY (DME) [facility] See Rx Instructions .ROUTE .MEDSUPPLY Qty: 100 0RF Rx Instructions: MONITOR GLUCOSE FOUR DAILY (DME) Diabetic shoes with 3 inserts See Rx Instructions .ROUTE .MEDSUPPLY Qty: 1 0RF Rx Instructions: As directed by [facility] ([facility]) blood-glucose meter [Accu-Chek Flory Plus Meter] Mis See Rx Instructions .ROUTE .MEDSUPPLY Qty: 1 0RF Rx Instructions: MONITOR GLUCOSE ONCE PER DAY (DME) Accu-Chek Flory Plus test strp Strip See Rx Instructions .ROUTE .MEDSUPPLY Qty: 100 0RF Rx Instructions: MONITOR GLUCOSE ONCE PER DAY (DME) OneTouch Verio test strips Strip See Rx Instructions .ROUTE .MEDSUPPLY Qty: 100 1RF Rx Instructions: monitor glucose once daily spironolactone 25 mg tablet See Rx Instructions .ROUTE .COMPLEX Qty: 90 1RF Dose Instruction: TAKE 1 TABLET BY MOUTH EVERY DAY Rx Instructions: TAKE 1 TABLET BY MOUTH EVERY DAY carvedilol 12.5 mg tablet See Rx Instructions .ROUTE .COMPLEX Qty: 180 1RF Dose Instruction: TAKE 1 TABLET BY MOUTH TWICE A DAY WITH A MEAL/FOOD Rx Instructions: TAKE 1 TABLET BY MOUTH TWICE A DAY WITH A MEAL/FOOD sertraline 100 mg tablet See Rx Instructions .ROUTE .COMPLEX Qty: 90 1RF Dose Instruction: TAKE 1 TABLET BY MOUTH DAILY Rx Instructions: TAKE 1 TABLET BY MOUTH DAILY atorvastatin 40 mg tablet See Rx Instructions .ROUTE .COMPLEX Qty: 90 1RF Dose Instruction: TAKE 1 TABLET BY MOUTH DAILY Rx Instructions: TAKE 1 TABLET BY MOUTH DAILY lisinopril 10 mg tablet See Rx Instructions .ROUTE .COMPLEX Qty: 90 1RF Dose Instruction: TAKE 1 TABLET BY MOUTH EVERY DAY Rx Instructions: TAKE 1 TABLET BY MOUTH EVERY DAY gabapentin 300 mg capsule See Rx Instructions .ROUTE .COMPLEX Qty: 270 0RF Dose Instruction: TAKE 1 CAPSULE BY MOUTH THREE TIMES A DAY Rx Instructions: TAKE 1 CAPSULE BY MOUTH THREE TIMES A DAY tamsulosin 0.4 mg capsule See Rx Instructions .ROUTE .COMPLEX Qty: 90 0RF Dose Instruction: TAKE 1 CAPSULE BY MOUTH EVERY DAY TAKE AFTER DINNER Rx Instructions: TAKE 1 CAPSULE BY MOUTH EVERY DAY TAKE AFTER DINNER pantoprazole 40 mg tablet,delayed release (DR/EC) See Rx Instructions .ROUTE .COMPLEX Qty: 90 0RF Dose Instruction: TAKE 1 TABLET BY MOUTH EVERY DAY Rx Instructions: TAKE 1 TABLET BY MOUTH EVERY DAY memantine 10 mg tablet See Rx Instructions .ROUTE .COMPLEX Qty: 90 0RF Dose Instruction: TAKE 1 TABLET BY MOUTH EVERY DAY Rx Instructions: TAKE 1 TABLET BY MOUTH EVERY DAY methadone 40 mg tablet,soluble 40 mg PO DAILY Discontinued acetaminophen 325 mg Tablet 975 mg PO QID PRN (Reason: Pain) Discharge Orders: Discharge Order (Routine); Ordered 12/19/22 Ordered By: Sidney Leiws Referrals: [facility] [Outside] (This is the company providing your IV medication) [facility] ([facility]) [Outside] (This is the company providing your IV nursing/education about your IV antibiotics) Karina Ly MD [Physician] - 01/04/23 9:30 am Denice Coronado DO [Primary Care Provider] - 01/05/23 8:15 am Discharge Diet: Cardiac Discharge Activity: Resume usual activity Patient Instructions: Clindamycin (By mouth), Ofloxacin (By mouth) (Floxin), Vancomycin (By mouth) (Vancocin, Firvanq), Benzodiazepine Use Disorder (ED), Dementia (ED), Opioid Safety Activity Restrictions/Additional Instructions: - If you have any chest pain go to emergency room -Vancomycin dosing 1500 milligrams every 18 hours, next dose is tomorrow at 10 AM, recheck vancomycin trough tomorrow before giving vancomycin, -Stop date on vancomycin 12/30/2022 -Recheck creatinine tomorrow, creatinine discharge 1.3 Discharge Attestations Time Spent in Discharge Care*: greater than 30 min Quality Metrics Clinical Quality Measures [ No reported AMI, CVA or VTE this stay] Coding Level of Care Code 95335 Total time (in minutes) for Discharge: 45 Diagnoses Elevated troponin R77.8 Non-ischemic cardiomyopathy I42.8 Congestive heart failure I50.9 Benign essential HTN I10 Hyperlipidemia E78.2 Hyperlipidemia type: mixed hyperlipidemia Type 2 diabetes mellitus, without long-term current use of insulin E11.621; L97.509 Diabetes mellitus complication detail: with foot ulcer Diabetes mellitus complication status: with skin complications Acute alteration in mental status R41.82 Dental abscess K04.7 Streptococcal bacteremia R78.81; B95.5
[2022-12-19] MEDS: vancomycin 1,500 MG/300 ML PIGGYBACK 200 MG IV (15:20)
[2022-12-19 16:29] LABS: E. Chaffeensis AB IGG <1:64; E. Chaffeensis AB IGM <1:20
[2022-12-19] MEDS: tamsulosin 0.4 mg Capsule PO (18:17)
--- NOTE | 2022-12-19 18:36 | PC.NURSE ---
Discharge Note Patient discharged to [home] via [w/c to POV] accompanied by [spouse]. Discharge instructions reviewed with patient and/or automobile sales representative. Mobile pharmacy medications and/or prescriptions provided. Belongings/home medications returned.
[2022-12-20 06:01] LABS: Glucose Point of Care 185 mg/dL (70-110)
[2022-12-20 17:15] LABS: RMSF IGG NOT DETECTED; RMSF IGM NOT DETECTED
[2022-12-20 21:19] LABS: HSV 1 DNA NOT DETECTED; HSV 2 DNA NOT DETECTED; HSV Source CEREBROSPINAL FLUID
[2022-12-21 12:23] LABS: Lyme Disease AB (IGG),IBL NO BANDS DETECTED; Lyme Disease AB (IGM), IBL NO BANDS DETECTED
== END 2022-12-19 18:35 | disposition home health service (06) | DRG 157 ==
LOC: ER 12-14 01:42 → CSU 12-14 02:05 → ICU 12-14 18:14 → CSU 12-16 16:09
PROVIDERS: Student in an Organized Health Care Education/Training Program; Admitting Provider Internal Medicine; Emergency Provider Emergency Medicine; PCP Family Medicine; Visit Provider Family Medicine
DX: K05.219 Aggressive periodontitis, localized, unspecified severity (principal); I21.A1 Myocardial infarction type 2; I50.23 Acute on chronic systolic (congestive) heart failure; T88.6XXA Anaphylactic reaction due to adverse effect of correct drug or medicament properly administered, initial encounter; I42.8 Other cardiomyopathies; B95.5 Unspecified streptococcus as the cause of diseases classified elsewhere; F03.90 Unspecified dementia, unspecified severity, without behavioral disturbance, psychotic disturbance, mood disturbance, and anxiety; F32.A Depression, unspecified; E78.2 Mixed hyperlipidemia; N40.1 Benign prostatic hyperplasia with lower urinary tract symptoms; K21.9 Gastro-esophageal reflux disease without esophagitis; Z79.891 Long term (current) use of opiate analgesic; M54.12 Radiculopathy, cervical region; E78.1 Pure hyperglyceridemia; Z96.612 Presence of left artificial shoulder joint; Z86.14 Personal history of Methicillin resistant Staphylococcus aureus infection; I11.0 Hypertensive heart disease with heart failure; E11.9 Type 2 diabetes mellitus without complications; Z88.0 Allergy status to penicillin; G89.29 Other chronic pain; T36.0X5A Adverse effect of penicillins, initial encounter; Y84.9 Medical procedure, unspecified as the cause of abnormal reaction of the patient, or of later complication, without mention of misadventure at the time of the procedure; R41.82 Altered mental status, unspecified; R06.03 Acute respiratory distress
CPT/HCPCS: 36415; 36416; 36573; 36592; 36600; 51702; 62328; 70450; 70491; 71045; 71275; 74177; 78452; 80053; 80202; 80306; 80503; 81003; 82803; 82945; 82962; 83605; 83735; 83880; 84100; 84145; 84157; 84484; 85025; 85049; 85730; 86140; 86403; 86617; 86618; 86666; 86757; 87040; 87070; 87075; 87077; 87150; 87186; 87205; 87327; 87486; 87530; 87581; 87633; 87641; 89050; 93005; 93017; 93970; 94640; 96365; 96372; 96375; 96376; 97116; 97161; 97166; 99285; A9500; C8929; J0131; J0171; J0696; J1644; J1650; J1720; J1815; J1940; J2405; J2543; J2785; J3370; J3490; J7030; J7613; Q9956

== ENCOUNTER 2022-12-22 12:17 | Outpatient (CLI) | payer MEDICARE, OTHER, SELFPAY ==
[2022-12-22 13:10] LABS: Vancomycin Trough 10.5 ug/mL (10-15)
== END 2022-12-22 12:18 | disposition home or self-care (01) ==
LOC: LAB 12:19
PROVIDERS: PCP Family Medicine; Visit Provider Family Medicine
DX: R78.81 Bacteremia (principal); Z45.2 Encounter for adjustment and management of vascular access device
CPT/HCPCS: 80202; 82565

== ENCOUNTER 2022-12-26 13:53 | Outpatient (CLI) | payer MEDICARE, OTHER, SELFPAY ==
[2022-12-26 14:26] LABS: Vancomycin Trough 10.7 ug/mL (10-15)
== END 2022-12-26 13:54 | disposition home or self-care (01) ==
LOC: LAB 13:55
PROVIDERS: PCP Family Medicine; Visit Provider Family Medicine
DX: R78.81 Bacteremia (principal); Z45.2 Encounter for adjustment and management of vascular access device
CPT/HCPCS: 80202; 82565

== ENCOUNTER 2022-12-28 11:00 | Outpatient (CLI) | payer MEDICARE, OTHER, SELFPAY ==
[2022-12-28 12:30] LABS: Vancomycin Trough 11.4 ug/mL (10-15)
== END 2022-12-28 11:01 | disposition home or self-care (01) ==
LOC: LAB 04-05 11:25
PROVIDERS: PCP Family Medicine; Visit Provider Family Medicine
DX: R78.81 Bacteremia (principal); Z45.2 Encounter for adjustment and management of vascular access device
CPT/HCPCS: 80202; 82565

== ENCOUNTER 2023-01-01 10:00 | Outpatient (CLI) | payer MEDICARE, OTHER, SELFPAY ==
[2023-01-01 15:57] LABS: Vancomycin Trough 14.2 ug/mL (10-15)
== END 2023-01-01 10:01 | disposition home or self-care (01) ==
LOC: LAB 04-04 10:09
PROVIDERS: PCP Family Medicine; Visit Provider Family Medicine
DX: R78.81 Bacteremia (principal); Z45.2 Encounter for adjustment and management of vascular access device
CPT/HCPCS: 80202; 82565

== ENCOUNTER → 2023-01-05 09:08 | Outpatient (BNVA) | payer MEDICARE, OTHER, SELFPAY | PROVIDERS: PCP Family Medicine; Visit Provider Family Medicine | DX: R78.81 Bacteremia (principal); B95.5 Unspecified streptococcus as the cause of diseases classified elsewhere; E11.621 Type 2 diabetes mellitus with foot ulcer; L97.509 Non-pressure chronic ulcer of other part of unspecified foot with unspecified severity; M79.642 Pain in left hand | CPT/HCPCS: 80053; 85025; 86431 ==

== ENCOUNTER → 2023-01-15 10:01 | Outpatient (BNVA) | payer MEDICARE, OTHER, SELFPAY | PROVIDERS: PCP Family Medicine; Visit Provider Specialist | DX: M17.0 Bilateral primary osteoarthritis of knee | CPT/HCPCS: 20610; 73560; 73565; 99214; J7326 ==

== ENCOUNTER → 2023-01-17 13:13 | Outpatient (BNVA) | payer MEDICARE, OTHER, SELFPAY | PROVIDERS: PCP Family Medicine; Visit Provider Nurse Practitioner Family | DX: I11.0 Hypertensive heart disease with heart failure (principal); I50.22 Chronic systolic (congestive) heart failure | CPT/HCPCS: 99214 ==

== ENCOUNTER 2023-03-22 07:28 | Outpatient (CLI) | payer MEDICARE, OTHER, SELFPAY ==
--- NOTE | 2023-03-22 08:15 | USCV_ITS ---
Jamal Simba Age: 72 Gender: M : 1950 Exam Date: 03/22/2023 08:29 Ordering Phys: Tari Polo Technologist: Exam Location: [facility] Indication: ef compare to previous 3 months ago BP: 139 / 82 HR: 80 Rhythm: Sinus Technical Quality: Adequate MEASUREMENTS (Male / Female) Normal Values 2D ECHO LV Diastolic Diameter PLAX 4.8 cm 4.2 - 5.9 / 3.9 - 5.3 cm LV Systolic Diameter PLAX 3.3 cm IVS Diastolic Thickness 0.9 cm 0.6 - 1.0 / 0.6 - 0.9 cm IVS Systolic Thickness 1.4 cm LVPW Diastolic Thickness 1.0 cm 0.6 - 1.0 / 0.6 - 0.9 cm LVPW Systolic Thickness 1.4 cm LVOT Diameter 2.0 cm LV Ejection Fraction 2D Teich 59.0 % LV Ejection Fraction MOD 2C 60.0 % LV Ejection Fraction 2C AL 59.4 % LA Diameter 4.1 cm IVC Diameter 1.7 cm M-MODE Aortic Annulus Diameter 2.3 cm LA Ao Ratio MM 1.8 MV E Point Septal Separation 0.9 cm FINDINGS Left Ventricle This is a limited 2-dimensional study only. The ventricle appears to be normal in size and function with an ejection fraction of about 55 to 60%. Diastolic function was not evaluated. Right Ventricle Normal right ventricular size and systolic function. Right Atrium The right atrium is normal in size. Left Atrium The left atrium is normal in size. Mitral Valve Mitral valve not well visualized. Aortic Valve Aortic valve not well visualized. Tricuspid Valve Tricuspid valve not well visualized. Pulmonic Valve Pulmonic valve not well visualized. Pericardium Normal pericardium without effusion. Aorta Normal ascending aorta dimension. IVC The inferior vena cava appears normal. CONCLUSIONS This is a limited 2-dimensional study only. The ventricle appears to be normal in size and function with an ejection fraction of about 55 to 60%. Diastolic function was not evaluated. When compared to the previous study done 12/14/2022 ejection fraction has improved to normal. Previously it was suggested to be 40%. Dr. Johnathan Long MD (Electronically Signed) Final Date: 22 March 2023 10:37 S
== END 2023-03-22 07:29 | disposition home or self-care (01) ==
LOC: RAD 03-26 07:31
PROVIDERS: PCP Family Medicine; Visit Provider Nurse Practitioner Family
DX: I50.9 Heart failure, unspecified (principal)
CPT/HCPCS: 93308

== ENCOUNTER → 2023-03-29 09:19 | Outpatient (BNVA) | payer MEDICARE, OTHER, SELFPAY | PROVIDERS: PCP Family Medicine; Visit Provider Family Medicine | DX: F03.90 Unspecified dementia, unspecified severity, without behavioral disturbance, psychotic disturbance, mood disturbance, and anxiety (principal); E53.8 Deficiency of other specified B group vitamins | CPT/HCPCS: 82607; 84443 ==

== ENCOUNTER → 2023-05-15 10:37 | Outpatient (BNVA) | payer MEDICARE, OTHER, SELFPAY | PROVIDERS: PCP Family Medicine; Visit Provider Family Medicine | DX: E11.621 Type 2 diabetes mellitus with foot ulcer (principal); L97.509 Non-pressure chronic ulcer of other part of unspecified foot with unspecified severity | CPT/HCPCS: 80053; 82043; 83036; 84153 ==

== ENCOUNTER → 2023-06-08 07:43 | Outpatient (BNVA) | payer MEDICARE, OTHER, SELFPAY | PROVIDERS: PCP Family Medicine; Referring Provider Family Medicine; Visit Provider Specialist | DX: F03.90 Unspecified dementia, unspecified severity, without behavioral disturbance, psychotic disturbance, mood disturbance, and anxiety (principal) | CPT/HCPCS: 96116; 99205 ==

== ENCOUNTER → 2023-06-14 10:31 | Outpatient (BNVA) | payer MEDICARE, OTHER, SELFPAY | PROVIDERS: PCP Family Medicine; Visit Provider Family Medicine | DX: I10 Essential (primary) hypertension (principal) | CPT/HCPCS: 80048 ==

== ENCOUNTER → 2023-07-17 09:43 | Outpatient (BNVA) | payer MEDICARE, OTHER, SELFPAY | PROVIDERS: PCP Family Medicine; Visit Provider Nurse Practitioner Family | DX: I10 Essential (primary) hypertension (principal); I42.8 Other cardiomyopathies | CPT/HCPCS: 99214 ==

== ENCOUNTER → 2023-07-20 08:47 | Outpatient (BNVA) | payer MEDICARE, OTHER, SELFPAY | PROVIDERS: PCP Family Medicine; Visit Provider Specialist | DX: M17.0 Bilateral primary osteoarthritis of knee (principal) | CPT/HCPCS: 20610; J7326 ==

== ENCOUNTER 2023-08-16 12:47 | Outpatient (CLI) | payer MEDICARE, OTHER, SELFPAY ==
--- NOTE | 2023-08-16 13:03 | XR_ITS ---
WS: [id number] Right shoulder, 3 views, 08/16/2023 Clinical Data: right shoulder pain Comparison: None. Findings: No fractures or dislocations are seen. The AC joint is normal. The adjacent right clavicle, right sca pula and ribs are normal. The soft tissues are unremarkable. XR/XR shoulder RT min 2V* [id number] Impression: Negative right shoulder.
== END 2023-08-16 12:48 | disposition home or self-care (01) ==
LOC: RAD 12:49
PROVIDERS: PCP Family Medicine Adult Medicine; Visit Provider Family Medicine
DX: M25.511 Pain in right shoulder (principal); G89.29 Other chronic pain
CPT/HCPCS: 73030

== ENCOUNTER → 2023-10-15 10:13 | Outpatient (BNVA) | payer MEDICARE, OTHER, SELFPAY | PROVIDERS: PCP Family Medicine Adult Medicine; Referring Provider Family Medicine; Visit Provider Specialist | DX: M25.511 Pain in right shoulder (principal); G89.29 Other chronic pain; M89.9 Disorder of bone, unspecified | CPT/HCPCS: 73030; 99214 ==

== ENCOUNTER → 2023-10-26 11:37 | Outpatient (BNVA) | payer MEDICARE, OTHER, SELFPAY | PROVIDERS: PCP Family Medicine Adult Medicine; Visit Provider Family Medicine Adult Medicine | DX: I10 Essential (primary) hypertension (principal); E78.2 Mixed hyperlipidemia; N13.8 Other obstructive and reflux uropathy; N40.1 Benign prostatic hyperplasia with lower urinary tract symptoms; Z79.899 Other long term (current) drug therapy | CPT/HCPCS: 85025 ==

== ENCOUNTER 2023-10-29 11:23 | Outpatient (CLI) | payer MEDICARE, OTHER, SELFPAY ==
[2023-10-29 11:58] LABS: Basophils % 0.4 %; Eosinophils # 0.2 10^3/uL (0.0-0.8); Eosinophils % 1.8 %; Hematocrit 35.6 % (37-53); Lymphocytes # 1.2 10^3/uL (0.8-4.8); Lymphocytes % 13.9 %; Mean Corpuscular Hemoglobin 30.1 pg (27-33); Mean Corpuscular Volume 93.9 fl (82-101); Mean Platelet Volume 9.7 fL (7.4-10.4); Monocytes # 0.4 10^3/uL (0.2-0.9); Monocytes % 4.8 %; Neutrophils # 6.52 10^3/uL (1.8-7.7); Neutrophils % 77.8 %; Nucleated Red Blood Cells % 0 %; Platelet Count 135 10^3/cmm (157-399); Red Blood Count 3.79 10^6/uL (3.85-5.65); White Blood Count 8.37 10^3/uL (3.29-11.43)
[2023-10-29 12:28] LABS: Alanine Aminotransferase 11 U/L (0-41); Albumin Level 3.6 g/dL (3.5-5.2); Alkaline Phosphatase 99 U/L (40-130); Anion Gap 17.4 (5-19); Aspartate Amino Transferase 14 U/L (0-40); Blood Urea Nitrogen 22 mg/dL (8-23); Calcium 8.6 mg/dL (8.5-10.5); Carbon Dioxide 22 mmol/L (22-29); Chloride 101 mmol/L (98-107); Chol HDL Ratio 2.45 mg/dL (1.0-5.00); Cholesterol 115 mg/dL (0-200); Globulin 3.1 g/dL (1.3-4.6); Glucose 267 mg/dL (65-115); HDL Cholesterol 47 mg/dL (60-100); LDL Cholesterol Calculated 44 mg/dL (50-129); LDL HDL Ratio 0.94 RATIO (0.00-3.22); Osmolality Calculated 295 mOsm/kg (285-295); Potassium 4.4 mmol/L (3.5-5.1); Sodium 136 mmol/L (136-145); Total Bilirubin 0.4 mg/dL (0.15-1.2); Total Protein 6.7 g/dL (6.6-8.7); Triglycerides 119 mg/dL (0-150)
[2023-10-29 13:28] LABS: Estmated Average Glucose 180; Hemoglobin A1C 7.9 % (4.0-6.0)
== END 2023-10-29 11:24 | disposition home or self-care (01) ==
PROVIDERS: PCP Family Medicine Adult Medicine; Visit Provider Family Medicine Adult Medicine
DX: I10 Essential (primary) hypertension (principal); E78.2 Mixed hyperlipidemia; Z79.899 Other long term (current) drug therapy
CPT/HCPCS: 36415; 80053; 80061; 83036; 85025

== ENCOUNTER 2023-12-11 07:56 | Outpatient (CLI) | payer MEDICARE, OTHER, SELFPAY ==
--- NOTE | 2023-12-11 08:00 | MR_ITS ---
WS: [id number] MRI RIGHT SHOULDER NONCONTRAST TECHNIQUE: Sagittal T2, coronal T1, T2 and proton density imaging. Axial gradient PDE imaging. CLINICAL INFORMATION: M89.9 - Disorder of bone, unspecified COMPARISON: None. FINDINGS: Moderate degenerative arthritis AC joint with fluid and edema. Mild downsloping acromion. Mild narro wing of the subacromial space. Mild chronic thinning of the distal supraspinatus. Tendinopathy distal supraspinatus with a tiny insertional tear. No tendon retraction. Infraspinatus is intact. Normal te res minor. Mild chronic thinning of the subscapularis. Subscapularis appears intact. Biceps tendon appears absent from the bicipital groove. Moderate to advanced degenerative narrowing o f the glenohumeral articulation with hypertrophic spurring. Degenerative fraying of the glenoid labru m. MR/MR shoulder RT wo con* [id number] IMPRESSION: 1. Moderate degenerative arthritis at the AC joint with fluid and edema. Mild narrowing of the subacromial space. 2. Tendinopathy distal supraspinatus with a tiny insertional tear. No tendon r etraction. 3. Normal infraspinatus. 4. Chronic thinning of the subscapularis tendon which appears intact. 5. Biceps tendon is absent from the bicipital groove. 6. Advanced degenerative narrowing of the glenohumeral articulation with hyper trophic changes.
== END 2023-12-11 07:57 | disposition home or self-care (01) ==
LOC: RAD 07:56
PROVIDERS: PCP Family Medicine Adult Medicine; Visit Provider Specialist
DX: M19.011 Primary osteoarthritis, right shoulder (principal); M89.9 Disorder of bone, unspecified; M75.91 Shoulder lesion, unspecified, right shoulder; M67.813 Other specified disorders of tendon, right shoulder
CPT/HCPCS: 73221

== ENCOUNTER → 2023-12-21 09:07 | Outpatient (BNVA) | payer MEDICARE, OTHER, SELFPAY | PROVIDERS: PCP Family Medicine Adult Medicine; Visit Provider Specialist | DX: F03.90 Unspecified dementia, unspecified severity, without behavioral disturbance, psychotic disturbance, mood disturbance, and anxiety (principal); M70.62 Trochanteric bursitis, left hip; M79.7 Fibromyalgia; M51.36 Other intervertebral disc degeneration, lumbar region; M25.511 Pain in right shoulder; G89.29 Other chronic pain | CPT/HCPCS: 20550; 20610; 99214; 99215 ==

== ENCOUNTER 2024-01-22 13:50 | Outpatient (CLI) | payer MEDICARE, OTHER, SELFPAY ==
--- NOTE | 2024-01-22 13:55 | XRR_ITS ---
PROCEDURE INFORMATION: Exam: XR Left Hip Exam date and time: 01/22/2024 2:07 PM Age: 73 years old Clinical indication: Hip pain; Left hip; Prior surgery; Surgery date: 6+ months; Surgery type: Right hip replacement; Additional info: Left hip pain TECHNIQUE: Imaging protocol: Radiologic exam of the left hip. Views: 2 or 3 views hip with pelvis when performed. COMPARISON: CT angio chest w abd pel w con 12/14/2022 7:30 PM FINDINGS: Bones/joints: No acute fracture or dislocation. Severe left hip joint space narrowing. Soft tissues: Unremarkable. XR/XR hip LT 2-3V wo/w pel* [id number] IMPRESSION: Severe left hip degenerative joint disease.
== END 2024-01-22 13:51 | disposition home or self-care (01) ==
LOC: RAD 13:51
PROVIDERS: PCP Family Medicine Adult Medicine
DX: M16.12 Unilateral primary osteoarthritis, left hip (principal); Z96.641 Presence of right artificial hip joint
CPT/HCPCS: 73502

== ENCOUNTER → 2024-01-30 09:15 | Outpatient (BNVA) | payer MEDICARE, OTHER, SELFPAY | PROVIDERS: PCP Family Medicine Adult Medicine; Visit Provider Specialist | DX: M25.552 Pain in left hip (principal); M16.12 Unilateral primary osteoarthritis, left hip; E11.69 Type 2 diabetes mellitus with other specified complication; E66.01 Morbid (severe) obesity due to excess calories; Z68.41 Body mass index [BMI] 40.0-44.9, adult | CPT/HCPCS: 73502; 99214 ==

== ENCOUNTER → 2024-06-25 12:56 | Outpatient (BNVA) | payer MEDICARE, OTHER, SELFPAY | PROVIDERS: PCP Family Medicine Adult Medicine; Visit Provider Specialist | DX: F03.90 Unspecified dementia, unspecified severity, without behavioral disturbance, psychotic disturbance, mood disturbance, and anxiety (principal); M25.511 Pain in right shoulder; G89.29 Other chronic pain; M70.62 Trochanteric bursitis, left hip | CPT/HCPCS: 99213 ==

== ENCOUNTER → 2024-07-03 14:15 | Outpatient (BNVA) | payer MEDICARE, OTHER, SELFPAY | PROVIDERS: PCP Family Medicine Adult Medicine; Visit Provider Family Medicine | DX: E11.621 Type 2 diabetes mellitus with foot ulcer (principal); L97.509 Non-pressure chronic ulcer of other part of unspecified foot with unspecified severity | CPT/HCPCS: 82043; 85025 ==

== ENCOUNTER → 2024-07-04 10:42 | Outpatient (BNVA) | payer MEDICARE, OTHER, SELFPAY | PROVIDERS: PCP Family Medicine; Visit Provider Family Medicine | DX: E11.621 Type 2 diabetes mellitus with foot ulcer (principal); L97.509 Non-pressure chronic ulcer of other part of unspecified foot with unspecified severity | CPT/HCPCS: 80053; 80061; 83036; 85025 ==

== ENCOUNTER → 2024-07-11 13:26 | Outpatient (BNVA) | payer MEDICARE, OTHER, SELFPAY | PROVIDERS: PCP Family Medicine; Visit Provider Family Medicine | DX: E53.8 Deficiency of other specified B group vitamins (principal); D53.9 Nutritional anemia, unspecified | CPT/HCPCS: 82607; 82746 ==

== ENCOUNTER → 2024-07-28 09:43 | Outpatient (BNVA) | payer MEDICARE, OTHER, SELFPAY | PROVIDERS: PCP Family Medicine; Visit Provider Specialist | DX: M16.12 Unilateral primary osteoarthritis, left hip (principal); M70.62 Trochanteric bursitis, left hip; Z91.09 Other allergy status, other than to drugs and biological substances; E66.812 Obesity, class 2 | CPT/HCPCS: 73502; 99214 ==

== ENCOUNTER → 2024-08-04 11:42 | Outpatient (BNVA) | payer MEDICARE, OTHER, SELFPAY | PROVIDERS: PCP Family Medicine; Visit Provider Family Medicine | DX: R32 Unspecified urinary incontinence (principal); E11.9 Type 2 diabetes mellitus without complications; I10 Essential (primary) hypertension; F33.1 Major depressive disorder, recurrent, moderate; N39.41 Urge incontinence; Z91.09 Other allergy status, other than to drugs and biological substances | CPT/HCPCS: 81000; 87086 ==

== ENCOUNTER → 2024-12-10 09:03 | Outpatient (BNVA) | payer MEDICARE, OTHER, SELFPAY | PROVIDERS: PCP Family Medicine; Visit Provider Podiatrist Foot & Ankle Surgery | DX: E11.42 Type 2 diabetes mellitus with diabetic polyneuropathy (principal); B35.1 Tinea unguium; G62.9 Polyneuropathy, unspecified | CPT/HCPCS: 11721; 99203 ==

== ENCOUNTER → 2025-01-19 13:58 | Outpatient (BNVA) | payer MEDICARE, SELFPAY | PROVIDERS: PCP Family Medicine; Visit Provider Specialist | DX: M16.12 Unilateral primary osteoarthritis, left hip (principal) | CPT/HCPCS: 73502; 99214 ==

== ENCOUNTER 2025-01-23 19:44 | Emergency (ER) | payer MEDICARE, SELFPAY ==
--- NOTE | 2025-01-23 19:45 | XRR_ITS ---
PROCEDURE INFORMATION: Exam: XR Abdomen Exam date and time: 01/23/2025 10:43 PM Age: 74 years old Clinical indication: Constipation; Prior surgery; Surgery date: 6+ months; Surgery type: Appendectomy, gallbladder, spine, right hip, umbilical hernia repair TECHNIQUE: Imaging protocol: Radiologic exam of the abdomen. Views: Frontal supine view of the abdomen. 1 View. COMPARISON: CT abdomen pelvis w con* [id number] 08/24/2020 1:29 PM FINDINGS: Lungs: calcific granulomas in the left lung base. Gastrointestinal tract: diffuse amount of feces noted in the right colon, distal left colon and rectum. Organs: Status post cholecystectomy. Bones/joints: No acute osseous abnormality. There is degenerative disease of the spine. Status post right total hip arthroplasty. Severe osteoarthritis of the left hip. XR/XR KUB [id number] IMPRESSION: No acute findings.
[2025-01-23 20:05] VITALS: PULSE 95; RESP 18; TEMP 36.8; O2SAT 95
[2025-01-23 22:01] LABS: Hematocrit 35.8 % (37-53); Hemoglobin 11.90 g/dL (11.27-16.99); Mean Corpuscular HGB Conc 33.2 g/dL (30-55); Mean Corpuscular Hemoglobin 32.0 pg (27-33); Mean Corpuscular Volume 96.2 fl (82-101); Nucleated Red Blood Cells % 0 %; Platelet Count 181 10^3/cmm (157-399); Red Blood Count 3.72 10^6/uL (3.85-5.65); White Blood Count 12.23 10^3/uL (3.29-11.43)
[2025-01-23 22:35] LABS: Alanine Aminotransferase 12 U/L (0-41); Albumin Level 4.1 g/dL (3.5-5.2); Alkaline Phosphatase 110 U/L (40-130); Anion Gap 17.2 (5-19); Aspartate Amino Transferase 21 U/L (0-40); Blood Urea Nitrogen 29 mg/dL (8-23); Calcium 8.8 mg/dL (8.5-10.5); Carbon Dioxide 24 mmol/L (22-29); Chloride 104 mmol/L (98-107); Creatinine Clr Calc Pharmacy 57.5443; Globulin 3.0 g/dL (1.3-4.6); Glucose 185 mg/dL (65-115); Lipase 9 U/L (13-60); Osmolality Calculated 303 mOsm/kg (285-295); Potassium 4.2 mmol/L (3.5-5.1); Sodium 141 mmol/L (136-145); Total Protein 7.1 g/dL (6.6-8.7)
--- NOTE | 2025-01-23 22:42 | W.ED.ABDPA2 ---
HPI - Abdominal Pain General: Chief Complaint: Abdominal Pain Stated Complaint: constipated severe Time Seen by Provider: 01/23/25 22:40 Source: patient Mode of arrival: ambulatory Limitations: no limitations History of Present Illness: 74-year-old male states he has been constipated for last 2 days. He states he is had the urge to go but when he tries he has pain he states he had a small bowel movement yesterday but not able have a bowel movement since then. Had some nausea denies any vomiting denies any severe abdominal pain denies any worsening from factors. Associated Symptoms: Reports constipation Related Data Home Medications ?Medication ?Instructions ?Recorded ?Confirmed methadone 40 mg soluble tablet 40 mg PO DAILY 01/31/21 01/19/25 Previous Rx's ?Medication ?Instructions ?Recorded blood sugar diagnostic (Accu-Chek #100 ea 05/29/19 Flory Plus test strips) blood-glucose meter (Accu-Chek #1 ea 05/29/19 Flory Plus Meter) GLUCOMETER #1 ea 07/31/19 blood sugar diagnostic (OneTouch #100 ea 08/05/19 Verio test strips) Diabetic shoes with 3 inserts #1 ea 10/06/20 lancets 25 gauge #100 ea 11/27/23 galantamine 4 mg tablet 4 mg PO BID #180 tabs 06/25/24 memantine 10 mg tablet 10 mg PO BID #60 tabs 06/25/24 omeprazole 40 mg capsule,delayed 40 mg PO DAILY #90 caps 07/03/24 release atorvastatin 40 mg tablet See Rx Instructions .Route 12/09/24 .COMPLEX #90 tabs gabapentin 300 mg capsule 300 mg PO TID #270 caps 12/09/24 glipizide 5 mg tablet 5 mg PO BID #180 tabs 12/09/24 sertraline 50 mg tablet 50 mg PO DAILY #90 tabs 12/09/24 spironolactone 25 mg tablet See Rx Instructions .Route 12/09/24 .COMPLEX #90 tabs carvedilol 12.5 mg tablet See Rx Instructions .Route 12/25/24 .COMPLEX #180 tabs polyethylene glycol 3350 17 gram 17 g PO DAILY PRN constipation #14 01/24/25 oral powder packet (Miralax) ea Allergies Allergy/AdvReac Type Severity Reaction Status Date / Time piperacillin (From Zosyn) Allergy Severe ALGY-Anaphy Verified 01/19/25 12:48 laxis tazobactam (From Zosyn) Allergy Severe ALGY-Anaphy Verified 01/19/25 12:48 laxis diazepam (From Valium) Allergy ADR-Confusi Verified 01/19/25 12:48 on Penicillins Allergy ALGY-Rash Verified 01/19/25 12:48 titanium Allergy ALGY-Rash Verified 01/19/25 12:48 Review of Systems GI: Reports: constipation PFSH ED PFSH: Medical History Degenerative joint disease (DJD) of hip Enrolled in chronic care management Severe obesity (BMI 35.0-39.9) with comorbidity Non-ischemic cardiomyopathy Poor dentition Streptococcal bacteremia Pes planus of both feet Incarcerated incisional hernia Traumatic tear of left rotator cuff BPH w urinary obs/LUTS Moderate episode of recurrent major depressive disorder Benign essential HTN Nocturia Cervical radiculopathy Iron deficiency anemia Mixed hyperlipidemia Diabetic foot ulcer Type 2 diabetes mellitus with foot ulcer, without long-term current use of insulin Hypertriglyceridemia Surgical History Status post arthroscopy of left shoulder History of cataract surgery Status post colonoscopy (09/21/20) H/O esophagogastroduodenoscopy (09/21/20) History of right inguinal hernia repair History of umbilical hernia repair History of left shoulder replacement Hx of cholecystectomy History of appendectomy History of neck surgery History of back surgery History of right hip replacement Family History Other Cancer Social History Smoking and tobacco/nicotine status: never used tobacco/nicotine Alcohol intake: never Substance/Drug Use: never Physical Exam Const: COMMON NORMALS: no acute distress, patient oriented x3 and healthy appearing HENMT: COMMON NORMALS: normocephalic and atraumatic HEAD & SCALP: normocephalic and atraumatic Eye: COMMON NORMALS: conjunctivae normal CONJUNCTIVA: Yes conjunctivae normal Neck/C-Spine: COMMON NORMALS: full ROM and supple Chest: COMMONS NORMALS: normal inspection of the chest Resp: COMMON NORMALS: normal respiratory effort, No retractions, No use of accessory muscles and clear to auscultation bilaterally AUSCULTATION: clear to auscultation bilaterally Cardio: COMMON NORMALS: regular rate, regular rhythm and No murmurs present (Cardio) RATE: regular rate RHYTHM: regular rhythm GI: COMMON NORMALS: Normal to inspection, nondistended, normoactive bowel sounds present, Soft to palpation, non-tender and no masses PALPATION: Yes Soft to palpation Extremity: COMMON NORMALS: normal to inspection and full ROM Neuro: COMMON NORMALS: patient oriented x3, moves all extremities and no focal motor deficits Psych: COMMON NORMALS: mental status grossly normal, Normal thought process present and cooperative THOUGHT PROCESS: Normal thought process present Skin: COMMON NORMALS: no rashes or lesions noted and no wounds GENERAL SKIN EXAM: no rashes or lesions noted Course Vital Signs: Vital signs: Vital Signs Temperature 98.3 F 01/23/25 20:05 Pulse Rate 86 01/23/25 22:50 Respiratory Rate 18 01/23/25 20:05 Blood Pressure 119/82 01/23/25 22:50 Pulse Oximetry 94 01/23/25 22:50 Oxygen Delivery Me thod Room Air 01/23/25 22:50 MDM - Abdominal Pain Medical Decision Making Patient presents for abdominal pain along with constipation differential included small bowel obstruction, appendicitis. X-ray showed no signs of small bowel obstruction blood work here is normal he has no tenderness right lower quadrant no signs of appendicitis x-ray does show constipation that I reviewed myself. Patient had a large bowel movement here after lactulose and an enema and feels much improved. He is stable for discharge at this time will prescribe MiraLAX he is to follow-up with PCP and return if worsening he understands agrees to plan. Medical Records I reviewed the patient's medical records. Lab Data I reviewed the patient's lab results. 01/23/25 21:42 01/23/25 21:42 Labs/Radiology: Radiology Impressions KUB X-Ray 01/23/25 19:45 IMPRESSION: No acute findings. Laboratory Results WBC 12.23 10^3/uL (3.29-11.43) H 01/23/25 21:42 RBC 3.72 10^6/uL (3.85-5.65) L 01/23/25 21:42 Hgb 11.90 g/dL (11.27-16.99) 01/23/25 21:42 Hct 35.8 % (37-53) L 01/23/25 21:42 MCV 96.2 fl (82-101) 01/23/25 21:42 MCH 32.0 pg (27-33) 01/23/25 21:42 MCHC 33.2 g/dL (30-55) 01/23/25 21:42 RDW 14.3 % (12.1-15.1) 01/23/25 21:42 Plt Count 181 10^3/cmm (157-399) 01/23/25 21:42 MPV 9.9 fL (7.4-10.4) 01/23/25 21:42 Neut % (Auto) 86.8 % 01/23/25 21:42 Lymph % (Auto) 7.3 % 01/23/25:42 Howard % (Auto) 4.5 % 01/23/25 21:42 Eos % (Auto) 0.6 % 01/23/25:42 Baso % (Auto) 0.4 % 01/23/25 21:42 Neut # (Auto) 10.62 10^3/uL (1.8-7.7) H 01/23/25 21:42 Lymph # (Auto) 0.9 10^3/uL (0.8-4.8) 01/23/25 21:42 Howard # (Auto) 0.6 10^3/uL (0.2-0.9) 01/23/25:42 Eos # (Auto) 0.1 10^3/uL (0.0-0.8) 01/23/25 21:42 Baso # (Auto) 0.1 10^3/uL (0.0-0.1) 01/23/25 21:42 Nucleated RBC % (auto) 0 % 01/23/25:42 Nucleated RBCs # 0.0 /100WBC 01/23/25 21:42 Sodium 141 mmol/L (136-145) 01/23/25 21:42 Potassium 4.2 mmol/L (3.5-5.1) 01/23/25 21:42 Chloride 104 mmol/L (98-107) 01/23/25 21:42 Carbon Dioxide 24 mmol/L (22-29) 01/23/25 21:42 Anion Gap 17.2 (5-19) 01/23/25 21:42 BUN 29 mg/dL (8-23) H 01/23/25 21:42 Creatinine 1.2 mg/dL (0.7-1.2) 01/23/25 21:42 GFR Calculation Not Reportable 01/23/25 21:42 Glucose 185 mg/dL (65-115) H 01/23/25 21:42 Calculated Osmolality 303 mOsm/kg (285-295) H 01/23/25 21:42 Calcium 8.8 mg/dL (8.5-10.5) 01/23/25 21:42 Total Bilirubin 0.4 mg/dL (0.15-1.2) 01/23/25 21:42 AST 21 U/L (0-40) 01/23/25 21:42 ALT 12 U/L (0-41) 01/23/25 21:42 Alkaline Phosphatase 110 U/L (40-130) 01/23/25 21:42 Total Protein 7.1 g/dL (6.6-8.7) 01/23/25 21:42 Albumin 4.1 g/dL (3.5-5.2) 01/23/25 21:42 Globulin 3.0 g/dL (1.3-4.6) 01/23/25 21:42 Lipase 9 U/L (13-60) L 01/23/25 21:42 All radiology interpretation(s) finalized by discharge Discharge Plan Discharge Patient Disposition: Home Clinical Impression: Constipation Condition: Stable Prescriptions: New polyethylene glycol 3350 [Miralax] 17 gram powder in packet 17 g PO DAILY PRN (Reason: constipation) Qty: 14 0RF No Action (DME) GLUCOMETER Qty: 1 0RF Rx Instructions: WITH TEST STRIPS AND LANCETS TO TEST GLUCOSE four times A DAY (DME) Diabetic shoes with 3 inserts See Rx Instructions .ROUTE .MEDSUPPLY Qty: 1 0RF Rx Instructions: As directed by KYLE&O memantine 10 mg tablet 10 mg PO BID Qty: 60 5RF Rx Instructions: after starter pack galantamine 4 mg tablet 4 mg PO BID Qty: 180 3RF Rx Instructions: administer with AM and PM meals 340 B spironolactone 25 mg tablet See Rx Instructions .ROUTE .COMPLEX Qty: 90 1RF Dose Instruction: TAKE 1 TABLET BY MOUTH EVERY DAY Rx Instructions: TAKE 1 TABLET BY MOUTH EVERY DAY glipizide 5 mg tablet 5 mg PO BID Qty: 180 1RF gabapentin 300 mg capsule 300 mg PO TID Qty: 270 1RF atorvastatin 40 mg tablet See Rx Instructions .ROUTE .COMPLEX Qty: 90 1RF Dose Instruction: TAKE 1 TABLET BY MOUTH DAILY Rx Instructions: TAKE 1 TABLET BY MOUTH DAILY sertraline 50 mg tablet 50 mg PO DAILY Qty: 90 1RF (DME) lancets 25 gauge misc See Rx Instructions .ROUTE .MEDSUPPLY Qty: 100 0RF Rx Instructions: MONITOR GLUCOSE FOUR DAILY omeprazole 40 mg capsule,delayed release(DR/EC) 40 mg PO DAILY Qty: 90 1RF (DME) blood-glucose meter [Accu-Chek Flory Plus Meter] Misc See Rx Instructions .ROUTE .MEDSUPPLY Qty: 1 0RF Rx Instructions: MONITOR GLUCOSE ONCE PER DAY (DME) Accu-Chek Flory Plus test strp Strip See Rx Instructions .ROUTE .MEDSUPPLY Qty: 100 0RF Rx Instructions: MONITOR GLUCOSE ONCE PER DAY (DME) OneTouch Verio test strips Strip See Rx Instructions .ROUTE .MEDSUPPLY Qty: 100 1RF Rx Instructions: monitor glucose once daily carvedilol 12.5 mg tablet See Rx Instructions .ROUTE .COMPLEX Qty: 180 1RF Dose Instruction: TAKE 1 TABLET BY MOUTH TWICE A DAY WITH A MEAL/FOOD Rx Instructions: TAKE 1 TABLET BY MOUTH TWICE A DAY WITH A MEAL/FOOD methadone 40 mg tablet,soluble 40 mg PO DAILY Discharge Orders: Discharge ED (Routine); Ordered 01/24/25 Ordered By: Maggy Giordano Referrals: Denice Coronado DO [Primary Care Provider, Family Practice] - 4-7 days Discharge Diet: Advance as tolerated Discharge Activity: Resume usual activity Patient Instructions: Constipation (ED) Print Language: Mohawk Coding Level of Care Code ED Electric Car Operator for Bill Griffin
[2025-01-23 22:50] VITALS: BP 119/82; PULSE 86; O2SAT 94
[2025-01-23] MEDS: lactulose oral liq 20 gm/30 mL UDC 30 GM PO (23:05)
[2025-01-23] MEDS: Fleet Enema 133 mL Enema PR (23:46)
== END 2025-01-24 00:23 | disposition home or self-care (01) ==
PROVIDERS: Emergency Provider Emergency Medicine; PCP Family Medicine
DX: K59.00 Constipation, unspecified (principal); E78.2 Mixed hyperlipidemia; I10 Essential (primary) hypertension; E11.621 Type 2 diabetes mellitus with foot ulcer; L97.509 Non-pressure chronic ulcer of other part of unspecified foot with unspecified severity
CPT/HCPCS: 36415; 74018; 80053; 83690; 85025; 99284; J9999

== ENCOUNTER → 2025-02-17 13:43 | Outpatient (BNVA) | payer MEDICARE, OTHER, SELFPAY | PROVIDERS: PCP Family Medicine; Visit Provider Internal Medicine Cardiovascular Disease | DX: I11.0 Hypertensive heart disease with heart failure (principal); I50.22 Chronic systolic (congestive) heart failure; E78.2 Mixed hyperlipidemia; I48.91 Unspecified atrial fibrillation; E11.621 Type 2 diabetes mellitus with foot ulcer; L97.509 Non-pressure chronic ulcer of other part of unspecified foot with unspecified severity; Z79.85 Long-term (current) use of injectable non-insulin antidiabetic drugs; Z01.810 Encounter for preprocedural cardiovascular examination; R07.9 Chest pain, unspecified; I50.9 Heart failure, unspecified; R06.02 Shortness of breath; G47.30 Sleep apnea, unspecified | CPT/HCPCS: 36415; 83880; 93005; 99204; 99214 ==

== ENCOUNTER → 2025-02-25 08:34 | Outpatient (BNVA) | payer MEDICARE, OTHER, SELFPAY | PROVIDERS: PCP Family Medicine; Visit Provider Podiatrist Foot & Ankle Surgery | DX: E11.42 Type 2 diabetes mellitus with diabetic polyneuropathy (principal); B35.1 Tinea unguium; L84 Corns and callosities; E11.621 Type 2 diabetes mellitus with foot ulcer; L97.509 Non-pressure chronic ulcer of other part of unspecified foot with unspecified severity; G62.9 Polyneuropathy, unspecified; L85.1 Acquired keratosis [keratoderma] palmaris et plantaris; Z79.85 Long-term (current) use of injectable non-insulin antidiabetic drugs | CPT/HCPCS: 11055; 11721 ==

== ENCOUNTER 2025-02-26 08:05 | Outpatient (CLI) | payer MEDICARE, OTHER, SELFPAY ==
[2025-02-26 08:27] VITALS: BMI 37.5
--- NOTE | 2025-02-26 08:29 | NMCV_ITS ---
NM hu perf SPECT r/s* [id number] Simba Berry Age: 74 Gender: M : 1950 Exam Date: 02/26/2025 08:51 Ordering Phys: Paul Tam MD ([email or web address]) Technologist: EDDIE Velásquez Exam Location: [facility] Indications: cp STRESS TEST [facility] IMAGE PROTOCOL Rest/Stress 1 Lexiscan Day Radiopharmaceutical Dose (mCi) Administration Site Administered by Rest: Tc-99m 10.3 IV EDDIE Velásquez Sestamibi Stress:Tc-99m 33 IV EDDIE Madden Sestamibi Rest: 26-Feb-2025 60 Discovery 630 Stress: 26-Feb-2025 30 Discovery 630 0.4mg Lexiscan. Supine position only as patient was unable to lay prone. SPECT RESULTS Technical Quality: Good Raw Data Analysis: Normal Image Corrections: No attenuation or motion correction applied Summed Stress Score: 4 Summed Rest Score: 2 Summed Difference Score: 2 PERFUSION FINDINGS There is a small to medium sized area of partially reversible perfusion defect seen in the apical inferior and apical lateral mitchell. This is consistent with small to medium sized area of prior infarct with christina-infarct ischemia in these mitchell. FUNCTIONAL RESULTS (calculated via Gated SPECT) Stress Image LV EF (%): 52 Stress EDV (mL):149 TID: 1.25 Stress ESV (mL):72 FUNCTIONAL FINDINGS: There is normal left ventricular systolic function. TID ratio is elevated. IMPRESSIONS 1. Abnormal myocardial perfusion imaging with small to medium sized area of prior infarct with christina-infarct ischemia seen in apical lateral and apical inferior mitchell. 2. LV systolic is borderline normal with EF 52%. TID ratio is elevated. Janes Gracia MD (Electronically Signed) Final Date: 28 February 2025 11:59 S
--- NOTE | 2025-02-26 08:29 | ECG_ITS ---
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 Interpretive Statements LEXISCAN SESTAMIBI STRESS TEST Procedure: At the baseline, the blood pressure was 142/77 mmHg with a heart rate of 60 bpm. The electrocardiogram showed atrial fibrillation, normal axis with normal ST and T's. The Lexiscan was infused over a period of 20 seconds. A total of 0.4 mg of Lexiscan was infused. The stress phase was continued for a total of 5 minutes. Heart rate was at the end of stress phase was 64 bpm and a blood pressure of 150/87 mmHg. The EKG at the peak infusion revealed atrial fibrillation with no significant ST-T wave changes. Sestamibi was injected 20 seconds after the Lexiscan infusion. Blood pressure at the end of recovery phase was 159/85 mmHg with a heart rate of 65 bpm. Conclusion: 1. Normal EKG response to Lexiscan infusion 2. No Lexiscan induced chest pain or cardiac arrhythmia. 3. Normal blood pressure and heart rate response. 4. Sestamibi/sestamibi perfusion scan pending; see separate report. Electronically Signed On 03-22-2025 15:13:34 DIVIDING MACHINE OPERATOR HELPER by Janes Gracia M.D. [email or web address]
[2025-02-26 09:37] VITALS: BP 159/85; PULSE 75
== END 2025-02-26 08:06 | disposition home or self-care (01) ==
LOC: CDL 08:06
PROVIDERS: PCP Family Medicine; Visit Provider Internal Medicine Cardiovascular Disease
DX: I50.9 Heart failure, unspecified (principal); R93.1 Abnormal findings on diagnostic imaging of heart and coronary circulation
CPT/HCPCS: 36415; 78452; 93017; 96374; A9500; J2785

== ENCOUNTER 2025-03-03 06:28 | Outpatient (CLI) | payer MEDICARE, OTHER, SELFPAY ==
--- NOTE | 2025-03-03 06:15 | USCV_ITS ---
Simba Berry Age: 74 Gender: M : 1950 Exam Date: 03/03/2025 06:44 Ordering Phys: Paul Tam MD ([email or web address]) Technologist: Exam Location: [facility] Indication: cp sob BP: 125 / 75 HR: 80 Rhythm: Sinus Technical Quality: Adequate MEASUREMENTS (Male / Female) Normal Values 2D ECHO LV Diastolic Diameter PLAX 5.5 cm 4.2 - 5.9 / 3.9 - 5.3 cm IVS Diastolic Thickness 1.4 cm 0.6 - 1.0 / 0.6 - 0.9 cm IVS Systolic Thickness 2.2 cm LVPW Diastolic Thickness 1.3 cm 0.6 - 1.0 / 0.6 - 0.9 cm LVPW Systolic Thickness 2.1 cm LVOT Diameter 2.3 cm LV Ejection Fraction 2D Teich 63.8 % LV Ejection Fraction MOD 4C 65.6 % LV Ejection Fraction MOD 2C 61.7 % LV Ejection Fraction 2C AL 61.7 % LA Diameter 4.8 cm RA Systolic Volume 4C AL 72.6 ml RA Systolic Volume 4C MOD 69.9 ml Aorta at Sinotubular Diameter 3.4 cm IVC Diameter 2.5 cm M-MODE LA Ao Ratio MM 1.2 AV Cusp Separation MM 1.8 cm DOPPLER AV Peak Velocity 134.0 cm/s LVOT Peak Velocity 92.0 cm/s AV Area Cont Eq vti 4.0 cm squared AV Area Cont Eq pk 2.8 cm squared MV Peak Velocity 125.0 cm/s MV Area PHT 5.7 cm squared Mitral E to A Ratio 2.0 TV Peak Velocity 214.0 cm/s TR Peak Velocity 274.0 cm/s TR Peak Gradient 30.0 mmHg PV Peak Velocity 104.0 cm/s FINDINGS Left Ventricle Normal left ventricular cavity size. Left ventricular endocardium not well visualized. Normal global left ventricular systolic function, EF 62%. Mild left ventricular hypertrophy. Atrial fibrillation precludes evaluation of diastolic function. Right Ventricle Normal right ventricular size and systolic function. Right Atrium Normal right atrial size. Left Atrium Normal left atrial size. IA Septum Normal appearance of the interatrial septum. Mitral Valve Normal mitral valve structure. Mild mitral valve regurgitation. Aortic Valve Normal aortic valve structure. No aortic valve stenosis or regurgitation. Tricuspid Valve Normal tricuspid valve structure. No tricuspid valve stenosis or regurgitation. Normal pulmonary pressure. Pulmonic Valve Normal pulmonic valve structure. No pulmonic valve stenosis or regurgitation. Pericardium No pericardial effusion. Aorta Normal diameter of the aortic root and ascending thoracic aorta. IVC Normal IVC diameter. CONCLUSIONS Left ventricular endocardium not well visualized. Normal global left ventricular systolic function, EF 62%. Mild left ventricular hypertrophy Normal right ventricular size and systolic function. No significant valvular abnormalities. Paul Tam MD, FACC (Electronically Signed) Final Date: 03 March 2025 23:11 S
== END 2025-03-03 06:29 | disposition home or self-care (01) ==
LOC: RAD 06:30
PROVIDERS: PCP Family Medicine; Visit Provider Internal Medicine Cardiovascular Disease
DX: I50.9 Heart failure, unspecified (principal); I42.2 Other hypertrophic cardiomyopathy
CPT/HCPCS: 93306

== ENCOUNTER → 2025-03-12 14:23 | Outpatient (BNVA) | payer MEDICARE, OTHER, SELFPAY | PROVIDERS: PCP Family Medicine; Visit Provider Family Medicine | DX: E11.621 Type 2 diabetes mellitus with foot ulcer (principal); L97.509 Non-pressure chronic ulcer of other part of unspecified foot with unspecified severity | CPT/HCPCS: 80053; 83036 ==

== ENCOUNTER 2025-03-26 09:04 | Outpatient (CLI) | payer MEDICARE, OTHER, SELFPAY ==
[2025-03-26] VITALS (11 sets, daily range): BP systolic 109–144; BP diastolic 56–71; PULSE 62–76; RESP 15–16; TEMP 36.9; O2SAT 91–98; BMI 35.4
[2025-03-26 09:36] LABS: Hematocrit 39.3 % (37-53); Hemoglobin 12.40 g/dL (11.27-16.99); Mean Corpuscular HGB Conc 31.6 g/dL (30-55); Mean Corpuscular Hemoglobin 28.9 pg (27-33); Mean Corpuscular Volume 91.6 fl (82-101); Nucleated Red Blood Cells % 0 %; Platelet Count 219 10^3/cmm (157-399); Red Blood Count 4.29 10^6/uL (3.85-5.65); White Blood Count 15.49 10^3/uL (3.29-11.43)
--- NOTE | 2025-03-26 10:00 | XACV_ITS ---
Exam Room: 2 Ht: 170 cm Wt: 103 kg BSA: 2.24 m2 Gender: Male : 1950 Any Known Allergies: Other Exam Priority: Routine Procedure(s): Procedure Description: Diagnostic procedure Procedure Description: Left Heart Catheterization Procedure Description: Left ventriculography Procedure Description: Coronary Angiography Diagnostic Cath Status: Elective Diagnostic Findings * INDICATION: Dyspnea on exertion/ abnormal stress test. * No disease noted in the Left Main, Left Anterior Descending, Right, or Circumflex coronary arteries. OM 2 bifurcates into 2 branches and lower branch has significant 80-90% stenosis. Medical therapy as size of branch is small to medium and patient is not experiencing chest pain. . * OM 2 is a medium sized vessel with its lower branch has 80-90% stenosis. * Coronary angiography shows right dominance. Conclusions 1. No disease noted in the Left Main, Left Anterior Descending, Right, or Circumflex coronary arteries. OM 2 bifurcates into 2 branches and lower branch has significant 80-90% stenosis. Medical therapy as size of branch is small to medium and patient is not experiencing chest pain. . 2. Mild left ventricular systolic dysfunction. Ejection fraction of 40%. Recommendations * Continue aggressive risk factor modification. * Outpatient cardiology follow up in 2 weeks. Interventional RX Recommendation: medical therapy and/or counseling Diagnostic RX Recommendation: medical therapy and/or counseling Anticoagulation: Heparin Ventriculography Ejection Fraction: 40.0 % Pressures Phase:Rest AO : 83 / 61 ( 69 ) @ 10:52:00 AM 129 / 71 ( 94 ) @ 11:00:00 AM 129 / 67 ( 91 ) @ 11:01:00 AM LV : 138 / 7 / 19 @ 10:59:00 AM 132 / 7 / 23 @ 11:00:00 AM 133 / 5 / 22 @ 11:00:00 AM Valves Phase:DefaultPhase AV : 4.0 @ 11:06:23 AM AV Mean Gradient: 13.0 @ 11:06:23 AM Clinical Evaluation EBL: 5mL-10mL Procedural Details Procedure Consent Obtained. Current Diagnosis : Chest Pain. Pre-Procedure Time Out. Identified patient by full name and date of as verbalized by the patient/guarantor. Does the consent match the physician's order: Yes. Accurate & Complete Informed Consent: Yes. Inpatient/Outpatient History & Physical on Chart: Yes. If H&P is completed, is and addenduem needed: No; If yes, is the addendum complete: N/A. Visualize and Verify Site with Patient/Guarantor: N/A. Relevant Radiology Images available: Yes. Pre-op teaching completed and patient verbalized understanding. The risks, benefits, and alternatives of sedation and/or procedure were discussed by physician. The patient agrees to continue. Procedure started. [facility] Clinical Fraility Score: 4: Vulnerable. Buttermaker Indications: Other. Chest Pain Symptom Assessment: Typical Angina Symptoms. Correct patient, site and procedure confirmed by cath team. Current diagnosis: Chest Pain. PERRLA. Strong, equal hand guard supervisor bilaterally. Lungs clear x 5 lobes. IV Site on Arrival: 20 gauge in the left hand. IV Fluids: 0.9% NaCl at KVO. 0 mL infused prior to labor law professor. Pre Procedural Pulses: bilateral dorsalis pedis was 2+. Pre Procedural Pulses: bilateral posterior tibial was Doppled. Pre Procedural Pulses: bilateral radial was 2+. Oxygen started at 2liters/min via nasal canula. right groin was prepped with chloroprep then draped in the usual sterile fashion. right radial was prepped with chloroprep then draped in the usual sterile fashion. Baseline sample Acquired. HR: 94 BPM. Physician arrived. Physician scrubbed in. Immediate Pre-Procedure Time Out. Correct Patient: Yes; Correct Procedure: Yes; Correct Site: Yes; Correct Patient Position: Yes; Correct Supplies: Yes; Dried Flammable Prep: Yes; Blood Products Available: N/A;. Lidocaine 1% infiltrated to the right radial. Arterial access obtained. A 5 yakut TIG catheter in over wire. Multiple views taken of left coronary artery. Catheter redirected to the RCA. Multiple views taken of right coronary artery. Catheter removed over the exchange wire. A 5 yakut Angled Pig catheter in over wire. EDP Sample taken: LV 138/7,19; HR: 91 BPM; SpO2: 97%. LV gram performed in SANDHU @ 10 mL/second for a total of 30 mL. EDP Sample taken: LV 132/7,23; HR: 94 BPM; SpO2: 96%. Pullback taken: LV 133/5,22; AO 129/71(94); Mean: 13mmHg, Peak to Peak: 4mmHg, SEP: 9sec/min; HR: 91 BPM; SpO2: 96%. Catheter removed over the exchange wire. Physician scrubbed out. Vital chart was stopped. A TR Band was successful obtaining hemostatsis at the Right Radial artery insertion site. Post Procedure: Pulses reassessed and unchanged. PERRLA. Strong, equal hand guard supervisor bilaterally. No VTE prophylaxis required. Medication's Wasted: Other = Fentanyl 75 mcg. Medication's Wasted: Lidocaine 1% = 18 mL. Medication's Wasted: Nitro = 49.8 mcg. Medication's Wasted: Heparin = 1000 units. Total IV fluids: 20 mL. Post-op diagnosis: Non-obstructive CAD. Complications: None. Estimated blood loss: 5mL-10mL. Responsiveness - Normal response to verbal stimuli; alert and oriented, PERRLA. Airway - Unaffected, no intervention required; spontaneous ventilation. Nausea/Vomiting: No. Circulation: W/N/L, pulses unchanged. Procedure completed. Patient transferred by stretcher to CPRU. Access Site Site: Right Radial artery Sheath Size: 6 Fr Hemostasis Method: TR Band Hemostasis Success: Successful Procedure Medications Start: 10:41 AM Stop: 10:41 AM Medication: Versed Amount: 1 mg Route: I.V. Start: 10:42 AM Stop: 10:42 AM Medication: Fentanyl Amount: 25 mcg Route: I.V. Start: 10:50 AM Stop: 10:50 AM Medication: Nitrogylcerin Amount: 200 mcg Route: I.A. Start: 10:51 AM Stop: 10:51 AM Medication: Heparin Amount: 5000 units Route: I.V. Start: 10:54 AM Stop: 10:54 AM Medication: Versed Amount: 1 mg Route: I.V. I, the attending physician, have reviewed and verified all procedure medications. Yes, all medications given per verbal order History/Risk Factors Hypertension: Yes Dyslipidemia: Yes Peripheral Arterial Disease (PAD): No Myocardial Infarction (AK): Yes Obesity: Yes Renal Disease: No Tobacco Use: Never Prior Interventions PCI: No CABG: No Valve Surgery: No Report Signatures Finalized by Janes Gracia MD on 04/13/2025 09:44 AM
[2025-03-26 10:16] LABS: Anion Gap 16.1 (5-19); Blood Urea Nitrogen 19 mg/dL (8-23); Calcium 9.2 mg/dL (8.5-10.5); Carbon Dioxide 28 mmol/L (22-29); Chloride 101 mmol/L (98-107); Glucose 141 mg/dL (65-115); Osmolality Calculated 297 mOsm/kg (285-295); Potassium 4.1 mmol/L (3.5-5.1); Sodium 141 mmol/L (136-145)
--- NOTE | 2025-03-26 10:43 | W.PM.OPSFHP ---
Same Day Surgery H&P Indication for Procedure/HPI DATE OF PROCEDURE: March 26, 2025 CHIEF COMPLAINT/INDICATIONFOR SURGICAL PROCEDURE: Abnormal stress test/ Congestive heart failure PREOP DIAGNOSIS: Abnormal stress test/ Congestive heart failure PLANNED PROCEDURE: Operation Date: 03/26/25 10:00 Proposed Procedures p Cardiac Catheterization - [facility] w/wo LV & Coros(Left) - Janes Gracia M.D 74-year-old man with past medical history of recently diagnosed atrial fibrillation who had a stress test. Has shortness of breath. Stress test showing small to medium sized area of prior infarct with some christina-infarct ischemia and apical lateral and apical inferior mitchell. Plan for coronary angiogram with possible percutaneous coronary intervention Medications/Allergies* Home Medications ?Medication ?Instructions ?Recorded ?Confirmed ?Type methadone 40 mg soluble tablet 40 mg PO DAILY 01/31/21 03/25/25 History atorvastatin 40 mg tablet 40 mg PO DAILY 03/25/25 03/25/25 History omeprazole 40 mg capsule,delayed 40 mg PO DAILY 03/25/25 03/25/25 History release spironolactone 25 mg tablet 25 mg PO DAILY 03/25/25 03/25/25 History Allergies/Adverse Reactions Allergy/AdvReac Type Severity Reaction Status Date / Time piperacillin (From Zosyn) Allergy Severe ALGY-Anaphy Verified 03/26/25 10:07 laxis tazobactam (From Zosyn) Allergy Severe ALGY-Anaphy Verified 03/26/25 10:07 laxis diazepam (From Valium) Allergy ADR-Confusi Verified 03/26/25 10:07 on Penicillins Allergy ALGY-Rash Verified 03/26/25 10:07 titanium Allergy ALGY-Rash Verified 03/26/25 10:07 Pertinent History/Comorbid Conditions* Medical History (Updated 03/13/25 @ 07:02 by Denice Coronado DO) Primary osteoarthritis of right hip Enrolled in chronic care management Severe obesity (BMI 35.0-39.9) with comorbidity Non-ischemic cardiomyopathy Poor dentition Streptococcal bacteremia Pes planus of both feet Incarcerated incisional hernia Traumatic tear of left rotator cuff BPH w urinary obs/LUTS Moderate episode of recurrent major depressive disorder Benign essential HTN Nocturia Cervical radiculopathy Iron deficiency anemia Mixed hyperlipidemia Diabetic foot ulcer Type 2 diabetes mellitus with foot ulcer, without long-term current use of insulin Hypertriglyceridemia Surgical History (Updated 10/26/23 @ 10:23 by Saturnino Ramires MD) Status post arthroscopy of left shoulder History of cataract surgery Status post colonoscopy (09/21/20) H/O esophagogastroduodenoscopy (09/21/20) History of right inguinal hernia repair History of umbilical hernia repair History of left shoulder replacement Hx of cholecystectomy History of appendectomy History of neck surgery History of back surgery History of right hip replacement Family History (Updated 05/23/19 @ 11:06 by Karen Baltazar LPN) Cancer Social History Smoking and tobacco/nicotine status: never used tobacco/nicotine Alcohol intake: never Substance/Drug Use: never Pertinent Exam Findings alert, oriented x 3, clear to auscultation bilaterally and regular rate & rhythm Conscious Sedation Assessment PATIENT ASSESSED PRIOR TO SEDATION, WITH NO CHANGE NOTED: Yes AIRWAY EVAL/ANESTHESIA PLAN: normal airway, ASA III, Local Anesthesia, Risks, benefits & alternatives of sedation and/or procedure discussed and Patient agrees to continue as planned ADDITIONAL INFORMATION: Moderate sedation Recommendations Risks and benefits of procedure reviewed and Patient/family agree to proceed Surgery/Procedure today (Left heart cath with possible percutaneous coronary intervention) Coding Level of Care Code Acute Code for Chg Fwd
--- NOTE | 2025-03-26 11:28 | PM.PROC ---
Procedure Note: Date of procedure: 03/26/25 Pre-procedure diagnosis: Dyspnea on exertion/ abnormal stress test Post-procedure diagnosis: other (Coronary artery disease) Procedure: Left main artery is patent. LAD has mild luminal irregularities. Left circumflex artery is patent. OM 2 bifurcates into 2 branches and lower branch has significant 80 to 90% stenosis. RCA is patent. Small to medium sized branch of OM 2 has a significant stenosis. Will medically treat patient as has no chest pain and size of artery is not large. LV gram shows mildly reduced LV function with EF of 40-45% Performing Provider: Janes Gracia Complications: None Condition: stable Disposition: same day Coding Level of Care Code Acute Code for Bill Fwcarina
--- NOTE | 2025-03-26 11:39 | SUR.PHASEII ---
POST CATH NOTE Received patient from medical lab assistant. Status post cardiac catheterization via the right radial approach. TR Band is in place to right wrist. Site is hemostatic with no s/s of hematoma or bleed present. Family/Patient updated by MD at this time. Verbalized understanding of post cath instructions. Call light within reach. Informed to call for needs. No pain reported. See PCS documentation for assessment details.
--- NOTE | 2025-03-26 11:44 | SUR.PHASEII ---
IV fluids set at 75 ml/hr post cath as per verbal order from Dr Gracia. Infusing without difficulty.
== END 2025-03-26 14:08 | disposition home or self-care (01) ==
PROVIDERS: PCP Family Medicine; Visit Provider Internal Medicine
DX: I25.10 Atherosclerotic heart disease of native coronary artery without angina pectoris (principal); I10 Essential (primary) hypertension; E78.5 Hyperlipidemia, unspecified; I25.2 Old myocardial infarction; E66.9 Obesity, unspecified; Z68.35 Body mass index [BMI] 35.0-35.9, adult; I51.81 Takotsubo syndrome; K21.9 Gastro-esophageal reflux disease without esophagitis; F33.9 Major depressive disorder, recurrent, unspecified; E11.9 Type 2 diabetes mellitus without complications
CPT/HCPCS: 36415; 80048; 85025; 93458; 99152; 99153; C1769; C1887; C1894; J1644; J2250; J3010; J3490; J7030; J9999; Q0163; Q9967

== ENCOUNTER 2025-04-06 07:57 | Outpatient (CLI) | payer MEDICARE, SELFPAY | END 2025-04-06 07:58 | disposition home or self-care (01) | LOC: SLEEP 07:58 | PROVIDERS: PCP Family Medicine; Referring Provider Internal Medicine Cardiovascular Disease; Visit Provider Internal Medicine Pulmonary Disease | DX: G47.33 Obstructive sleep apnea (adult) (pediatric) (principal) | CPT/HCPCS: G0399 ==